=== PATIENT | female | born 1950 | race Caucasian/White ===

== ENCOUNTER 2022-09-26 16:32 | Emergency (ER) | payer BC, SELFPAY ==
[2022-09-26] VITALS (16 sets, daily range): BP systolic 122–136; BP diastolic 61–83; PULSE 74–166; TEMP 36.1; O2SAT 93–98; BMI 29.5
--- NOTE | 2022-09-26 16:51 | CRLHL7_ITS ---
For Patients: As a result of the Cures Act, medical imaging exams and procedure reports are released immediately into your electronic medical record. You may view this report before your referring provider. If you have questions, please contact your health care provider. INDICATION: Short of breath. TECHNIQUE: Chest 2 views. COMPARISON: None. FINDINGS: No focal consolidation, pleural effusion, or pneumothorax. Opacity in the right cardiophrenic angle likely related to a cardiac fat pad. Linear atelectasis or scarring left lung base. Normal heart size and pulmonary vascularity. Surgical clips right upper quadrant. Mild degenerative changes of the spine. IMPRESSION: No acute cardiopulmonary findings. Dictated by Maricarmen Cornelius MD @ 09/26/2022 6:26:54 PM (Electronically Signed)
[2022-09-26] MEDS: 0.9 % SODIUM CHLORIDE 1000 ml 1,000 ML IV (17:11)
[2022-09-26 17:23] LABS: Basophils Absolute Auto 0.04 K/uL (0.00-0.30); Basophils Percent Auto 0.7 % (0.0-3.0); Eosinophils Absolute Auto 0.13 K/uL (0.00-0.50); Eosinophils Percent Auto 2.2 % (0.0-7.0); Hematocrit 43.8 % (33.0-51.0); Hemoglobin* 14.9 gm/dL (12.0-16.0); Immature Granulocytes Abs Auto 0.04 K/uL (0.00-0.30); Immature Granulocytes Pct Auto 0.7 %; Lymphocytes Absolute Auto 2.38 K/uL (0.90-2.90); Lymphocytes Percent Auto 39.4 % (20-44); Mean Corpuscular HGB Conc 34 gm/dL (32-36); Mean Corpuscular Hemoglobin 30 pg (26-34); Mean Corpuscular Volume 88 fL (80-100); Monocytes Percent Auto 11.4 % (0.0-11.0); Neutrophils Absolute Auto 2.76 K/uL (1.7-7.0); Neutrophils Percent Auto 45.6 % (42.0-72.0); Platelet Count* 181 K/uL (140-440); RDW Coefficient of Variation % 13.4 % (11.5-15.5); Red Blood Count 4.96 m/uL (4.00-5.20); White Blood Count* 6.04 K/uL (4.50-11.00)
[2022-09-26 17:26] LABS: Slide Review Reflex No
[2022-09-26 17:40] LABS: INR 0.88 (0.91-1.10); Prothrombin Time 12.5 Seconds
[2022-09-26 17:41] LABS: Chloride* 109 mmol/L (96-114); Partial Thromboplastin Time* 28 Seconds (23-33); Potassium* 3.6 mmol/L (3.6-5.1); Sodium* 142 mmol/L (135-149)
[2022-09-26 17:43] LABS: Creatinine* 0.6 mg/dL (0.5-1.5); Est. Creatinine Clearance* 52.36; Estimated Glomerular Filt Rate 95 ml/min
[2022-09-26 17:44] LABS: Blood Urea Nitrogen* 21 mg/dL (7-30); Calcium* 9.2 mg/dL (8.4-10.6); Carbon Dioxide* 21 mmol/L (20-32); Glucose* 97 mg/dL (60-115); Magnesium* 2.2 mg/dL (1.5-2.6)
--- NOTE | 2022-09-26 17:46 | ED_ITS ---
HPI - Arrhythmia/Palpitations General Date Seen: 09/26/22 Chief Complaint: Arrhythmia/Palpitations Stated Complaint: Cardiac Tacky Short of Breath Dizzy Time Seen by Provider: 09/26/22 16:43 Source: patient Mode of arrival: ambulatory Limitations: no limitations History of Present Illness HPI narrative: Patient is a 72-year-old female presents here for evaluation of fast heart rate, this started approximately 2 hours ago, she has no chest pain, some mild shortness of breath at this, this came on suddenly, when she was at home not doing anything. She denies any radiation nausea vomiting associated with this no diaphoresis. MD complaint: rapid heart beat and heart racing Onset (ago): hour(s) (2) Associated symptoms: denies other symptoms Related Data Home Medications Medication Instructions Recorded Confirmed dapagliflozin 10 mg tablet mg 09/26/22 (Farxiga) liraglutide (weight loss) 3 mg/0.5 mg subcut 09/26/22 mL (18 mg/3 mL) subcut pen injector (Saxenda) losartan 50 mg-hydrochlorothiazide tab 09/26/22 12.5 mg tablet metformin 500 mg tablet,extended mg PO 09/26/22 release 24 hr pen needle, diabetic 32 gauge x 09/26/22 09/26/22 5/32 (UltiCare Pen Needle) rosuvastatin 5 mg tablet mg 09/26/22 Allergies Allergy/AdvReac Type Severity Reaction Status Date / Time iodine Allergy Severe Verified 09/26/22 16:42 Review of Systems Status of ROS: Reports: 10 or more systems reviewed and unremarkable except as noted in History and below PFSH PFSH Social History Smoking Status: Smoker, status unknown Do you use any of these nicotine containing products: None Second hand tobacco smoke exposure: No How often do you have a drink containing alcohol: never How often do you have six or more drinks on one occasion: Never AUDIT-C Alcohol total score: 0 Non-prescribed substance use: denies use service: No Exam Narrative: Exam Narrative: Patient is initially seen in the hallway, her pupils are equal round reactive to light she is speaking to me normally, her heart rate varies between 150 and 180, she appears to be in atrial fibrillation. On our monitor. Pupils are equal round reactive to light, there is no scleral icterus redness, her TMs are normal, her neck is supple, her chest is clear bilaterally no wheezing crackles noted, heart sounds no clicks murmurs or gallops, her abdomen is soft, no guarding, no tenderness, no organomegaly, and normal bowel sounds are extremity show mild pitting edema 1+ in the lower extremity she moves all extremities independently and well. Const: Vital Signs, click to edit/add: Vital Signs - 24 hr 09/26/22 16:40 09/26/22 17:05 09/26/22 17:31 Temperature 96.9 F L Pulse Rate 96 Pulse Rate [Pulse Oximeter] 166 H Blood Pressure 128/83 Blood Pressure [Ri ght Upper Arm] 136/80 Pulse Oximetry 96 93 Oxygen Delivery Me thod Room Air 09/26/22 17:32 09/26/22 17:45 09/26/22 18:00 Temperature Pulse Rate 89 89 81 Pulse Rate [Pulse Oximeter] Blood Pressure 126/71 Blood Pressure [Ri ght Upper Arm] Pulse Oximetry 95 96 95 Oxygen Delivery Me thod 09/26/22 18:02 09/26/22 18:15 09/26/22 18:30 Temperature Pulse Rate 84 80 78 Pulse Rate [Pulse Oximeter] Blood Pressure 123/63 Blood Pressure [Ri ght Upper Arm] Pulse Oximetry 96 95 96 Oxygen Delivery Me thod 09/26/22 18:32 09/26/22 18:45 09/26/22 19:00 Temperature Pulse Rate 76 77 83 Pulse Rate [Pulse Oximeter] Blood Pressure 122/62 Blood Pressure [Ri ght Upper Arm] Pulse Oximetry 95 96 95 Oxygen Delivery Me thod 09/26/22 19:15 09/26/22 19:30 09/26/22 19:32 Temperature Pulse Rate 74 74 75 Pulse Rate [Pulse Oximeter] Blood Pressure 126/61 Blood Pressure [Ri ght Upper Arm] Pulse Oximetry 97 98 98 Oxygen Delivery Me thod 09/26/22 19:45 Temperature Pulse Rate 75 Pulse Rate [Pulse Oximeter] Blood Pressure Blood Pressure [Ri ght Upper Arm] Pulse Oximetry 98 Oxygen Delivery Me thod Documenting provider has reviewed patient's vital signs: yes Course Course Hospital Course: Discussed with the patient, we should repeat her troponin, in her EKG if these are normal, then I think we can let her go home with fluids, and rest, she was asking if she should continue her medications including liraglutide and the farxiga. I think it is reasonable to continue the Farxiga, her blood pressures been excellent here but she will need follow-up for this to see if she needs to go back on her losartan-hydrochlorothiazide. Reevaluation(s) Reevaluation #1: Follow-up troponins are negative, she has not had Ali, she remains in sinus rhythm, I think we can discharge her home at this point. Time: 20:01 Vital Signs Vital signs: Initial Vital Signs Temperature 96.9 F L 09/26/22 16:40 Temperature Source Temporal Artery Scan 09/26/22 16:40 Pulse Rate 166 H 09/26/22 16:40 Pulse Rhythm 09/26/22 16:40 Blood Pressure 136/80 09/26/22 16:40 Blood Pressure Mean 98 09/26/22 16:40 Blood Pressure Position Sitting 09/26/22 16:40 Pulse Oximetry 96 09/26/22 16:40 Oxygen Delivery Method 09/26/22 16:40 Vital Signs Temperature 96.9 F L 09/26/22 16:40 Pulse Rate 166 H 09/26/22 16:40 Blood Pressure 136/80 09/26/22 16:40 Pulse Oximetry 96 09/26/22 16:40 Oxygen Delivery Method 09/26/22 16:40 Temperature 96.9 F L 09/26/22 16:40 Pulse Rate 75 09/26/22 19:45 Blood Pressure 126/61 09/26/22 19:32 Pulse Oximetry 98 09/26/22 19:45 Oxygen Delivery Method 09/26/22 16:40 MDM - Arrhythmia/Palpitations MDM Narrative Medical decision making narrative: Differential diagnosis includes but is not limited to psychosocial stress, thyroid abnormalities, CHF, SVT, atrial fibrillation, ventricular tachycardia and ventricular fibrillation. This includes the life-threatening complications of heart failure, V-tach, and VFib Differential Diagnosis Differential diagnosis: Likely palpitations Medical Records Attestation: I reviewed the patient's medical records. Lab Data Attestation: I reviewed the patient's lab results. Labs: Lab Results 09/26/22 09/26/22 09/26/22 Range/Units 17:06 17:06 17:06 WBC 6.04 (4.50-11.00) K/uL RBC 4.96 (4.00-5.20) m/uL Hgb 14.9 (12.0-16.0) gm/dL Hct 43.8 (33.0-51.0) % MCV 88 (80-100) fL MCH 30 (26-34) pg MCHC 34 (32-36) gm/dL RDW Coeff of Greg 13.4 (11.5-15.5) % Plt Count 181 (140-440) K/uL Neut % (Auto) 45.6 (42.0-72.0) % Lymph % (Auto) 39.4 (20-44) % [place] % (Auto) 11.4 H (0.0-11.0) % Eos % (Auto) 2.2 (0.0-7.0) % Baso % (Auto) 0.7 (0.0-3.0) % Neut # (Auto) 2.76 (1.7-7.0) K/uL Lymph # (Auto) 2.38 (0.90-2.90) K/uL [place] # (Auto) 0.70 (0.00-0.90) K/UL Eos # (Auto) 0.13 (0.00-0.50) K/uL Baso # (Auto) 0.04 (0.00-0.30) K/uL INR (0.91-1.10) APTT (23-33) Seconds Sodium 142 (135-149) mmol/L Potassium 3.6 (3.6-5.1) mmol/L Chloride 109 (96-114) mmol/L Carbon Dioxide 21 (20-32) mmol/L BUN 21 (7-30) mg/dL Creatinine 0.6 (0.5-1.5) mg/dL Estimated Creat Clear 52.36 Estimated GFR 95 ml/min Glucose 97 (60-115) mg/dL Calcium 9.2 (8.4-10.6) mg/dL Magnesium 2.2 (1.5-2.6) mg/dL NT-Pro-B Natriuret Pep 119 pg/mL SARS-CoV-2 (PCR) Negative SARS-CoV-2 (Negative) Influenza Type A (PCR) Negative PCR FLU A (Negative) Influenza Type B (PCR) Negative PCR FLU B (Negative) RSV (PCR) Negative PCR RSV (Negative) POC Troponin I (0.01-0.04) ng/ml 09/26/22 09/26/22 09/26/22 Range/Units 17:06 17:06 19:11 WBC (4.50-11.00) K/uL RBC (4.00-5.20) m/uL Hgb (12.0-16.0) gm/dL Hct (33.0-51.0) % MCV (80-100) fL MCH (26-34) pg MCHC (32-36) gm/dL RDW Coeff of Greg (11.5-15.5) % Plt Count (140-440) K/uL Neut % (Auto) (42.0-72.0) % Lymph % (Auto) (20-44) % [place] % (Auto) (0.0-11.0) % Eos % (Auto) (0.0-7.0) % Baso % (Auto) (0.0-3.0) % Neut # (Auto) (1.7-7.0) K/uL Lymph # (Auto) (0.90-2.90) K/uL [place] # (Auto) (0.00-0.90) K/UL Eos # (Auto) (0.00-0.50) K/uL Baso # (Auto) (0.00-0.30) K/uL INR 0.88 L (0.91-1.10) APTT 28 (23-33) Seconds Sodium (135-149) mmol/L Potassium (3.6-5.1) mmol/L Chloride (96-114) mmol/L Carbon Dioxide (20-32) mmol/L BUN (7-30) mg/dL Creatinine (0.5-1.5) mg/dL Estimated Creat Clear Estimated GFR ml/min Glucose (60-115) mg/dL Calcium (8.4-10.6) mg/dL Magnesium (1.5-2.6) mg/dL NT-Pro-B Natriuret Pep pg/mL SARS-CoV-2 (PCR) (Negative) Influenza Type A (PCR) (Negative) Influenza Type B (PCR) (Negative) RSV (PCR) (Negative) POC Troponin I 0.00 L 0.01 (0.01-0.04) ng/ml Imaging Data Chest x-ray: Attestation: I have reviewed the pertinent imaging results. My impression: Negative chest x-ray Radiologist's impression: Patient: RON ARORA Facility:?[facility] Patient ID:?[id number] Site Patient ID:?[id number] Site :?[id number] Study:?XRay Chest 2 VIEW-09/26/2022 5:38:48 PM Ordering Physician:Lani Hanks Final Report: INDICATION: Short of breath. TECHNIQUE: Chest 2 views. COMPARISON: None. FINDINGS: No focal consolidation, pleural effusion, or pneumothorax. Opacity in the right cardiophrenic angle likely related to a cardiac fat pad. Linear atelectasis or scarring left lung base. Normal heart size and pulmonary vascularity. Surgical clips right upper quadrant. Mild degenerative changes of the spine. IMPRESSION: No acute cardiopulmonary findings. Dictated by Maricarmen Cornelius MD @ 09/26/ ECG Data Attestation: I personally reviewed and interpreted this ECG as follows: Interpretation: EKG shows atrial fibrillation that converted to normal sinus rhythm we were able to catch this with the EKG, follow-up EKG is otherwise normal, Discharge Plan Discharge Clinical Impression: Atrial fibrillation Patient Disposition: Home, Self-Care Condition: Stable Instructions: A-fib (Atrial Fibrillation) (ED) Additional Instructions: Home rest and use of fluids, I would hold on the use of the liraglutide till Thursday, please call your family physician to discuss her medications with him. Return if increasing heart rate, chest pain, shortness of breath. Prescriptions: No Action losartan-hydrochlorothiazide 50-12.5 mg tablet Label Comments: TAKE ONE TABLET BY MOUTH ONCE DAILY metformin 500 mg tablet extended release 24 hr PO Label Comments: TAKE 4 TABLETS (2,000 MG) BY MOUTH ONCE DAILY WITH EVENING MEAL. rosuvastatin 5 mg tablet Label Comments: TAKE 1 TABLET (5 MG) BY MOUTH AT BEDTIME. (DME) pen needle, diabetic [UltiCare Pen Needle] 32 gauge x 5/32 needle MISCELLANEOUS Label Comments: DIRECTED. Farxiga 10 mg tablet Saxenda 3 mg/0.5 mL (18 mg/3 mL) pen injector SUBCUT Label Comments: PLEASE SEE ATTACHED FOR DETAILED DIRECTIONS Follow Up/Referrals: Siobhan Easley MD [Primary Care Provider] - Stand Alone Forms: [facility] Info Instructions
[2022-09-26 18:00] LABS: PCR FLU A Negative PCR FLU A (Negative); PCR FLU B Negative PCR FLU B (Negative); PCR RSV Negative PCR RSV (Negative)
[2022-09-26 18:12] LABS: NT Pro B Type NatriureticPept* 119 pg/mL
[2022-09-26 18:15] LABS: SARS PCR* Negative SARS-CoV-2 (Negative)
[2022-09-26 19:23] LABS: Troponin, Point-of-Care* 0.01 ng/ml (0.01-0.04)
== END 2022-09-26 20:07 | disposition home or self-care (01) ==
PROVIDERS: Emergency Provider Family Medicine; PCP Family Medicine
DX: I48.91 Unspecified atrial fibrillation (principal)
CPT/HCPCS: 36415; 71046; 80048; 83735; 83880; 84484; 85025; 85610; 85730; 87502; 87634; 87635; 93005; 99284; J7030

== ENCOUNTER 2024-10-20 12:54 | Emergency (ER) | payer BC, SELFPAY ==
[2024-10-20 12:59] VITALS: BP 169/83; PULSE 74; RESP 16; TEMP 36.8; O2SAT 96; BMI 25.3
--- NOTE | 2024-10-20 13:56 | ED_ITS ---
HPI - General Adult General Chief complaint: Syncope/Fainted Stated complaint: Close to fainting while driving Time Seen by Provider: 10/20/24 13:26 History of Present Illness HPI narrative: This 74-year-old female comes in because of a near syncopal episode that occurred just prior to arrival. She was driving when she began to feel lightheaded and states that she almost blacked out. She was able to pull the car over and her symptoms resolved. Since then she has been feeling normal. She states that she had an episode about a month ago where she was hearing her heart rate in her right ear because of some middle ear issues. She was sitting again at that time and noticed that her heart was pounding fast. She began to feel some lightheadedness somewhat similar to what occurred today. She was wearing a smart watch that showed a heart rate of about 170 beats per minute. She connected with her primary physician who stated that she should have a heart monitor if symptoms like this are recurrent. The patient arrives here currently with normal vital signs and states that she feels back to normal. Related Data Home Medications ?Medication ?Instructions ?Recorded ?Confirmed dapagliflozin propanediol 10 mg mg 09/26/22 08/01/24 tablet (Farxiga) pen needle, diabetic 32 gauge x 09/26/22 09/26/22 (UltiCare Pen Needle) rosuvastatin 5 mg tablet mg 09/26/22 08/01/24 apixaban 5 mg tablet (Eliquis) 5 mg PO BID 08/01/24 10/20/24 cyclobenzaprine 10 mg tablet 5 - 10 mg PO 3XD PRN muscle spasm 08/01/24 08/01/24 dorzolamide 2 % eye drops 1 drp ophthalmic (eye) 3XD 08/01/24 08/01/24 fluorouracil 5 % topical cream applic topical QPM 08/01/24 08/01/24 mecobalamin (vitamin B12) 1,000 1,000 mcg PO QDAY 08/01/24 08/01/24 mcg lozenges semaglutide (weight loss) 2.4 mg subcut 08/01/24 08/01/24 mg/0.75 mL subcutaneous pen injector (Fashism) losartan 25 mg tablet mg 10/20/24 Allergies Allergy/AdvReac Type Severity Reaction Status Date / Time iodine Allergy Severe Verified 09/26/22 16:42 Iodinated Contrast Media Allergy Unknown Verified 10/20/24 13:06 latex Allergy Verified 08/01/24 08:32 Review of Systems Status of ROS: Reports: 10 or more systems reviewed and unremarkable except as noted in History and below Narrative: Constitutional: No fevers, no weight gain or loss. Eyes: No discharge. No vision changes. HENT: No congestion, no sore throat, no ear pain. Cardiovascular: No chest pain, no palpitations. Respiratory: No shortness of breath, no wheezes, no cough. Gastrointestinal: No abdominal pain, no vomiting, no diarrhea. Genitourinary: No dysuria, no hematuria. Musculoskeletal: Normal range of motion. Skin: No rashes, no pruritis. Neurological: No weakness, sensory change, speech change. Endo/Heme/Allergies: No bruising or bleeding. No polydipsia. Pysch: no suicidality, no anxiety, no insomnia. All other systems reviewed and are negative. [facility] Social History Smoking Status: Smoker, status unknown Do you use any of these nicotine containing products: None Second hand tobacco smoke exposure: No How often do you have a drink containing alcohol: never How often do you have six or more drinks on one occasion: Never AUDIT-C Alcohol total score: 0 Non-prescribed substance use: denies use service: No Exam Narrative: Exam Narrative: Constitutional: Well-developed, well-nourished, no acute distress. HEENT: Normocephalic, atraumatic. Neck: Normal range of motion. Nontender. Supple. Heart: Regular. No murmurs. Normal rate. Intact distal pulses. Lungs: Clear to auscultation. No chest discomfort. No wheezes, rhonchi, or rales. Abdomen: Normal bowel sounds. Nontender. No rebound tenderness. Genitalia: Deferred. Back: No midline tenderness. Normal range of motion. Extremities: Normal range of motion. No injury. Skin: Intact. No rash. Warm. No erythema or pallor. Neurologic: No altered sensation. No weakness. Alert and oriented. Psychiatric: No suicidality. No anxiety or depression. No insomnia. Nursing notes and vitals signs are reviewed. Const: Vital Signs, click to edit/add: Vital Signs - 24 hr 10/20/24 12:59 Temperature 98.3 F Pulse Rate [Pulse Oximeter] 74 Respiratory Rate 16 Blood Pressure [Ri ght Upper Arm] 169/83 H Pulse Oximetry 96 Oxygen Delivery Me thod Room Air Course Vital Signs Vital signs: Initial Vital Signs Temperature 98.3 F 10/20/24 12:59 Temperature Source Temporal Artery Scan 10/20/24 12:59 Pulse Rate 74 10/20/24 12:59 Respiratory Rate 16 10/20/24 12:59 Blood Pressure 169/83 H 10/20/24 12:59 Blood Pressure Mean 111 H 10/20/24 12:59 Blood Pressure Position Sitting 10/20/24 12:59 Pulse Oximetry 96 10/20/24 12:59 Oxygen Delivery Method Room Air 10/20/24 12:59 Vital Signs Temperature 98.3 F 10/20/24 12:59 Pulse Rate 74 10/20/24 12:59 Respiratory Rate 16 10/20/24 12:59 Blood Pressure 169/83 H 10/20/24 12:59 Pulse Oximetry 96 10/20/24 12:59 Oxygen Delivery Method Room Air 10/20/24 12:59 Temperature 98.3 F 10/20/24 12:59 Pulse Rate 74 10/20/24 12:59 Respiratory Rate 16 10/20/24 12:59 Blood Pressure 169/83 H 10/20/24 12:59 Pulse Oximetry 96 10/20/24 12:59 Oxygen Delivery Method Room Air 10/20/24 12:59 Medical Decision Making MDM Narrative Medical decision making narrative: This patient comes in with a near syncopal episode as described above. She had a similar symptom about a month ago and at that time was noted to have a rapid heart rate related to her symptoms. Her description of events today and previously are suspicious for supraventricular tachycardia however this has not been captured on a rhythm strip. Currently she feels back to normal and has normal vital signs. I did state that we typically do EKG and labs. I also stated that often we do not find a direct cause for these symptoms which have now resolved. The patient is interested in having a heart monitor and declined any EKG or lab studies today. She was fitted for a Zio patch and will follow-up with her primary physician. Discharge Plan Discharge Clinical Impression: Near syncope Patient Disposition: Home, Self-Care Condition: Improved Additional Instructions: Where Zio patch as instructed. Follow-up with primary physician for ongoing management. Return if worsening. Prescriptions: No Action Wegovy 2.4 mg/0.75 mL pen injector subcut Eliquis 5 mg tablet 5 mg PO BID dorzolamide 2 % drops 1 drp ophthalmic (eye) 3XD fluorouracil 5 % cream topical QPM cyclobenzaprine 10 mg tablet 5 - 10 mg PO 3XD PRN (Reason: muscle spasm) mecobalamin (vitamin B12) 1,000 mcg lozenge 1,000 mcg PO QDAY Rx Instructions: allow to dissolve in mouth OR may chew lightly before swallowing rosuvastatin 5 mg tablet Patient Comments: TAKE 1 TABLET (5 MG) BY MOUTH AT BEDTIME. (DME) pen needle, diabetic [UltiCare Pen Needle] 32 gauge x 5/32 needle MISCELLANEOUS Patient Comments: DIRECTED. Farxiga 10 mg tablet losartan 25 mg tablet Patient Comments: TAKE ONE-HALF TABLET (12.5 MG) BY MOUTH DAILY. Follow Up/Referrals: Siobhan Easley MD [Primary Care Provider] - Stand Alone [facility]
--- OUTSIDE RECORDS SUMMARY | 2024-10-20 14:03 | XMS_ITS | Encounter Summary ---
Author Organization [facility] Address [address] [place] [address] Care Team Providers Care Correctional Agency Director Name Role Phone Siobhan Easley Primary Care Provider [phone] Santiago Luz MD Unavailable [phone] Silvio Fish Unavailable [phone] Eduin Miguel MD Unavailable [phone] Lorie Tapia OD Unavailable Eduin Miguel MD Unavailable Frieda Byrd MD Unavailable [phone] Ava Up RN Unavailable [phone] Isabella Benavidez RN Unavailable Angelita Zamora RN Unavailable Raisa Contreras MD Unavailable Frieda Byrd MD Unavailable Victoria Mills RN Unavailable [phone] Rj De La Rosa MD Unavailable [phone] Mann Lock MD Unavailable Stefanie De Jesus RN Unavailable [phone] Licha Luz DO Unavailable [phone] Licha Luz DO Unavailable [phone] Reji Mack MD Unavailable [phone] Mann Lock MD Unavailable [phone] Licha Luz DO Unavailable [phone] Stefanie De Jesus RN Unavailable [phone] Mary Jane Lancaster PA-C Unavailable [phone] Tay Hernandez MD Unavailable [phone] Leonarda Ocasio LPN Unavailable Unavailable July Saucedo MD Unavailable [phone] Tay Hernandez MD Unavailable [phone] Tay Hernandez MD Unavailable [phone] Encounter Details Date Type Department Care Team (Late st Contact Info) Description 03/11/[address] [facility] Neurology [address] [place] [address] Papi Gee MD [address] [place] [address] [id number] [address] Social History Tobacco Use Types Packs/Day Years Used Date Smoking Tobacco: Former Cigarettes 2 10 1 09/10/1966 - 07/10/1977 Smokeless Tobacco: Never Alcohol Use Standard Drinks/Week Comments Yes 0 (1 standard drink = 0.6 oz pur e alcohol) 1 Martini every night. 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 Scott: Please thank her for pointing out the deficiency. Fortunately, knowing what we know now from the other lab tests and EMG we do not need to obtain aldolase and serum IF. Please encourage her to continue the vision work up as planned by her opthomologist. Spoke with patient and informed her of Dr. Scott's input above. She is scheduled to see Dr. Luz next week. No further questions per patient. * Telephone Encounter - Papi Gee MD - 03/11/2018 6:33 PM CDT I called Ms Bowles. Dr Scott ordered aldolase and ARUN. She noted visual loss in August and has seen her eye doctor several times, who referred her to a retina specialist and most recently to Dr Luz for further evaluation of a visual field cut. She read that ARUN might find something that could cause eye disease and wanted to know if it was not drawn because Dr Scott changed his mind or becauseof an oversight. I indicated that we could have it drawn now or she could wait until Dr Scott returns and see what he says. I suspect he does not feel the need to do this at this point. She will waituntil he returns. She understands that she will likely hear back from Ciara or Che after they speak with him. * Telephone Encounter - Papi Gee MD - 03/11/2018 6:32 PM CDT ----- Message from Rachel Marques LPN sent at 03/11/2018 12:24 PM CDT ----- Regarding: FW: call ----- Message ----- From: Annabelle Luz CMA Sent: 03/11/2018 8:32 AM To: Rachel Marques LPN Subject: call Caller: Claudia Relationship to Patient: self Call Back Number: [phone] Reason for Call: pt notice since she has seen him, she has been loosing her vision. Pt notice some of her test is not in mychart yet. documented in this encounter Plan of Treatment Upcoming Encounters Date Type Department Care Team (Late st Contact Info) Description 11/22/2024 10:00 AM CDT Lab [address] NAV[place]O 200 [facility] [place] [address] Tay Hernandez MD [address] [place] [address] 01/11/2025 10:30 AM CDT Office Visit [facility] - [facility] 516 [facility] SE 9 Fl Clin 9A [place] [address] Mann Lock MD [address] [place] [address] 05/23/2025 10:00 AM CDT Lab [address] NAVARRO 200 [facility] [place] [address] Tay Hernandez MD [address] [place] [address] 06/01/2025 2:00 PM CDT Oncology Visit [facility] 909 [place] [address] Tay Hernandez MD [address] [place] [address] documented as of this encounter Visit Diagnoses Not on filedocumented in this encounter Care Teams Correctional Agency Director Relationship Specialty Start Date End Date Siobhan Easley [address] [place] [address] PCP - General Family Practice 06/08/17 Santiago Luz MD [address] [place] [address] Ophthalmology 03/11/18 Silvio Fish [facility] 2019 [facility] [place] [address] Referring Physician Ophthalmology 03/11/18 Eduin Miguel MD [address] [place] [address] 127405 Ophthalmology 08/18/18 Lorie Tapia OD [address] [place] [address] Optometry 12/20/18 Eduin Miguel MD [address] [place] [address] [id number] Assigned Surgical Provider 06/01/20 04/20/21 Frieda Byrd MD [address] [place] [address] Assigned Rheumatology Provider 03/10/21 11/21/22 Ava Up, RN Specialty Grinding Room Inspector Cardiology 04/22/21 04/29/21 Isabella Benavidez, RN Specialty Grinding Room Inspector Cardiology 04/22/21 04/29/21 Angelita Zamora, SAHIL Specialty Grinding Room Inspector Cardiology 04/22/21 04/29/21 Raisa Contreras MD [address] [place] [address] Otolaryngology 04/24/21 Frieda Byrd MD [address] [place] [address] 902115 Rheumatology 04/24/21 Victoria Mills, SAHIL Specialty Grinding Room Inspector Cardiology 04/30/21 05/22/24 Rj De La Rosa MD Assigned Heart and Vascular Provider 04/28/21 06/26/23 Mann Lock MD [address] [place] [address] Assigned Surgical Provider 04/21/21 Stefanie De Jesus RN Registered Nurse 06/05/21 05/29/23 Licha Luz DO Hematology & Oncology 07/01/21 05/15/24 Licha Luz DO Referring Physician Hematology & Oncology 07/01/2105/15/24 Reji Mack MD [address] [place] [address] 636925 Otolaryngology 07/01/21 Mann Lock MD [address] [place] [address] 806985 Ophthalmology 07/02/21 [place] [address] [place] [address] Assigned Cancer Care Provider 06/16/21 01/30/24 Stefanie De Jesus, SAHIL Specialty Grinding Room Inspector Hematology & Oncology 05/30/23 05/15/24 Mary Jane Lancaster PA-C [address] [address] Assigned Cancer Care Provider 01/31/24 07/01/24 Tay Hernandez MD [address] [address] Hematology 05/16/24 Leonarda Ocasio LPN Specialty Grinding Room Inspector Hematology & Oncology 05/18/24 July Saucedo MD 515 [place] [address] Assigned Neuroscience Provider 06/01/24 Tay Hernandez MD [address] [address] Assigned Cancer Care Provider 07/02/24 Tay Hernandez MD [address] [address] Physician Hematology 10/07/24 documented as of this encounter
--- OUTSIDE RECORDS SUMMARY | 2024-10-20 14:03 | XMS_ITS | Encounter Summary ---
Author Organization [facility] Address [address] [place] [address]. [place] [address] Care Team Providers Care Tire Buster Name Role Phone Siobhan Easley Primary Care Provider [phone] Santiago Luz MD Unavailable [phone] Silvio Fish Unavailable [phone] Eduin Miguel MD Unavailable [phone] Lorie Tapia OD Unavailable Raisa Contreras MD Unavailable Frieda Byrd MD Unavailable Mann Lock MD Unavailable [phone] Reji Mack MD Unavailable [phone] Mann Lock MD Unavailable [phone] Tay Hernandez MD Unavailable [phone] Leonarda Ocasio LPN Unavailable Unavailable July Saucedo MD Unavailable [phone] Tay Hernandez MD Unavailable [phone] Encounter Details Date Type Department Care Team (Latest Contact Info) Description 09/20/2024 Travel Social History Tobacco Use Types Packs/Day Years Used Date Smoking Tobacco: Former Cigarettes 2 10 1 09/10/1966 - 07/10/1977 Smokeless Tobacco: Never Alcohol Use Standard Drinks/Week Comments Yes 0 (1 standard drink = 0.6 oz pur e alcohol) 2 drinks every evening Humiliation, Afraid, Rape, and Kick questionnair e Answer Date Recorded Within the last year, have y ou been afraid of your partner or ex-partner? No 05/28/2022 Within the last year, have y ou been humiliated or emotionally abused in other ways by your partner or ex-partner? No Within the last year, have y ou been kicked, hit, slapped, or otherwise physically hurt by your partner or ex-partner? No 05/28/2022 Within the last year, have y ou been raped or forced to have any kind of sexual activity by your partner or ex-partner? 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 Gender Identity Female 04/11/2021 7:42 AM CDT Sexual Orientation Straight 04/11/2021 7: 42 AM CDT documented as of this encounter Plan of Treatment Upcoming Encounters Date Type Department Care Team (Late st Contact Info) Description 11/22/2024 10:00 AM CDT Lab [address] [place] 200 [facility] [place] [address] Tay Hernandez MD 420 [facility] 480 [place], [place] 479735 01/11/2025 10:30 AM CDT Office Visit [facility] - [place] [id number] [facility] 9th Al Clin 9A [place] [address] Mann Lock MD [address] [place] [address] 05/23/2025 10:00 AM CDT Lab [facility] [place] [address] [place] 200 [facility] [place] [address] Tay Hernandez MD 420 [facility] 480 [place], [place] [address]635 06/01/2025 2:00 PM CDT Oncology Visit [facility] 909 [place] [address] Tay Hernandez MD 420 [facility] 480 [place], [place] [address] documented as of this encounter Visit Diagnoses Not on filedocumented in this encounter Additional Health Concerns Assessment Noted Time PHQ-9 Depression Total Score: 10 021 7:28 AM ANIMAL CONTROL OFFICER documented as of this encounter Care Teams Tire Buster Relationship Specialty Start Date End Date Siobhan Easley [address] [place] [address] PCP - General Family Practice 06/08/17 Santiago Luz MD [address] [place] [address] Ophthalmology 03/11/18 Silvio Fish [facility] [address] [place] [address] Referring Physician Ophthalmology 03/11/18 Eduin Miguel MD 420 [place], [place] 500505 Ophthalmology 08/18/18 Lorie Tapia OD [address] [address] Optometry 12/20/18 Raisa Contreras MD 909 [place], [place] 115565 Otolaryngology 04/24/21 Frieda Byrd MD 500 [place], [place] 156665 Rheumatology 04/24/21 Mann Lock MD [address] [place] [address] 215485 Assigned Surgical Provider 04/21/21 Reji Mack MD 500 [place], [place] 784085 Otolaryngology 07/01/21 Mann Lock MD [address] [place] [address] 654665 Ophthalmology 07/02/21 Tay Hernandez MD 420 [facility] 480 [place], [place] 719905 Hematology 05/16/24 Leonarda Ocasio LPN Specialty Cyanide Pot Hardener Hematology & Oncology 05/18/24 July Saucedo MD 515 [place], [place] 788405 Assigned Neuroscience Provider 06/01/24 Tay Hernandez MD 420 [facility] 480 [place], [place] 774175 Assigned Cancer Care Provider 07/02/24 documented as of this encounter
--- OUTSIDE RECORDS SUMMARY | 2024-10-20 14:03 | XMS_ITS | Encounter Summary ---
Author Organization [facility] Address [address] [place] [address] Care Team Providers Care Hard Metals Engraver Hand Name Role Phone Siobhan Easley Primary Care Provider Santiago Luz MD Unavailable [phone] Silvio Fish Unavailable [phone] Eduin Miguel MD Unavailable Lorie Tapia OD Unavailable [phone] Frieda Byrd MD Unavailable Raisa Contreras MD Unavailable Frieda Byrd MD Unavailable Victoria Mills RN Unavailable [phone] Rj De La Rosa MD Unavailable Mann Lock MD Unavailable [phone] tSefanie De Jesus RN Unavailable [phone] Licha Luz DO Unavailable Licha Luz DO Unavailable [phone] Reji Mack MD Unavailable [phone] Mann Lock MD Unavailable Licha Luz DO Unavailable [phone] LizaJusticea RN Unavailable [phone] Mary Jane Lancaster PA-C Unavailable [phone] Tay Hernandez MD Unavailable [phone] Leonarda Ocasio LPN Unavailable Unavailable July Saucedo MD Unavailable [phone] Tay Hernandez MD Unavailable [phone] Tay Hernandez MD Unavailable [phone] Encounter Details Date Type Department Care Team (Late Contact Info) Description 06/28/2021 MyC Medical Advice [facility] [address] Wa Clin 9A [place] [phone] Mann Lock MD [address] [place] [address] Social History Tobacco Use Types Packs/Day Years Used Date Smoking Tobacco: Former Cigarettes 2 10 1 09/10/1966 - 07/10/1977 Smokeless Tobacco: Never Alcohol Use Standard Drinks/Week Comments Yes 0 (1 standard drink = 0.6 oz pur e alcohol) 2 drinks every evening PHQ-2 Answer Date Recorded PHQ-2 Score 0 05/15/2021 Comments No Sex and Gender Information Value Date Recorded Sex Assigned at Female 04/11/2021 7:42 AM CDT Legal Sex Female 3:21 AM 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 No / Unsure 07/01/2021 9:19 AM BOX MAKER PAPERBOARD documented as of this encounter Plan of Treatment Upcoming Encounters Date Type Department Care Team (Late Contact Info) Description 11/22/2024 10:00 AM CDT Lab [facility] [place] [address] [place] 200 [facility] [place] [address] Tay Hernandez MD [address] [address] 01/11/2025 10:30 AM CDT Office Visit [facility] - [facility] 516 [facility] 9 Fl Clin 9A [place] [address] Mann Lock MD [address] [place] [address] 05/23/2025 10:00 AM CDT Lab [facility] [address] [place] 200 [facility] [place] [address] Tay Hernandez MD [address] [place] [address] 06/01/2025 2:00 PM CDT Oncology Visit [facility] 909 [place] [address] Tay Hernandez MD [address] [place] [address] documented as of this encounter Visit Diagnoses Not on filedocumented in this encounter Additional Health Concerns Assessment Noted Time PHQ-9 Depression Total Score: 13 021 10:19 AM CDT documented as of this encounter Care Teams Hard Metals Engraver Hand Relationship Specialty Start Date End Date Siobhan Easley [address] [place] [address] PCP - General Family Practice 06/08/17 Santiago Luz MD [address] [place] [address] Ophthalmology 03/11/18 Silvio Fish [facility] [address] [place] [address] Referring Physician Ophthalmology 03/11/18 Eduin Miguel MD 420 [place], [place] 935525 Ophthalmology 08/18/18 Lorie Tapia OD [address] [address] Optometry 12/20/18 Frieda Byrd MD [address] [place] [address] Assigned Rheumatology Provider 03/10/21 11/21/22 Raisa Contreras MD [address] [place] [address] 225495 Otolaryngology 04/24/21 Frieda Byrd MD [address] [place] [address] Rheumatology 04/24/21 Victoria Mills, RN Specialty Mouthpiece Maker Cardiology 04/30/21 05/22/24 Rj De La Rosa MD Assigned Heart and Vascular Provider 04/28/21 06/26/23 Mann Lock MD [address] [place] [address] Assigned Surgical Provider 04/21/21 Stefanie De Jesus RN Registered Nurse 06/05/21 05/29/23 Licha Luz DO Hematology & Oncology 07/01/21 05/15/24 Licha Luz DO Referring Physician Hematology & Oncology 07/01/2105/15/24 Reji Mack MD 500 [place] [address] Otolaryngology 07/01/21 Mann Lock MD [address] [place] [address] Ophthalmology 07/02/21 [place] [address] [place] [address] [address] Assigned Cancer Care Provider 06/16/21 01/30/24 Stefanie De Jesus RN Specialty Mouthpiece Maker Hematology & Oncology 05/30/23 05/15/24 Mary Jane Lancaster PA-C [address] [address] Assigned Cancer Care Provider 01/31/24 07/01/24 Tay Hernandez MD [address] [address] Hematology 05/16/24 Leonarda Ocasio LPN Specialty Mouthpiece Maker Hematology & Oncology 05/18/24 July Saucedo MD [address] [place] [address] Assigned Neuroscience Provider 06/01/24 Tay Hernandez MD [address] 179295 Assigned Cancer Care Provider 07/02/24 Tay Hernandez MD [address] [place] [address] 831685 Physician Hematology 10/07/24 documented as of this encounter
--- OUTSIDE RECORDS SUMMARY | 2024-10-20 14:03 | XMS_ITS | Encounter Summary ---
Author Organization [facility] Address [address] [place] [address] Care Team Providers Care Industrial Maintenance Mechanic Name Role Phone Siobhan Easley Primary Care Provider [phone] Santiago Luz MD Unavailable [phone] Silvio Fish Unavailable Eduin Miguel MD Unavailable Lorie Tapia OD Unavailable Frieda Byrd MD Unavailable Raisa Contreras MD Unavailable Frieda Byrd MD Unavailable Victoria Mills RN Unavailable [phone] Rj De La Rosa MD Unavailable Mann Lock MD Unavailable Stefanie De Jesus RN Unavailable [phone] Licha Luz DO Unavailable [phone] Licha Luz DO Unavailable [phone] eRji Mack MD Unavailable [phone] Mann Lock MD Unavailable Licha Luz DO Unavailable [phone] LizaStefanie RN Unavailable [phone] Mary Jane Lancaster PA-C Unavailable [phone] Tay Hernandez MD Unavailable [phone] Leonarda Ocasio LPN Unavailable Unavailable July Saucedo MD Unavailable [phone] Tay Hernandez MD Unavailable [phone] Tay Hernandez MD Unavailable [phone] Encounter Details Date Type Department Care Team (Late st Contact Info) Description 07/16/2021 [facility] Insurance Verification [place] Social History Tobacco Use Types Packs/Day Years Used Date Smoking Tobacco: Former Cigarettes 2 10 1 09/10/1966 - 07/10/1977 Smokeless Tobacco: Never Alcohol Use Standard Drinks/Week Comments Yes 0 (1 standard drink = 0.6 oz pur e alcohol) 2 drinks every evening PHQ-2 Answer Date Recorded PHQ-2 Score 1 07/17/2021 Comments No Sex and Gender Information Value Date Recorded Sex Assigned at Female 04/11/2021 7:42 AM CDT Legal Sex Female 3:21 AM 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 No / Unsure 07/17/2021 10:52 AM PESTICIDE USE MEDICAL COORDINATOR documented as of this encounter Plan of Treatment Upcoming Encounters Date Type Department Care Team (Late st Contact Info) Description 11/22/2024 10:00 AM CDT Lab [address] [place] 200 [facility] [place] [address] Tay Hernandez MD 420 [facility] 480 [place] [address] 01/11/2025 10:30 AM CDT Office Visit [facility] 516 [facility] SE 9th Fl Clin 9A [place] [address] Mann Lock MD 6 [place] [address] 05/23/2025 10:00 AM CDT Lab [facility] [place] [address] [address] 200 [facility] [place] [address] Tay Hernandez MD 420 [facility] 480 [place], [place] [address]13[address] 06/01/2025 2:00 PM CDT Oncology Visit [facility] 909 [place] [address] Tay Hernandez MD [address] [place] [address] documented as of this encounter Visit Diagnoses Not on filedocumented in this encounter Additional Health Concerns Assessment Noted Time PHQ-9 Depression Total Score: 10 021 7:28 AM PESTICIDE USE MEDICAL COORDINATOR documented as of this encounter Care Teams Industrial Maintenance Mechanic Relationship Specialty Start Date End Date Siobhan Easley [address] [place] [address] PCP - General Family Practice 06/08/17 Santiago Luz MD [address] [address] Ophthalmology 03/11/18 Silvio Fish [facility] [address] [place] [address] Referring Physician Ophthalmology 03/11/18 Eduin Miguel MD 420 [place], [place] 544055 Ophthalmology 08/18/18 Lorie Tapia OD [address] 0448[address] Optometry 12/20/18 Frieda Byrd MD 500 [place] [address] Assigned Rheumatology Provider 03/10/21 11/21/22 Raisa Contreras MD [address] [place] [address] 161395 Otolaryngology 04/24/21 Frieda Byrd MD [address] [place] [address] 214085 Rheumatology 04/24/21 Victoria Mills, SAHIL Specialty Consumer Safety Inspector Cardiology 04/30/21 05/22/24 Rj De La Rosa MD Assigned Heart and Vascular Provider 04/28/21 06/26/23 Mann Lock MD [address] [place] [address] 092435 Assigned Surgical Provider 04/21/21 Stefanie De Jesus, SAHIL Registered Nurse 06/05/21 05/29/23 Licha Luz DO Hematology & Oncology 07/01/21 05/15/24 Licha Luz DO Referring Physician Hematology & Oncology 07/01/2105/15/24 Reji Mack MD [address] [place] [address] 714645 Otolaryngology 07/01/21 Mann Lock MD [address] [place] [address] 904225 Ophthalmology 07/02/21 [place] [address] [facility] [place], [place] 173887 Assigned Cancer Care Provider 06/16/21 01/30/24 Stefanie De Jesus RN Specialty Consumer Safety Inspector Hematology & Oncology 05/30/23 05/15/24 Mary Jane Lancaster PA-C [address] 097985 Assigned Cancer Care Provider 01/31/24 07/01/24 Tya Hernandez MD 420 [facility] 480 [place], [place] 571325 Hematology 05/16/24 Leonarda Ocasio LPN Specialty Consumer Safety Inspector Hematology & Oncology 05/18/24 July Saucedo MD 515 [place], [place] 104185 Assigned Neuroscience Provider 06/01/24 Tay Hernandez MD [address] [address] Assigned Cancer Care Provider 07/02/24 Tay Hernandez MD [address] [place] [address] Physician Hematology 10/07/24 documented as of this encounter
--- OUTSIDE RECORDS SUMMARY | 2024-10-20 14:03 | XMS_ITS | Encounter Summary ---
Author Organization [facility] Address [address] [place] [address]. [place] [address] Care Team Providers Care Dairy Hand Name Role Phone Siobhan Easley Primary Care Provider [phone] Santiago Luz MD Unavailable [phone] Silvio Fish Unavailable [phone] Eduin Miguel MD Unavailable [phone] Lorie Tapia OD Unavailable [phone] Raisa Contreras MD Unavailable Frieda Byrd MD Unavailable [phone] Mann Lock MD Unavailable [phone] Reji Mack MD Unavailable [phone] Mann Lock MD Unavailable Tay Hernandez MD Unavailable [phone] Leonarda Ocasio LPN Unavailable Unavailable July Saucedo MD Unavailable [phone] Tay Hernandez MD Unavailable [phone] Reason for Visit * Reason Comments Uveitis Follow-Up Encounter Details Date Type Department Care Team (Late st Contact Info) Description 09/20/2024 10:00 AM NUTRITION INTERNSHIP Office Visit [place] [address] [facility] SE 9th Fl Clin 9A [place] [address] Mann Lock MD [address] [place] [address] Intermediate uveitis of both eyes (Primary Dx); Ocular hypertension, bilateral Social History Tobacco Use Types Packs/Day Years [...] AM CDT Legal Sex Female 3:21 AM NUTRITION INTERNSHIP Gender Identity Female 04/11/2021 7:42 AM CDT Sexual Orientation Straight 04/11/2021 7: 42 AM CDT documented as of this encounter Patient Instructions * Patient Instructions* Mann Lock MD - 09/20/2024 10:00 AM NUTRITION INTERNSHIP If you end up going to the [facility], you could consider looking to see Dr. Estefani Callejas at [facility] If you end up going to [place], Dr. Rigoberto Jackson at [facility]. For [place], you can look up Dr. Catalina Cast or Dr. Brooklyn Banda Continue Dorzolamide 2-3x/day in each eye (most days twice daily is just fine) No other treatments needed ITION INTERNSHIP ITION INTERNSHIP ITION INTERNSHIP ITION INTERNSHIP documented in this encounter Progress Notes * Mann Lock MD - 09/20/2024 10:00 AM CST Chief Complaint/Presenting Concern: Visual field testing Interval History of Present Ocular Illness: Claudia Bowles is a 74 year old patient who returns for follow up of her uveitis and ocular hypertension. Last visit we elected to increase Dorzolamide. Ms. Bowles has been able to do the drops 3x/day most days. Interval Updates to Medical/Family/Social History: Got another COVID vaccine Exercising regularly Relevant Review of Systems Updates: As above Current eye related medications: Dorzolamide 2-3x/day in each eye Retina/Uveitis Imaging: [facility] September 20, 2024 right eye: Reliable, No defects. VFI 100%MD 0.16dB. Improved left eye: reliable, central and paracentral spots stable, VFI 97% and MD - 2.03dB. Improved Assessment: 1. Intermediate uveitis of both eyes (Primary) No active inflammation 2. Ocular hypertension, bilateral Normal visual field right eye and small changes left eye but improved Plan/Recommendations: Discussed findings with patient.There is no active inflammation on undilated exam. Eye pressure is 17,18 and visual field test is normal right eye and improved left eye. We can monitor on Dorzolamide 2-3x/day in each eye (most days twice daily is just fine) No other treatments needed RTC 4 months tonopen, dilate, OCT and RNFL (Ordered) Physician Attestation Attending Physician Attestation: Complete documentation of historical and exam elements from today's encounter can be found in the full encounter summary report (not reduplicated in this progress note). I personally obtained the chief complaint(s) and history of present illness. I confirmed and edited as necessary the review of systems, past medical/surgical history, family history, social history, and examination findings as documented by others; and I examined the patient myself. I personallyreviewed the relevant tests, images, and reports as documented above. I formulated and edited as necessary the assessment and plan and discussed the findings and management plan with the patient and family members present at the time of this visit. Mann Lock M.D., Uveitis and Medical Retina, September 20, 2024 ITION INTERNSHIP documented in this encounter Nursing Notes * Stephanie Mercedes COA - 09/20/2024 10:00 AM CST Chief Complaints and History of Present Illnesses Patient presents with Follow Up Follow up uveitis Chief Complaint(s) and History of Present Illness(es) Follow Up Laterality: both eyes Associated symptoms: Negative for photophobia and flashes Treatments tried: eye drops Pain scale: 0/10 Comments: Follow up uveitis Comments The patient uses Dorzolamide three times daily. She occasionally forgets the middle of the day dose. She reports unchanged floaters. The patient did have a short course of steroids for chest congestion about a month ago. KIM Anderson COA 9:55 AM 09/20/2024 ITION INTERNSHIP documented in this encounter Plan of Treatment Upcoming Encounters Date Type Department Care Team (Late st Contact Info) Description 11/22/2024 10:[address] [place] 200 [facility] [place] [phone] Tay Hernandez MD 420 [facility] 480 [place], [place] [address] 01/11/2025 10:30 AM CDT Office Visit [facility] 516 [facility] 9th Fl Clin 9A [place] [address] Mann Lock MD [address] [place] [address] 05/23/2025 10:00 AM CDT Lab [facility] [place] [address] [facility] [address] 200 [facility] [place] [address] Tay Hernandez MD 420 [facility] 480 [place], [place] 6[address] 06/01/2025 2:00 PM CDT Oncology Visit [facility] [address] [place] [phone] Tay Hernandez MD [address] [place] [id number] documented as of this encounter Procedures Procedure Name Priority Date/Time Associated Diagnosis Comments OVF 24-2 DYNAMIC OU Routine 09/20/2024 1 1:42 AM NUTRITION INTERNSHIP Ocular hypertension, bilateral documented in this encounter Results * OVF 24-2 Dynamic OU (09/20/2024 11:42 AM NUTRITION INTERNSHIP) Narrative Mann Lock MD - 09/20/2024 11:42 AM NUTRITION INTERNSHIP Performed by: BD . Patient cooperation: Reliable . Good fix, not dilated. Right Eye Reliability of the test: Good . Interpretation: Normal . Plan: Monitor . Interval: Better . Left Eye Reliability of the test: Good . Interpretation: Abnormal . Plan: Monitor . Interval: Better . Notes [facility] September 20, 2024 right eye: Reliable, No defects. VFI 100%MD 0.16dB. Improved left eye: reliable, central and paracentral spots stable, VFI 97% and MD -2.03dB. Improved us Mann Lock MD OPHTHALMOLOGY Final R esult documented in this encounter Visit Diagnoses Diagnosis Intermediate uveitis of both eyes- Primary Ocular hypertension, bilateral Borderline glaucoma with ocular hypertension documented in this encounter Additional Health Concerns Assessment Noted Time PHQ-9 Depression Total Score: 10 021 7:28 AM NUTRITION INTERNSHIP documented as of this encounter Care Teams Dairy Hand Relationship Specialty Start Date End Date Siobhan Easley [address] [place] [address] PCP - General Family Practice 06/08/17 Santiago Luz MD 1400 [place] [address] Ophthalmology 03/11/18 Silvio Fish [facility] 2018 [facility] [place] [address] Referring Physician Ophthalmology 03/11/18 Eduin Miguel MD [address] [place], [place] [address] Ophthalmology 08/18/18 Lorie Tapia OD [address] [address] Optometry 12/20/18 Raisa Contreras MD [address] [place] [address] 933935 Otolaryngology 04/24/21 Frieda Byrd MD [address] [place] [address] 046845 Rheumatology 04/24/21 Mann Lock MD [address] [place] [address] Assigned Surgical Provider 04/21/21 Reji Mack MD [address] [place] [address] Otolaryngology 07/01/21 Mann Lock MD [address] [place] [address] Ophthalmology 07/02/21 Tay Hernandez MD [address] [place] [address] Hematology 05/16/24 Leonarda Ocasio LPN Specialty Triage Licensed Practical Nurse Hematology & Oncology 05/18/24 July Saucedo MD [address] [place] [address] Assigned Neuroscience Provider 06/01/24 Tay Hernandez MD [address] [place] [address] Assigned Cancer Care Provider 07/02/24 documented as of this encounter
--- OUTSIDE RECORDS SUMMARY | 2024-10-20 14:04 | XMS_ITS | Encounter Summary ---
Author Organization [facility] Address [address] [place] [address] Care Team Providers Care Field Collector Name Role Phone Siobhan Easley Primary Care Provider [phone] Santiago Luz MD Unavailable [phone] Silvio Fish Unavailable [phone] Eduin Miguel MD Unavailable Lorie Tapia OD Unavailable Frieda Byrd MD Unavailable Raisa Contreras MD Unavailable Frieda Byrd MD Unavailable Victoria Mills RN Unavailable [phone] Rj De La Rosa MD Unavailable Mann Lock MD Unavailable [phone] Stefanie De Jesus RN Unavailable [phone] Licha Luz DO Unavailable [phone] Licha Luz DO Unavailable [phone] Reji Mack MD Unavailable [phone] Mann Lock MD Unavailable Licha Luz DO Unavailable [phone] LizaStefanie SAHIL Unavailable [phone] Mary Jane Lancaster PA-C Unavailable [phone] Tay Hernandez MD Unavailable [phone] Leonarda Ocasio LPN Unavailable Unavailable July Saucedo MD Unavailable [phone] Tay Hernandez MD Unavailable [phone] Tay Hernandez MD Unavailable [phone] Encounter Details Date Type Department Care Team (Late st Contact Info) Description 07/09/2021 MyC Medical Advice [facility] [address] [address] [facility] Social History Tobacco Use Types Packs/Day Years Used Date Smoking Tobacco: Former Cigarettes 2 10 1 09/10/1966 - 07/10/1977 Smokeless Tobacco: Never Alcohol Use Standard Drinks/Week Comments Yes 0 (1 standard drink = 0.6 oz pur e alcohol) 2 drinks every evening PHQ-2 Answer Date Recorded PHQ-2 Score 4 07/08/2021 Comments No Sex and Gender Information Value Date Recorded Sex Assigned at Female 04/11/2021 7:42 AM CDT Legal Sex Female 3:21 AM POSTDOCTORAL RESEARCH FELLOW Gender Identity Female 04/11/2021 7:42 AM CDT Sexual Orientation Straight 04/11/2021 7: 42 AM CDT COVID-19 Exposure Response Date Recorded In the last month, have you been in contact with someone who was confirmed or suspected to have Coronavirus / COVID-19? No / Unsure 07/10/2021 12:46 PM POSTDOCTORAL RESEARCH FELLOW documented as of this encounter Plan of Treatment Upcoming Encounters Date Type Department Care Team (Late st Contact Info) Description 11/22/2024 10:00 AM CDT Lab [facility] [address] [place] 200 [facility] [place] [address] Tay Hernandez MD [address] [address] 01/11/2025 10:30 AM CDT Office Visit [facility] 516 [facility] SE 9th Fl Clin 9A [place] [address] Mann Lock MD 6 [place] [address] 05/23/2025 10:00 AM CDT Lab [facility] [place] [address] [place] 200 [facility] [place] [address] Tay Hernandez MD 420 [facility] 480 [place] [address] 06/01/2025 2:00 PM CDT Oncology Visit [facility] 909 [place] [address] Tay Hernandez MD [address] [place] [address] 480 [place], [place] 348135 documented as of this encounter Visit Diagnoses Not on filedocumented in this encounter Additional Health Concerns Assessment Noted Time PHQ-9 Depression Total Score: 10 021 7:28 AM POSTDOCTORAL RESEARCH FELLOW documented as of this encounter Care Teams Field Collector Relationship Specialty Start Date End Date Siobhan Easley [address] [place] [address] PCP - General Family Practice 06/08/17 Santiago Luz MD [address] [place] [address] Ophthalmology 03/11/18 Silvio Fish [facility] [address] [address] Referring Physician Ophthalmology 03/11/18 Eduin Miguel MD [address] [place] [address] Ophthalmology 08/18/18 Lorie Tapia OD [address] [place] [address] 845435 Optometry 12/20/18 Frieda Byrd MD [address] [place] [address] 334235 Assigned Rheumatology Provider 03/10/21 11/21/22 Raisa Contreras MD [address] [place] [address] Otolaryngology 04/24/21 Frieda Byrd MD [address] [place] [address] 001115 Rheumatology 04/24/21 Victoria Mills RN Specialty School Laboratory Technician Cardiology 04/30/21 05/22/24 Rj De La Rosa MD Assigned Heart and Vascular Provider 04/28/21 06/26/23 Mann Lock MD [address] [place] [address] 268725 Assigned Surgical Provider 04/21/21 Stefanie De Jesus RN Registered Nurse 06/05/21 05/29/23 Licha Luz DO Hematology & Oncology 07/01/21 05/15/24 Licha Luz DO Referring Physician Hematology & Oncology 07/01/2105/15/24 Reji Mack MD [address] [place] [address] 903725 Otolaryngology 07/01/21 Mann Lock MD [address] [place] [address] 578395 Ophthalmology 07/02/21 [place] [address] [place] [address] [id number] Assigned Cancer Care Provider 06/16/21 01/30/24 Stefanie De Jesus, SAHIL Specialty School Laboratory Technician Hematology & Oncology 05/30/23 05/15/24 Mary Jane Lancaster PA-C 420 [facility] 480 [place] [address] Assigned Cancer Care Provider 01/31/24 07/01/24 Tay Hernandez MD 420 [facility] 480 [place] [address] Hematology 05/16/24 Leonarda Ocasio LPN Specialty School Laboratory Technician Hematology & Oncology 05/18/24 July Saucedo MD 515 [place] [address] Assigned Neuroscience Provider 06/01/24 Tay Hernandez MD [address] 483[address] Assigned Cancer Care Provider 07/02/24 Tay Hernandez MD [address] 217525 Physician Hematology 10/07/24 documented as of this encounter
--- OUTSIDE RECORDS SUMMARY | 2024-10-20 14:04 | XMS_ITS | Encounter Summary ---
Author Organization [facility] Address [address] [place] [address] Care Team Providers Care Cereal Miller Name Role Phone Siobhan Easley Primary Care Provider [phone] Santiago Luz MD Unavailable [phone] Silvio Fish Unavailable [phone] Eduin Miguel MD Unavailable Lorie Tapia OD Unavailable Frieda Byrd MD Unavailable Raisa Contreras MD Unavailable Frieda Byrd MD Unavailable [phone] Victoria Mills RN Unavailable [phone] Rj De La Rosa MD Unavailable Mann Lock MD Unavailable [phone] Stefanie De Jesus RN Unavailable [phone] Licha Luz DO Unavailable [phone] Licha Luz DO Unavailable [phone] Reji Mack MD Unavailable [phone] Mann Lock MD Unavailable Licha Luz DO Unavailable [phone] Stefanie De Jesus RN Unavailable [phone] Mary Jane Lancaster PA-C Unavailable [phone] Tay Hernandez MD Unavailable [phone] Leonarda Ocasio LPN Unavailable Unavailable July Saucedo MD Unavailable [phone] Tay Hernandez MD Unavailable [phone] Tay Hernandez MD Unavailable [phone] Encounter Details Date Type Department Care Team (Late st Contact Info) Description 07/10/2021 MyC Medical Advice [facility] Interventional Radiology [address] [place] [address] Kirby Ramos, RN Social History Tobacco Use Types Packs/Day Years [...] AM CDT Legal Sex Female 3:21 AM GENERAL ENGINEERING TEACHER Gender Identity Female 04/11/2021 7:42 AM CDT Sexual Orientation Straight 04/11/2021 7: 42 AM CDT COVID-19 Exposure Response Date Recorded In the last month, have you been in contact with someone who was confirmed or suspected to have Coronavirus / COVID-19? No / Unsure 07/10/2021 12:46 PM GENERAL ENGINEERING TEACHER documented as of this encounter Plan of Treatment Upcoming Encounters Date Type Department Care Team (Late st Contact Info) Description 11/22/2024 10:00 AM CDT Lab [facility] [address] [place] 200 [facility] [place] [address] Tay Hernandez MD 420 [facility] 480 [place], [place] [address] 01/11/2025 10:30 AM CDT Office Visit [facility] Department 516 [facility] 9th Fl Clin 9A [place] [address] Mann Lock MD 516 [place] [address] 05/23/2025 10:00 AM CDT Lab [facility] [place] [address] [place] 200 [facility] [place] [address] Tay Hernandez MD 420 [facility] 480 [place], [place] [address] 06/01/2025 2:00 PM CDT Oncology Visit [facility] 909 [place] [phone] Tay Hernandez MD 420 [facility] 480 [place], [place] [address] documented as of this encounter Visit Diagnoses Not on filedocumented in this encounter Additional Health Concerns Assessment Noted Time PHQ-9 Depression Total Score: 10 021 7:28 AM GENERAL ENGINEERING TEACHER documented as of this encounter Care Teams Cereal Miller Relationship Specialty Start Date End Date Siobhan Easley [address] [place] [address] PCP - General Family Practice 06/08/17 Santiago Luz MD [address] [place] [address] Ophthalmology 03/11/18 Silvio Fish [facility] [address] [address] Referring Physician Ophthalmology 03/11/18 Eduin Miguel MD 420 [place] [address] Ophthalmology 08/18/18 Lorie Tapia OD [address] [address] Optometry 12/20/18 Frieda Byrd MD [address] [place] [address] 758535 Assigned Rheumatology Provider 03/10/21 11/21/22 Raisa Contreras MD [address] [place] [address] Otolaryngology 04/24/21 Frieda Byrd MD [address] [place] [address] 806395 Rheumatology 04/24/21 Victoria Mills RN Specialty Creasing Machine Operator Cardiology 04/30/21 05/22/24 Rj De La Rosa MD Assigned Heart and Vascular Provider 04/28/21 06/26/23 Mann Lock MD [address] [place] [address] Assigned Surgical Provider 04/21/21 Stefanie De Jesus RN Registered Nurse 06/05/21 05/29/23 Licha Luz DO Hematology & Oncology 07/01/21 05/15/24 Licha Luz DO Referring Physician Hematology & Oncology 07/01/2105/15/24 Reji Mack MD [address] [place] [address] 706775 Otolaryngology 07/01/21 Mann Lock MD [address] [place] [address] Ophthalmology 07/02/21 [place] [address] 773427 Assigned Cancer Care Provider 06/16/21 01/30/24 Stefanie De Jesus, SAHIL Specialty Creasing Machine Operator Hematology & Oncology 05/30/23 05/15/24 Mary Jane Lancaster PA-C 420 [facility] 480 [place], [place] 78[address] Assigned Cancer Care Provider 01/31/24 07/01/24 Tay Hernandez MD 420 [facility] 480 [place], [place] 6[address] Hematology 05/16/24 Leonarda Ocasio LPN Specialty Creasing Machine Operator Hematology & Oncology 05/18/24 July Saucedo MD 515 [place], [place] [address] Assigned Neuroscience Provider 06/01/24 Tay Hernandez MD [address] 810985 Assigned Cancer Care Provider 07/02/24 Tay Hernandez MD [address] 345185 Physician Hematology 10/07/24 documented as of this encounter
--- OUTSIDE RECORDS SUMMARY | 2024-10-20 14:04 | XMS_ITS | Encounter Summary ---
Author Organization [facility] Address [address] [place] [address] Care Team Providers Care Outreach Representative Name Role Phone Siobhan Easley Primary Care Provider Santiago Luz MD Unavailable [phone] Silvio Fish Unavailable [phone] Eduin Miguel MD Unavailable Lorie Tapia OD Unavailable Frieda Byrd MD Unavailable Raisa Contreras MD Unavailable Frieda Byrd MD Unavailable Victoria Mills RN Unavailable [phone] Rj De La Rosa MD Unavailable Mann Lock MD Unavailable Stefanie De Jesus RN Unavailable [phone] Licha Luz DO Unavailable [phone] Licha Luz DO Unavailable [phone] Reji Mack MD Unavailable Mann Lock MD Unavailable [phone] Licha Luz DO Unavailable [phone] LizaStefanie RN Unavailable [phone] Mary Jane Lancaster PA-C Unavailable [phone] Tay Hernandez MD Unavailable [phone] Leonarda Ocasio LPN Unavailable Unavailable July Saucedo MD Unavailable +[phone] Tay Hernandez MD Unavailable + [phone] Tay Hernandez MD Unavailable [phone] Encounter Details Date Type Department Care Team (Late st Contact Info) Description 07/16/2021 [facility] Insurance Verification Susana [place] Social History Tobacco [...] AM CDT Legal Sex Female 3:21 AM 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 No / Unsure 07/17/2021 10:52 AM INDUSTRIAL AUTOMATION SPECIALIST documented as of this encounter Plan of Treatment Upcoming Encounters Date Type Department Care Team (Late st Contact Info) Description 11/22/2024 10:00 AM CDT Lab [address] [place] 200 [facility] [place] [phone] Tay Hernandez MD 420 [facility] 480 [place] [address] 01/11/2025 10:30 AM CDT Office Visit [facility] [place] [facility] [address] [facility] SE 9th Fl Clin 9A [place] [address] Mann Lock MD 6 [place] [address] 05/23/2025 10:00 AM CDT Lab [facility] [place] [address] [place] 200 [facility] [place] [place] [address] Tay Hernandez MD 420 [facility] 480 [place], [place] 458715 06/01/2025 2:00 PM CDT Oncology Visit [facility] 909 [place] [address] Tay Hernandez MD [address] [place] [address] documented as of this encounter Visit Diagnoses Not on filedocumented in this encounter Additional Health Concerns Assessment Noted Time PHQ-9 Depression Total Score: 10 021 7:28 AM INDUSTRIAL AUTOMATION SPECIALIST documented as of this encounter Care Teams Outreach Representative Relationship Specialty Start Date End Date Siobhan Easley [address] [address] PCP - General Family Practice 06/08/17 Santiago Luz MD [address] [place] [address] Ophthalmology 03/11/18 Silvio Fish [facility] [address] [place] [address] Referring Physician Ophthalmology 03/11/18 Eduin Miguel MD 420 [place], [place] 226545 Ophthalmology 08/18/18 Lorie Tapia OD [address] 755[address] Optometry 12/20/18 Frieda Byrd MD 500 [place] [address] Assigned Rheumatology Provider 03/10/21 11/21/22 Raisa Contreras MD [address] [place] [address] 071675 Otolaryngology 04/24/21 Frieda Byrd MD [address] [place] [address] 114535 Rheumatology 04/24/21 Victoria Mills, SAHIL Specialty Resident Inspector Cardiology 04/30/21 05/22/24 Rj De La Rosa MD Assigned Heart and Vascular Provider 04/28/21 06/26/23 Mann Lock MD [address] [place] [address] 944065 Assigned Surgical Provider 04/21/21 Stefanie De Jesus, SAHIL Registered Nurse 06/05/21 05/29/23 Licha Luz DO Hematology & Oncology 07/01/21 05/15/24 Licha Luz DO Referring Physician Hematology & Oncology 07/01/2105/15/24 Reji Mack MD [address] [place] [address] 477295 Otolaryngology 07/01/21 Mann Lock MD [address] [place] [address] 574645 Ophthalmology 07/02/21 [place] [address] [facility] [place], [place] 491467 Assigned Cancer Care Provider 06/16/21 01/30/24 Stefanie De Jesus RN Specialty Resident Inspector Hematology & Oncology 05/30/23 05/15/24 Mary Jane Lancaster PA-C [address] 639305 Assigned Cancer Care Provider 01/31/24 07/01/24 Tay Hernandez MD 420 [facility] 480 [place], [place] 390355 Hematology 05/16/24 Leonarda Ocasio LPN Specialty Resident Inspector Hematology & Oncology 05/18/24 July Saucedo MD 515 [place], [place] 976645 Assigned Neuroscience Provider 06/01/24 Tay Hernandez MD [address] [address] Assigned Cancer Care Provider 07/02/24 Tay Hernandez MD [address] [place] [address] Physician Hematology 10/07/24 documented as of this encounter
--- OUTSIDE RECORDS SUMMARY | 2024-10-20 14:04 | XMS_ITS | Encounter Summary ---
Author Organization [facility] Address [address] [place] [address] Care Team Providers Care Crystal Grower Name Role Phone Siobhan Easley Primary Care Provider [phone] Santiago Luz MD Unavailable [phone] Silvio Fish Unavailable [phone] Eduin Miguel MD Unavailable [phone] Lorie Tapia OD Unavailable Eduin Miguel MD Unavailable Frieda Byrd MD Unavailable Ava Up RN Unavailable [phone] Isabella Benavidez RN Unavailable Angelita Zamora RN Unavailable Raisa Contreras MD Unavailable Frieda Byrd MD Unavailable [phone] Victoria Mills RN Unavailable [phone] Rj De La Rosa MD Unavailable [phone] Mann Lock MD Unavailable [phone] Stefanie De Jesus RN Unavailable Licha Luz DO Unavailable [phone] Licha Luz DO Unavailable [phone] Reji Mack MD Unavailable [phone] Mann Lock MD Unavailable [phone] Licha Luz DO Unavailable [phone] Stefanie De Jesus RN Unavailable [phone] Mary Jane Lancaster PA-C Unavailable [phone] Tay Hernandez MD Unavailable [phone] Leonarda Ocasio LPN Unavailable Unavailable July Saucedo MD Unavailable [phone] Tay Hernandez MD Unavailable [phone] Tay Hernandez MD Unavailable [phone] Reason for Visit * Reason Onset Date Comments Same Day Appointment 07/02/2020 Encounter Details Date Type Department Care Team (Late st Contact Info) Description 07/02/2020 Telephone [facility] [address] [facility] 9 Wa Clin 9A [place] [phone] Eduin Miguel MD 420 [place], [place] 85[address] Same Day Appointment Social History Tobacco Use Types Packs/Day Years Used Date Smoking Tobacco: Former Cigarettes 2 10 1 09/10/1966 - 07/10/1977 Smokeless Tobacco: Never Alcohol Use Standard Drinks/Week Comments Yes 0 (1 standard drink = 0.6 oz pur e alcohol) 1 Martini every night. 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 No / Unsure 07/02/2020 10:58 AM FAMILY RESOURCE MANAGEMENT PROFESSOR documented as of this encounter Miscellaneous Notes * Telephone Encounter - Gianfranco Judd - 07/02/2020 8:26 AM CST [facility] Phone Message May a detailed message be left on voicemail: yes Reason for Call: Other: Pt spoke with it application support analyst doctor on Thursday and was instructed to follow-up inclinic today. Pt lives 1 hr away and would like to get something set up jennifer. Unable to reach clinic. Please call pt back jennifer. Try Home Ph first and then cell phone. Action Taken: Other: eye Travel Screening: Not Applicable LY RESOURCE MANAGEMENT PROFESSOR documented in this encounter Plan of Treatment Upcoming Encounters Date Type Department Care Team (Late st Contact Info) Description 11/22/2024 10:00 AM CDT Lab [address] [place] 200 [facility] [place] [address] Tay Hernandez MD [address] [address] 01/11/2025 10:30 AM CDT Office Visit [facility] [address] [facility] 9 Wa Clin 9A [place] [address] Mann Lock MD [address] [place] [address] 05/23/2025 10:00 AM CDT Lab [place] [address] [place] [address] [place] 200 [facility] [place] [address] Tay Hernandez MD [address] [address] 06/01/2025 2:00 PM CDT Oncology Visit [facility] 909 [place] [phone] Tay Hernandez MD 420 [facility] 480 [place] [address] documented as of this encounter Visit Diagnoses Not on filedocumented in this encounter Additional Health Concerns Assessment Noted Time PHQ-9 Depression Total Score: 5 05/03/20 20 1:12 PM CDT documented as of this encounter Care Teams Crystal Grower Relationship Specialty Start Date End Date Siobhan Easley [address] [place] [address] PCP - General Family Practice 06/08/17 Santiago Luz MD [address] [place] [address] Ophthalmology 03/11/18 Silvoi Fish [facility] [address] [place] [address] Referring Physician Ophthalmology 03/11/18 Eduin Miguel MD [address] [place] [address] 766915 Ophthalmology 08/18/18 Lorie Tapia OD [address] [place] [address] 493 [place], [place] 346755 Optometry 12/20/18 Eduin Miguel MD [address] [place] [address] Assigned Surgical Provider 06/01/20 04/20/21 Frieda Byrd MD 500 [place], [place] 377365 Assigned Rheumatology Provider 03/10/21 11/21/22 Ava Up, RN Specialty Cutting Machine Offbearer Cardiology 04/22/21 04/29/21 Isabella Benavidez, SAHIL Specialty Cutting Machine Offbearer Cardiology 04/22/21 04/29/21 Angelita Zamora, SAHIL Specialty Cutting Machine Offbearer Cardiology 04/22/21 04/29/21 Raisa Contreras MD [address] [place] [address] Otolaryngology 04/24/21 Frieda Byrd MD 500 [place], [place] 229145 Rheumatology 04/24/21 Victoria Mills RN Specialty Cutting Machine Offbearer Cardiology 04/30/21 05/22/24 Rj De La Rosa MD Assigned Heart and Vascular Provider 04/28/21 06/26/23 Mann Lock MD [address] [place] [address] Assigned Surgical Provider 04/21/21 Stefanie De Jesus, SAHIL Registered Nurse 06/05/21 05/29/23 Licha Luz DO Hematology & Oncology 07/01/21 05/15/24 Licha Luz DO Referring Physician Hematology & Oncology 07/01/2105/15/24 Reji Mack MD [address] [place] [address] Otolaryngology 07/01/21 Mann Lock MD [address] [place] [address] Ophthalmology 07/02/21 [place] [address] [phone] Assigned Cancer Care Provider 06/16/21 01/30/24 Stefanie De Jesus, SAHIL Specialty Cutting Machine Offbearer Hematology & Oncology 05/30/23 05/15/24 Mary Jane Lancaster PA-C [address] [address] Assigned Cancer Care Provider 01/31/24 07/01/24 Tay Hernandez MD [address] 663305 Hematology 05/16/24 Leonarda Ocasio LPN Specialty Cutting Machine Offbearer Hematology & Oncology 05/18/24 July Saucedo MD 515 [place], [place] 972635 Assigned Neuroscience Provider 06/01/24 Tay Hernandez MD [address] [address] Assigned Cancer Care Provider 07/02/24 Tay Hernandez MD [address] [address] Physician Hematology 10/07/24 documented as of this encounter
--- OUTSIDE RECORDS SUMMARY | 2024-10-20 14:04 | XMS_ITS | Encounter Summary ---
Author Organization [facility] Address [address] [place] [address] Care Team Providers Care Chief Media Officer Name Role Phone Siobhan Easley Primary Care Provider Santiago Luz MD Unavailable [phone] Silvio Fish Unavailable [phone] Eduin Miguel MD Unavailable Lorie Tapia OD Unavailable Frieda Byrd MD Unavailable Raisa Contreras MD Unavailable Frieda Byrd MD Unavailable Victoria Mills RN Unavailable [phone] Rj De La Rosa MD Unavailable Mann Lock MD Unavailable Stefanie De Jesus RN Unavailable [phone] Licha Luz DO Unavailable [phone] Licha Luz DO Unavailable [phone] Reji Mack MD Unavailable Mann Lock MD Unavailable Licha Luz DO Unavailable [phone] Liza Stefanieraquel BAXTER Unavailable [phone] Mary Jane Lancaster PA-C Unavailable [phone] Tay Hernandez MD Unavailable [phone] Leonarda Ocasio LPN Unavailable Unavailable uJly Saucedo MD Unavailable [phone] Tay Hernandez MD Unavailable [phone] Tay Hernandez MD Unavailable [phone] Encounter Details Date Type Department Care Team (Late Contact Info) Description 07/09/2021 [facility] Medical Advice [facility] [address] [place] [address] Marcelina Ortiz NP [address] [place] [address] Social History Tobacco Use Types Packs/Day [...] AM CDT 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 No / Unsure 07/10/2021 12:46 PM SQUAD LEADER documented as of this encounter Plan of Treatment Upcoming Encounters Date Type Department Care Team ([facility] Contact Info) Description 11/22/2024 10:00 AM CDT Lab [facility] [address] [place] 200 [facility] Medical Ctr [place] [phone] Tay Hernandez MD [address] [address] 01/11/2025 10:30 AM CDT Office Visit [facility] 516 [facility] 9 Fl Clin 9A [place] [address] Mann Lock MD [address] [place] [address] 05/23/2025 10:00 AM CDT Lab [facility] [place] [address] [place] [address] 200 [facility] [place] [place] [address] Tay Hernandez MD [address] [place] [address] 06/01/2025 2:00 PM CDT Oncology Visit [facility] Cancer Clinic 909 [place] [address] Tay Hernandez MD [address] [place] [address] documented as of this encounter Visit Diagnoses Not on filedocumented in this encounter Additional Health Concerns Assessment Noted Time PHQ-9 Depression Total Score: 10 021 7:28 AM SQUAD LEADER documented as of this encounter Care Teams Chief Media Officer Relationship Specialty Start Date End Date Siobhan Easley [address] [place] [address] PCP - General Family Practice 06/08/17 Santiago Luz MD [address] [place] [address] Ophthalmology 03/11/18 Silvio Fish [facility] [address] [place] [address] Referring Physician Ophthalmology 03/11/18 Eduin Miguel MD 420 [place], [place] 522825 Ophthalmology 08/18/18 Lorie Tapia OD [address] 799[address] Optometry 12/20/18 Frieda Byrd MD [address] [place] [address] 04284455 Assigned Rheumatology Provider 03/10/21 11/21/22 Raisa Contreras MD [address] [place] [address] 565315 Otolaryngology 04/24/21 Frieda Byrd MD [address] [place] [address] 208315 Rheumatology 04/24/21 Victoria Mills, RN Specialty Director Funeral Cardiology 04/30/21 05/22/24 Rj De La Rosa MD Assigned Heart and Vascular Provider 04/28/21 06/26/23 Mann Lock MD [address] [place] [address] 026925 Assigned Surgical Provider 04/21/21 Stefanie De Jesus RN Registered Nurse 06/05/21 05/29/23 Licha Luz DO Hematology & Oncology 07/01/21 05/15/24 Licha Luz DO Referring Physician Hematology & Oncology 07/01/2105/15/24 Reji Mack MD 500 [place] [address] Otolaryngology 07/01/21 Mann Lock MD [address] [place] [address] Ophthalmology 07/02/21 [place] [address] [place] [address] [address] Assigned Cancer Care Provider 06/16/21 01/30/24 Stefanie De Jesus RN Specialty Director Funeral Hematology & Oncology 05/30/23 05/15/24 Mary Jane Lancaster PA-C [address] 667045 Assigned Cancer Care Provider 01/31/24 07/01/24 Tay Hernandez MD [address] [address] Hematology 05/16/24 Leonarda Ocasio LPN Specialty Director Funeral Hematology & Oncology 05/18/24 July Saucedo MD [address] [place] [address] Assigned Neuroscience Provider 06/01/24 Tay Hernandez MD [address] [place] [address] Assigned Cancer Care Provider 07/02/24 Tay Hernandez MD [address] [place] [address] 522225 Physician Hematology 10/07/24 documented as of this encounter
--- OUTSIDE RECORDS SUMMARY | 2024-10-20 14:04 | XMS_ITS | Encounter Summary ---
Author Organization [facility] Address [address] [place] [address] Care Team Providers Care Graduate Intern Name Role Phone Siobhan Easley Primary Care Provider [phone] Santiago Luz MD Unavailable [phone] Silvio Fish Unavailable [phone] Eduin Miguel MD Unavailable Lorie Tapia OD Unavailable Frieda Byrd MD Unavailable Raisa Contreras MD Unavailable Frieda Byrd MD Unavailable Victoria Mills RN Unavailable [phone] Rj De La Rosa MD Unavailable Mann Lock MD Unavailable Stefanie De Jesus RN Unavailable [phone] Licha Luz DO Unavailable [phone] Licha Luz DO Unavailable Reji Mack MD Unavailable [phone] Mann Lock MD Unavailable [phone] Licha Luz DO Unavailable [phone] LizaStefanie RN Unavailable [phone] Mary Jane Lancaster PA-C Unavailable [phone] Tay Hernandez MD Unavailable [phone] Leonarda Ocasio LPN Unavailable Unavailable July Saucedo MD Unavailable [phone] Tay Hernandez MD Unavailable [phone] Tay Hernandez MD Unavailable [phone] Encounter Details Date Type Department Care Team (Late st Contact Info) Description 07/15/2021 [facility] [...] AM CDT 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 No / Unsure 07/17/2021 10:52 AM HEAT AND FROST INSULATOR HELPER documented as of this encounter Plan of Treatment Upcoming Encounters Date Type Department Care Team (Late st Contact Info) Description 11/22/2024 10:00 AM CDT Lab [address] [place]O 200 [facility] [place] [phone] Tay Hernandez MD 420 [facility] 480 [place] [address] 01/11/2025 10:30 AM CDT Office Visit [facility] [address] [facility] SE 9th Fl Clin 9A [place] [address] Mann Lock MD 6 [place] [address] 05/23/2025 10:00 AM CDT Lab [facility] [place] [address] [place] [address] [place] 200 [facility] [place] [address] Tay Hernandez MD 420 [facility] 480 [place], [place] [address] 06/01/2025 2:00 PM CDT Oncology Visit [facility] 909 [place] [phone] Tay Hernandez MD [address] [place] [address] documented as of this encounter Visit Diagnoses Not on filedocumented in this encounter Additional Health Concerns Assessment Noted Time PHQ-9 Depression Total Score: 10 021 7:28 AM HEAT AND FROST INSULATOR HELPER documented as of this encounter Care Teams Graduate Intern Relationship Specialty Start Date End Date Siobhan Easley [address] [place] [address] PCP - General Family Practice 06/08/17 Santiago Luz MD [address] [place] [address] Ophthalmology 03/11/18 Silvio Fish [facility] [address] [place] [address] Referring Physician Ophthalmology 03/11/18 Eduin Miguel MD 420 [place], [place] 353195 Ophthalmology 08/18/18 Lorie Tapia OD [address] 6789[address] Optometry 12/20/18 Frieda Byrd MD 500 [place] [address] Assigned Rheumatology Provider 03/10/21 11/21/22 Raisa Contreras MD [address] [place] [address] 220605 Otolaryngology 04/24/21 Frieda Byrd MD [address] [place] [address] 210075 Rheumatology 04/24/21 Victoria Mills, SAHIL Specialty Carpenters Supervisor Cardiology 04/30/21 05/22/24 Rj De La Rosa MD Assigned Heart and Vascular Provider 04/28/21 06/26/23 Mann Lock MD [address] [place] [address] 306445 Assigned Surgical Provider 04/21/21 Stefanie De Jesus, SAHIL Registered Nurse 06/05/21 05/29/23 Licha Luz DO Hematology & Oncology 07/01/21 05/15/24 Licha Luz DO Referring Physician Hematology & Oncology 07/01/2105/15/24 Reji Mack MD [address] [place] [address] 188635 Otolaryngology 07/01/21 Mann Lock MD [address] [place] [address] 315785 Ophthalmology 07/02/21 [place] [address] [facility] [place], [place] 630767 Assigned Cancer Care Provider 06/16/21 01/30/24 Stefanie De Jesus RN Specialty Carpenters Supervisor Hematology & Oncology 05/30/23 05/15/24 Mary Jane Lancaster PA-C [address] 391215 Assigned Cancer Care Provider 01/31/24 07/01/24 Tay Hernandez MD 420 [facility] 480 [place], [place] 454575 Hematology 05/16/24 Leonarda Ocasio LPN Specialty Carpenters Supervisor Hematology & Oncology 05/18/24 July Saucedo MD 515 [place], [place] 458025 Assigned Neuroscience Provider 06/01/24 Tay Hernandez MD [address] [address] Assigned Cancer Care Provider 07/02/24 Tay Hernandez MD [address] [place] [address] Physician Hematology 10/07/24 documented as of this encounter
--- OUTSIDE RECORDS SUMMARY | 2024-10-20 14:04 | XMS_ITS | Encounter Summary ---
Author Organization [facility] Address [address] [place] [address] Care Team Providers Care Higher Education Administrator Name Role Phone Siobhan Easley Primary Care Provider [phone] Santiago Luz MD Unavailable [phone] Silvio Fish Unavailable [phone] Eduin Miguel MD Unavailable Lorie Tapia OD Unavailable [phone] Frieda Byrd MD Unavailable Ava Up RN Unavailable [phone] Isabella Benavidez RN Unavailable Angelita Zamora RN Unavailable Raisa Contreras MD Unavailable Frieda Byrd MD Unavailable Victoria Mills RN Unavailable [phone] Rj De La Rosa MD Unavailable Mann Lock MD Unavailable [phone] Stefanie De Jesus RN Unavailable [phone] Licha Luz DO Unavailable [phone] Licha Luz DO Unavailable [phone] Reji Mack MD Unavailable [phone] Mann Lock MD Unavailable [phone] SukhLicha DO Unavailable [phone] Liza Stefanie RN Unavailable [phone] Mary Jane Lancaster PA-C Unavailable +[phone] Tay Hernandez MD Unavailable +[phone] Leonarda Ocasio LPN Unavailable Unavailable July Saucedo MD Unavailable [phone] Tay Hernandez MD Unavailable +[phone] Tay Hernandez MD Unavailable [phone] Encounter Details Date Type Department Care Team (Late st Contact Info) Description 04/23/2021 MyC Medical Advice [facility] [address] [phone] Mann Lock MD [address] [place] [address] Social History Tobacco Use Types Packs/Day Years Used Date Smoking Tobacco: Former Cigarettes 2 10 1 09/10/1966 - 07/10/1977 Smokeless Tobacco: Never Alcohol Use Standard Drinks/Week Comments Yes 0 (1 standard drink = 0.6 oz pur e alcohol) small gin and tonic PHQ-2 Answer Date Recorded PHQ-2 Score 4 01/22/2021 Comments No Sex and Gender Information Value Date Recorded Sex Assigned at Female 04/11/2021 7:42 AM CDT 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 No / Unsure 04/22/2021 7:05 PM CDT documented as of this encounter Plan of Treatment Upcoming Encounters Date Type Department Care Team (Late st Contact Info) Description 11/22/2024 10:00 AM CDT Lab [address] [place] 200 [facility] [place] [address] Tay Hernandez MD [address] [place] [address] 01/11/2025 10:30 AM CDT Office Visit [facility] - [facility] 516 [facility] [address] [place] [phone] Mann Lock MD [address] [place] [address] 05/23/2025 10:00 AM CDT Lab [address] [place] 200 [facility] [place] [address] Tay Hernandez MD [address] [place] [address] 06/01/2025 2:00 PM CDT Oncology Visit [facility] [address] [place] [phone] Tay Hernandez MD [address] [place] [address] documented as of this encounter Visit Diagnoses Not on filedocumented in this encounter Additional Health Concerns Assessment Noted Time PHQ-9 Depression Total Score: 13 021 10:19 AM CDT documented as of this encounter Care Teams Higher Education Administrator Relationship Specialty Start Date End Date Siobhan Easley [address] [place] [address] PCP - General Family Practice 06/08/17 Santiago Luz MD [address] [address] Ophthalmology 03/11/18 Silvio Fish [facility] [address] [facility] [place] [address] Referring Physician Ophthalmology 03/11/18 Eduin Miguel MD [address] [place] [address] Ophthalmology 08/18/18 Lorie Tapia OD [address] [place] [id number] Optometry 12/20/18 Frieda Byrd MD [address] [place] [address] Assigned Rheumatology Provider 03/10/21 11/21/22 Ava Up, RN Specialty Chorus Dancer Cardiology 04/22/21 04/29/21 Isabella Benavidez, RN Specialty Chorus Dancer Cardiology 04/22/21 04/29/21 Angelita Zamora, SAHIL Specialty Chorus Dancer Cardiology 04/22/21 04/29/21 Raisa Contreras MD [address] [place] [address] Otolaryngology 04/24/21 Frieda Byrd MD [address] [place], [place] 347625 Rheumatology 04/24/21 Victoria Mills, RN Specialty Chorus Dancer Cardiology 04/30/21 05/22/24 Rj De La Rosa MD Assigned Heart and Vascular Provider 04/28/21 06/26/23 Mann Lock MD [address] [place] [address] [id number] Assigned Surgical Provider 04/21/21 Stefanie De Jesus RN Registered Nurse 06/05/21 05/29/23 Licha Luz DO Hematology & Oncology 07/01/21 05/15/24 Licha Luz DO Referring Physician Hematology & Oncology 07/01/2105/15/24 Reji Mack MD [address] [place], [place] 4112[address] Otolaryngology 07/01/21 Mann Lock MD [address] [place] [id number] Ophthalmology 07/02/21 [place] [address] [place], [place] [address] Assigned Cancer Care Provider 06/16/21 01/30/24 Stefanie De Jesus, RN Specialty Chorus Dancer Hematology & Oncology 05/30/23 05/15/24 Mary Jane Lancaster PA-C 420 [facility] 480 [place] [address] Assigned Cancer Care Provider 01/31/24 07/01/24 Tay Hernandez MD [address] [address] Hematology 05/16/24 Leonarda Ocasio LPN Specialty Chorus Dancer Hematology & Oncology 05/18/24 July Saucedo MD [address] [place] [address] 112345 Assigned Neuroscience Provider 06/01/24 Tay Hernandez MD [address] 712615 Assigned Cancer Care Provider 07/02/24 Tay Hernandez MD [address] [address] Physician Hematology 10/07/24 documented as of this encounter
--- OUTSIDE RECORDS SUMMARY | 2024-10-20 14:04 | XMS_ITS | Encounter Summary ---
Author Organization [facility] Address [address] [place] [address] Care Team Providers Care Drier Feeder Name Role Phone Siobhan Easley Primary Care Provider Santiago Luz MD Unavailable [phone] Silvio Fish Unavailable [phone] Eduin Miguel MD Unavailable Lorie Tapia OD Unavailable Frieda Byrd MD Unavailable [phone] Raisa Contreras MD Unavailable Frieda Byrd MD Unavailable Victoria Mills RN Unavailable [phone] Rj De La Rosa MD Unavailable Mann Lock MD Unavailable [phone] Stefanie De Jesus RN Unavailable [phone] Licha Luz DO Unavailable [phone] Lihca Luz DO Unavailable [phone] Reji Mack MD Unavailable Mann Lock MD Unavailable [phone] Licha Luz DO Unavailable [phone] GenetayStefanie RN Unavailable [phone] Mary Jane Lancaster PA-C Unavailable [phone] Tay Hernandez MD Unavailable [phone] Leonarda Ocasio LPN Unavailable Unavailable July Saucedo MD Unavailable [phone] Tay Hernandez MD Unavailable [phone] Tay Hernandez MD Unavailable [phone] Encounter Details Date Type Department Care Team (Late st Contact Info) Description 07/15/2021 MyC Medical Advice [facility] [address] [address] Rj De La Rosa MD [address] [place] [address] Heart failure with preserved ejection fraction, NYHA class II (H) (Primary Dx) Social History Tobacco Use Types Packs/Day Years [...] AM CDT Legal 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 No / Unsure 07/17/2021 10:52 AM CERTIFIED SKI PATROLLER documented as of this encounter Plan of Treatment Upcoming Encounters Date Type Department Care Team (Late Contact Info) Description 11/22/2024 10:00 AM CDT Lab [facility] [place] [address] [place] [address] [address] 200 [facility] [place] [address] Tay Hernandez MD [address] [address] 01/11/2025 10:30 AM CDT Office Visit [facility] 516 [facility] 9 [address] Clin 9A [place] [address] Mann Lock MD [address] [place] [address] 05/23/2025 10:00 AM CDT Lab [facility] [address] 200 [facility] [place] [address] Tay Hernandez MD [address] [place] [address] 06/01/2025 2:00 PM CDT Oncology Visit 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 PATROLLER documented as of this encounter Care Teams Drier Feeder Relationship Specialty Start Date End Date Siobhan Easley [address] [place] [address] PCP - General Family Practice 06/08/17 Santiago Luz MD [address] [place] [address] Ophthalmology 03/11/18 Silvio Fish [facility] [address] [place] [address] Referring Physician Ophthalmology 03/11/18 Eduin Miguel MD 420 [place] [address] Ophthalmology 08/18/18 Lorie Tapia OD [address] [place] [address] Optometry 12/20/18 Frieda Byrd MD [address] [place] [address] Assigned Rheumatology Provider 03/10/21 11/21/22 Raisa Contreras MD [address] [place] [address] Otolaryngology 04/24/21 Frieda Byrd MD [address] [place] [address] Rheumatology 04/24/21 Victoria Mills, RN Specialty Machine Clothing Man Cardiology 04/30/21 05/22/24 Rj De La Rosa MD Assigned Heart and Vascular Provider 04/28/21 06/26/23 Mann Lock MD [address] [place] [address] Assigned Surgical Provider 04/21/21 Stefanie De Jesus RN Registered Nurse 06/05/21 05/29/23 Licha Luz DO Hematology & Oncology 07/01/21 05/15/24 Licha Luz DO Referring Physician Hematology & Oncology 07/01/2105/15/24 Reji Mack MD [address] [place] [address] 168675 Otolaryngology 07/01/21 Mann Lock MD [address] [place] [address] Ophthalmology 07/02/21 [place] [address] [place] [address] [address] Assigned Cancer Care Provider 06/16/21 01/30/24 Stefanie De Jesus RN Specialty Machine Clothing Man Hematology & Oncology 05/30/23 05/15/24 Mary Jane Lancaster PA-C [address] [address] Assigned Cancer Care Provider 01/31/24 07/01/24 Tay Hernandez MD 420 [facility] 480 [place], [place] [address] Hematology 05/16/24 Leonarda Ocasio LPN Specialty Machine Clothing Man Hematology & Oncology 05/18/24 July Saucedo MD [address] [place] [address] [phone] Assigned Neuroscience Provider 06/01/24 Tay Hernandez MD [address] 785[address] Assigned Cancer Care Provider 07/02/24 Tay Hernandez MD [address] 816155 Physician Hematology 10/07/24 documented as of this encounter
--- OUTSIDE RECORDS SUMMARY | 2024-10-20 14:04 | XMS_ITS | Clinical Summary ---
Author Organization [facility] Address [address] [place] [id number] Care Team Providers Care Counseling Aide Name Role Phone Unavailable Primary Care Provider Unavailabl e Source Comments Patient records contain information from all sites at [facility]. For routine questions regarding patient records, call [phone] during business hours, M-F 8:00 AM - 5:00 PM Central Time. Record requests for emergency care only can be directed to [phone] at any time.[facility] Allergies Active Allergy Reactions Criticality Noted Date Comments Animal Dander Other (see comments) 08/27/2021 Fluorescein Other (see comments) Medium 04/23/2023 Urinary urgency/felt like bladder burning for about one hour after administering 04-22-2023 Gadolinium-Containin g Contrast Media Other (see comments) 09/08/2023 Grass Pollen Other (see comments),Itching 08/27/2021 House Dust Other (see comments) 08/27/2021 Iodinated Contrast Media Anaphylaxis,Other (see comments) 08/27/2021 Iodine Anaphylaxis High 09/26/2022 Latex Rash 08/27/2021 Molds Extract Other (see comments) 08/27/2021 Medications * This document contains information received from the source organization and may not represent a complete record from that organization. rosuvastatin (CRESTOR) 5 mg tablet Take 5 mg by mouth daily. Active famciclovir (FAMVIR) 500 mg tablet Take 500 mg by mouth as needed. Active dorzolamide (TRUSOPT) 2 % ophthalmic solution Administer 1 drop into both eyes 2 (two) times a day. Active cholecalciferol , vitamin D3, 25 mcg (1,000 Unit) tablet Take 1,000 Units by mouth daily. Pt use Vit D3 sometimes Active apixaban (ELIQUIS) 5 mg tablet Take 1 tablet (5 mg total) by mouth 2 (two) times a day. 90 tablet 3 3 Active Farxiga 10 mg tablet take 1 tablet daily 90 tablet 3 3 Active Wegovy 1 mg/0.5 mL pen injector injection Inject 1 mg under the skin once a week. 4 Active cyclobenzaprine (FLEXERIL) 10 mg tablet Take 5-10 mg by mouth 3 (three) times a day as needed. 4 Active amoxicillin (AmoxiL) 500 mg capsule Take 4 capsules by mouth once. Active cyanocobalamin (Vitamin B-12) 1,000 mcg tablet Take 1,000 mcg by mouth daily. Active fluorouraciL (Efudex) 5 % cream Apply 1 Application topically once a week. 4 Active losartan (Cozaar) 25 mg tablet Take 0.5 tablets (12.5 mg total) by mouth daily. 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 Cardiology Blood - External Lab Results 09/02/2024 Clinical Communication Department of Cardiovascular Medicine in [place], [place] [address] [place] [address] Era Henry R.N. Lab Monitoring 08/17/2024 3:00 PM PERFORMANCE IMPROVEMENT MANAGER Office Visit Department of Cardiovascular Medicine in [place], [place] [address] [place] [address] Reymundo Morales M.D. Chronic Diastolic (Congestive) Heart Failure (HCC); Atrial Fibrillation Unspecified (HCC); Asthma Mild Intermittent (HCC) 08/17/2024 9:48 AM PERFORMANCE IMPROVEMENT MANAGER - 08/17/2024 11:59 PM PERFORMANCE IMPROVEMENT MANAGER Hospital Encounter Department of Cardiovascular Diseases in [place], [place] [address] [place] [address] Reymundo Morales M.D. Chronic Diastolic (Congestive) Heart Failure (HCC); Atrial Fibrillation Unspecified (HCC) Discharge Disposition: Home or Self Care 08/17/2024 9:02 AM PERFORMANCE IMPROVEMENT MANAGER - 08/17/2024 9:47 AM PERFORMANCE IMPROVEMENT MANAGER Hospital Encounter Department of Laboratory Medicine and Pathology, [facility] in [place], [place] [address] [place] [address] Reymundo Morales M.D. Chronic Diastolic (Congestive) Heart Failure (HCC); Atrial Fibrillation Unspecified (HCC) Discharge Disposition: Home or Self Care from Last 3 Months Immunizations Immunization Administration Dates Next Due DT, Pediatric 03/22/1987 DTaP (Daptacel) 09/20/2010 DTaP (Infanrix, Tripedia) 09/27/2010 DTaP, Unspecified 09/20/2010 H1N1 All Forms 06/28/2009 HZV (ZOSTAVAX) 04/16/2012 HepA Adult 06/25/2015 Influenza Split 05/22/2014 Influenza TIV (IM) 05/17/2018, 7,04/26/2013,2011,06/03/2011,05/17/2010,04/26/2009,1 ,06/08/2007,07/08/2006, 005,05/22/2003 Influenza high dose QV(65 ye ars or older) (PF) 06/10/2023,05/14/2022,05/22/2021 Influenza, Quadrivalent, Adj uvanted, Preservative Free 05/10/2020 PCV13 02/08/2015 PPSV23 06/05/2016,05/17/2010 RZV (SHINGRIX) 01/21/2018,11/13/2017 SARS-COV-2 (COVID-19) - MODE RNA (12 YEARS AND OLDER) Fall Seasonal 05/10/2023 SARS-COV-2 (COVID-19) - MODERNA(Discontinued) 05/31/2021,09/23/2020 Td Preservative Free (TENIVA C, DECAVAC) 02/27/2021,09/27/2010 Tdap 09/27/2010 TyVi (inj) 06/25/2015 YF 07/06/2015 influenza trivalent high dos e (HD)(PF) 05/16/2016,05/10/2015 influenza trivalent vaccine (6 months and older)(PF) 06/03/2011 influenza vaccine quad (FLUZONE/FLUARIX) (6 months and older)(PF) 05/17/2019,05/22/2014 Family History Medical History Relation Name Comments Drug abuse Brother 1 Peng Gengenbach Psychiatric Brother 1 Peng Gengenbach Schizophre dinesh Suicide Attempts Brother 1 Peng Serranoflorence killed himself at 50 Drug abuse Brother 2 Peng Gengenbach Psychiatric Brother 2 Peng Serranogenflorence Schizophre dinesh Suicide Attempts Brother 2 Peng Dias killed himself at 50 Coronary artery disease Father Peng Dias at 51 Alcohol abuse Father's Brother 1 Papi Gengenflorence Bleeding Disorder Father's Brother 1 Ppai Gengenflorence Von Willibrands disease Coronary artery disease Father's Brother 1 Papi Dias after 3 or 4 by pass surgeries and a heart transplant Sleep apnea Father's Brother 1 Papi Gengenflorence Alcohol abuse Father's Brother 2 Papi Gengenbach Bleeding Disorder Father's Brother 2 Papi Gengenflorence Von Willibrands disease Coronary artery disease Father's Brother 2 Papi Dias after 3 or 4 by pass surgeries and a heart transplant Sleep apnea Father's Brother 2 Papi Gengenbach Genetic disease Father's Sister 1 Rosario Su ALS Genetic disease Father's Sister 2 Rosario Su ALS Genetic disease Maternal Grandfather Reymundo Daniel d from Amyloidosis kidney failure Kidney disease Maternal Grandfather Reymundo Daniel Amyl oidosis of the kidney Diabetes Maternal Grandmother Vicky Daniel Stroke Maternal Grandmother Vicky Daniel Anxiety disorder Mother Merari Aguilar Arthritis Mother Merari Aguilar Severe Coronary artery disease Mother Mreari Aguilar Heart failure Depression Mother Merari Aguilar Hypertension Mother Merari Aguilar Migraines Mother Merari Aguilar Osteoporosis Mother Merari Hodgk[place]arl[place] Skin cancer Mother Merari Aguilar squamous a nd Basal Thyroid disease Mother Mearri Aguilar had ruy r thyroid removed in her 40s. Dementia Mother's Sister 1 Lucero Daniel Dementia Mother's Sister 2 Lucero Daniel Coronary artery disease Paternal Grandfather Peng Dias, Sr. at 50 Asthma Sister 1 Carley Aiken,sister Severe Melanoma Sister 1 Carley Aiken,sister Asthma Sister 2 Carley Aiken,sister Severe Melanoma Sister 2 Carley Aiken,sister Relation Name Status Comments Brother 1 Peng Serranodwayne Brother 2 Peng Dias Alive Father Peng Arun Alive Father's Brother 1 Papi Dias Father's Brother 2 Papi Dias Alive Father's Sister 1 Rosario Su Father's Sister 2 Rosariocarmella Hudsonz Alive Maternal Grandfather Reymundo Daniel Alive Maternal Grandmother Vicky Daniel Alive Mother Merari Aguilar Alive Mother's Sister 1 Lucero Daniel Mother's Sister 2 Lucero Daniel Alive Paternal Grandfather Peng Dias, Sr. Alive Sister 1 Carley Aiken,sister Sister 2 Carley Aiken,sister Alive Social History Tobacco Use Types Packs/Day Years Used Date Smoking Tobacco: Former Cigarettes 2.5 10 1 - 01/08/1977 Smokeless Tobacco: Never Comments:Heavy smoker for 10 years, from the age of 16 to 26. Haven't smoked since. Alcohol Use Standard Drinks/Week Comments Yes 4 (1 standard drink = 0.6 oz pur e alcohol) [facility] Utilities Answer Date Recorded In the past 12 months has th e [employer], gas, oil, or water [employer] threatened to shut off services in your home? No 01/11/2024 Humiliation, Afraid, Rape, and Kick questionnair e Answer Date Recorded Within the last year, have y ou been afraid of your partner or ex-partner? No 07/05/2022 Within the last year, have y ou been humiliated or emotionally abused in other ways by your partner or ex-partner? Yes Within the last year, have y ou been kicked, hit, slapped, or otherwise physically hurt by your partner or ex-partner? No 07/05/2022 Within the last year, have y ou been raped or forced to have any kind of sexual activity by your partner or ex-partner? No 07/05/2022 Social Connection and Isolat ion Panel [NHANES] Answer Date Recorded In a typical week, how many times do you talk on the phone with family, friends, or neighbors? More than three times a week 07/05/2022 How often do you get togethe r with friends or relatives? Once a week 07/05/2022 How often do you attend chur or jehovah's witness services? Never 07/05/2022 Do you belong to any clubs o r organizations such as religion groups, unions, fraternal or athletic groups, or school groups? Yes 07/05/2022 How often do you attend meet ings of the clubs or organizations you belong to? 1 to 4 times per year 07/05/2022 Are you , , di vorced, , never , or living with a partner? 07/05/2022 AUDIT-C Answer Date Recorded Q1: How often do you have a drink containing alc ohol? 2-3 times a week 07/05/2022 Q2: How many drinks containi ng alcohol do you have on a typical day when you are drinking? 1 or 2 07/05/2022 Q3: How often do you have si x or more drinks on one occasion? Never 07/05/2022 Overall Financial Resource Strain (CARDIA) Answe r Date Recorded How hard is it for you to pa y for the very basics like food, housing, medical care, and heating? Not hard at all 07/05/2022 [facility] [place] of Occupat ional Health - Occupational Stress Questionnaire Answer Date Recorded Do you feel stress - tense, restless, nervous, or anxious, or unable to sleep at night because your mind is troubled all the time - these days? Rather much 07/05/2022 Exercise Vital Sign Answer Date Recorde d On average, how many days pe r week do you engage in moderate to strenuous exercise (like a brisk walk)? 5 days 01/11/2024 On average, how many minutes do you engage in exercise at this level? 30 min 01/11/2024 Hunger Vital Sign Answer Date Recorded Within the past 12 months, y ou worried that your food would run out before you got the money to buy more. Never true 01/11/20 24 Within the past 12 months, t he food you bought just didn't last and you didn't have money to get more. Never true 01/11/2024 PRAPARE - Transportation Answer Date Re corded In the past 12 months, has l ack of transportation kept you from medical appointments or from getting medications? No 10/2023 In the past 12 months, has l ack of transportation kept you from meetings, work, or from getting things needed for daily living? No 01/11/2024 Nutrition Answer Date Recorded On average, how many serving s of fruits and vegetables do you eat per day (serving size is equal to 1 cup or approximately the size of a tennis ball)? 5 or more 01/11/2024 Dental Answer Date Recorded Dental: Regular Dentist Yes 07/05/20 Employment Answer Date Recorded Employment status Retired 01/11/2024 Housing Stability Answer Date Recorded What is your living situation today? I have a [facility] place to live 01/11/2024 Education Answer Date Recorded What is the highest level of school you have completed or the highest degree you have received? Bachelor's degree (e.g., BA, AB, BS) 07/05/2022 Comments No Sex and Gender Information Value Date Recorded Sex Assigned at Female 08/03/2021 8:15 AM PERFORMANCE IMPROVEMENT MANAGER Legal Sex Female 11:43 AM PERFORMANCE IMPROVEMENT MANAGER Gender Identity Female 08/03/2021 8:15 AM PERFORMANCE IMPROVEMENT MANAGER Sexual Orientation Straight 09/26/2021 8: 36 PM PERFORMANCE IMPROVEMENT MANAGER Last Filed Vital Signs Vital Sign Reading Time Taken Comments Blood Pressure 147/64 08/17/2024 2:52 PM PERFORMANCE IMPROVEMENT MANAGER Pulse 69 08/17/2024 2:52 PM PERFORMANCE IMPROVEMENT MANAGER Temperature 36.6 C (97.9 F) 08/15/2022 11:24 AM PERFORMANCE IMPROVEMENT MANAGER Respiratory Rate 16 08/15/2022 11:24 AM PERFORMANCE IMPROVEMENT MANAGER Oxygen Saturation 96% 08/15/2022 11:24 AM PERFORMANCE IMPROVEMENT MANAGER Inhaled Oxygen Concentration - - Weight 77.8 kg (171 lb 8.3 oz) 08/17/2024 2:52 P M PERFORMANCE IMPROVEMENT MANAGER Height 173.5 cm (5' 8.31) 08/17/2024 2:52 PM CS T Body Mass Index 25.85 08/17/2024 2:52 PM PERFORMANCE IMPROVEMENT MANAGER Plan of Treatment Health Maintenance Due Date Last Done Comments Bone Density Scan (Osteoporosis Screen) 1949 CT Colonography 1950 Cologuard 1950 FIT 1950 Hepatitis C Screening 1950 Depression Screening (Annual PHQ-2) 08/10/2024 Mammogram 02/22/2025 02/23/2024, 02/07, 02/17/2023, Additional history exists Fasting Glucose for Diabetes Screening 08/17/2025 08/17/2024, 05/17/2024, 01/12/2024, Additional history exists Creatinine Level (Kidney Function Test) 09/01/2025 09/01/2024, 08/17/2024, 05/17/2024, Additional history exists Potassium Level 09/01/2025 09/01/2024, 0 03/2025, 05/17/2024, Additional history exists Sodium Level 09/01/2025 09/01/2024, 01/0 03/2025, 05/17/2024, Additional history exists Lipid (Cholesterol) Screening 04/21/2029 04/21/2024, 05/06/2023, 02/21/2022, Additional history exists Colonoscopy 07/22/2032 07/22/2022, 040 08/2014 (Performed elsewhere) Colorectal Cancer Screening 07/22/2032 DTaP,Tdap,and Td Vaccines (9 - Td or Tdap) 09/25/2033 09/25/2023, 02/27/2021, 09/27/2010, Additional history exists Pneumococcal vaccine (50+ years) Completed 06/05/2016, 02/08/2015, 05/17/2010, Additional history exists Zoster Vaccines Completed 01/21/2018, 04/0 01/2018, 04/16/2012, Additional history exists Hepatitis A Vaccines Completed 09/21/2023, 06/25/20 15 RSV vaccine - (32-36 weeks) or 60+ years Completed 04/30/2024 Influenza Vaccine Completed 06/02/2024, , 05/10/2023, Additional history exists Fall Risk Screen (Annual) Completed 08/17/2024 COVID-19 Vaccine Completed 09/15/2024, 09/2023, 02/03/2024, Additional history exists IPV Vaccines Aged Out No longer eligi ble based on patient's age to complete this topic Medical Devices Implanted Type Area Remote Sensing Specialist Device Identifier Shelf Expiration Date Model / Serial / Lot Hardware E.G. Pins/Screws/R ods-06/10/2023 Implanted:08/2022 (Quantity not on file) Hardware e.g. pins/screws/ rods Shoulder Description:Right Shoulder Hip Implant Hip Implant Hip Ocular Lens Ocular Lens Eye Procedures Procedure Name Priority Date/Time Associated Diagnosis Comments EXTM CARDIOLOGY PANEL - BLOOD, EXTERNAL LAB RESULTS Routine 09/01/2024 ECG Routine 08/17/2024 12:17 PM PERFORMANCE IMPROVEMENT MANAGER Chronic Diastolic (Congestive) Heart Failure (HCC) Atrial Fibrillation Unspecified (HCC) (TTE) 2D LIMITED WITH COLOR AND DOPPLER Routine 08/17/2024 11:11 AM PERFORMANCE IMPROVEMENT MANAGER Chronic Diastolic (Congestive) Heart Failure (HCC) Atrial Fibrillation Unspecified (HCC) TROPONIN T, 5TH GEN, P Routine 08/17/2024 9:32 AM PERFORMANCE IMPROVEMENT MANAGER Chronic Diastolic (Congestive) Heart Failure (HCC) Atrial Fibrillation Unspecified (HCC) CBC WITH DIFFERENTIAL, B Routine 08/17/2024 9:32 AM PERFORMANCE IMPROVEMENT MANAGER Chronic Diastolic (Congestive) Heart Failure (HCC) Atrial Fibrillation Unspecified (HCC) COMPREHENSIVE METABOLIC PANEL, S/P Routine 08/17/2024 9:32 AM PERFORMANCE IMPROVEMENT MANAGER Chronic Diastolic (Congestive) Heart Failure (HCC) Atrial Fibrillation Unspecified (HCC) NT-PRO B-TYPE NATRIURETIC PEPTIDE (BNP), S Routine 08/17/2024 9:32 AM PERFORMANCE IMPROVEMENT MANAGER Chronic Diastolic (Congestive) Heart Failure (HCC) Atrial Fibrillation Unspecified (HCC) LIPID PANEL, S Routine 04/05/2015 7:44 AM CDT from Last 3 Months or Most Recently Relevant to Health Maintenance Results * Cardiology Blood - External Lab Results (09/01/2024) EXT Potassium 4.2 3.5 - 5.3 mmol/L [facility] EXT Sodium 142 135 - 146 mmol/L [facility] EXT BUN (Blood Urea Nitrogen) 23 7 - 25 mg/dL [facility] EXT Creatinine 0.73 0.60 - 1.00 mg/dL [facility] Blood 09/01/2024 Reymundo Morales M.D. LAB BLOOD NON ADD-ON Fin al Result [facility] [id number] * ECG 12 Lead (08/17/2024 12:17 PM PERFORMANCE IMPROVEMENT MANAGER) Ventricular Rate ECG/Min 81 BPM MUSE NH Interval 136 ms MUSE QRSD Interval 86 ms MUSE QT Interval 366 ms MUSE QTC Interval 425 ms MUSE P [place] 74 degrees MUSE R [place] 54 degrees MUSE T Wave [place] 67 degrees MUSE 08/17/2024 12:1 7 PM PERFORMANCE IMPROVEMENT MANAGER 08/17/2024 12:40 PM PERFORMANCE IMPROVEMENT MANAGER Impressions MUSE - 08/17/2024 12:40 PM PERFORMANCE IMPROVEMENT MANAGER Normal sinus rhythm Normal ECG When compared with ECG of 12-Jan-2024 14:38, No significant change was found Reviewed by PAULINE Pineda Narrative Procedure Note Fitz Suarez M.D., M.P.H. - 08/17/2024 IMPRESSION: Normal sinus rhythm Normal ECG When compared with ECG of 12-Jan-2024 14:38, No significant change was found Reviewed by PAULINE Pineda us Reymundo Morales M.D. ECG ORDERABLES Final Re sult MUSE NA * (TTE) 2D LIMITED WITH COLOR AND DOPPLER (08/17/2024 11:11 AM PERFORMANCE IMPROVEMENT MANAGER) Ejection Fraction 65 MC CV EIMS LV Mass Index 76 MC CV EIMS LV End-Diastolic Diameter 50 MC CV EIMS LV End-Systolic Diameter 35 MC CV EIMS LV End-Diastolic Volume 107 MC CV EIMS LV End-Systolic Volume 37 MC CV EIMS MV E Velocity 0.5 MC CV EIMS MV A Velocity 0.6 MC CV EIMS MV E/A 0.83 MC CV EIMS MV e' Velocity Medial 0.08 MC CV EIMS MV E/e' Medial 6.3 MC CV EIMS Left ventricular stroke volume index 45 MC CV EIMS Cardiac Output 5.63 MC CV EIMS Cardiac Index 2.93 MC CV EIMS LV Global Longitudinal Strain -27 MC CV EIMS LV Interventricular Septal Wall Thickness 8 MC CV EIMS LV Posterior Wall Thickness 9 MC CV EIMS LV Relative Wall Thickness 36 MC CV EIMS Tricuspid Annular S 0.14 MC CV EIMS TR Vmax 2.09 MC CV EIMS RA Pressure 5 MC CV EIMS RV Systolic Pressure 22 MC CV EIMS Anatomical Region Laterality Modality Echocardiography 08/17/2024 10:1 1 AM PERFORMANCE IMPROVEMENT MANAGER Impressions 08/17/2024 11:29 AM PERFORMANCE IMPROVEMENT MANAGER Last full echocardiogram performed 12/01/2022. LEFT VENTRICLE:Normal left ventricular chamber size. Normal left ventricular geometry. Calculated 2-D biplane volumetric left ventricular ejection fraction of 65% without the use of ultrasound enhancing agent. No regional wall motion abnormalities. Grade 1/3 left ventricular diastolic dysfunction, consistent with low to normal left ventricular filling pressure at rest. Global averaged left ventricular longitudinal peak systolic strain is normal at -27% (normal = more negative than -18%). RIGHT VENTRICLE:Normal right ventricular chamber size. Normal right ventricular systolic function. Estimated right ventricular systolic pressure 22 mmHg (right atrial pressure of 5 mmHg). ATRIA:Normal left atrial size. Normal right atrial size. CARDIAC VALVES:Trileaflet aortic valve. Normal aortic valve. No aortic valve regurgitation. Normal mitral valve. Trivial mitral valve regurgitation. Normal pulmonary valve. Trivial pulmonary valve regurgitation. Normal tricuspid valve. Trivial tricuspid valve regurgitation. OTHER ECHO FINDINGS:Normal inferior vena cava size with normal inspiratory collapse (>50%). No intracardiac mass or thrombus, but the left atrial appendage cannot be visualized adequately with transthoracic echo to exclude thrombus in this location. No pericardial effusion. For the complete report, see the Order-Level Documents. Narrative 08/17/2024 11:29 AM PERFORMANCE IMPROVEMENT MANAGER For the complete report, see the Order-Level Documents. Hemodynamics Heart Rate: 65 BPM Blood Pressure: 135 / 65 mmHg ECG: Sinus rhythm Final Impressions 1. Normal left ventricular chamber size, no regional wall motion abnormalities, calculated 2-D biplane volumetric ejection fraction of 65%, global averaged longitudinal peak systolic strain is normal at -27% (normal = more negative than -18%). 2. Normal left ventricular geometry, grade 1/3 diastolic dysfunction, consistent with low to normal filling pressure at rest. 3. Normal right ventricular chamber size, normal systolic function, estimated right ventricular systolic pressure 22 mmHg (right atrial pressure of 5 mmHg). 4. No hemodynamically significant valvular heart disease. 5. No pericardial effusion. 6. Compared to the report of 12/01/2022 no significant change has occurred. Side by side comparison of images performed. Procedure Note Shar Díaz M.D. - 08/17/2024 For the complete report, see the Order-Level Documents. Hemodynamics Heart Rate: 65 BPM Blood Pressure: 135 / 65 mmHg ECG: Sinus rhythm Final Impressions 1. Normal left ventricular chamber size, no regional wall motionabnormalities, calculated 2-D biplane volumetric ejection fraction of 65%,global averaged longitudinal peak systolic strain is normal at -27%(normal = more negative than -18%). 2. Normal left ventricular geometry, grade 1/3 diastolic dysfunction,consistent with low to normal filling pressure at rest. 3. Normal right ventricular chamber size, normal systolic function,estimated right ventricular systolic pressure 22 mmHg (right atrialpressure of 5 mmHg). 4. No hemodynamically significant valvular heart disease. 5. No pericardial effusion. 6. Compared to the report of 12/01/2022 no significant change hasoccurred. Side by side comparison of images performed. Findings Last full echocardiogram performed 12/01/2022. LEFT VENTRICLE:Normal left ventricular chamber size. Normal leftventricular geometry. Calculated 2-D biplane volumetric left ventricularejection fraction of 65% without the use of ultrasound enhancing agent. Noregional wall motion abnormalities. Grade 1/3 left ventricular diastolicdysfunction, consistent with low to normal left ventricular fillingpressure at rest. Global averaged left ventricular longitudinal peaksystolic strain is normal at -27% (normal = more negative than -18%). RIGHT VENTRICLE:Normal right ventricular chamber size. Normal rightventricular systolic function. Estimated right ventricular systolicpressure 22 mmHg (right atrial pressure of 5 mmHg). ATRIA:Normal left atrial size. Normal right atrial size. CARDIAC VALVES:Trileaflet aortic valve. Normal aortic valve. No aorticvalve regurgitation. Normal mitral valve. Trivial mitral valveregurgitation. Normal pulmonary valve. Trivial pulmonary valveregurgitation. Normal tricuspid valve. Trivial tricuspid valveregurgitation. OTHER ECHO FINDINGS:Normal inferior vena cava size with normal inspiratorycollapse (>50%). No intracardiac mass or thrombus, but the left atrialappendage cannot be visualized adequately with transthoracic echo toexclude thrombus in this location. No pericardial effusion. For the complete report, see the Order-Level Documents. us Reymundo Morales M.D. CV ECHO PROCEDURES Final Result * NT-Pro B-Type Natriuretic Peptide (BNP) (08/17/2024 9:32 AM PERFORMANCE IMPROVEMENT MANAGER) NT-Pro BNP 82 <=540 pg/mL 08/17/2024 10:45 AM PERFORMANCE IMPROVEMENT MANAGER DTL Comment: NT-proBNP values less than 300 pg/mL have a 99% negative predictive value for excluding acute congestive heart failure. A cutoff of 1200 pg/mL for patients with an eGFR<60 yields a diagnostic sensitivity and specificity of 89% and 72% for acute congestive heart failure. A diagnostic NT-proBNP cutoff of 900 pg/mL has been suggested in adults 50-75 years of age in the absence of renal failure. Blood (Blood, Venous) 08/17/2024 9:32 AM PERFORMANCE IMPROVEMENT MANAGER 08/17/2024 10:16 AM PERFORMANCE IMPROVEMENT MANAGER us Reymundo Morales M.D. LAB BLOOD ADD-ON Final R esult [facility] [address] [place] [address], [facility] DTL [facility] [address] [place] [address] * CBC with Differential, Blood (08/17/2024 9:32 AM PERFORMANCE IMPROVEMENT MANAGER) Hemoglobin 13.9 11.6 - 15.0 g/dL 08/17/2024 10:28 AM PERFORMANCE IMPROVEMENT MANAGER DTL Hematocrit 43.0 35.5 - 44.9 % 08/17/2024 10:28 AM PERFORMANCE IMPROVEMENT MANAGER DTL Erythrocytes 4.59 3.92 - 5.13 x10(12)/L 08/17/2024 10:28 AM PERFORMANCE IMPROVEMENT MANAGER DTL MCV 93.7 78.2 - 97.9 fL 08/17/2024 10:28 AM PERFORMANCE IMPROVEMENT MANAGER DTL RBC Distrib Width 14.2 12.2 - 16.1 % 08/17/2024 10:28 AM PERFORMANCE IMPROVEMENT MANAGER DTL Platelet Count 164 157 - 371 x10(9)/L 08/17/2024 10:28 AM PERFORMANCE IMPROVEMENT MANAGER DTL Leukocytes 6.4 3.4 - 9.6 x10(9)/L 08/17/2024 10:28 AM PERFORMANCE IMPROVEMENT MANAGER DTL Neutrophils 4.43 1.56 - 6.45 x10(9)/L 08/17/2024 10:28 AM PERFORMANCE IMPROVEMENT MANAGER DHPM Lymphocytes 1.24 0.95 - 3.07 x10(9)/L 08/17/2024 10:28 AM PERFORMANCE IMPROVEMENT MANAGER DTL Monocytes 0.61 0.26 - 0.81 x10(9)/L 08/17/2024 10:28 AM PERFORMANCE IMPROVEMENT MANAGER DTL Eosinophils 0.11 0.03 - 0.48 x10(9)/L 08/17/2024 10:28 AM PERFORMANCE IMPROVEMENT MANAGER DTL Basophils 0.04 0.01 - 0.08 x10(9)/L 08/17/2024 10:28 AM PERFORMANCE IMPROVEMENT MANAGER DTL Blood (Blood, Venous) 08/17/2024 9:32 AM PERFORMANCE IMPROVEMENT MANAGER 08/17/2024 10:01 AM PERFORMANCE IMPROVEMENT MANAGER Reymundo Morales M.D. LAB BLOOD ADD-ON Final R esult [facility] [address] [place] [address], [facility] [address] [place], [place] [id number] [place] [address] [address] [place] [address] * Troponin T, 5th Generation (08/17/2024 9:32 AM PERFORMANCE IMPROVEMENT MANAGER) Pathologist [facility] Troponin T, 5th gen <6 <=10 ng/L 08/17/2024 11:18 AM PERFORMANCE IMPROVEMENT MANAGER DTL Blood (Blood, Venous) 08/17/2024 9:32 AM PERFORMANCE IMPROVEMENT MANAGER 08/17/2024 10:16 AM PERFORMANCE IMPROVEMENT MANAGER Reymundo Morales M.D. LAB BLOOD ADD-ON Final R esult Performing Organization Address City/[facility]/ZIP Co de Phone Number [facility] [address] [place] [address], [facility]3] [address] [place] [address] * Comprehensive Metabolic Panel (08/17/2024 9:32 AM PERFORMANCE IMPROVEMENT MANAGER) Pathologist [facility] Potassium, S 5.0 3.6 - 5.2 mmol/L 08/17/2024 10:45 AM PERFORMANCE IMPROVEMENT MANAGER DTL Sodium, S 141 135 - 145 mmol/L 08/17/2024 10:45 AM PERFORMANCE IMPROVEMENT MANAGER DTL Chloride, S 106 98 - 107 mmol/L 08/17/2024 10:45 AM PERFORMANCE IMPROVEMENT MANAGER DTL Bicarbonate, S 27 22 - 29 mmol/L 08/17/2024 10:45 AM PERFORMANCE IMPROVEMENT MANAGER DTL Anion Gap 8 7 - 15 08/17/2024 10:45 AM PERFORMANCE IMPROVEMENT MANAGER DTL BUN (Blood Urea Nitrogen), S 18 6 - 21 mg/dL 08/17/2024 10:45 AM PERFORMANCE IMPROVEMENT MANAGER DTL Creatinine 0.80 0.59 - 1.04 mg/dL 08/17/2024 10:45 AM PERFORMANCE IMPROVEMENT MANAGER DTL Estimated GFR (eGFR) 77 >=60 mL/min/BS A 08/17/2024 10:45 AM PERFORMANCE IMPROVEMENT MANAGER DTL Comment: Estimated GFR calculated using the 2020 CKD_EPI creatinine equation. Calcium, Total, S 9.1 8.8 - 10.2 mg/dL 08/17/2024 10:45 AM PERFORMANCE IMPROVEMENT MANAGER DTL Glucose, S 98 70 - 140 mg/dL 08/17/2024 10:45 AM PERFORMANCE IMPROVEMENT MANAGER DTL Protein, Total, S 6.3 6.3 - 7.9 g/dL 08/17/2024 10:45 AM PERFORMANCE IMPROVEMENT MANAGER DTL Albumin, S 4.0 3.5 - 5.0 g/dL 08/17/2024 10:45 AM PERFORMANCE IMPROVEMENT MANAGER DTL Aspartate Aminotransferase (AST), S 25 8 - 43 U/L 08/17/2024 10:45 AM PERFORMANCE IMPROVEMENT MANAGER DTL Alkaline Phosphatase, S 72 35 - 104 U/L 08/17/2024 10:45 AM PERFORMANCE IMPROVEMENT MANAGER DTL Alanine Aminotransferase (ALT), S 21 7 - 45 U/L 08/17/2024 10:45 AM PERFORMANCE IMPROVEMENT MANAGER DTL Bilirubin, Total, S 0.5 0.0 - 1.2 mg/dL 08/17/2024 10:45 AM PERFORMANCE IMPROVEMENT MANAGER DTL Blood (Blood, Venous) 08/17/2024 9:32 AM PERFORMANCE IMPROVEMENT MANAGER 08/17/2024 10:16 AM PERFORMANCE IMPROVEMENT MANAGER us Reymundo Morales M.D. LAB BLOOD ADD-ON Final R esult [facility] [address] [place] [address], [facility] [address] [place] [address] * Lipid Panel (04/05/2015 7:44 AM CDT) [facility] Cholesterol, Total 175 SeeComment MG/DL [facility] Comment: REFERENCE VALUE Desirable: < 200 Borderline high: 200 - 239 High: > or = 240 Triglycerides 79 SeeComment MG/DL [facility] Comment: REFERENCE VALUE Normal: <150 Borderline high: 150-199 High: 200-499 Very high: > or =500 Cholesterol, Non-HDL, Calculated 86 SeeComment MG/DL [facility] Comment: REFERENCE VALUE Desirable: <130 Above Desirable: 130-159 Borderline high: 160-189 High: 190-219 Very high: > or =220 Cholesterol, HDL, S 89 >=50 MG/DL [facility] Calculated LDL 70 SeeComment MG/DL [facility] Comment: REFERENCE VALUE Desirable: <100 Above Desirable: 100-129 Borderline high: 130-159 High: 160-189 Very high: > or =190 04/05/2015 7:44 AM CDT 04/05/2015 7:44 AM CDT us Romeo Rashid M.D. LAB BLOOD ADD-ON Final Resu lt [facility] [address] [place] [address], [facility] from Last 3 Months or Most Recently Relevant to Health Maintenance Insurance [facility] Member Subscriber Plan / Payer (Ef fective 2020-Present) Name:Claudia Bowles Relation to Subscriber:Self Name:Claudia Bowles Payer ID:Not on file Group ID:[id number] Type:PPO Address: [facility] [id number] [place] [id number]
--- OUTSIDE RECORDS SUMMARY | 2024-10-20 14:04 | XMS_ITS | Data Portability ---
Author Organization [place] [facility] [place] [facility], [facility] Address [address] [place] [address] Care Team Providers Care Hide Inspector Name Role Phone YOLANDA MATA Primary Care Provider Assessment No assessment recorded. Plan of Treatment Reminders Order Date Submit Date Provider Last Modified By Organization Details Last Modified Time Details Appointments None recorded. Lab urinalysis, dipstick 2023 [email or web address] [place] [address] [facility], [address], [address], [place], [address], 4 10:30:05 urinalysis, complete 2023 024 [facility] [place] [facility], [address], [address], [place], [address], 4 17:26:08 Referral None recorded. Procedures None recorded. Surgeries None recorded. Imaging CT, urogram - Please call patient to schedule. MD will call with results 2023 024 [email or web address] [facility], [address], [address], [place], [address], 4 12:42:21 Medication Orders prednisone 50 mg tablet 2023 024 [facility], [address] [place] [address], [address], 4 13:01:44 Patient TargetsNo targets recorded. Patient Instructions Encounter Date Encounter Id Patient Instructions Last Modified By Organization Details Last Modified Time 09/01/2023 [id number] microhematuria c t urgoram --needs pre treatment with prednisone cysto negative wiht exam today oab sx dec caffeine irritative foods to start with [email or web address] Not available 09/01/2023 10:23:57 Reason for Referral None Reported. Results Created Date Observation Date Name Description Value Unit Range Abnormal Flag Note LastModifiedBy Organization Detail LastModifiedTime 09/01/19 24 09/01/2023 UA WITHO UT MICRO FRIDL EY color-status YELLOW yellow Not Available [facility] [address] [place] [address] [address], [place], [address], 09/01/2023 09:36:53 09/01/19 24 09/01/2023 UA WITHO UT MICRO FRIDL EY clarity-stat us CLEAR clear Not Available [facility] [address] [place] [address] [address], [place], [address], 09/01/2023 09:36:53 09/01/19 24 09/01/2023 UA WITHO UT MICRO FRIDL EY glucose-stat us 1000 mg/dL negati ve abnormal Not Available [facility] [address] [place] [address] [address], [place], [address], 09/01/2023 09:36:53 09/01/19 24 09/01/2023 UA WITHO UT MICRO FRIDL EY bilirubin-ur ine NEGATI VE negati ve Not Available [facility] [address] [place] [address] [address], [place], [address], 09/01/2023 09:36:53 09/01/19 24 09/01/2023 UA WITHO UT MICRO FRIDL EY ketones-stat us NEGATI VE mg/dL negati ve Not Available [facility] [address] [place] [address] [address], [place], [address], 09/01/2023 09:36:53 09/01/19 24 09/01/2023 UA WITHO UT MICRO FRIDL EY SG-status 1.020 1.00-1 .03 Not Available [facility] [address] [facility] [address], [place], [address], 09/01/2023 09:36:53 09/01/19 24 09/01/2023 UA WITHO UT MICRO FRIDL EY pH-status 5.5 5.00-8 .00 Not Available [facility] [address] [facility] [address], [place], [address], 09/01/2023 09:36:53 09/01/19 24 09/01/2023 UA WITHO UT MICRO FRIDL EY protein-stat us NEGATI VE mg/dL negati ve Not Available [facility] [address] [facility] [address], [place], [address], 09/01/2023 09:36:53 09/01/19 24 09/01/2023 UA WITHO UT MICRO FRIDL EY urobilinogen -status 0.2 E.U./ dL 0.2 E.U./d L Not Available [facility] [address] [facility] [address], [place], [address], 09/01/2023 09:36:53 09/01/19 24 09/01/2023 UA WITHO UT MICRO FRIDL EY nitrites-sta tus NEGATI VE negati ve Not Available [facility] [address] [place] [address] [address], [place], [address], 09/01/2023 09:36:53 09/01/19 24 09/01/2023 UA WITHO UT MICRO FRIDL EY blood-urine MODERA TE negati ve abnormal Not Available [facility] [address] [facility] [address], [place], [address], 09/01/2023 09:36:53 09/01/19 24 09/01/2023 UA WITHO UT MICRO FRIDL EY leuko-status NEGATI VE negati ve Not Available [facility] [address] [place] [address] [address], [place], [address], 09/01/2023 09:36:53 09/01/19 24 09/01/2023 UA WITHO UT MICRO FRIDL EY specimen type VOIDED Not Available [facility] [address] [facility] [address], [place], [address], 09/01/2023 09:36:53 09/01/19 24 09/01/2023 UA WITHO UT MICRO FRIDL EY performed by HARRY Corey Not Available [facility] [address] [facility] [address], [place], [address], 09/01/2023 09:36:53 09/01/19 24 09/01/2023 UA WITHO UT MICRO FRIDL EY total urine volume (mL) 15 /mL ----- ----- ----- ----- ----- ----- ----- ----- ----- ----- ----- ----- ----- ----- ---- *Benji canela note the follo wing minim um quant ities for addit ional urine testi ng: - Atypi cals: 3 mL - Cytol ogy: 20 mL - GC/CH : 2 mL - FISH: 30 mL - Atypi cals w/ GC/CH : 5 mL - Cytol ogy PLUS FISH: 50 mL - Urine Cultu re: 3 mL ----- ----- ----- ----- ----- ----- ----- ----- ----- ----- ----- ----- ----- ----- ---- This lab resul t is being provi ded to you and your provi gurmeet at the same time in compl iance with the 21st Centu ry Cures Act. Your provi gurmeet may not have had time to revie w and make recom menda tions based on the resul t. Nicky covarrubias allow up to one week for provi grumeet revie w. Not Available [facility] [address] [facility] [address], [place], [address], 09/01/2023 09:36:53 09/01/19 24 09/01/2023 UA WITH MICRO -URIS CAN color - uriscan YELLOW lt. yellow ;yello w Not Available [facility] [address] [place] [address] [address], [place], [address], 09/01/2023 17:26:08 09/01/19 24 09/01/2023 UA WITH MICRO -URIS CAN clarity - uriscan CLEAR clear Not Available [facility] [address] [facility] [address], [place], [address], 09/01/2023 17:26:08 09/01/19 24 09/01/2023 UA WITH MICRO -URIS CAN glucose - uriscan 2000 mg/dL negati ve abnormal Not Available [facility] [address] [place] [address], [place], [address], 09/01/2023 17:26:08 09/01/19 24 09/01/2023 UA WITH MICRO -URIS CAN bilirubin - uriscan NEGATI VE mg/dL negati ve Not Available [facility] [address] [facility] [address], [place], [address], 09/01/2023 17:26:08 09/01/19 24 09/01/2023 UA WITH MICRO -URIS CAN ketones - uriscan NEGATI VE mg/dL negati ve Not Available [facility] [address] [place] [address] [address], [place], [address], 09/01/2023 17:26:08 09/01/19 24 09/01/2023 UA WITH MICRO -URIS CAN sp. gravity - uriscan 1.03 1.01-1 .03 Not Available [facility] [address] [place] [address] [address], [place], [address], 09/01/2023 17:26:08 09/01/19 24 09/01/2023 UA WITH MICRO -URIS CAN pH - uriscan 5.00 5.00-9 .00 Not Available [facility] [address] [place] [address] [address], [place], [address], 09/01/2023 17:26:08 09/01/19 24 09/01/2023 UA WITH MICRO -URIS CAN protein - uriscan NEGATI VE mg/dL negati ve Not Available [facility] [address] [place] [address] [address], [place], [address], 09/01/2023 17:26:08 09/01/19 24 09/01/2023 UA WITH MICRO -URIS CAN urobilinogen - uriscan NORMAL mg/dL normal Not Available [facility] [address] [place] [address] [address], [place], [address], 09/01/2023 17:26:08 09/01/19 24 09/01/2023 UA WITH MICRO -URIS CAN nitrites - uriscan NEGATI VE negati ve Not Available [facility] [address] [place] [address] [address], [place], [address], 09/01/2023 17:26:08 09/01/19 24 09/01/2023 UA WITH MICRO -URIS CAN blood - uriscan MODERA TE negati ve abnormal Not Available [facility] [address] [place] [address] [address], [place], [address], 09/01/2023 17:26:08 09/01/19 24 09/01/2023 UA WITH MICRO -URIS CAN leukocytes - uriscan NEGATI VE negati ve Not Available [facility] [address] [place] [address] [address], [place], [address], 09/01/2023 17:26:08 09/01/19 24 09/01/2023 UA WITH MICRO -URIS CAN total urine volume (mL) 15 /mL ----- ----- ----- ----- ----- ----- ----- ----- ----- ----- ----- ----- ----- ----- ---- *Benji canela note the follo wing minim um quant ities for addit ional urine testi ng: - Atypi cals: 3 mL - Cytol ogy: 20 mL - GC/CH : 2 mL - FISH: 30 mL - Atypi cals w/ GC/CH : 5 mL - Cytol ogy PLUS FISH: 50 mL - Urine Cultu re: 3 mL ----- ----- ----- ----- ----- ----- ----- ----- ----- ----- ----- ----- ----- ----- ---- This lab resul t is being provi ded to you and your provi gurmeet at the same time in compl iance with the Centu ry Cures Act. Your provi gurmeet may not have had time to revie w and make recom menda tions based on the resul t. Nicky covarrubias allow up to one week for provi gurmeet revie w. Not Available [facility] [address] [facility] [address], [place], [address], 09/01/2023 17:26:08 09/01/19 24 09/01/2023 UA WITH MICRO -URIS CAN U-WBC 0 - 2 [hpf] 0 - 2 Not Available [facility] [address] [facility] [address], [place], [address], 09/01/2023 17:26:08 09/01/19 24 09/01/2023 UA WITH MICRO -URIS CAN U-RBC 0 - 2 [hpf] 0 - 2 Not Available [facility] [address] [facility] [address], [place], [address], 09/01/2023 17:26:08 09/01/19 24 09/01/2023 UA WITH MICRO -URIS CAN bacteria RARE [hpf] none;r are Not Available [facility] [address] [facility] [address], [place], [address], 09/01/2023 17:26:08 09/01/19 24 09/01/2023 UA WITH MICRO -URIS CAN squamous epi SMALL /lpf negati ve,sma ll This lab resul t is being provi ded to you and your provi gurmeet at the same time in compl iance with the Centu ry Cures Act. Your provi gurmeet may not have had time to revie w and make recom menda tions based on the resul t. Nicky e allow up to one week for provi gurmeet revie w. Not Available [facility] [address] [facility] [address], [place], [address], 09/01/2023 17:26:08 09/04/19 24 09/03/2023 CT, urogr am EXAM: CT ABDOME N PELVIS UROGRA M wwo CONTRA ST LOCATI ON: [facility] [place] DATE: 024 INDICA TION: Other micros copic hematu xochitl COMPAR LISA: 2008 TECHNI QUE: CT scan of the abdome n and pelvis using urogra m techni que with pre contra st, post contra st, and delaye d images . Multip lanar reform ats were obtain ed. Dose reduct ion techni ques were used. CONTRA ST: 100 mL Omnipa que 350 FINDIN GS: LOWER CHEST: Normal . HEPATO BILIAR Y: Liver is negati ve. Gallbl adder is absent . Bile ducts within normal limits for the postch olecys tectom y state. PANCRE : Normal . SPLEEN : Normal . ADRENA L GLANDS : Normal . RIGHT KIDNEY /URETE R: No intrar enal calcul i. No solid or enhanc ing renal lesion s. There are a few small subcen timete r right renal cysts with no specif ic follow -up needed . No ureter al stones or hydron ephros is allowi ng for limita tions in visual izatio n of the distal ureter due to streak artifa ct in the pelvis from bilate ral hip arthro plasti es. No ureter al fillin g defect s. LEFT KIDNEY /URETE R: No intrar enal calcul i. Normal enhanc ement of the left kidney with no solid or enhanc ing lesion s. Tiny left renal cyst with no specif ic follow -up needed . No ureter al stones , hydron ephros is, or ureter al fillin g defect s again allowi ng for some limita tion in visual izatio n of the distal ureter . BLADDE R: Bladde r is partia lly disten ded and grossl y negati ve. Again, there is some limita tion in the pelvis due to streak artifa ct. BOWEL: Normal . LYMPH NODES: No pathol ogical ly enlarg ed lympha denopa thy. VASCUL ATURE: Unrema rkable . PELVIC ORGANS : Limite d in visual izatio n due to streak artifa ct. There appear to be a few small calcif ied uterin e fibroi ds which were also presen t previo usly. Otherw ise unrema rkable . MUSCUL OSKELE MILI: Degene rative change s lumbar spine. Bilate ral hip arthro plasti es. IMPRES ANTOINE: 1. There is some limite d visual izatio n of the distal ureter s and bladde r due to streak artifa ct from bilate ral hip arthro plasti es. Allowi ng for this limita tion, the kidney s, ureter s, and bladde r are negati ve other than a few tiny bilate ral renal cysts with no specif ic follow -up needed . No urinar y calcul i or hydron ephros is. 2. See above for additi onal incide ntal findin gs. This report was electr onical ly interp reted by: DR. ADITI JASSO M.D. [email or web address] [place] [address] [facility] [address] [facility] [address], [place], [address], 09/04/2023 15:35:13 Result Notes None recorded. Procedures Surgical History Date Name Laterality Status Provider Name and Address Organization Details Recorded Time 024 Cystoscopy- female completed Caroline Paul MD [address] [facility], [place], [address], [facility] 08/31/2023 14:27:12 024 Past Data Reviewed completed Caroline Paul MD [address] [facility], [place], [address], [facility] 09/01/2023 10:21:29 024 In and Out Catheterization- female completed Caroline Paul MD [address] [facility], [place], [address], [facility] 09/01/2023 10:23:45 010 Diagnostic colonoscopy completed Not Available Health Note 08/28/2023 11:12:01 Cystourethroscopy completed Not Available Health Note 08/28/2023 11:12:01 Laparoscopic cholecystectomy completed Not Available Health Note 08/28/2023 11:12:01 Imaging Results Imaging Date Name Status LastModified by Organiz ation Details LastModified Time 09/03/2023 CT, urogram completed [address] [facility] [address], [place], [address], 09/04/2023 15:35:13 Procedure Notes None recorded. Medical Equipment None Reported. Allergies Allergen ID Allergen Name Allergen Category Reaction Reaction Severity Criticality Documentation Date Start Date Code Code System Note Provider Name and Address Organization Details Recorded Time 708291 latex environme nt,medica tion rash Not available Not available 08/28/2023 71085 91 RxNorm Not Available Not Available Not Available 151406 grass pollen environme nt,medica tion eye redness Not available Not available 08/28/2023 63368 UNK Not Available Not Available Not Available 025730 Iodinated contrast media (substanc e) medicatio n Not available Not available Not available 09/01/2023 30488 2004 SNOMED Not Available Not Available Not Available Medications Name Sig Start Date Stop Date Status Note LastModified by Organization Details LastModified Time amoxicill in 500 mg capsule TAKE FOUR CAPSULES BY MOUTH 1 HOUR BEFORE DENTAL APPOINTM ENT. active Not Available Not Available No t Available prednison e 10 mg tablet TAKE 3 TABLETS (30 MG) BY MOUTH ONCE DAILY WITH A MEAL FOR 2 DAYS, THEN 2 TABS (20 MG) ONCE DAILY WITH A MEAL FOR 2 DAYS, 1 TABLET DAILY FOR 2 DAYS 09/01 completed HN: Patient reports no longer taking Not Available Not Available Not Available hydrocodo ne 5 mg-acetam inophen 325 mg tablet 09/01 completed HN: Patient reports no longer taking Not Available Not Available Not Available naltrexon e 50 mg tablet TAKE 1/2 TABLET BY MOUTH ONCE DAILY. 09/01 completed HN: Patient reports no longer taking Not Available Not Available Not Available prednison e 20 mg tablet TAKE 2&1/2 TABLETS (50MG) BY MOUTH 12-24 HOURS PRIOR TO EXAM, THEN 6-8 HOURS PRIOR TO EXAM THEN 0-2 HOURS PRIOR TO EXAM active Not Available Not Available No t Available Anucort-H C 25 mg supposito ry INSERT 1 SUPPOSIT ORY (25 MG) RECTALLY TWO TIMES DAILY. 09/01 completed HN: Patient reports no longer taking Not Available Not Available Not Available famciclov ir 500 mg tablet TAKE ONE TABLET(5 00MG) BY MOUTH THREE TIMES DAILY FOR 7 DAYS 09/01 completed HN: Patient reports no longer taking Not Available Not Available Not Available doxycycli ne monohydra te 100 mg capsule 09/01 completed HN: Patient reports no longer taking Not Available Not Available Not Available cephalexi n 500 mg capsule TAKE ONE CAPSULE (500 MG) BY MOUTH TWO TIMES DAILY FOR 7 DAYS. 09/01 completed HN: Patient reports no longer taking Not Available Not Available Not Available clotrimaz ole-betam ethasone 1 %-0.05 % topical cream APPLY TOPICALL Y TO AFFECTED AREA(S) TWO TIMES DAILY. USE FOR UP TO 2-3 WEEKS THEN TAKE A BREAK 09/01 completed HN: Patient reports no longer taking Not Available Not Available Not Available prednison e 50 mg tablet Take 1 tablet every day by oral route. 2023 active Not Available Not Available Not Avai lable codeine 10 mg-guaife nesin 100 mg/5 mL oral liquid TAKE 5 ML BY MOUTH EVERY 4 HOURS IF NEEDED FOR COUGH. MAX DOSE 60 ML PER 24 HRS. 09/01 completed HN: Patient reports no longer taking Not Available Not Available Not Available albuterol sulfate HFA 90 mcg/actua tion aerosol inhaler INHALE 1-2 PUFFS BY MOUTH EVERY 4 HOURS IF NEEDED (COUGH). active Not Available Not Available No t Available fluticaso ne propionat e 50 mcg/actua tion nasal spray,[employer] INHALE 1 SPRAY TO BOTH NOSTRILS ONCE DAILY. active Not Available Not Available No t Available metformin ER 500 mg tablet,ex tended release 24 hr TAKE FOUR TABLETS( 2000MG) BY MOUTH ONCE DAILY WITH EVENING MEAL active Not Available Not Available No t Available doxycycli ne hyclate 100 mg tablet TAKE 1 TABLET (100 MG) BY MOUTH TWO TIMES DAILY. 09/01 completed HN: Patient reports no longer taking Not Available Not Available Not Available dorzolami de 2 % eye drops PLACE 1 DROP INTO BOTH EYES 2 TIMES DAILY active Not Available Not Available No t Available rosuvasta tin 5 mg tablet TAKE 1 TABLET (5 MG) BY MOUTH AT BEDTIME. active Not Available Not Available No t Available bromfenac 0.09 % eye drops INSTILL 1 DROP INTO THE LEFT EYE TWICE A DAY active Not Available Not Available No t Available UltiCare Pen Needle 32 gauge x 5/32 DIRECTED . 09/01 completed HN: Patient reports no longer taking Not Available Not Available Not Available Rectiv 0.4 % (w/w) ointment APPLY TOPICALL Y TO AFFECTED AREA(S) TWO TIMES DAILY. 09/01 completed HN: Patient reports no longer taking Not Available Not Available Not Available Eliquis 5 mg tablet TAKE 1 TABLET (5 MG) BY MOUTH TWO TIMES DAILY. active Not Available Not Available No t Available Farxiga 10 mg tablet active Not Available Not Available Not Available Saxenda 3 mg/0.5 mL (18 mg/3 mL) subcutane ous pen injector PLEASE SEE ATTACHED FOR DETAILED DIRECTIO NS 09/01 completed HN: Patient reports no longer taking Not Available Not Available Not Available Mounjaro 2.5 mg/0.5 mL subcutane ous pen injector INJECT 0.5 ML (2.5 MG) SUBCUTAN EOUS ONCE WEEKLY. 09/01 completed HN: Patient reports no longer taking Not Available Not Available Not Available Zepbound 5 mg/0.5 mL subcutane ous pen injector INJECT 0.5 ML (5 MG) SUBCUTAN EOUS ONCE WEEKLY. active Not Available Not Available No t Available Vitals Date Recorded Body weight Provider Name an d Address Organization Details Last Updated DateTime 09/01/2023 77046.29 g Harry Spears [place] [facility] [place] [facility] [place] [facility] 09/01/2023 09:44:02 Date Recorded Body mass index (BMI) Body height Provider Name and Address Organization Details Last Updated DateTime 09/01/2023 29.2 kg/m2 175.26 cm Not Available Health Note 09:23:46 Social History Question Answer Notes LastModified by Organizat ion Details LastModified Time Tobacco Smoking Status Former Smoker Not Available Health Note 08/28/2023 11:12:01 What Is Your Level Of Alcohol Consumption? Moderate [email or web address] Information not available 08/28/2023 What Is Your Level Of Caffeine Consumption? Moderate [email or web address] Information not available 08/28/2023 How Much Tobacco Do You Chew? None [email or web address] Information not available 08/28/2023 Do You Or Have You Ever Used E-cigarettes Or Vape? Never Used Electronic Cigarettes [email or web address] Information not available 08/28/2023 When Did You Quit Smoking? 16+yearssincel felipe Information not available 09/01/2023 What Was The Date Of Your Most Recent Tobacco Screening? 09/01/2023 [email or web address] Information not available 08/28/2023 Have You Ever Been Counseled For Unhealthy Alcohol Use? No [email or web address] Information not available 09/01/2023 What Is Your Relationship Status? [email or web address] Information not available 08/28/2023 Are You Sexually Active? No [email or web address] Information not available 08/28/2023 Do You Or Have You Ever Used Smokeless Tobacco? Never Used Smokeless Tobacco [email or web address] Information not available 08/28/2023 Do You Use Any Illicit Or Recreational Drugs? No [email or web address] Information not available 08/28/2023 Has Tobacco Cessation Counseling Been Provided? Yes Information not available 09/01/2023 On What Date Was Tobacco Cessation Counseling Provided? 09/01/2023 [email or web address] Information not available 09/01/2023 How Many Years Have You Smoked Tobacco? 10 [email or web address] Information not available 08/28/2023 Do You Or Have You Ever Used Any Other Forms Of Tobacco Or Nicotine? No [email or web address] Information not available 09/01/2023 How Many Days In The Past Year Have You Consumed 4 Or More Drinks? 0 [email or web address] Information no t available 08/28/2023 Sex: Unknown Functional Status None recorded. Mental Status None recorded. Family History Relationship Description Onset Age of this Age Resolved Age Notes LastModified by Organization Details LastModified Time Maternal Grandmother Family history of diabetes mellitus [email or web address] Not available 2023 11:11:59 Maternal Grandmother Family history of cardiac disorder [email or web address] Not available 2023 11:11:59 Mother Family history of cardiac disorder [email or web address] Not available 2023 11:11:59 Mother Family history of malignant neoplasm [email or web address] Not available 2023 11:11:59 Father Family history of cardiac disorder [email or web address] Not available 2023 11:11:59 Paternal Grandfather Family history of cardiac disorder [email or web address] Not available 2023 11:11:59 Notes:Paternal Grandmother h as amyloidosis of kidney Medical History Condition Response Sexually Transmitted Infection Y Diabetes N Bleeding Disorder N High Blood Pressure Y Kidney Stones Y Cancer N Lung Disease N Depression Y High Cholesterol Y GERD/Acid Reflux N Heart Disease Y Gynecological History Statement/Question Response If Post Menopausal, Age at Menopause 51 Hormone Therapy N Sexually Active? N Obstetrics History GPAL:G 0 P 0 0 0 0 Immunizations Vaccine Type Date Status Note Provider Nam e and Address Organization Details Recorded Time pneumococcal, unspecified formulation 1 completed Harry zurita [facility] 09/01/2023 09:44:13 influenza, unspecified formulation 3 completed Harry zurita [facility] 09/01/2023 09:44:13 zoster live 1 completed Harry Spears null, [facility] 09/01/2023 09:44:13 SARS-COV-2 (COVID-19) vaccine, UNSPECIFIED 3 completed Harry Spears null, [facility] 09/01/2023 09:44:13 Influenza, adjuvanted, trivalent, PF 7 completed Harry Spears null, [facility] 09/01/2023 09:44:12 Influenza, adjuvanted, trivalent, PF 8 completed Harry Spears null, [facility] 09/01/2023 09:44:12 zoster recombinant 8 completed Harry Spears null, [facility] 09/01/2023 09:44:12 zoster recombinant 8 completed Harry Spears null, [facility] 09/01/2023 09:44:12 Influenza, high-dose, quadrivalent, PF 2 completed Harry Spears null, [facility] 09/01/2023 09:44:13 Influenza, high-dose, quadrivalent, PF 1 completed Harry Spears null, [facility] 09/01/2023 09:44:13 Influenza, high-dose, quadrivalent, PF 3 completed Harry Spears null, [facility] 09/01/2023 09:44:13 Influenza, adjuvanted, quadrivalent, PF 0 completed Harry Spears null, [facility] 09/01/2023 09:44:13 COVID-19, mRNA, LNP-S, PF, 100 mcg/0.5mL dose or 50 mcg/0.25mL dose 1 completed Harry Spears null, [facility] 09/01/2023 09:44:13 COVID-19, mRNA, LNP-S, PF, 100 mcg/0.5mL dose or 50 mcg/0.25mL dose 1 completed Harry Spears null, [facility] 09/01/2023 09:44:13 COVID-19, mRNA, LNP-S, PF, 100 mcg/0.5mL dose or 50 mcg/0.25mL dose 2 completed Harry zurita, [facility] 09/01/2023 09:44:13 COVID-19, mRNA, LNP-S, PF, 100 mcg/0.5mL dose or 50 mcg/0.25mL dose 1 completed Harry zurita, [facility] 09/01/2023 09:44:13 COVID-19, mRNA, LNP-S, bivalent, PF, 50 mcg/0.5 mL or 25mcg/0.25 mL dose 3 completed Harry zurita, [facility] 09/01/2023 09:44:13 COVID-19, mRNA, LNP-S, bivalent, PF, 50 mcg/0.5 mL or 25mcg/0.25 mL dose 2 completed Harry zurita, [facility] 09/01/2023 09:44:13 COVID-19, mRNA, LNP-S, PF, 50 mcg/0.5 mL 3 completed Harry zurita, [facility] 09/01/2023 09:44:13 pneumococcal polysaccharide PPV23 0 completed Harry zurita, [facility] 09/01/2023 09:44:13 pneumococcal polysaccharide PPV23 6 completed Harry zurita, [facility] 09/01/2023 09:44:13 DT (pediatric) 7 completed Harry zurita, [facility] 09/01/2023 09:44:13 Novel [id number], all formulations 9 completed Harry zurita, [facility] 09/01/2023 09:44:13 Pneumococcal conjugate PCV 13 5 completed Harry zurita, [facility] 09/01/2023 09:44:13 yellow fever live 5 completed Harry zurita, [facility] 09/01/2023 09:44:13 zoster live 2 completed Harry L Regan null, [facility] 09/01/2023 09:44:13 Influenza, high-dose, trivalent, PF 5 completed Harry L Regan null, [facility] 09/01/2023 09:44:13 Influenza, high-dose, trivalent, PF 6 completed Harry L Regan null, [facility] 09/01/2023 09:44:13 Influenza, split virus, trivalent, preservative 2 completed Harry L Regan null, [facility] 09/01/2023 09:44:13 Influenza, split virus, trivalent, preservative 9 completed Harry L Regan null, [facility] 09/01/2023 09:44:13 Influenza, split virus, trivalent, preservative 3 completed Harry L Regan null, [facility] 09/01/2023 09:44:13 Influenza, split virus, trivalent, preservative 0 completed Harry L Regan null, [facility] 09/01/2023 09:44:13 Influenza, split virus, trivalent, preservative 3 completed Harry L Regan null, [facility] 09/01/2023 09:44:13 Influenza, split virus, trivalent, preservative 8 completed Harry L Regan null, [facility] 09/01/2023 09:44:13 Influenza, split virus, trivalent, preservative 5 completed Harry L Regan null, [facility] 09/01/2023 09:44:13 Influenza, split virus, trivalent, preservative 7 completed Harry L Regan null, [facility] 09/01/2023 09:44:13 Influenza, split virus, trivalent, preservative 6 completed Harry L Regan null, [facility] 09/01/2023 09:44:13 Influenza, split virus, trivalent, PF 1 completed Harry L Regan null, [facility] 09/01/2023 09:44:13 Td (adult), 5 Lf tetanus toxoid, preservative free, adsorbed 1 completed Harry L Regan null, [facility] 09/01/2023 09:44:13 Td (adult), 5 Lf tetanus toxoid, preservative free, adsorbed 1 completed Harry Spears null, [facility] 09/01/2023 09:44:13 Hep A, adult 5 completed Harry Spears null, [facility] 09/01/2023 09:44:13 typhoid, ViCPs 5 completed Harry Spears null, [facility] 09/01/2023 09:44:13 DTaP, 5 pertussis antigens 1 completed Harry Spears null, [facility] 09/01/2023 09:44:13 Influenza, split virus, quadrivalent, PF 9 completed Harry Spears parminder, [facility] 09/01/2023 09:44:13 Influenza, split virus, quadrivalent, PF 4 completed Harry Spears null, [facility] 09/01/2023 09:44:13 Past Encounters Encounter ID Performer Location Encounter Start Date Encounter Closed Date Diagnosis/Indication Diagnosis SNOMED-CT Code Diagnosis ICD10 Code Diagnosis Note [id number] Caroline Paul MD [address] [address] 09/01/2023 09:23:41 09/01/2023 10:33:06 Microscopic hematuria 175713795 R31.29 new Overactive urinary bladder 199102703 N32.81 new Health Concerns Section Related Observation LastModified by Organization Detai ls LastModified Time None Recorded Concern Status LastModified by Organization Details LastModified Time None Recorded Advance Directives Directive None Recorded Payers Encounter Date Sequence Insurance Name Policy Number Policy Ashley Covered Member ID Ashley Member ID Guarantor Name 09/01/2023 1 [place] (MEDIC[place]AC[place]PO) [id number] Claudia Bowles [id number] Claudia Bowles Notes Date Note Type Note Provider Name and Address Organization Details Recorded Time 09/01/2023 text/html 73 yo F with hematuria --PMH: hx of MGUS, heart failure, uveitis (when used floracsecin had reaction with sx of UTI and had dysuira, inc fluids pain stopped then more issues with oab/uui and frequency-was concerned about this) was seen with pmd a few days later --was noted to have glucose (Faarxiga) in urine and rbc. on elaquis, afib.former smoker ()hx of stones 08/21/23 ucx negative ua 07-04 rbc9- 3-5 fzg61-7-11 Cr 0. renal us:Right kidney: 10.7 cm.Left kidney: 10.3 cm.Kidneys are unremarkable, no hydronephrosis or mass. Chief complaint:Blood in urine, Incontinence, reason listed below Hematuria:Began:10 Years agoAssociated symptoms:OTHER Incontinence:Began:5 Months agoIncontinent of:UrineAssociated symptoms:Frequent urination at nightFrequency:Sudde nlySeverity:mildInte rference with life:Definite but manageableProgressio n:about the same overall Other Urological Concern:Reaction to a contrast dye that caused urinary urgency snd severe burningBegan:1 Days agoFrequency:DailyAs sociated symptoms:30 minutes after being given contrast dye I had severe urgency and very bad burning when urinating. This lasted for about 6 hours until I could flush out dye since then I continue to have urgency, some incontenence and a motiveless increase in RBCsand large amount of occult blood in urine.Worse with:Having the dye injectedBetter with:Flushing it out if my system with massive amounts of waterSeverity:severe Progression: getting better overall Overactive Bladder Pathway Questionnaire: still with urgency symptoms from the dye.Uses the restroom:12times per day Uses the restroom (daytime): [id number] Uses the restroom (nighttime): [id number] Accidents:1per day Pads: [id number] day Urogenital Distress Inventory (ROB-6):[2] Frequent urination:Moderately [2] Urine leakage related to the feeling of urgency:Moderately[1 ] Urine leakage related to physical activity, coughing or sneezing:Slightly[0] Small amounts of urine leakage (drops):Not at All[1] Difficulty emptying your bladder:Slightly[0] Pain or discomfort in the lower abdominal or genital area:Not at All Incontinence Impact Questionnaire (IIQ-7):[0] Ability to do climbing guide (cooking, housecleaning):Not at All[1] Physical recreation such as walking, or other exercise:Slightly[1] Ability to attend entertainment activities (movie, concerts):Slightly[1 ] Ability to travel by car more than 30 minutes from home:Slightly[1] Participation in social activities outside your home:Slightly[2] Emotional health (nervousness, depression, etc):Moderately[3] Nursery frustrated:Greatly Caroline Paul MD [address] [place] [address], [address], [facility] 09/01/2023 10:30:32 OBGyn Episode No OBEpisode recorded.
--- OUTSIDE RECORDS SUMMARY | 2024-10-20 14:04 | XMS_ITS | Encounter Summary ---
Author Organization [place] Address [address] [place] [address] Care Team Providers Care Dry Cleaner Name Role Phone Siobhan Easley Primary Care Provider [phone] Santiago Luz MD Unavailable [phone] Silvio Fish Unavailable [phone] Eduin Miguel MD Unavailable [phone] Lorie Tapia OD Unavailable Eduin Miguel MD Unavailable Frieda Byrd MD Unavailable Ava Up RN Unavailable [phone] Isabella Benavidez RN Unavailable Angelita Zamora RN Unavailable [phone] Raisa Contreras MD Unavailable Frieda Byrd MD Unavailable Victoria Mills RN Unavailable [phone] Rj De La Rosa MD Unavailable [phone] Mann Lock MD Unavailable Stefanie De Jesus RN Unavailable [phone] Sukh, Licha M DO Unavailable [phone] Licha Luz DO Unavailable [phone] Reji Mack MD Unavailable [phone] Mann Lock MD Unavailable Licha Luz DO Unavailable [phone] Stefanie De Jesus RN Unavailable [phone] Mary Jane Lancaster PA-C Unavailable [phone] Tay Hernandez MD Unavailable [phone] Leonarda Ocasio LPN Unavailable Unavailable July Saucedo MD Unavailable [phone] Tay Hernandez MD Unavailable [phone] Tay Hernandez MD Unavailable [phone] Reason for Visit * Reason Onset Date Comments Orders 01/25/2021 Pt needs lab wor k with Signature to [phone] [facility] Encounter Details Date Type Department Care Team (Late st Contact Info) Description 01/25/2021 Telephone [facility] [address] 9[facility] Clin [address] [place] [phone] Mann Lock MD [address] [place] [address] Orders (Pt needs lab work with Signature to [phone] [facility]) Social History Tobacco Use Types Packs/Day Years Used Date Smoking Tobacco: Former Cigarettes 2 10 1 09/10/1966 - 07/10/1977 Smokeless Tobacco: Never Alcohol Use Standard Drinks/Week Comments Yes 0 (1 standard drink = 0.6 oz pur e alcohol) 1 Martini every night. 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 No / Unsure 01/22/2021 9:56 AM CDT documented as of this encounter Miscellaneous Notes * Telephone Encounter - Margarita Vela - 01/25/2021 8:15 AM CDT [facility] Phone Message May a detailed message be left on voicemail: yes Reason for Call: Other: Pt needs lab work with Signature to [phone] Naomi ,needs electronic Copy with signature, Pt has questions about the lab work as well, Please call Pt to discuss Thank you, Action Taken: Message routed to: [facility] Eye Travel Screening: Not Applicable documented in this encounter Plan of Treatment Upcoming Encounters Date Type Department Care Team (Late st Contact Info) Description 11/22/2024 10:00 AM CDT Lab [address] [place] [facility] [place] [phone] Tay Hernandez MD 420 [facility] 480 [place], [place] [address] 01/11/2025 10:30 AM CDT Office Visit [facility] Emergency Department 516 [facility] 9th Fl Clin [address] [place] [address] Mann Lock MD 6 [place] [address] 05/23/2025 10:00 AM CDT Lab [place] [address] [place] 200 [facility] [place] [address] Tay Hernandez MD 420 [facility] [address] [place], [place] [address] 06/01/2025 2:00 PM CDT Oncology Visit [facility] [address] [place] [phone] Tay Hernandez MD [address] [phone] documented as of this encounter Visit Diagnoses Not on filedocumented in this encounter Additional Health Concerns Assessment Noted Time PHQ-9 Depression Total Score: 13 021 10:19 AM CDT documented as of this encounter Care Teams Dry Cleaner Relationship Specialty Start Date End Date Silvanotlaatizzy Siobhan [address] [address] PCP - General Family Practice 06/08/17 Santiago Luz MD [address] [place] [address] Ophthalmology 03/11/18 Silvio Fish [facility] 2019 [facility] [place] [place] [address] Referring Physician Ophthalmology 03/11/18 Eduin Miguel MD [address] [place] [address] Ophthalmology 08/18/18 Lorie Tapia OD [address] [place] [address] Optometry 12/20/18 Eduin Miguel MD [address] [place] [address] Assigned Surgical Provider 06/01/20 04/20/21 Frieda Byrd MD [address] [place] [address] Assigned Rheumatology Provider 03/10/21 11/21/22 Ava Up, SAHIL Specialty Cardiac Rehabilitation Program Director Cardiology 04/22/21 04/29/21 Isabella Benavidez RN Specialty Cardiac Rehabilitation Program Director Cardiology 04/22/21 04/29/21 Angelita Zamora RN Specialty Cardiac Rehabilitation Program Director Cardiology 04/22/21 04/29/21 Raisa Contreras MD [address] [place] [address] [phone] Otolaryngology 04/24/21 Frieda Byrd MD [address] [place] [address] 958315 Rheumatology 04/24/21 Victoria Mills RN Specialty Cardiac Rehabilitation Program Director Cardiology 04/30/21 05/22/24 Rj De La Rosa MD Assigned Heart and Vascular Provider 04/28/21 06/26/23 Mann Lock MD [address] [place] [address] [id number] Assigned Surgical Provider 04/21/21 Stefanie De Jesus RN Registered Nurse 06/05/21 05/29/23 Licha Luz DO Hematology & Oncology 07/01/21 05/15/24 Licha Luz DO Referring Physician Hematology & Oncology 07/01/2105/15/24 Reji Mack MD [address] [place] [address] Otolaryngology 07/01/21 Mann Lock MD [address] [place] [address] Ophthalmology 07/02/21 [place] [address] [address] [address] Assigned Cancer Care Provider 06/16/21 01/30/24 Stefanie De Jesus RN Specialty Cardiac Rehabilitation Program Director Hematology & Oncology 05/30/23 05/15/24 Mary Jane Lancaster PA-C [address] [phone] Assigned Cancer Care Provider 01/31/24 07/01/24 Tay Hernandez MD [address] [address] Hematology 05/16/24 Leonarda Ocasio LPN Specialty Cardiac Rehabilitation Program Director Hematology & Oncology 05/18/24 July Saucedo MD 515 [place] [address] Assigned Neuroscience Provider 06/01/24 Tay Hernandez MD [address] [address] Assigned Cancer Care Provider 07/02/24 Tay Hernandez MD [address] [address] Physician Hematology 10/07/24 documented as of this encounter
--- OUTSIDE RECORDS SUMMARY | 2024-10-20 14:04 | XMS_ITS | Encounter Summary ---
Author Organization [place] Address [address] [place] [address] Care Team Providers Care Wood Crew Supervisor Name Role Phone Siobhan Easley Primary Care Provider Santiago Luz MD Unavailable [phone] Silvio Fish Unavailable [phone] Eduin Miguel MD Unavailable Lorie Tapia OD Unavailable Frieda Byrd MD Unavailable [phone] Raisa Contreras MD Unavailable Frieda Byrd MD Unavailable [phone] Victoria Mills RN Unavailable [phone] Rj De La Rosa MD Unavailable Mann Lock MD Unavailable Stefanie De Jesus RN Unavailable Licha Luz DO Unavailable [phone] Licha Luz DO Unavailable [phone] Reji Mack MD Unavailable [phone] Mann Lock MD Unavailable Licha Luz DO Unavailable [phone] Liza Stefanieraquel BAXTER Unavailable [phone] Mary Jane Lancaster PA-C Unavailable [phone] Tay Hernandez MD Unavailable [phone] Leonarda Ocasio LPN Unavailable Unavailable July Saucedo MD Unavailable [phone] Tay Hernandez MD Unavailable [phone] Tay Hernandez MD Unavailable [phone] Encounter Details Date Type Department Care Team (Late Contact Info) Description 07/11/2021 MyC Medical Advice [facility] [address] [address] Marcelina Ortiz NP [address] [place] [address] Social History Tobacco Use Types Packs/Day [...] AM CDT Legal Sex Female 3:21 AM SMALL ENGINE TRAINER Gender Identity Female 04/11/2021 7:42 AM CDT Sexual Orientation Straight 04/11/2021 7: 42 AM CDT COVID-19 Exposure Response Date Recorded In the last month, have you been in contact with someone who was confirmed or suspected to have Coronavirus / COVID-19? No / Unsure 07/10/2021 12:46 PM SMALL ENGINE TRAINER documented as of this encounter Plan of Treatment Upcoming Encounters Date Type Department Care Team ([facility] Contact Info) Description 11/22/2024 10:00 AM CDT Lab [facility] [address] [place] 200 [facility] [place] [phone] Tay Hernandez MD [address] [address] 01/11/2025 10:30 AM CDT Office Visit [facility] Emergency Department 516 [facility] 9 Fl Clin [address]A [place] [address] Mann Lock MD [address] [place] [address] 05/23/2025 10:00 AM CDT Lab [facility] [place] [address] [place] [address] [facility] [place] [place] [address] Tay Hernandez MD [address] [place] [address] 06/01/2025 2:00 PM CDT Oncology Visit [facility] [address] [place] [phone] Tay Hernandez MD [address] [place] [address] documented as of this encounter Visit Diagnoses Not on filedocumented in this encounter Additional Health Concerns Assessment Noted Time PHQ-9 Depression Total Score: 10 021 7:28 AM SMALL ENGINE TRAINER documented as of this encounter Care Teams Wood Crew Supervisor Relationship Specialty Start Date End Date Siobhan Easley [address] [place] [address] PCP - General Family Practice 06/08/17 Santiago Luz MD [address] [address] Ophthalmology 03/11/18 Silvio Fish [facility] [address] [place] [address] Referring Physician Ophthalmology 03/11/18 Eduin Miguel MD 420 [place], [place] [address] Ophthalmology 08/18/18 Lorie Tapia OD [address] 280[address] Optometry 12/20/18 Frieda Byrd MD [address] [place] [address] [phone] Assigned Rheumatology Provider 03/10/21 11/21/22 Raisa Contreras MD [address] [place] [address] [phone] Otolaryngology 04/24/21 Frieda Byrd MD [address] [place] [address] [phone] Rheumatology 04/24/21 Victoria Mills, RN Specialty Professor Of Rhetoric Cardiology 04/30/21 05/22/24 Rj De La Rosa MD Assigned Heart and Vascular Provider 04/28/21 06/26/23 Mann Lock MD [address] [place] [address] 797115 Assigned Surgical Provider 04/21/21 Stefanie De Jesus RN Registered Nurse 06/05/21 05/29/23 Licha Luz DO Hematology & Oncology 07/01/21 05/15/24 Licha Luz DO Referring Physician Hematology & Oncology 07/01/2105/15/24 Reji Mack MD 500 [place] [address] Otolaryngology 07/01/21 Mann Lock MD [address] [place] [address] Ophthalmology 07/02/21 [place] [address] [address] [address] Assigned Cancer Care Provider 06/16/21 01/30/24 Stefanie De Jesus RN Specialty Professor Of Rhetoric Hematology & Oncology 05/30/23 05/15/24 Mary Jane Lancaster PA-C [address] 595225 Assigned Cancer Care Provider 01/31/24 07/01/24 Tay Hernandez MD [address] [address] Hematology 05/16/24 Leonarda Ocasio LPN Specialty Professor Of Rhetoric Hematology & Oncology 05/18/24 July Saucedo MD [address] [place] [address] Assigned Neuroscience Provider 06/01/24 aTy Hernandez MD [address] [place] [address] Assigned Cancer Care Provider 07/02/24 Tay Hernandez MD [address] [place] [address] 817125 Physician Hematology 10/07/24 documented as of this encounter
--- OUTSIDE RECORDS SUMMARY | 2024-10-20 14:05 | XMS_ITS | Encounter Summary ---
Author Organization [place] Address [address] [place] [address] Care Team Providers Care Machine Feeder Raw Stock Name Role Phone Siobhan Easley Primary Care Provider Santiago Luz MD Unavailable [phone] Silvio Fish Unavailable [phone] Eduin Miguel MD Unavailable Lorie Tapia OD Unavailable Frieda Byrd MD Unavailable Raisa Contreras MD Unavailable Frieda Byrd MD Unavailable Victoria Mills RN Unavailable [phone] Rj De La Rosa MD Unavailable Mann Lock MD Unavailable [phone] Stefanie De Jesus RN Unavailable [phone] Licha Luz DO Unavailable [phone] Licha Luz DO Unavailable [phone] Reji Mack MD Unavailable [phone] Mann Lock MD Unavailable [phone] Licha Luz DO Unavailable [phone] LizaStefanie SAHIL Unavailable [phone] Mary Jane Lancaster PA-C Unavailable [phone] Tay Hernandez MD Unavailable +[phone] Leonarda Ocasio LPN Unavailable Unavailable July Saucedo MD Unavailable [phone] Tay Hernandez MD Unavailable +[phone] Tay Hernandez MD Unavailable [phone] Reason for Visit * Reason Onset Date Comments Patient Request 06/11/2021 Encounter Details Date Type Department Care Team ([facility] Contact Info) Description 06/11/2021 MyC Medical Advice [facility] [address] 9[facility] 9A [place] [address] Mann Lock MD [address] [place] [address] [id number] Patient Request Social History Tobacco Use Types Packs/Day Years Used Date Smoking Tobacco: Former Cigarettes 2 10 1 09/10/1966 - 07/10/1977 Smokeless Tobacco: Never Alcohol Use Standard Drinks/Week Comments Yes 0 (1 standard drink = 0.6 oz pur e alcohol) small gin and tonic PHQ-2 Answer Date Recorded PHQ-2 Score 0 05/15/2021 Comments No Sex and Gender Information Value Date Recorded Sex Assigned at Female 04/11/2021 7:42 AM CDT 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 No / Unsure 06/13/2021 11:02 AM CDT documented as of this encounter Plan of Treatment Upcoming Encounters Date Type Department Care Team ([facility] Contact Info) Description 11/22/2024 10:00 AM CDT Lab [address] [place] 200 [facility] [place] [address] Tay Hernandez MD [address] [place] [address] 01/11/2025 10:30 AM CDT Office Visit [facility] [place] 433786 [facility] 9th Id Clin 9A [place] [address] Mann Lock MD [address] [place] [address] 05/23/2025 10:00 AM CDT Lab [address] [place] 200 [facility] [place] [address] Tay Hernandez MD [address] [place] [address] 468[address] 06/01/2025 2:00 PM CDT Oncology Visit [facility] 909 [place] [phone] Tay Hernandez MD [address] [place] [address] documented as of this encounter Visit Diagnoses Not on filedocumented in this encounter Additional Health Concerns Assessment Noted Time PHQ-9 Depression Total Score: 13 021 10:19 AM CDT documented as of this encounter Care Teams Machine Feeder Raw Stock Relationship Specialty Start Date End Date Siobhan Easley [address] [place] [address] PCP - General Family Practice 06/08/17 Santiago Luz MD [address] [place] [address] Ophthalmology 03/11/18 Silvio Fish [facility] [address] [place] [address] Referring Physician Ophthalmology 03/11/18 Eduin Miguel MD [address] [place] [address] Ophthalmology 08/18/18 Lorie Tapia OD [address] [place] [address] Optometry 12/20/18 Frieda Byrd MD [address] [place] [address] [phone] Assigned Rheumatology Provider 03/10/21 11/21/22 Raisa Contreras MD [address] [place] [address] Otolaryngology 04/24/21 Frieda Byrd MD [address] [place] [address] Rheumatology 04/24/21 Victoria Mills, RN Specialty Industrial Gas Fitter Cardiology 04/30/21 05/22/24 Rj De La Rosa MD Assigned Heart and Vascular Provider 04/28/21 06/26/23 Mann Lock MD [address] [place] [address] Assigned Surgical Provider 04/21/21 Stefanie De Jesus RN Registered Nurse 06/05/21 05/29/23 Licha Luz DO Hematology & Oncology 07/01/21 05/15/24 Licha Luz DO Referring Physician Hematology & Oncology 07/01/2105/15/24 Reji Mack MD [address] [place] [address] 979815 Otolaryngology 07/01/21 Mann Lock MD [address] [place] [address] 944725 Ophthalmology 07/02/21 [place] [address] [place], [place] [address] Assigned Cancer Care Provider 06/16/21 01/30/24 Stefanie De Jesus RN Specialty Industrial Gas Fitter Hematology & Oncology 05/30/23 05/15/24 Mary Jane Lancaster PA-C 420 [facility] 480 [place], [place] 871445 Assigned Cancer Care Provider 01/31/24 07/01/24 Tay Hernandez MD 420 [facility] 480 [place], [place] 108475 Hematology 05/16/24 Leonarda Ocasio LPN Specialty Industrial Gas Fitter Hematology & Oncology 05/18/24 July Saucedo MD [address] [place] [address] 856635 Assigned Neuroscience Provider 06/01/24 Tay Hernandez MD [address] 182525 Assigned Cancer Care Provider 07/02/24 Tay Hernandez MD [address] [phone] Physician Hematology 10/07/24 documented as of this encounter
--- OUTSIDE RECORDS SUMMARY | 2024-10-20 14:05 | XMS_ITS | Encounter Summary ---
Author Organization [place] Address [address] [place] [address] Care Team Providers Care Linux Developer Name Role Phone Siobhan Easley Primary Care Provider Santiago Luz MD Unavailable [phone] Silvio Fish Unavailable [phone] Eduin Miguel MD Unavailable Lorie Tapia OD Unavailable Frieda Byrd MD Unavailable Raisa Contreras MD Unavailable Frieda Byrd MD Unavailable [phone] Victoria Mills RN Unavailable [phone] Rj De La Rosa MD Unavailable Mann Lock MD Unavailable Stefanie De Jesus RN Unavailable [phone] Licha Luz DO Unavailable [phone] Licha Luz DO Unavailable [phone] Reji Mack MD Unavailable Mann Lock MD Unavailable Licha Luz DO Unavailable [phone] Liza Stefanieraquel BAXTER Unavailable [phone] Mary Jane Lancaster PA-C Unavailable [phone] Tay Heranndez MD Unavailable [phone] Leonarda Ocasio LPN Unavailable Unavailable July Saucedo MD Unavailable [phone] Tay Hernandez MD Unavailable + [phone] Tay Hernandez MD Unavailable [phone] Encounter Details Date Type Department Care Team (Late st Contact Info) Description 06/20/2021 MyC Medical Advice [facility] [address] [place] 200 [facility] [place] [place] [address] [place] [address] [place] 200 [place], [place] [phone] Social History Tobacco Use Types Packs/Day Years [...] AM CDT Legal Sex Female 3:21 AM WILLOWER Gender Identity Female 04/11/2021 7:42 AM CDT Sexual Orientation Straight 04/11/2021 7: 42 AM CDT COVID-19 Exposure Response Date Recorded In the last month, have you been in contact with someone who was confirmed or suspected to have Coronavirus / COVID-19? No / Unsure 06/21/2021 10:49 AM WILLOWER documented as of this encounter Plan of Treatment Upcoming Encounters Date Type Department Care Team (Late st Contact Info) Description 11/22/2024 10:00 AM CDT Lab [facility] [address] [place] 200 [facility] [place] [place] [address] Tay Hernandez MD [address] [address] 01/11/2025 10:30 AM CDT Office Visit [facility] 516 [facility] 9 Fl Clin 9A [place] [address] Mann Lock MD [address] [place] [address] 05/23/2025 10:00 AM CDT Lab [facility] [address] [place] 200 [facility] [place] [address] Tay Hernandez MD [address] [place] [address] 06/01/2025 2:00 PM CDT Oncology Visit [facility] 909 [place] [address] Tay Hernandez MD [address] [place] [address] documented as of this encounter Visit Diagnoses Not on filedocumented in this encounter Additional Health Concerns Assessment Noted Time PHQ-9 Depression Total Score: 13 021 10:19 AM CDT documented as of this encounter Care Teams Linux Developer Relationship Specialty Start Date End Date Siobhan Easley [address] [address] PCP - General Family Practice 06/08/17 Santiago Luz MD [address] [address] Ophthalmology 03/11/18 Silvio Fish [facility] [address] [place] [address] Referring Physician Ophthalmology 03/11/18 Eduin Miguel MD 420 [place], [place] 916115 Ophthalmology 08/18/18 Lorie Tapia OD [address] [place] [address] 318755 Optometry 12/20/18 Frieda Byrd MD [address] [place] [address] Assigned Rheumatology Provider 03/10/21 11/21/22 Raisa Contreras MD [address] [place] [address] 668765 Otolaryngology 04/24/21 Frieda Byrd MD [address] [place] [address] Rheumatology 04/24/21 Victoria Mills, RN Specialty Exhibition Specialist Cardiology 04/30/21 05/22/24 Rj De La Rosa MD Assigned Heart and Vascular Provider 04/28/21 06/26/23 Mann Lock MD [address] [place] [address] Assigned Surgical Provider 04/21/21 Stefanie De Jesus RN Registered Nurse 06/05/21 05/29/23 Licha Luz DO Hematology & Oncology 07/01/21 05/15/24 Licha Luz DO Referring Physician Hematology & Oncology 07/01/2105/15/24 Reji Mack MD 500 [place] [address] Otolaryngology 07/01/21 Mann Lock MD [address] [place] [address] Ophthalmology 07/02/21 [place] [address] [address] Assigned Cancer Care Provider 06/16/21 01/30/24 Stefanie De Jesus RN Specialty Exhibition Specialist Hematology & Oncology 05/30/23 05/15/24 Mary Jane Lancaster PA-C 420 [facility] 480 [place] [address] Assigned Cancer Care Provider 01/31/24 07/01/24 Tay Hernandez MD [address] [address] Hematology 05/16/24 Leonarda Ocasio LPN Specialty Exhibition Specialist Hematology & Oncology 05/18/24 July Saucedo MD [address] [place] [address] Assigned Neuroscience Provider 06/01/24 Tay Hernandez MD [address] [place] [address] 791165 Assigned Cancer Care Provider 07/02/24 Tay Hernandez MD [address] [place] [address] 007795 Physician Hematology 10/07/24 documented as of this encounter
--- OUTSIDE RECORDS SUMMARY | 2024-10-20 14:05 | XMS_ITS | Encounter Summary ---
Author Organization [place] Address [address] [place] [address] Care Team Providers Care Sales Representative Cash Registers Name Role Phone Siobhan Easley Primary Care Provider Santiago Luz MD Unavailable [phone] Silvio Fish Unavailable [phone] Eduin Miguel MD Unavailable Lorie Tapia OD Unavailable Frieda Byrd MD Unavailable Raisa Contreras MD Unavailable Frieda Byrd MD Unavailable Victoria Mills RN Unavailable [phone] Rj De La Rosa MD Unavailable Mann Lock MD Unavailable Stefanie De Jesus RN Unavailable [phone] Licha Luz DO Unavailable [phone] Licha Luz DO Unavailable [phone] Reji Mack MD Unavailable [phone] Mann Lock MD Unavailable Licha Luz DO Unavailable [phone] Liza Stefanieraquel BAXTER Unavailable Mary Jane Lancaster PA-C Unavailable [phone] Tay Hernandez MD Unavailable [phone] Leonarda Ocasio LPN Unavailable Unavailable July Saucedo MD Unavailable [phone] Tay Hernandez MD Unavailable + [phone] Tay Hernandez MD Unavailable + [phone] Encounter Details Date Type Department Care Team (Late Contact Info) Description 05/12/2021 MyC Medical Advice [facility] [address] 4th [place] [address] Satnam Zaragoza MD 420 [facility] 396 [place] [address] Social History Tobacco Use Types [...] AM CDT 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 No / Unsure 05/15/2021 1:24 PM CDT documented as of this encounter Plan of Treatment Upcoming Encounters Date Type Department Care Team (Late Contact Info) Description 11/22/2024 10:00 AM CDT Lab [facility] [address] [place] 200 [facility] Medical Ctr [place] [phone] Tay Hernandez MD [address] [address] 01/11/2025 10:30 AM CDT Office Visit [facility] [place] [facility] 516 [facility] 9th Fl Clin 9A [place] [address] Mann Lock MD [address] [place] [address] 05/23/2025 10:00 AM CDT Lab [facility] [place] [address] [place] [address] 200 [facility] [place] [address] Tay Hernandez MD [address] [place] [address] 06/01/2025 2:00 PM CDT Oncology Visit [facility] 909 [place] [address] Tay Hernandez MD [address] [place] [address] documented as of this encounter Visit Diagnoses Not on filedocumented in this encounter Additional Health Concerns Assessment Noted Time PHQ-9 Depression Total Score: 13 021 10:19 AM CDT documented as of this encounter Care Teams Sales Representative Cash Registers Relationship Specialty Start Date End Date Siobhan Easley [address] [place] [address] PCP - General Family Practice 06/08/17 Santiago Luz MD [address] [place] [address] Ophthalmology 03/11/18 Silvio Fish [facility] [address] [place] [address] Referring Physician Ophthalmology 03/11/18 Eduin Miguel MD [address] [place] [address] 055305 Ophthalmology 08/18/18 Lorie Tapia OD [address] [place] [address] 496585 Optometry 12/20/18 Frieda Byrd MD [address] [place] [address] [phone] Assigned Rheumatology Provider 03/10/21 11/21/22 Raisa Contreras MD [address] [place] [address] 095595 Otolaryngology 04/24/21 Frieda Byrd MD [address] [place] [address] 186565 Rheumatology 04/24/21 Victoria Mills, RN Specialty Technical Sales Director Cardiology 04/30/21 05/22/24 Rj De La Rosa MD Assigned Heart and Vascular Provider 04/28/21 06/26/23 Mann Lock MD [address] [place] [address] Assigned Surgical Provider 04/21/21 Stefanie De Jesus RN Registered Nurse 06/05/21 05/29/23 Licha Luz DO Hematology & Oncology 07/01/21 05/15/24 Licha Luz DO Referring Physician Hematology & Oncology 07/01/2105/15/24 Reji Mack MD [address] [place] [address] Otolaryngology 07/01/21 Mann Lock MD [address] [place] [address] Ophthalmology 07/02/21 [place] [address] [address] Assigned Cancer Care Provider 06/16/21 01/30/24 Stefanie De Jesus RN Specialty Technical Sales Director Hematology & Oncology 05/30/23 05/15/24 Mary Jane Lancaster PA-C [address] 957525 Assigned Cancer Care Provider 01/31/24 07/01/24 Tay Hernandez MD [address] [address] Hematology 05/16/24 Leonarda Ocasio LPN Specialty Technical Sales Director Hematology & Oncology 05/18/24 July Saucedo MD [address] [place] [address] Assigned Neuroscience Provider 06/01/24 Tay Hernandez MD [address] [place] [address]644 Assigned Cancer Care Provider 07/02/24 Tay Hernandez MD [address] [place] [address] 31189 Physician Hematology 10/07/24 documented as of this encounter
--- OUTSIDE RECORDS SUMMARY | 2024-10-20 14:05 | XMS_ITS | Encounter Summary ---
Author Organization [place] Address [address] [place] [address] Care Team Providers Care Route Sales Person Name Role Phone Siobhan Easley Primary Care Provider Santiago Luz MD Unavailable [phone] Silvio Fish Unavailable [phone] Eduin Miguel MD Unavailable Lorie Tapia OD Unavailable [phone] Frieda Byrd MD Unavailable [phone] Raisa Contreras MD Unavailable Frieda Byrd MD Unavailable [phone] Victoria Mills RN Unavailable [phone] Rj De La Rosa MD Unavailable Mann Lock MD Unavailable [phone] Stefanie De Jesus RN Unavailable [phone] Licha Luz DO Unavailable [phone] Licha Luz DO Unavailable [phone] Reji Mack MD Unavailable Mann Lock MD Unavailable Licha Luz DO Unavailable [phone] Stefanie De Jesus RN Unavailable [phone] Mary Jane Lancaster PA-C Unavailable [phone] Tay Hernandez MD Unavailable + [phone] Leonarda Ocasio LPN Unavailable Unavailable July Saucedo MD Unavailable [phone] Tay Hernnadez MD Unavailable + [phone] Tay Hernandez MD Unavailable + [phone] Encounter Details Date Type Department Care Team (Late st Contact Info) Description 05/07/2021 MyC Medical Advice [facility] [address] [address] Victoria Mills RN Social History Tobacco Use Types Packs/Day Years Used Date Smoking Tobacco: Former Cigarettes 2 10 1 09/10/1966 - 07/10/1977 Smokeless Tobacco: Never Alcohol Use Standard Drinks/Week Comments Yes 0 (1 standard drink = 0.6 oz pur e alcohol) small gin and tonic PHQ-2 Answer Date Recorded PHQ-2 Score 1 05/07/2021 Comments No Sex and Gender Information Value Date Recorded Sex Assigned at Female 04/11/2021 7:42 AM CDT 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 No / Unsure 05/07/2021 1:11 PM CDT documented as of this encounter Plan of Treatment Upcoming Encounters Date Type Department Care Team (Late st Contact Info) Description 11/22/2024 10:00 AM CDT Lab [facility] [place] [phone] [place] [address] 200 [facility] [place] [address] Tay Hernandez MD [address] [address] 01/11/2025 10:30 AM CDT Office Visit [facility] [address] 9 Fl Clin 9A [place] [address] Mann Lock MD [address] [place] [address] 05/23/2025 10:00 AM CDT Lab [facility] [place] [address] 200 [facility] [place] [address] Tay Hernandez MD [address] [address] 06/01/2025 2:00 PM CDT [facility] 909 [place] [address] Tay Hernandez MD [address] 604265 documented as of this encounter Visit Diagnoses Not on filedocumented in this encounter Additional Health Concerns Assessment Noted Time PHQ-9 Depression Total Score: 13 021 10:19 AM CDT documented as of this encounter Care Teams Route Sales Person Relationship Specialty Start Date End Date Siobhan Easley [address] [place] [address] PCP - General Family Practice 06/08/17 Santiago Luz MD [address] [place] [address] Ophthalmology 03/11/18 Silvio Fish [facility] [address] [place] [address] Referring Physician Ophthalmology 03/11/18 Eduin Miguel MD [address] [place] [address] 193935 Ophthalmology 08/18/18 Lorie Tapia OD [address] [place] [address] 723595 Optometry 12/20/18 Frieda Byrd MD [address] [place] [address] 427665 Assigned Rheumatology Provider 03/10/21 11/21/22 Raisa Contreras MD [address] [place] [address] 584185 Otolaryngology 04/24/21 Frieda Byrd MD [address] [place] [address] 072265 Rheumatology 04/24/21 Victoria Mills RN Specialty Paper Cutter Cardiology 04/30/21 05/22/24 Rj De La Rosa MD Assigned Heart and Vascular Provider 04/28/21 06/26/23 Mann Lock MD [address] [place] [address] 873775 Assigned Surgical Provider 04/21/21 Stefanie De Jesus RN Registered Nurse 06/05/21 05/29/23 Licha Luz DO Hematology & Oncology 07/01/21 05/15/24 Licha Luz DO Referring Physician Hematology & Oncology 07/01/2105/15/24 Reji Mack MD [address] [place] [address] 824545 Otolaryngology 07/01/21 Mann Lock MD [address] [place] [address] Ophthalmology 07/02/21 [place] [address] 033407 Assigned Cancer Care Provider 06/16/21 01/30/24 Stefanie De Jesus, SAHIL Specialty Paper Cutter Hematology & Oncology 05/30/23 05/15/24 Mary Jane [place] PA-C [address] 922985 Assigned Cancer Care Provider 01/31/24 07/01/24 Tay Hernandez MD 420 [facility] 480 [place] [address] Hematology 05/16/24 Leoanrda Ocasio LPN Specialty Paper Cutter Hematology & Oncology 05/18/24 July Saucedo MD 515 [place] [address] Assigned Neuroscience Provider 06/01/24 Tay Hernandez MD [address] 833445 Assigned Cancer Care Provider 07/02/24 Tay Hernandez MD [address] 195005 Physician Hematology 10/07/24 documented as of this encounter
--- OUTSIDE RECORDS SUMMARY | 2024-10-20 14:05 | XMS_ITS | Encounter Summary ---
Author Organization [facility] Address [address] [place] [address] Care Team Providers Care Environmental Compliance Manager Name Role Phone Siobhan Easley Primary Care Provider [phone] Santiago Luz MD Unavailable [phone] Silvio Fish Unavailable [phone] Eduin Miguel MD Unavailable [phone] Lorie Tapia OD Unavailable Eduin Miguel MD Unavailable Frieda Byrd MD Unavailable Ava Up RN Unavailable [phone] Isabella Benavidez RN Unavailable Angelita Zamora RN Unavailable [phone] Raisa Contreras MD Unavailable Frieda Byrd MD Unavailable Victoria Mills RN Unavailable +[phone] Rj De La Rosa MD Unavailable [phone] Mann Lock MD Unavailable Stefanie De Jesus RN Unavailable [phone] Licha Luz DO Unavailable [phone] Licha Luz DO Unavailable [phone] Reji Mack MD Unavailable Mann Lock MD Unavailable [phone] Licha Luz DO Unavailable [phone] Stefanie De Jesus RN Unavailable [phone] Mary Jane Lancaster PA-C Unavailable [phone] Tay Hernandez MD Unavailable [phone] Leonarda Ocasio LPN Unavailable Unavailable July Saucedo MD Unavailable +[phone] Tay Hernandez MD Unavailable [phone] Tay Hernandez MD Unavailable [phone] Encounter Details Date Type Department Care Team (Late st Contact Info) Description 04/18/2021 MyC Medical Advice [facility] [address] 9[facility] 9A [place] [phone] Mann Lock MD [address] [place] [address] [phone] Social History Tobacco Use Types Packs/Day Years [...] AM CDT 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 No / Unsure 04/17/2021 12:28 PM CDT documented as of this encounter Plan of Treatment Upcoming Encounters Date Type Department Care Team (Late st Contact Info) Description 11/22/2024 10:00 AM CDT Lab [facility] [address] [facility] [place] [address] Tay Hernandez MD [address] [place] [address] 01/11/2025 10:30 AM CDT Office Visit [facility] - [address] [address] Mann Lock MD [address] [place] [address] 05/23/2025 10:00 AM CDT Lab [address] [place] 200 [facility] [place] [address] Tay Hernandez MD [address] [place] [address] 06/01/2025 2:00 PM CDT Oncology Visit [facility] 909 [place] [address] Tay Hernandez MD [address] [place] [address] [phone] documented as of this encounter Visit Diagnoses Not on filedocumented in this encounter Additional Health Concerns Assessment Noted Time PHQ-9 Depression Total Score: 13 01/22/ 021 10:19 AM CDT documented as of this encounter Care Teams Environmental Compliance Manager Relationship Specialty Start Date End Date Siobhan [place] [address] PCP - General Family Practice 06/08/17 Santiago Luz MD [address] [place] [address] Ophthalmology 03/11/18 Silvio Fish [facility] 2019 [facility] [place] [address] Referring Physician Ophthalmology 03/11/18 Eduin Miguel MD [address] [place] [address] 029385 Ophthalmology 08/18/18 Lorie Tapia OD [address] [place] [address] 863315 Optometry 12/20/18 Eduin Miguel MD [address] [place] [address] Assigned Surgical Provider 06/01/20 04/20/21 Frieda Byrd MD [address] [place] [address] 787965 Assigned Rheumatology Provider 03/10/21 11/21/22 Ava Up RN Specialty Licensed Psychologist Director Cardiology 04/22/21 04/29/21 Isabella Benavidez RN Specialty Licensed Psychologist Director Cardiology 04/22/21 04/29/21 Angelita Zamora RN Specialty Licensed Psychologist Director Cardiology 04/22/21 04/29/21 Raisa Contreras MD [address] [place] [address] Otolaryngology 04/24/21 Frieda Byrd MD [address] [place] [address] MD Rheumatology 04/24/21 Victoria Mills, SAHIL Specialty Licensed Psychologist Director Cardiology 04/30/21 05/22/24 Rj De La Rosa MD Assigned Heart and Vascular Provider 04/28/21 06/26/23 Mann Lock MD [address] [place] [address] 568845 Assigned Surgical Provider 04/21/21 Stefanie De Jesus, SAHIL Registered Nurse 06/05/21 05/29/23 Licha Luz DO Hematology & Oncology 07/01/21 05/15/24 Licha Luz DO Referring Physician Hematology & Oncology 07/01/2105/15/24 Reji Mack MD [address] [place] [address] Otolaryngology 07/01/21 Mann Lock MD [address] [place] [address] Ophthalmology 07/02/21 [place] [address] [place] [address] Assigned Cancer Care Provider 06/16/21 01/30/24 Stefanie De Jesus, SAHIL Specialty Licensed Psychologist Director Hematology & Oncology 05/30/23 05/15/24 Mary Jane Lancaster PA-C [address] 885205 Assigned Cancer Care Provider 01/31/24 07/01/24 Tay Hernandez MD [address] [address] Hematology 05/16/24 Leonarda Ocasio LPN Specialty Licensed Psychologist Director Hematology & Oncology 05/18/24 July Saucedo MD 515 [place], [place] 797385 Assigned Neuroscience Provider 06/01/24 Tay Hernandez MD [address] [address] Assigned Cancer Care Provider 07/02/24 Tay Hernandez MD [address] 826535 Physician Hematology 10/07/24 documented as of this encounter
--- OUTSIDE RECORDS SUMMARY | 2024-10-20 14:05 | XMS_ITS | Encounter Summary ---
Author Organization [facility] Address [address] [place] [address] Care Team Providers Care Post Commander Name Role Phone Siobhan Easley Primary Care Provider [phone] Santiago Luz MD Unavailable [phone] Silvio Fish Unavailable [phone] Eduin Miguel MD Unavailable Lorie Tapia OD Unavailable Frieda Byrd MD Unavailable Raisa Contreras MD Unavailable Frieda Byrd MD Unavailable Victoria Mills RN Unavailable [phone] Rj De La Rosa MD Unavailable Mann Lock MD Unavailable [phone] Stefanie De Jesus RN Unavailable [phone] Licha Luz DO Unavailable [phone] Licha Luz DO Unavailable [phone] Reji Mack MD Unavailable Mann Lock MD Unavailable Licha Luz DO Unavailable [phone] Stefanie De Jesus RN Unavailable [phone] Mary Jane Lancaster PA-C Unavailable [phone] Tay Hernandez MD Unavailable [phone] Leonarda Ocasio LPN Unavailable Unavailable July Saucedo MD Unavailable [phone] Tay Hernandez MD Unavailable + [phone] Tay Hernandez MD Unavailable [phone] Encounter Details Date Type Department Care Team (Late st Contact Info) Description 06/06/2021 MyC Medical Advice [address] 838 [facility] [place] [phone] Brigid Gonzalez RN Social History Tobacco Use Types Packs/Day [...] AM CDT 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 No / Unsure 06/05/2021 1:19 PM CDT documented as of this encounter Plan of Treatment Upcoming Encounters Date Type Department Care Team (Late st Contact Info) Description 11/22/2024 10:00 AM CDT Lab [place] [id number] [facility] [address] 046 [facility] [place] [phone] Tay Hernandez MD [address] [place] [address] 01/11/2025 10:30 AM CDT Office Visit [facility] [address] 9th Fl Clin 9A [place] [address] Mann Lock MD [address] [place] [address] 05/23/2025 10:00 AM CDT Lab [facility] [place] [address] [place] 200 [facility] [place] [address] Tay Hernandez MD [address] [place] [address] 06/01/2025 2:00 PM CDT Oncology Visit [facility] 909 [place] [address] Tay Hernandez MD [address] [place] [address] 539425 documented as of this encounter Visit Diagnoses Not on filedocumented in this encounter Additional Health Concerns Assessment Noted Time PHQ-9 Depression Total Score: 13 021 10:19 AM CDT documented as of this encounter Care Teams Post Commander Relationship Specialty Start Date End Date Siobhan Easley [address] [address] PCP - General Family Practice 06/08/17 Santiago Luz MD [address] [address] Ophthalmology 03/11/18 Silvio Fish [facility] [address] [place] [address] Referring Physician Ophthalmology 03/11/18 Eduin Miguel MD [address] [place] [address] [phone] Ophthalmology 08/18/18 Lorie Tapia, KARSTEN [address] [place] [address] 470905 Optometry 12/20/18 Frieda Byrd MD [address] [place] [address] 774435 Assigned Rheumatology Provider 03/10/21 11/21/22 Raisa Contreras MD [address] [place] [address] 127325 Otolaryngology 04/24/21 Frieda Byrd MD [address] [place] [address] 067055 Rheumatology 04/24/21 Victoria Mills RN Specialty Veneer Redrier Cardiology 04/30/21 05/22/24 Rj De La Rosa MD Assigned Heart and Vascular Provider 04/28/21 06/26/23 Mann oLck MD [address] [place] [address] 599945 Assigned Surgical Provider 04/21/21 Stefanie De Jesus RN Registered Nurse 06/05/21 05/29/23 Licha Luz DO Hematology & Oncology 07/01/21 05/15/24 Licha Luz DO Referring Physician Hematology & Oncology 07/01/2105/15/24 Reji Mack MD [address] [place] [address] Otolaryngology 07/01/21 Mann Lock MD [address] [place] [address] Ophthalmology 07/02/[place] [address] [place] [address] [address] [id number] Assigned Cancer Care Provider 06/16/21 01/30/24 Stefanie De Jesus RN Specialty Veneer Redrier Hematology & Oncology 05/30/23 05/15/24 Mary Jane Lancaster PA-C 420 [facility] 480 [place], [place] 272345 Assigned Cancer Care Provider 01/31/24 07/01/24 Tay Hernandez MD 420 [facility] 480 [place] [address] Hematology 05/16/24 Leonarda Ocasio LPN Specialty Veneer Redrier Hematology & Oncology 05/18/24 July Saucedo MD [address] [place] [address] 744885 Assigned Neuroscience Provider 06/01/24 Tay Hernandez MD [address] [place] [address] Assigned Cancer Care Provider 07/02/24 Tay Hernandez MD [address] [place] [address] Physician Hematology 10/07/24 documented as of this encounter
--- OUTSIDE RECORDS SUMMARY | 2024-10-20 14:05 | XMS_ITS | Encounter Summary ---
Author Organization [facility] Address [address] [place] [address] Care Team Providers Care Horn Player Name Role Phone Siobhan Easley Primary Care Provider [phone] Santiago Luz MD Unavailable [phone] Silvio Fish Unavailable [phone] Eduin Miguel MD Unavailable [phone] Lorie Tapia OD Unavailable Eduin Miguel MD Unavailable Frieda Byrd MD Unavailable [phone] Ava Up RN Unavailable [phone] Isabella Benavidez RN Unavailable Angelita Zamora RN Unavailable [phone] Raisa Contreras MD Unavailable Frieda Byrd MD Unavailable +[phone] Victoria Mills RN Unavailable Rj De La Rosa MD Unavailable [phone] Mann Lock MD Unavailable Stefanie De Jesus RN Unavailable [phone] Licha Luz DO Unavailable [phone] Licha Luz DO Unavailable [phone] Reji Mack MD Unavailable Mann Lock MD Unavailable [phone] Licha Luz DO Unavailable [phone] Stefanie De Jesus RN Unavailable [phone] Mary Jane Lancaster PA-C Unavailable [phone] Tay Hernandez MD Unavailable [phone] Leonarda Ocasio LPN Unavailable Unavailable July Saucedo MD Unavailable [phone] Tay Hernandez MD Unavailable [phone] Tay Hernandez MD Unavailable [phone] Encounter Details Date Type Department Care Team (Late st Contact Info) Description 03/27/2021 MyC Medical Advice [facility] [address] [address] Frieda Byrd MD [address] [place] [address] Social History Tobacco Use Types Packs/Day [...] AM CDT 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 No / Unsure 03/21/2021 11:57 AM CDT documented as of this encounter Plan of Treatment Upcoming Encounters Date Type Department Care Team (Late st Contact Info) Description 11/22/2024 10:00 AM CDT Lab [address] 200 [facility] [place] [address] Tay Hernandez MD [address] [place] [address] 01/11/2025 10:30 AM CDT Office Visit [facility] [address] [facility] 9A [place] [address] Mann Lock MD [address] [place] [address] 235685 05/23/2025 10:00 AM CDT Lab [address] 200 [facility] [place] [address] Tay Hernandez MD [address] [place] [address] 06/01/2025 2:00 PM CDT Oncology Visit [facility] 909 [place] [address] Tay Hernandez MD [address] [place] [address] documented as of this encounter Visit Diagnoses Not on filedocumented in this encounter Additional Health Concerns Assessment Noted Time PHQ-9 Depression Total Score: 13 021 10:19 AM CDT documented as of this encounter Care Teams Horn Player Relationship Specialty Start Date End Date Siobhan Easley [address] [place] [address] PCP - General Family Practice 06/08/17 Santiago Luz MD [address] [place] [address] Ophthalmology 03/11/18 Silvio Fish [facility] 2019 [facility] [place] [address] Referring Physician Ophthalmology 03/11/18 Eduin Miguel MD 420 [place], [place] [phone] Ophthalmology 08/18/18 Lorie Tapia OD [address] [phone] Optometry 12/20/18 Eduin Miguel MD 420 [place] [address] Assigned Surgical Provider 06/01/20 04/20/21 Frieda Byrd MD [address] [place] [address] [phone] Assigned Rheumatology Provider 03/10/21 11/21/22 Ava Up, SAHIL Specialty Customs Investigator Cardiology 04/22/21 04/29/21 Isabella Benavidez, SAHIL Specialty Customs Investigator Cardiology 04/22/21 04/29/21 Angelita Zamora RN Specialty Customs Investigator Cardiology 04/22/21 04/29/21 Raisa Contreras MD [address] [place] [address] 476615 Otolaryngology 04/24/21 Frieda Byrd MD 500 [place], [place] 890495 Rheumatology 04/24/21 Victoria Mills, SAHIL Specialty Customs Investigator Cardiology 04/30/21 05/22/24 Rj De La Rosa MD Assigned Heart and Vascular Provider 04/28/21 06/26/23 Mann Lock MD [address] [place] [address] 856755 Assigned Surgical Provider 04/21/21 Stefanie De Jesus RN Registered Nurse 06/05/21 05/29/23 Licha Luz DO Hematology & Oncology 07/01/21 05/15/24 Licha Luz DO Referring Physician Hematology & Oncology 07/01/2105/15/24 Reji Mack MD [address] [place] [address] 022105 Otolaryngology 07/01/21 Mann Lock MD [address] [place] [address] 465275 Ophthalmology 07/02/21 [place] [address] [place] [address] Assigned Cancer Care Provider 06/16/21 01/30/24 Stefanie De Jesus, SAHIL Specialty Customs Investigator Hematology & Oncology 05/30/23 05/15/24 Mary Jane Lancaster PA-C [address] [place] [facility] 480 [place] [address] Assigned Cancer Care Provider 01/31/24 07/01/24 Tay Hernandez MD [address] [place] [address] [facility] 480 [place] [address] Hematology 05/16/24 Leonarda Ocasio LPN Specialty Customs Investigator Hematology & Oncology 05/18/24 July Saucedo MD [address] [place], [place] 945335 Assigned Neuroscience Provider 06/01/24 Tay Hernandez MD [address] [place] [address] [facility] 480 [place] [address] Assigned Cancer Care Provider 07/02/24 Tay Hernandez MD [address] [place] [address] [facility] 480 [place], [place] 399455 Physician Hematology 10/07/24 documented as of this encounter
--- OUTSIDE RECORDS SUMMARY | 2024-10-20 14:05 | XMS_ITS | Encounter Summary ---
Author Organization [facility] Address [address] [place] [address] Care Team Providers Care Poultry Vaccinator Name Role Phone Siobhan Easley Primary Care Provider [phone] Santiago Luz MD Unavailable [phone] Silvio Fish Unavailable [phone] Eduin Miguel MD Unavailable [phone] Lorie Tapia OD Unavailable Eduin Miguel MD Unavailable Frieda Byrd MD Unavailable [phone] Ava Up RN Unavailable [phone] Isabella Benavidez RN Unavailable Angelita Zamora RN Unavailable [phone] Raisa Contreras MD Unavailable Frieda Byrd MD Unavailable [phone] Victoria Mills RN Unavailable [phone] Rj De La Rosa MD Unavailable [phone] Mann Lock MD Unavailable Stefanie De Jesus RN Unavailable [phone] Licha Luz DO Unavailable [phone] Licha Luz DO Unavailable [phone] Reji Mack MD Unavailable [phone] Mann Lock MD Unavailable [phone] Licha Luz DO Unavailable Stefanie De Jesus RN Unavailable [phone] Mary Jane Lancaster PA-C Unavailable [phone] Tay Hernandez MD Unavailable [phone] Leonarda Ocasio LPN Unavailable Unavailable July Saucedo MD Unavailable [phone] Tay Hernandez MD Unavailable [phone] Tay Hernandez MD Unavailable [phone] Reason for Referral * Diagnostic Imaging MRI (Routine) - Closed Specialty Diagnoses / Procedures Referred By Chaim lora Referred To Contact Diagnoses 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 Procedures MR Brain w/o & w Contrast Mann Lock MD [address] [place] [address] Phone: tel: fax: Referral ID Status Reason Start Date Expiration Date Visits Re quested Visits Authorized [id number] Closed 04/17/2021 04/17/2022 1 1 Encounter Details Date Type Department Care Team (Latest Contact Info) Description 04/13/2021 [facility] Rhe[facility] [place] [id number] [place] [address] Frieda Byrd MD [address] [place] [address] Intermediate uveitis of both eyes (Primary Dx); IgM monoclonal gammopathy of uncertain significance Social History Tobacco Use Types Packs/Day Years [...] AM CDT 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 No / Unsure 04/10/2021 10:11 AM CDT documented as of this encounter Plan of Treatment Upcoming Encounters Date Type Department Care Team (Late st Contact Info) Description 11/22/2024 10:00 AM CDT Lab [address] NAVARRO 200 [facility] [place] [address] Tay Hernandez MD [address] [place] [address] 01/11/2025 10:30 AM CDT Office Visit [facility] - [place] [id number] [facility] [address] [place] [address] Mann Lock MD [address] [place] [address] 05/23/2025 10:00 AM CDT Lab [address] NAVARRO 200 [facility] [place] [address] Tay Hernandez MD [address] [place] [address] 06/01/2025 2:00 PM CDT Oncology Visit [facility] [address] [place] [address] Tay Hernandez MD [address] [place] [address] 480 [place] [address] documented as of this encounter Results * MR Brain w/o & w Contrast (04/22/2021 8:28 PM CDT) Anatomical Region Laterality Modality Head, SUBRAD MR NEURO, UMP MR NEURO, RAD MR Magnetic Resonance 04/22/2021 7:13 PM CDT Impressions 04/22/2021 11:59 PM CDT IMPRESSION: 1. Mild atrophy and chronic small vessel vascular change 2. Negative for acute intracranial process. 3. Negative for mass or abnormal enhancement. 4. Mild, nonspecific heterogeneous marrow signal within the calvarium without focal destructive lesion. Narrative 04/22/2021 11:59 PM CDT EXAM: MR BRAIN W/O and W CONTRAST LOCATION: [facility] DATE/TIME: 04/22/2021 7:13 PM INDICATION: Intermediate uveitis of both eyes, IgM monoclonal gammopathy COMPARISON: None. CONTRAST: 9 mL Gadavist TECHNIQUE: Routine multiplanar multisequence head MRI without and with intravenous contrast. FINDINGS: INTRACRANIAL CONTENTS: No acute or subacute infarct. No mass, acute hemorrhage, or extra-axial fluid collections. Scattered nonspecific T2/FLAIR hyperintensities within the cerebral white matter most consistent with mild chronic microvascular ischemic change. Mild generalized cerebral atrophy. No hydrocephalus. Normal position of the cerebellar tonsils. No pathologic contrast enhancement. Negative for dural or leptomeningeal thickening/enhancement. SELLA: No abnormality accounting for technique. OSSEOUS STRUCTURES/SOFT TISSUES: Slightly heterogeneous calvarial marrow signal without focal destructive or enhancing lesions. The major intracranial vascular flow voids are maintained. Torus palatini noted. ORBITS: Prior bilateral cataract surgery. Visualized portions of the orbits are otherwise unremarkable. SINUSES/MASTOIDS: No paranasal sinus mucosal disease. No middle ear or mastoid effusion. Procedure Note Guanako Jeffries MD - 04/23/2021 EXAM: MR BRAIN W/O and W CONTRAST LOCATION: [facility] DATE/TIME: 04/22/2021 7:13 PM INDICATION: Intermediate uveitis of both eyes, IgM monoclonal gammopathy COMPARISON: None. CONTRAST: 9 mL Gadavist TECHNIQUE: Routine multiplanar multisequence head MRI without and withintravenous contrast. FINDINGS: INTRACRANIAL CONTENTS: No acute or subacute infarct. No mass, acutehemorrhage, or extra-axial fluid collections. Scattered nonspecificT2/FLAIR hyperintensities within the cerebral white matter most consistentwith mild chronic microvascular ischemic change. Mild generalized cerebral atrophy. No hydrocephalus. Normalposition of the cerebellar tonsils. No pathologic contrast enhancement.Negative for dural or leptomeningeal thickening/enhancement. SELLA: No abnormality accounting for technique. OSSEOUS STRUCTURES/SOFT TISSUES: Slightly heterogeneous calvarial marrowsignal without focal destructive or enhancing lesions. The majorintracranial vascular flow voids are maintained. Torus palatini noted. ORBITS: Prior bilateral cataract surgery. Visualized portions of theorbits are otherwise unremarkable. SINUSES/MASTOIDS: No paranasal sinus mucosal disease. No middle ear ormastoid effusion. IMPRESSION: 1. Mild atrophy and chronic small vessel vascular change 2. Negative for acute intracranial process. 3. Negative for mass or abnormal enhancement. 4. Mild, nonspecific heterogeneous marrow signal within the calvariumwithout focal destructive lesion. 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 [address] [place] [address] Referring Physician Ophthalmology 03/11/18 Eduin Miguel MD [address] [place] [address] 315135 Ophthalmology 08/18/18 Lorie Tapia, KARSTEN [address] [place] [address] [id number] Optometry 12/20/18 Eduin Miguel MD [address] [place] [address] [id number] Assigned Surgical Provider 06/01/20 04/20/21 Frieda Byrd MD [address] [place] [address] Assigned Rheumatology Provider 03/10/21 11/21/22 Ava Up, SAHIL Specialty Supervisor Typesetting Cardiology 04/22/21 04/29/21 Isabella Benavidez, RN Specialty Supervisor Typesetting Cardiology 04/22/21 04/29/21 Angelita Zamora, RN Specialty Supervisor Typesetting Cardiology 04/22/21 04/29/21 Raisa Contreras MD [address] [place] [address] Otolaryngology 04/24/21 Frieda Byrd MD [address] [place], [place] 533145 Rheumatology 04/24/21 Victoria Mills, SAHIL Specialty Supervisor Typesetting Cardiology 04/30/21 05/22/24 Rj De La Rosa MD Assigned Heart and Vascular Provider 04/28/21 06/26/23 Mann Lock MD [address] [place] [address] [id number] Assigned Surgical Provider 04/21/21 Stefanie De Jesus RN Registered Nurse 06/05/21 05/29/23 Licha Luz DO Hematology & Oncology 07/01/21 05/15/24 Licha Luz DO Referring Physician Hematology & Oncology 07/01/2105/15/24 Reji Mack MD [address] [place], [place] 5[address] Otolaryngology 07/01/21 Mann Lock MD [address] [place] [address] [id number] Ophthalmology 07/02/21 [place] [address] [facility] [place] [address] Assigned Cancer Care Provider 06/16/21 01/30/24 Stefanie De Jesus, RN Specialty Supervisor Typesetting Hematology & Oncology 05/30/23 05/15/24 Mary Jane Lancaster PA-C 420 [facility] [address] [place] [address] Assigned Cancer Care Provider 01/31/24 07/01/24 Tay Hernandez MD [address] [address] Hematology 05/16/24 Leonarda Ocasio LPN Specialty Supervisor Typesetting Hematology & Oncology 05/18/24 July Saucedo MD [address] [place] [address] 126255 Assigned Neuroscience Provider 06/01/24 Tay Hernandez MD [address] 134285 Assigned Cancer Care Provider 07/02/24 Tay Hernandez MD [address] [id number] Physician Hematology 10/07/24 documented as of this encounter
--- OUTSIDE RECORDS SUMMARY | 2024-10-20 14:05 | XMS_ITS | Encounter Summary ---
Author Organization [facility] Address [address] [place] [address] Care Team Providers Care Fitness Manager Name Role Phone Siobhan Easley Primary Care Provider [phone] Santiago Luz MD Unavailable [phone] Silvio Fish Unavailable [phone] Eduin Miguel MD Unavailable Lorie Tapia OD Unavailable Frieda Byrd MD Unavailable [phone] Ava Up RN Unavailable [phone] Isabella Benavidez RN Unavailable Angelita Zamora RN Unavailable [phone] Raisa Contreras MD Unavailable Frieda Byrd MD Unavailable Victoria Mills RN Unavailable [phone] Rj De La Rosa MD Unavailable Mann Lock MD Unavailable Stefanie De Jesus RN Unavailable [phone] Licha Luz DO Unavailable [phone] Licha Luz DO Unavailable [phone] Reji Mack MD Unavailable [phone] Mann Lock MD Unavailable [phone] SukhLicha DO Unavailable [phone] Stefanie De Jesus RN Unavailable [phone] Mary Jane Lancaster PA-C Unavailable [phone] Tay Hernandez MD Unavailable [phone] Leonarda Ocasio LPN Unavailable Unavailable July Saucedo MD Unavailable [phone] Tay Hernandez MD Unavailable [phone] Tay Hernandez MD Unavailable [phone] Encounter Details Date Type Department Care Team (Late st Contact Info) Description 04/26/2021 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 No / Unsure 04/29/2021 10:58 AM CDT documented as of this encounter Plan of Treatment Upcoming Encounters Date Type Department Care Team (Late st Contact Info) Description 11/22/2024 10:00 AM CDT Lab [address] NAVARRO 200 [facility] [place] [address] Tay Hernandez MD [address] [place] [address] 01/11/2025 10:30 AM CDT Office Visit [facility] - [place] [address] [facility] [address] [place] [address] Mann Lock MD [address] [place] [address] 05/23/2025 10:00 AM CDT Lab [address] NAVARRO 200 [facility] [place] [address] Tay Hernandez MD [address] [place] [address] 06/01/2025 2:00 PM CDT Oncology Visit [facility] 909 [place] [address] Tay Hernandez MD [address] [place] [address] documented as of this encounter Visit Diagnoses Not on filedocumented in this encounter Additional Health Concerns Assessment Noted Time PHQ-9 Depression Total Score: 13 021 10:19 AM CDT documented as of this encounter Care Teams Fitness Manager Relationship Specialty Start Date End Date Siobhan Easley [address] [place] [address] PCP - General Family Practice 06/08/17 Santiago Luz MD [address] [place] [address] Ophthalmology 03/11/18 Silvio Fish [facility] 2019 [facility] [place] [address] Referring Physician Ophthalmology 03/11/18 Eduin Miguel MD [address] [place] [address] Ophthalmology 08/18/18 Lorie Tapia OD [address] [place] [address] Optometry 12/20/18 Frieda Byrd MD [address] [place] [address] Assigned Rheumatology Provider 03/10/21 11/21/22 Ava Up RN Specialty Drafter Tool Design Cardiology 04/22/21 04/29/21 Isabella Benavidez RN Specialty Drafter Tool Design Cardiology 04/22/21 04/29/21 Angelita Zamora, SAHIL Specialty Drafter Tool Design Cardiology 04/22/21 04/29/21 Raisa Contreras MD [address] [place] [address] Otolaryngology 04/24/21 Frieda Byrd MD [address] [place] [address] [place] [address] Rheumatology 04/24/21 Victoria Mills, RN Specialty Drafter Tool Design Cardiology 04/30/21 05/22/24 Rj De La Rosa MD Assigned Heart and Vascular Provider 04/28/21 06/26/23 Mann Lock MD [address] [place] [address] 371175 Assigned Surgical Provider 04/21/21 Stefanie De Jesus RN Registered Nurse 06/05/21 05/29/23 Licha Luz DO Hematology & Oncology 07/01/21 05/15/24 Licha Luz DO Referring Physician Hematology & Oncology 07/01/2105/15/24 Reji Mack MD 500 [place], [place] 725145 Otolaryngology 07/01/21 Mann Lock MD [address] [place] [address] 605165 Ophthalmology 07/02/21 [place] [address] [place], [place] 481117 Assigned Cancer Care Provider 06/16/21 01/30/24 Stefanie De Jesus RN Specialty Drafter Tool Design Hematology & Oncology 05/30/23 05/15/24 Mary Jane Lancaster PA-C [address] [address] Assigned Cancer Care Provider 01/31/24 07/01/24 Tay Hernandez MD [address] [place] [address] Hematology 05/16/24 Leonarda Ocasio LPN Specialty Drafter Tool Design Hematology & Oncology 05/18/24 July Saucedo MD [address] [place] [address] Assigned Neuroscience Provider 06/01/24 Tay Hernandez MD [address] [place] [address] Assigned Cancer Care Provider 07/02/24 Tay Hernandez MD [address] [place] [address] Physician Hematology 10/07/24 documented as of this encounter
--- OUTSIDE RECORDS SUMMARY | 2024-10-20 14:05 | XMS_ITS | Encounter Summary ---
Author Organization [facility] Address [address] [place] [address] Care Team Providers Care Impregnator Name Role Phone Siobhan Easley Primary Care Provider Santiago Luz MD Unavailable [phone] Silvio Fish Unavailable [phone] Eduin Miguel MD Unavailable Lorei Tapia OD Unavailable Frieda Byrd MD Unavailable [phone] Raisa Contreras MD Unavailable Frieda Byrd MD Unavailable Victoria Mills RN Unavailable [phone] Rj De La Rosa MD Unavailable Mann Lock MD Unavailable Stefanie De Jesus RN Unavailable [phone] Licha Luz DO Unavailable [phone] Licha Luz DO Unavailable [phone] Reji Mack MD Unavailable Mann Lock MD Unavailable Licha Luz DO Unavailable [phone] GenetayStefanie SAHIL Unavailable [phone] Mary Jane Lancaster PA-C Unavailable [phone] Tay Hernandez MD Unavailable [phone] Ninfa Leonarda SNOWDEN Unavailable Unavailable July Saucedo MD Unavailable [phone] Tay Hernandez MD Unavailable [phone] Tay Hernandez MD Unavailable [phone] Reason for Visit * Reason Onset Date Comments Call Back 07/10/2021 many questions a bout upcoming fat pad biopsy Encounter Details Date Type Department Care Team (Late st Contact Info) Description 07/10/[address] [facility] Inter[facility] Surgery [facility] [address] [address] Unknown Call Back (many questions about upcoming fat pad biopsy) Social History Tobacco Use Types Packs/Day Years [...] AM CDT 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 No / Unsure 07/10/2021 12:46 PM COLLECTION MANAGER documented as of this encounter Miscellaneous Notes * Telephone Encounter - Jane Patel - 07/10/2021 9:43 AM CST [facility] Call Center Phone Message May a detailed message be left on voicemail: yes Reason for Call: Other: Pt has a lot of questions before 12.8.21 fat pad biopsy. 1. Is she getting general anesthesia? Is that why the instructions say to bring a city driver? Does she need a pre-op appt and a COVID shot before the procedure? The instructions say it could be 4 hours for the procedure. Is that correct? The instructions say to arrive at 12:30. Is that correct as she has another appt at 11:30 that same day across campus and she needs to know if 12:30 is correct? Please call the pt, youcan lv a mssg on her cell, and you can send a detailed answer to My CHart if you want. Thanks. Action Taken: Message routed to: [facility] IR Travel Screening: Not Applicable ECTION MANAGER documented in this encounter Plan of Treatment Upcoming Encounters Date Type Department Care Team (Late st Contact Info) Description 11/22/2024 10:00 AM CDT Lab [address] [place] 200 [facility] [place] [address] Tay Hernandez MD [address] [place] [address] 01/11/2025 10:30 AM CDT Office Visit [facility] - [address] [place] [address] [place] [address] Mann Lock MD [address] [place] [address] 05/23/2025 10:00 AM CDT Lab [place] [address] 200 [facility] [place] [address] Tay Hernandez MD [address] [place] [address] 06/01/2025 2:00 PM CDT Oncology Visit [facility] 909 [place] [address] Tay Hernandez MD [address] [place] [address] 629215 documented as of this encounter Visit Diagnoses Not on filedocumented in this encounter Additional Health Concerns Assessment Noted Time PHQ-9 Depression Total Score: 10 021 7:28 AM COLLECTION MANAGER documented as of this encounter Care Teams Impregnator Relationship Specialty Start Date End Date Siobhan Easley [address], [place] [address] PCP - General Family Practice 06/08/17 Santiago Luz MD [address] [place] [address] Ophthalmology 03/11/18 Silvio Fish [facility] 2019 [facility] [place] [address] Referring Physician Ophthalmology 03/11/18 Eduin Miguel MD [address] [place] [address] 158895 Ophthalmology 08/18/18 Lorie Tapia OD [address] [place] [address] Optometry 12/20/18 Frieda Byrd MD [address] [place] [address] Assigned Rheumatology Provider 03/10/21 11/21/22 Raisa Contreras MD [address] [place] [address] 352895 Otolaryngology 04/24/21 Frieda Byrd MD [address] [place] [address] 283985 Rheumatology 04/24/21 Victoria Mills, SAHIL Specialty Bass String Winder Cardiology 04/30/21 05/22/24 Rj De La Rosa MD Assigned Heart and Vascular Provider 04/28/21 06/26/23 Mann Lock MD [address] [place] [address] Assigned Surgical Provider 04/21/21 Stefanie De Jesus RN Registered Nurse 06/05/21 05/29/23 Licha Luz DO Hematology & Oncology 07/01/21 05/15/24 Licha Luz DO Referring Physician Hematology & Oncology 07/01/2105/15/24 Reji Mack MD [address] [place] [address] Otolaryngology 07/01/21 Mann Lock MD [address] [place] [address] 012605 Ophthalmology 07/02/21 [place] [address] [place] [address] Assigned Cancer Care Provider 06/16/21 01/30/24 Stefanie De Jesus, RN Specialty Bass String Winder Hematology & Oncology 05/30/23 05/15/24 Mary Jane Lancaster PA-C [address] [address] Assigned Cancer Care Provider 01/31/24 07/01/24 Tay Hernandez MD [address] [place] [address] Hematology 05/16/24 Leonarda Ocasio LPN Specialty Bass String Winder Hematology & Oncology 05/18/24 July Saucedo MD [address] [place] [address] Assigned Neuroscience Provider 06/01/24 Tay Hernandez MD [address] [place] [address] Assigned Cancer Care Provider 07/02/24 Tay Hernandez MD [address] [place] [address] Physician Hematology 10/07/24 documented as of this encounter
--- OUTSIDE RECORDS SUMMARY | 2024-10-20 14:05 | XMS_ITS | Encounter Summary ---
Author Organization [place] Address [address] [place] [address] Care Team Providers Care Pulp Bleacher Name Role Phone Siobhan Easley Primary Care Provider [phone] Santiago Luz MD Unavailable [phone] Silvio Fish Unavailable [phone] Eduin Miguel MD Unavailable Lorie Tapia OD Unavailable Frieda Byrd MD Unavailable Ava Up RN Unavailable [phone] Isabella Bneavidez RN Unavailable Angelita Zamora RN Unavailable Raisa Contreras MD Unavailable Frieda Byrd MD Unavailable Victoria Mills RN Unavailable [phone] Rj De La Rosa MD Unavailable Mann Lock MD Unavailable +[phone] Stefanie De Jesus RN Unavailable [phone] Licha Luz DO Unavailable [phone] Licha uLz DO Unavailable [phone] Reji Mack MD Unavailable [phone] Mann Lock MD Unavailable +[phone] Sukh Licha Lavinia DO Unavailable [phone] Liza Stefanieraquel BAXTER Unavailable [phone] Mary Jane Lancaster PA-C Unavailable +[phone] Tay Hernandez MD Unavailable +[phone] Leonarda Ocasio LPN Unavailable Unavailable July Saucedo MD Unavailable +[phone] Tay Hernandez MD Unavailable +[phone] Tay Hernandez MD Unavailable +[phone] Encounter Details Date Type Department Care Team (Late st Contact Info) Description 04/29/2021 [facility] Medical Advice [facility] Heart [address] [address] Rj De La Rosa MD [address] [place] [address] Social History Tobacco Use Types Packs/Day [...] AM CDT 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 Gender Identity Female 04/11/2021 7:42 AM CDT [...] Info) Description 11/22/2024 10:00 AM CDT Lab [place] [id number] [place] [address] 200 [facility] [place] [address] Tay Hernandez MD [address] [address] 01/11/2025 10:30 AM CDT Office Visit [facility] - [facility] [address] [facility] 9 Fl Clin 9A [place] [address] Mann Lock MD [address] [place] [address] 05/23/2025 10:00 AM CDT Lab [address] NAV[place] 200 [facility] [place] [address] Tay Hernandez MD [address] [place] [address] 06/01/2025 2:00 PM CDT Oncology Visit [facility] 9[address] [place] [address] Tay Hernandez MD [address] [place] [address] documented as of this encounter Visit Diagnoses Not on filedocumented in this encounter Additional Health Concerns Assessment Noted Time PHQ-9 Depression Total Score: 13 021 10:19 AM CDT documented as of this encounter Care Teams Pulp Bleacher Relationship Specialty Start Date End Date Siobhan Easley [address] [place] [address] PCP - General Family Practice 06/08/17 Santiago Luz MD [address] [place] [address] Ophthalmology 03/11/18 Silvio Fish [facility] 2019 [facility] [place] [address] Referring Physician Ophthalmology 03/11/18 Eduin Miguel MD 420 [place], [place] 109275 Ophthalmology 08/18/18 Lorie Tapia OD [address] [id number] Optometry 12/20/18 Frieda Byrd MD [address] [place] [address] [id number] Assigned Rheumatology Provider 03/10/21 11/21/22 Ava Up, RN Specialty Division Plant Engineer Cardiology 04/22/21 04/29/21 Isabella Benavidez, RN Specialty Division Plant Engineer Cardiology 04/22/21 04/29/21 Angelita Zamora, RN Specialty Division Plant Engineer Cardiology 04/22/21 04/29/21 Raisa Contreras MD [address] [place] [address] Otolaryngology 04/24/21 Frieda Byrd MD 500 [place] [address] Rheumatology 04/24/21 Victoria Mills, RN Specialty Division Plant Engineer Cardiology 04/30/21 05/22/24 Rj De La Rosa MD Assigned Heart and Vascular Provider 04/28/21 06/26/23 Mann Lock MD [address] [place] [address] 612515 Assigned Surgical Provider 04/21/21 Stefanie De Jesus RN Registered Nurse 06/05/21 05/29/23 Licha Luz DO Hematology & Oncology 07/01/21 05/15/24 Licha Luz DO Referring Physician Hematology & Oncology 07/01/2105/15/24 Reji Mack MD 500 [place], [place] 045845 Otolaryngology 07/01/21 Mann Lock MD [address] [place] [address] 309385 Ophthalmology 07/02/21 [place] [address] [address] 814807 Assigned Cancer Care Provider 06/16/21 01/30/24 Stefanie De Jesus RN Specialty Division Plant Engineer Hematology & Oncology 05/30/23 05/15/24 Mary Jane Lancaster PA-C [address] [place] [address] Assigned Cancer Care Provider 01/31/24 07/01/24 Tay Hernandez MD [address] [place] [address] Hematology 05/16/24 Leonarda Ocasio LPN Specialty Division Plant Engineer Hematology & Oncology 05/18/24 July Saucedo MD [address] [place] [address] Assigned Neuroscience Provider 06/01/24 Tay Hernandez MD [address] [place] [address] Assigned Cancer Care Provider 07/02/24 Tay Hernandez MD [address] [place] [address] Physician Hematology 10/07/24 documented as of this encounter
--- OUTSIDE RECORDS SUMMARY | 2024-10-20 14:05 | XMS_ITS | Encounter Summary ---
Author Organization [place] Address [address] [place] [address] Care Team Providers Care Senior Mainframe Developer Name Role Phone Siobhan Easley Primary Care Provider [phone] Santiago Luz MD Unavailable [phone] Silvio Fish Unavailable [phone] Eduin Miguel MD Unavailable [phone] Lorie Tapia OD Unavailable Eduin Miguel MD Unavailable Frieda Byrd MD Unavailable Ava Up RN Unavailable [phone] Isabella Benavidez RN Unavailable Angelita Zamora RN Unavailable [phone] Raisa Contreras MD Unavailable Frieda Byrd MD Unavailable Victoria Mills RN Unavailable [phone] Rj De La Rosa MD Unavailable [phone] Mann Lock MD Unavailable [phone] Stefanie De Jesus RN Unavailable [phone] Licha Luz DO Unavailable [phone] Licha Luz DO Unavailable [phone] Reji Mack MD Unavailable [phone] Mann Lock MD Unavailable [phone] Licha Luz DO Unavailable [phone] Stefanie De Jesus RN Unavailable [phone] Mary Jane Lancaster PA-C Unavailable [phone] Tay Hernandez MD Unavailable +[phone] Leonarda Ocasio LPN Unavailable Unavailable July Saucedo MD Unavailable [phone] Tay Hernandez MD Unavailable [phone] Tay Hernandez MD Unavailable [phone] Encounter Details Date Type Department Care Team (Late st Contact Info) Description 03/20/2021 [facility] Heart [address] [phone] [facility] Social History Tobacco Use Types Packs/Day Years [...] AM CDT 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 Gender Identity Female 04/11/2021 7:42 AM CDT [...] Info) Description 11/22/2024 10:00 AM CDT Lab [place] [id number] [place] [address] 200 [facility] [place] [place] [address] Tay Hernandez MD [address] [place] [address] 01/11/2025 10:30 AM CDT Office Visit [facility] - [address] 9 T[address] Clin 9A [place] [address] Mann Lock MD [address] [place] [address] 05/23/2025 10:00 AM CDT Lab [address] NAV[place]O 200 [facility] [place] [address] Tay Hernandez MD [address] [place] [address] 06/01/2025 2:00 PM CDT Oncology Visit [facility] 909 [place] [address] Tay Hernandez MD [address] [place] [address] documented as of this encounter Visit Diagnoses Not on filedocumented in this encounter Additional Health Concerns Assessment Noted Time PHQ-9 Depression Total Score: 13 021 10:19 AM CDT documented as of this encounter Care Teams Senior Mainframe Developer Relationship Specialty Start Date End Date Siobhan Easley [address] [address] PCP - General Family Practice 06/08/17 Santiago Luz MD [address] [place] [address] Ophthalmology 03/11/18 Silvio Fish [facility] 2019 [facility] [place] [address] Referring Physician Ophthalmology 03/11/18 Eduin Miguel MD [address] [place] [address] 809705 Ophthalmology 08/18/18 Lorie Tapia OD [address] [place] [address] 771845 Optometry 12/20/18 Eduin Miguel MD [address] [place] [address] 247025 Assigned Surgical Provider 06/01/20 04/20/21 Frieda Byrd MD [address] [place] [address] Assigned Rheumatology Provider 03/10/21 11/21/22 Ava Up RN Specialty Assurance Officer Cardiology 04/22/21 04/29/21 Isabella Benavidez, SAHIL Specialty Assurance Officer Cardiology 04/22/21 04/29/21 Angelita Zamora, SAHIL Specialty Assurance Officer Cardiology 04/22/21 04/29/21 Raisa Contreras MD [address] [place] [address] 417715 Otolaryngology 04/24/21 Frieda Byrd MD [address] [place] [address] 417375 Rheumatology 04/24/21 Victoria Mills, SAHIL Specialty Assurance Officer Cardiology 04/30/21 05/22/24 Rj De La Rosa MD Assigned Heart and Vascular Provider 04/28/21 06/26/23 Mann Lock MD [address] [place] [address] Assigned Surgical Provider 04/21/21 Stefanie De Jesus RN Registered Nurse 06/05/21 05/29/23 Licha Luz DO Hematology & Oncology 07/01/21 05/15/24 Licha Luz DO Referring Physician Hematology & Oncology 07/01/2105/15/24 Reji Mack MD [address] [place] [address] 658585 Otolaryngology 07/01/21 Mann Lock MD [address] [place] [address] 737335 Ophthalmology 07/02/21 [place] [address] [place] [address] Assigned Cancer Care Provider 06/16/21 01/30/24 Stefanie De Jesus, SAHIL Specialty Assurance Officer Hematology & Oncology 05/30/23 05/15/24 Mary Jane Lancaster PA-C [address] [address] Assigned Cancer Care Provider 01/31/24 07/01/24 Tay Hernandez MD [address] [place] [address] Hematology 05/16/24 Leonarda Ocasio LPN Specialty Assurance Officer Hematology & Oncology 05/18/24 July Saucedo MD [address] [place] [address] Assigned Neuroscience Provider 06/01/24 Tay Hernandez MD [address] [address] Assigned Cancer Care Provider 07/02/24 Tay Hernandez MD [address] [address] Physician Hematology 10/07/24 documented as of this encounter
--- OUTSIDE RECORDS SUMMARY | 2024-10-20 14:05 | XMS_ITS | Encounter Summary ---
Author Organization [place] Address [address] [place] [address] Care Team Providers Care Rip And Groove Machine Operator Name Role Phone Siobhan Easley Primary Care Provider Santiago Luz MD Unavailable [phone] Silvio Fish Unavailable [phone] Eduin Miguel MD Unavailable Lorie Tapia OD Unavailable Frieda Byrd MD Unavailable Raisa Contreras MD Unavailable Frieda Byrd MD Unavailable [phone] Victoria Mills RN Unavailable [phone] Rj De La Rosa MD Unavailable Mann Lock MD Unavailable Stefanie De Jesus RN Unavailable [phone] Licha Luz DO Unavailable [phone] Licha Luz DO Unavailable [phone] Reji Mack MD Unavailable Mann Lock MD Unavailable [phone] Licha Luz DO Unavailable [phone] Liza Stefanieraquel BAXTER Unavailable [phone] Mary Jane Lancaster PA-C Unavailable [phone] Tay Hernandez MD Unavailable [phone] Leonarda Ocasio LPN Unavailable Unavailable July Saucedo MD Unavailable +[phone] Tay Hernandez MD Unavailable + [phone] Tay Hernandez MD Unavailable + [phone] Encounter Details Date Type Department Care Team (Late st Contact Info) Description 06/06/2021 [facility] Medical Advice [facility] [address] [place] [address] 200 [facility] [place] [phone] [place] [address] 200 [place], [place] [phone] Social History Tobacco Use Types Packs/Day Years [...] AM CDT 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 Gender Identity Female 04/11/2021 7:42 AM CDT [...] Info) Description 11/22/2024 10:00 AM CDT Lab [facility] [address] [place] [address] 200 [facility] [place] [address] Tay Hernandez MD [address] [address] 01/11/2025 10:30 AM CDT Office Visit [facility] - [facility] [address] [facility] 9 Fl Clin 9A [place] [address] Mann Lock MD [address] [place] [address] 05/23/2025 10:00 AM CDT Lab [facility] [address] [place] 200 [facility] [place] [address] Tay Hernandez MD [address] [place] [address] 06/01/2025 2:00 PM CDT Oncology Visit [facility] 909 [place] [address] Tay Hernandez MD [address] [place] [address] documented as of this encounter Visit Diagnoses Not on filedocumented in this encounter Additional Health Concerns Assessment Noted Time PHQ-9 Depression Total Score: 13 021 10:19 AM CDT documented as of this encounter Care Teams Rip And Groove Machine Operator Relationship Specialty Start Date End Date Siobhan Easley [address] [address] PCP - General Family Practice 06/08/17 Santiago Luz MD [address] [place] [address] Ophthalmology 8/2/18 Silvio Fish [facility] [address] [place] [address] Referring Physician Ophthalmology 03/11/18 Eduin Miguel MD 420 [place], [place] 511625 Ophthalmology 08/18/18 Lorie Tapia OD [address] [address] Optometry 12/20/18 Frieda Byrd MD [address] [place] [address] Assigned Rheumatology Provider 03/10/21 11/21/22 Rasia Contreras MD [address] [place] [address] 610705 Otolaryngology 04/24/21 Frieda Byrd MD [address] [place] [address] Rheumatology 04/24/21 Victoria Mills, RN Specialty Senior Research Scientist Cardiology 04/30/21 05/22/24 Rj De La Rosa MD Assigned Heart and Vascular Provider 04/28/21 06/26/23 Mann Lock MD [address] [place] [address] Assigned Surgical Provider 04/21/21 Stefanie De Jesus RN Registered Nurse 06/05/21 05/29/23 Licha Luz DO Hematology & Oncology 07/01/21 05/15/24 Licha Luz DO Referring Physician Hematology & Oncology 07/01/2105/15/24 Reji Mack MD [address] [place] [address] Otolaryngology 07/01/21 Mann Lock MD [address] [place] [address] Ophthalmology 07/02/21 [place] [address] [address] Assigned Cancer Care Provider 06/16/21 01/30/24 Stefanie De Jesus RN Specialty Senior Research Scientist Hematology & Oncology 05/30/23 05/15/24 Mary Jane Lancaster PA-C [address] [address] Assigned Cancer Care Provider 01/31/24 07/01/24 Tay Hernandez MD [address] [address] Hematology 05/16/24 Leonarda Ocasio LPN Specialty Senior Research Scientist Hematology & Oncology 05/18/24 July Saucedo MD [address] [place] [address] Assigned Neuroscience Provider 06/01/24 Tay Hernandez MD [address] 454515 Assigned Cancer Care Provider 07/02/24 Tay Hernandez MD [address] [place] [address] 882025 Physician Hematology 10/07/24 documented as of this encounter
--- OUTSIDE RECORDS SUMMARY | 2024-10-20 14:05 | XMS_ITS | Encounter Summary ---
Author Organization [place] Address [address] [place] [address] Care Team Providers Care Cadd Operator Name Role Phone Siobhan Easley Primary Care Provider [phone] Santiago Luz MD Unavailable [phone] Silvio Fish Unavailable [phone] Eduin Miguel MD Unavailable Lorie Tapia OD Unavailable Frieda Byrd MD Unavailable Raisa Contreras MD Unavailable Frieda Byrd MD Unavailable Victoria Mills RN Unavailable [phone] Rj De La Rosa MD Unavailable Mann Lock MD Unavailable Stefanie De Jesus RN Unavailable [phone] Licha Luz DO Unavailable [phone] Licha Luz DO Unavailable [phone] Reji Mack MD Unavailable [phone] Mann Lock MD Unavailable [phone] Licha Luz DO Unavailable [phone] Stefanie De Jesus RN Unavailable [phone] Mary Jane Lancaster PA-C Unavailable [phone] Tay Hernandez MD Unavailable + [phone] Ninfa Leonarda SNOWDEN Unavailable Unavailable July Saucedo MD Unavailable +[phone] Tay Hernandez MD Unavailable + [phone] Tay Hernandez MD Unavailable + [phone] Encounter Details Date Type Department Care Team (Late st Contact Info) Description 06/07/2021 My[facility] Medical Advice [address] [place] [address] Stefanie De Jesus, RN Social History Tobacco Use Types Packs/Day [...] AM CDT 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 No / Unsure 06/05/2021 1:19 PM CDT documented as of this encounter Miscellaneous Notes * Telephone Encounter - Licha Luz DO - 06/07/2021 2:49 PM CDT Te Lozoya, I sent the script to your pharmacy. Your insurance would not allow for me to send for prednisone without a prior authorization. The only script I could pick was a prednisone 10 mg (21 dose pack). Ultimately, you'll take 5 tablets by mouth at 13 hours, 7 hours, and 1 hour before contrast media injection. Plus, benadryl 50 mg by mouth 1 hour before contrast. This will mean you should have 6 tablets of prednisone remaining. Please let our office know if you are having issues picking this up. Thank you, Dr. Luz documented in this encounter Plan of Treatment Upcoming Encounters Date Type Department Care Team (Late st Contact Info) Description 11/22/2024 10:00 AM CDT Lab [address] [facility] [place] [address] Tay Hernandez MD [address] [place] [address] 01/11/2025 10:30 AM CDT Office Visit [facility] - [address] [address] Mann Lock MD [address] [place] [address] 05/23/2025 10:00 AM CDT Lab [address] 200 [facility] [place] [address] Tay Hernandez MD [address] [place] [address] 06/01/2025 2:00 PM CDT Oncology Visit [facility] 909 [place] [address] Tay Hernandez MD [address] [place] [address] documented as of this encounter Visit Diagnoses Not on filedocumented in this encounter Additional Health Concerns Assessment Noted Time PHQ-9 Depression Total Score: 13 021 10:19 AM CDT documented as of this encounter Care Teams Cadd Operator Relationship Specialty Start Date End Date Siobhan Easley [address] [place] [address] PCP - General Family Practice 06/08/17 Santiago Luz MD [address] [place] [address] Ophthalmology 03/11/18 Silvio Fish [facility] 2018 [facility] [place] [address] Referring Physician Ophthalmology 03/11/18 Eduin Miguel MD 420 [place] [address] Ophthalmology 08/18/18 Lorie Tapia OD [address] [place] [address] 381155 Optometry 12/20/18 Frieda Byrd MD [address] [place] [address] 725475 Assigned Rheumatology Provider 03/10/21 11/21/22 Raisa Contreras MD [address] [place] [address] 00067455 Otolaryngology 04/24/21 Frieda Byrd MD [address] [place] [address] 680125 Rheumatology 04/24/21 Victoria Mills, RN Specialty Cognos Administrator Cardiology 04/30/21 05/22/24 Rj De La Rosa MD Assigned Heart and Vascular Provider 04/28/21 06/26/23 Mann Lock MD [address] [place] [address] 449845 Assigned Surgical Provider 04/21/21 Stefanie De Jesus RN Registered Nurse 06/05/21 05/29/23 Licha Luz DO Hematology & Oncology 07/01/21 05/15/24 Licha Luz DO Referring Physician Hematology & Oncology 07/01/2105/15/24 Reji Mack MD [address] [place] [address] 065145 Otolaryngology 07/01/21 Mann Lock MD [address] [place] [address] 034395 Ophthalmology 07/02/21 [place] [address] [place], [place] [address] Assigned Cancer Care Provider 06/16/21 01/30/24 Stefanie De Jesus RN Specialty Cognos Administrator Hematology & Oncology 05/30/23 05/15/24 Mary Jane Lancaster PA-C [address] [address] Assigned Cancer Care Provider 01/31/24 07/01/24 Tay Hernandez MD [address] [address] Hematology 05/16/24 Leonarda Ocasio LPN Specialty Cognos Administrator Hematology & Oncology 05/18/24 July Saucedo MD 515 [place] [address] Assigned Neuroscience Provider 06/01/24 Tay Hernandez MD [address] [address] Assigned Cancer Care Provider 07/02/24 Tay Hernandez MD [address] [address] Physician Hematology 10/07/24 documented as of this encounter
--- OUTSIDE RECORDS SUMMARY | 2024-10-20 14:05 | XMS_ITS | Encounter Summary ---
Author Organization [facility] Address [address] [place] [address] Care Team Providers Care Wing Scorer Name Role Phone Siobhan Easley Primary Care Provider Santiago Luz MD Unavailable [phone] Silvio Fish Unavailable [phone] Eduin Miguel MD Unavailable Lorie Tapia OD Unavailable Frieda Byrd MD Unavailable Raisa Contreras MD Unavailable Frieda Byrd MD Unavailable Victoria Mills RN Unavailable [phone] Rj De La Rosa MD Unavailable Mann Lock MD Unavailable Stefanie De Jesus RN Unavailable [phone] Licha Luz DO Unavailable [phone] Licha Luz DO Unavailable [phone] Reji Mack MD Unavailable Mann Lock MD Unavailable [phone] Licha Luz DO Unavailable [phone] Liza Stefanieraquel BAXTER Unavailable [phone] Mary Jane Lancaster PA-C Unavailable [phone] Tay Hernandez MD Unavailable [phone] Leonarda Ocasio LPN Unavailable Unavailable July Saucedo MD Unavailable [phone] Tay Hernandez MD Unavailable + [phone] Tay Hernandez MD Unavailable + [phone] Encounter Details Date Type Department Care Team (Late st Contact Info) Description 06/24/2021 MyC Medical Advice [facility] [address] NAA[address] 200 [facility] [place] [address] [place] [address] NAV[address] 200 [place], [place] [phone] Social History Tobacco Use Types Packs/Day Years [...] AM CDT Legal Sex Female 3:[address] Gender Identity Female 04/11/2021 7:42 AM CDT Sexual Orientation Straight 04/11/2021 7: 42 AM CDT COVID-19 Exposure Response Date Recorded In the last month, have you been in contact with someone who was confirmed or suspected to have Coronavirus / COVID-19? No / Unsure 06/21/2021 10:[address] CLEANER documented as of this encounter Plan of Treatment Upcoming Encounters Date Type Department Care Team (Late st Contact Info) Description 11/22/2024 10:00 AM CDT Lab [facility] [address] NAVARRO 200 [facility] [place] [address] Tay Hernandez MD [address] [address] 01/11/2025 10:30 AM CDT Office Visit [facility] 516 [facility] 9 Fl Clin 9A [place] [address] Mann Lock MD [address] [place] [address] 05/23/2025 10:00 AM CDT Lab [facility] [address] NAVARRO 200 [facility] [place] [address] Tay Hernandez MD [address] [place] [address] 06/01/2025 2:00 PM CDT Oncology Visit [facility] 909 [place] [address] Tay Hernandez MD [address] [place] [address] documented as of this encounter Visit Diagnoses Not on filedocumented in this encounter Additional Health Concerns Assessment Noted Time PHQ-9 Depression Total Score: 13 021 10:19 AM CDT documented as of this encounter Care Teams Wing Scorer Relationship Specialty Start Date End Date Siobhan Easley [address] [place] [address] PCP - General Family Practice 06/08/17 Santiago Luz MD [address] [address] Ophthalmology 03/11/18 Silvio Fish [facility] [address] [place] [address] Referring Physician Ophthalmology 03/11/18 Eduin Miguel MD 420 [place], [place] 301035 Ophthalmology 08/18/18 Lorie Tapia OD [address] [place] [address] 933245 Optometry 12/20/18 Frieda Byrd MD [address] [place] [address] Assigned Rheumatology Provider 03/10/21 11/21/22 Raisa Contreras MD [address] [place] [address] 109965 Otolaryngology 04/24/21 Frieda Byrd MD [address] [place] [address] Rheumatology 04/24/21 Victoria Mills, RN Specialty Plant Safety Leader Cardiology 04/30/21 05/22/24 Rj De La Rosa MD Assigned Heart and Vascular Provider 04/28/21 06/26/23 Mann Lock MD [address] [place] [address] Assigned Surgical Provider 04/21/21 Stefanie De Jesus RN Registered Nurse 06/05/21 05/29/23 Licha Luz DO Hematology & Oncology 07/01/21 05/15/24 Licha Luz DO Referring Physician Hematology & Oncology 07/01/2105/15/24 Reji Mack MD 500 [place] [address] Otolaryngology 07/01/21 Mann Lock MD [address] [place] [address] Ophthalmology 07/02/21 [place] [address] [address] Assigned Cancer Care Provider 06/16/21 01/30/24 Stefanie De Jesus RN Specialty Plant Safety Leader Hematology & Oncology 05/30/23 05/15/24 Mary Jane Lancaster PA-C 420 [facility] 480 [place] [address] Assigned Cancer Care Provider 01/31/24 07/01/24 Tay Hernandez MD [address] [address] Hematology 05/16/24 Leonarda Ocasio LPN Specialty Plant Safety Leader Hematology & Oncology 05/18/24 July Saucedo MD [address] [place] [address] Assigned Neuroscience Provider 06/01/24 Tay Hernandez MD [address] [place] [address] 563925 Assigned Cancer Care Provider 07/02/24 Tay Hernandez MD [address] [place] [address] 061715 Physician Hematology 10/07/24 documented as of this encounter
--- OUTSIDE RECORDS SUMMARY | 2024-10-20 14:05 | XMS_ITS | Encounter Summary ---
Author Organization [facility] Address [address] [place] [address] Care Team Providers Care Administrative Program Specialist Name Role Phone Siobhan Easley Primary Care Provider Santiago Luz MD Unavailable [phone] Silvio Fish Unavailable [phone] Eduin Miguel MD Unavailable Lorie Tapia OD Unavailable Frieda Byrd MD Unavailable [phone] Raisa Contreras MD Unavailable Frieda Byrd MD Unavailable Victoria Mills RN Unavailable [phone] Rj De La Rosa MD Unavailable Mann Lock MD Unavailable Stefanie De Jesus RN Unavailable [phone] Lihca Luz DO Unavailable [phone] Licha Luz DO Unavailable [phone] Reji Mack MD Unavailable [phone] Mann Lock MD Unavailable [phone] Licha Luz DO Unavailable [phone] GenetayStefanie SAHIL Unavailable [phone] Mary Jane Lancaster PA-C Unavailable [phone] Tay Hernandez MD Unavailable [phone] Leonarda Ocasio LPN Unavailable Unavailable July Saucedo MD Unavailable [phone] Tay Hernandez MD Unavailable [phone] Tay Hernandez MD Unavailable [phone] Reason for Visit * Reason Onset Date Comments Appointment 07/01/2021 New Tumor Pt Raj t Encounter Details Date Type Department Care Team (Late st Contact Info) Description 07/01/2021 [facility] [address] [address] Reji Mack MD [address] [place] [address] Appointment (New Tumor Pt Appt) Social History Tobacco Use Types Packs/Day Years [...] AM CDT 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 No / Unsure 07/01/2021 9:19 AM TRACTOR CRANE OPERATOR documented as of this encounter Miscellaneous Notes * Telephone Encounter - Betsey Arenas - 07/01/2021 10:57 AM TRACTOR CRANE OPERATOR [facility] Phone Message May a detailed message be left on voicemail: yes Reason for Call: Other: Scheduled New Tumor Appt with Dr Mack on 07/08/21 - okayed by call to Birgit in clinic - but she said send TE for review to be sure that Appt/provider was a good match - Pt referral verbally called into me today by [facility] at - Recs in Epic - they will be putting in a Referral for that Appt soon today - please review Recs and Appt scheduling - if okay no need to do anything or call Pt - if not okay and Appt needs to be changed then call Pt - Pt accepted the date/time due to another Appt in building same day so was great with the - call Pt onlyif Appt needs to be changed after reviewing chart - Thank you Action Taken: Message routed to: [facility] ENT Travel Screening: Not Applicable TOR CRANE OPERATOR documented in this encounter Plan of Treatment Upcoming Encounters Date Type Department Care Team (Late st Contact Info) Description 11/22/2024 10:00 AM CDT Lab [address] NAVARRO 200 [facility] [place] [address] Tay Hernandez MD 420 [facility] 480 [place], [place] 386437 01/11/2025 10:30 AM CDT Office Visit [facility] - [place] 957836 [facility] 9th Ks Clin 9A [place] [address] Mann Lock MD [address] [place] [address] 431905 05/23/2025 10:00 AM CDT Lab [address] NAVARRO 200 [facility] [place] [address] Tay Hernandez MD 420 [facility] 480 [place] [address] 06/01/2025 2:00 PM CDT Oncology Visit [facility] 909 [place] [address] Tay Hernandez MD [address] 032345 documented as of this encounter Visit Diagnoses Not on filedocumented in this encounter Additional Health Concerns Assessment Noted Time PHQ-9 Depression Total Score: 13 021 10:19 AM CDT documented as of this encounter Care Teams Administrative Program Specialist Relationship Specialty Start Date End Date Siobhan Easley 1400 [place] [address] PCP - General Family Practice 06/08/17 Santiago Luz MD 1400 [place] [address] Ophthalmology 03/11/18 Silvio Fish [facility] 2018 [place] [address] Referring Physician Ophthalmology 03/11/18 Eduin Miguel MD [address] [place] [address] 737435 Ophthalmology 08/18/18 Lorie Tapia OD [address] [place] [address] 317135 Optometry 12/20/18 Frieda Byrd MD [address] [place] [address] 437335 Assigned Rheumatology Provider 03/10/21 11/21/22 Raisa Contreras MD [address] [place] [address] Otolaryngology 04/24/21 Frieda Byrd MD [address] [place] [address] MD Rheumatology 04/24/21 Victoria Mills, SAHIL Specialty Primer Waterproofing Machine Adjuster Cardiology 04/30/21 05/22/24 Rj De La Rosa MD Assigned Heart and Vascular Provider 04/28/21 06/26/23 Mann Lock MD [address] [place] [address] Assigned Surgical Provider 04/21/21 Stefanie De Jesus RN Registered Nurse 06/05/21 05/29/23 Licha Luz DO Hematology & Oncology 07/01/21 05/15/24 Licha Luz DO Referring Physician Hematology & Oncology 07/01/2105/15/24 Reji Mack MD [address] [place] [address] Otolaryngology 07/01/21 Mann Lock MD [address] [place] [address] Ophthalmology 07/02/21 [place] [address] [place] [address] Assigned Cancer Care Provider 06/16/21 01/30/24 Stefanie De Jesus, SAHIL Specialty Primer Waterproofing Machine Adjuster Hematology & Oncology 05/30/23 05/15/24 Mary Jane Lancaster PA-C 420 [facility] 480 [place] [address] Assigned Cancer Care Provider 01/31/24 07/01/24 Tay Hernandez MD [address] [address] Hematology 05/16/24 Leonarda Ocasio LPN Specialty Primer Waterproofing Machine Adjuster Hematology & Oncology 05/18/24 July Saucedo MD 515 [place] [address] Assigned Neuroscience Provider 06/01/24 Tay Hernandez MD [address] [address] Assigned Cancer Care Provider 07/02/24 Tay Hernandez MD [address] [phone] Physician Hematology 10/07/24 documented as of this encounter
--- OUTSIDE RECORDS SUMMARY | 2024-10-20 14:06 | XMS_ITS | Encounter Summary ---
Author Organization [facility] Address [address] [place] [address] Care Team Providers Care [place] Name Role Phone Siobhan Easley Primary Care Provider [phone] Santiago Luz MD Unavailable [phone] Silvio Fish Unavailable [phone] Eduin Miguel MD Unavailable Lorie Tapia OD Unavailable Frieda Byrd MD Unavailable Raisa Contreras MD Unavailable Frieda Byrd MD Unavailable Victoria Mills RN Unavailable [phone] Rj De La Rosa MD Unavailable Mann Lock MD Unavailable Stefanie De Jesus RN Unavailable [phone] Licha Luz DO Unavailable [phone] Licha Luz DO Unavailable [phone] Reji Mack MD Unavailable [phone] Mann Lock MD Unavailable [phone] Licha Luz DO Unavailable [phone] GenetayStefanie SAHIL Unavailable [phone] Mary Jane Lancaster PA-C Unavailable [phone] Tay Hernandez MD Unavailable [phone] Leonarda Ocasio LPN Unavailable Unavailable July Saucedo MD Unavailable [phone] Tay Hernandez MD Unavailable [phone] Tay Hernandez MD Unavailable [phone] Reason for Visit * Reason Onset Date Comments Symptoms 08/28/2022 Encounter Details Date Type Department Care Team (Late st Contact Info) Description 08/28/2022 MyC Medical Advice [facility] [address] 9 Ms Clin 9A [place] [phone] Mann Lock MD [address] [place] [address] Symptoms Social History Tobacco Use Types Packs/Day Years [...] PHQ-2 Answer Date Recorded PHQ-2 Score 0 09/01/2022 Comments No Sex and Gender Information Value Date Recorded Sex Assigned at Female 04/11/2021 7:42 AM CDT 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 No / Unsure 08/06/2022 9:57 AM RADIOGRAPHIC TECHNOLOGIST documented as of this encounter Plan of Treatment Upcoming Encounters Date Type Department Care Team (Late st Contact Info) Description 11/22/2024 10:00 AM CDT Lab [address] NAVARRO 200 [facility] [place] [address] Tay Hernandez MD [address] [place] [address] 852525 01/11/2025 10:30 AM CDT Office Visit [facility] - [place] 104936 [facility] 9 Ms Clin 9A [place] [address] Mann Lock MD [address] [place] [address] 05/23/2025 10:00 AM CDT Lab [place] [address] 200 [facility] [place] [place] [address] Tay Hernandez MD [address] [place] [address] 182665 06/01/2025 2:00 PM CDT Oncology Visit [facility] 909 [place] [address] Tay Hernandez MD [address] [place] [address] 687085 documented as of this encounter Visit Diagnoses Not on filedocumented in this encounter Additional Health Concerns Assessment Noted Time PHQ-9 Depression Total Score: 10 021 7:28 AM RADIOGRAPHIC TECHNOLOGIST documented as of this encounter Care Teams [place] Relationship Specialty Start Date End Date Siobhan Easley [address] [address] PCP - General Family Practice 06/08/17 Santiago Luz MD [address] [place] [address] Ophthalmology 03/11/18 Silvio Fish [facility] [address] [place] [address] Referring Physician Ophthalmology 03/11/18 Eduin Miguel MD 420 [place], [place] 3477[address] Ophthalmology 08/18/18 Lorie Tapia OD [address] 606955 Optometry 12/20/18 Frieda Bryd MD 500 [place], [place] [address]275 Assigned Rheumatology Provider 03/10/21 11/21/22 Raisa Contreras MD [address] [place] [address] 385105 Otolaryngology 04/24/21 Frieda Byrd MD 500 [place] [address] Rheumatology 04/24/21 Victoria Mills, RN Specialty Auto Bumper Mechanic Cardiology 04/30/21 05/22/24 Rj De La Rosa MD Assigned Heart and Vascular Provider 04/28/21 06/26/23 Mann Lock MD [address] [place] [address] 445675 Assigned Surgical Provider 04/21/21 Stefanie De Jesus RN Registered Nurse 06/05/21 05/29/23 Licha Luz DO Hematology & Oncology 07/01/21 05/15/24 Licha Luz DO Referring Physician Hematology & Oncology 07/01/2105/15/24 Reji Mack MD 500 [place], [place] 771445 Otolaryngology 07/01/21 Mann Lock MD [address] [place] [address] 591275 Ophthalmology 07/02/21 [place] [address] [place], [place] 0[address] Assigned Cancer Care Provider 06/16/21 01/30/24 Stefanie De Jesus RN Specialty Auto Bumper Mechanic Hematology & Oncology 05/30/23 05/15/24 Mary Jane Lancaster PA-C [address] [address] Assigned Cancer Care Provider 01/31/24 07/01/24 Tay Hernandez MD [address] [place] [address] Hematology 05/16/24 Leonarda Ocasio LPN Specialty Auto Bumper Mechanic Hematology & Oncology 05/18/24 July Saucedo MD [address] [place] [address] Assigned Neuroscience Provider 06/01/24 Tay Hernandez MD [address] [place] [address] Assigned Cancer Care Provider 07/02/24 Tay Hernandez MD [address] [place] [address] Physician Hematology 10/07/24 documented as of this encounter
--- OUTSIDE RECORDS SUMMARY | 2024-10-20 14:06 | XMS_ITS | Encounter Summary ---
Author Organization [facility] Address [address] [place] [address] Care Team Providers Care Silverware Supervisor Name Role Phone Siobhan Easley Primary Care Provider [phone] Santiago Luz MD Unavailable [phone] Silvio Fish Unavailable [phone] Eduin Miguel MD Unavailable Lorie Tapia OD Unavailable Frieda Byrd MD Unavailable Raisa Contreras MD Unavailable Frieda Byrd MD Unavailable Victoria Mills RN Unavailable [phone] Rj De La Rosa MD Unavailable Mann Lock MD Unavailable Stefanie De Jesus RN Unavailable [phone] Licha Luz DO Unavailable [phone] Licha Luz DO Unavailable [phone] Reji Mack MD Unavailable [phone] Mann Lock MD Unavailable [phone] Licha Luz DO Unavailable [phone] Liza Stefanieraquel BAXTER Unavailable [phone] Mary Jane Lancaster PA-C Unavailable [phone] Tay Hernandez MD Unavailable +[phone] Leonarda Ocasio LPN Unavailable Unavailable July Saucedo MD Unavailable [phone] Tay Hernandez MD Unavailable +[phone] Tay Hernandez MD Unavailable [phone] Encounter Details Date Type Department Care Team (Late st Contact Info) Description 08/19/[address] [facility] [address] Or Clin 9A [place] [address] Mann Lock MD [address] [place] [address] Social History Tobacco Use Types Packs/Day [...] PHQ-2 Answer Date Recorded PHQ-2 Score 0 04/29/2022 Comments No Sex and Gender Information Value Date Recorded Sex Assigned at Female 04/11/2021 7:42 AM CDT Legal Sex Female 3:21 AM RESIDENTIAL TREATMENT SPECIALIST Gender Identity Female 04/11/2021 7:42 AM CDT Sexual Orientation Straight 04/11/2021 7: 42 AM CDT COVID-19 Exposure Response Date Recorded In the last 10 days, have yo u been in contact with someone who was confirmed or suspected to have Coronavirus/COVID-19? No / Unsure 08/06/2022 9:57 AM RESIDENTIAL TREATMENT SPECIALIST documented as of this encounter Plan of Treatment Upcoming Encounters Date Type Department Care Team (Late st Contact Info) Description 11/22/2024 10:00 AM CDT Lab [facility] [address] [place] [address] DR [address] 200 [facility] [place] [address] Tay Hernandez MD [address] [place] [address] 01/11/2025 10:30 AM CDT Office Visit [facility] - [address] [address] Mann Lock MD [address] [place] [address] 05/23/2025 10:00 AM CDT Lab [facility] [address] [place] [address] DR [address] 200 [facility] [place] [address] Tay Hernandez MD [address] [place] [address] 06/01/2025 2:00 PM CDT Oncology Visit [facility] 909 [place] [address] Tay Hernandez MD [address] [place] [address] documented as of this encounter Visit Diagnoses Not on filedocumented in this encounter Additional Health Concerns Assessment Noted Time PHQ-9 Depression Total Score: 10 021 7:28 AM RESIDENTIAL TREATMENT SPECIALIST documented as of this encounter Care Teams Silverware Supervisor Relationship Specialty Start Date End Date Siobhan Easley [address] [place] [address] PCP - General Family Practice 06/08/17 Santiago Luz MD [address] [place] [address] Ophthalmology 03/11/18 Silvio Fish [facility] 2018 [facility] [place] [address] Referring Physician Ophthalmology 03/11/18 Eduin Miguel MD [address] [place] [address] Ophthalmology 08/18/18 Lorie Tapia OD [address] [place] [address] [phone] Optometry 12/20/18 Frieda Byrd MD [address] [place] [address] 821725 Assigned Rheumatology Provider 03/10/21 11/21/22 Raisa Contreras MD [address] [place] [address] Otolaryngology 04/24/21 Frieda Byrd MD [address] [place] [address] 85955455 Rheumatology 04/24/21 Victoria Mills, RN Specialty Automobile Leasing Supervisor Cardiology 04/30/21 05/22/24 Rj De La Rosa MD Assigned Heart and Vascular Provider 04/28/21 06/26/23 Mann Lock MD [address] [place] [address] [phone] Assigned Surgical Provider 04/21/21 Stefanie De Jesus RN Registered Nurse 06/05/21 05/29/23 Licha Luz DO Hematology & Oncology 07/01/21 05/15/24 Licha Luz DO Referring Physician Hematology & Oncology 07/01/2105/15/24 Reji Mack MD [address] [place] [address] 942375 Otolaryngology 07/01/21 Mann Lock MD [address] [place] [address] [phone] Ophthalmology 07/02/21 [place] [address] [place] [address] Assigned Cancer Care Provider 06/16/21 01/30/24 Stefanie De Jesus RN Specialty Automobile Leasing Supervisor Hematology & Oncology 05/30/23 05/15/24 Mary Jane Lancaster PA-C [address] [address] Assigned Cancer Care Provider 01/31/24 07/01/24 Tay Hernandez MD [address] [address] Hematology 05/16/24 Leonarda Ocasio LPN Specialty Automobile Leasing Supervisor Hematology & Oncology 05/18/24 July Saucedo MD [address] [place] [address] Assigned Neuroscience Provider 06/01/24 Tay Hernandez MD [address] [place] [address] Assigned Cancer Care Provider 07/02/24 Tay Hernandez MD [address] [place] [address] Physician Hematology 10/07/24 documented as of this encounter
--- OUTSIDE RECORDS SUMMARY | 2024-10-20 14:06 | XMS_ITS | Encounter Summary ---
Author Organization [place] Address [address] [place] [address] Care Team Providers Care Data Coordinator Name Role Phone Siobhan Easley Primary Care Provider Santiago Luz MD Unavailable [phone] Silvio Fish Unavailable Eduin Miguel MD Unavailable Lorie Tapia OD Unavailable Raisa Contreras MD Unavailable Frieda Byrd MD Unavailable Victoria Mills RN Unavailable [phone] Rj De La Rosa MD Unavailable Mann Lock MD Unavailable Stefanie De Jesus RN Unavailable [phone] Licha Luz DO Unavailable [phone] Licha Luz DO Unavailable [phone] Reji Mack MD Unavailable Mann Lock MD Unavailable Licha Luz DO Unavailable [phone] Stefanie De Jesus RN Unavailable [phone] Mary Jane Lancaster PA-C Unavailable [phone] Tay Hernandez MD Unavailable + [phone] Leonarda Ocasio LPN Unavailable Unavailable July Saucedo MD Unavailable +[phone] Tay Hernandez MD Unavailable + [phone] Tay Hernandez MD Unavailable + [phone] Encounter Details Date Type Department Care Team (Late st Contact Info) Description 02/12/2023 MyC Medical Advice [facility] [address] [facility] [place] [address] [place] [address] [place] [address] Social History Tobacco Use Types Packs/Day Years [...] 05/28/2022 PHQ-2 Answer Date Recorded PHQ-2 Score 1 11/04/2022 Comments No Sex and Gender Information Value Date Recorded Sex Assigned at Female 04/11/2021 7:42 AM CDT Legal Sex Female 3:21 AM SOFTWARE VALIDATION TECHNICIAN Gender Identity Female 04/11/2021 7:42 AM CDT Sexual Orientation Straight 04/11/2021 7: 42 AM CDT COVID-19 Exposure Response Date Recorded In the last 10 days, have yo u been in contact with someone who was confirmed or suspected to have Coronavirus/COVID-19? No / Unsure 02/11/2023 2:10 PM CDT documented as of this encounter Plan of Treatment Upcoming Encounters Date Type Department Care Team (Late st Contact Info) Description 11/22/2024 10:00 AM CDT Lab [address] [place] [facility] [place] [address] Tay Hernandez MD [address] [place] [address] 01/11/2025 10:30 AM CDT Office Visit [facility] - [address] [address] Mann Lock MD [address] [place] [address] 05/23/2025 10:00 AM CDT Lab [address] [place] 200 [facility] [place] [address] Tay Hernandez MD [address] [place] [address] 06/01/2025 2:00 PM CDT Oncology Visit [facility] 909 [place] [address] Tay Hernandez MD [address] [place] [address] documented as of this encounter Visit Diagnoses Not on filedocumented in this encounter Additional Health Concerns Assessment Noted Time PHQ-9 Depression Total Score: 10 021 7:28 AM SOFTWARE VALIDATION TECHNICIAN documented as of this encounter Care Teams Data Coordinator Relationship Specialty Start Date End Date Siobhan Easley [address] [address] PCP - General Family Practice 06/08/17 Santiago Luz MD [address] [place] [address] Ophthalmology 03/11/18 Silvio Fish [facility] [address] [place] [address] Referring Physician Ophthalmology 03/11/18 Eduin Miguel MD 420 [place] [address] Ophthalmology 08/18/18 Lorie Tapia OD [address] [address] Optometry 12/20/18 Raisa Contreras MD [address] [place] [address] 61375455 Otolaryngology 04/24/21 Frieda Byrd MD [address] [place] [address] Rheumatology 04/24/21 Victoria Mills, RN Specialty Patient Transport Orderly Cardiology 04/30/21 05/22/24 Rj De La Rosa MD Assigned Heart and Vascular Provider 04/28/21 06/26/23 Mann Lock MD [address] [place] [address] 381565 Assigned Surgical Provider 04/21/21 Stefanie De Jesus, SAHIL Registered Nurse 06/05/21 05/29/23 Licha Luz DO Hematology & Oncology 07/01/21 05/15/24 Licha Luz DO Referring Physician Hematology & Oncology 07/01/2105/15/24 Reji Mack MD [address] [place] [address] 171735 Otolaryngology 07/01/21 Mann Lock MD [address] [place] [address] 723145 Ophthalmology 07/02/21 [place] [address] [place], [place] 4449[address] Assigned Cancer Care Provider 06/16/21 01/30/24 Stefanie De Jesus, RN Specialty Patient Transport Orderly Hematology & Oncology 05/30/23 05/15/24 Mary Jane Lancaster PA-C [address] [place] [address] 526215 Assigned Cancer Care Provider 01/31/24 07/01/24 Tay Hernandez MD [address] [place] [address] Hematology 05/16/24 Leonarda Ocasio LPN Specialty Patient Transport Orderly Hematology & Oncology 05/18/24 July Saucedo MD [address] [place] [address] Assigned Neuroscience Provider 06/01/24 Tay Hernandez MD [address] [place] [address] Assigned Cancer Care Provider 07/02/24 Tay Hernandez MD [address] [place] [address] Physician Hematology 10/07/24 documented as of this encounter
--- OUTSIDE RECORDS SUMMARY | 2024-10-20 14:06 | XMS_ITS | Encounter Summary ---
Author Organization [place] Address [address] [place] [address] Care Team Providers Care Licensed Optician Name Role Phone Siobhan Easley Primary Care Provider Santiago Luz MD Unavailable [phone] Silvio Fish Unavailable [phone] Eduin Miguel MD Unavailable Lorie Tapia OD Unavailable [phone] Frieda Byrd MD Unavailable Raisa Contreras MD Unavailable Frieda Byrd MD Unavailable Victoria Mills RN Unavailable [phone] jR De La Rosa MD Unavailable Mann Lock MD Unavailable Stefanie De Jesus RN Unavailable [phone] Licha Luz DO Unavailable [phone] Licha Luz DO Unavailable [phone] Reji Mack MD Unavailable [phone] Mann Lock MD Unavailable Licha Luz DO Unavailable [phone] Stefanie De Jesus RN Unavailable [phone] Mary Jane Lancaster PA-C Unavailable [phone] Tay Hernandez MD Unavailable + [phone] Leonarda Ocasio LPN Unavailable Unavailable July Saucedo MD Unavailable +[phone] Tay Hernandez MD Unavailable + [phone] Tay Hernandez MD Unavailable + [phone] Encounter Details Date Type Department Care Team (Late st Contact Info) Description 05/28/2022 [facility] [address] [place] [address] [facility] [place] [address] Stefanie De Jesus RN Social History Tobacco Use Types Packs/Day [...] AM CDT Legal Sex Female 3:21 AM MAKE UP ARRANGER Gender Identity Female 04/11/2021 7:42 AM CDT Sexual Orientation Straight 04/11/2021 7: 42 AM CDT COVID-19 Exposure Response Date Recorded In the last 10 days, have yo u been in contact with someone who was confirmed or suspected to have Coronavirus/COVID-19? No / Unsure 05/28/2022 10:41 AM CDT documented as of this encounter Plan of Treatment Upcoming Encounters Date Type Department Care Team (Late st Contact Info) Description 11/22/2024 10:00 AM CDT Lab [address] [place] 200 [facility] [place] [address] Tya Hernandez MD [address] [place] [address] 140575 01/11/2025 10:30 AM CDT Office Visit [facility] - [address] [address] Mann Lock MD [address] [place] [address] 05/23/2025 10:00 AM CDT Lab [address] 200 [place] [address] Tay Hernandez MD [address] [place] [address] 06/01/2025 2:00 PM CDT Oncology Visit [facility] 909 [place] [phone] Tay Hernandez MD [address] [place] [address] documented as of this encounter Visit Diagnoses Not on filedocumented in this encounter Additional Health Concerns Assessment Noted Time PHQ-9 Depression Total Score: 10 021 7:28 AM MAKE UP ARRANGER documented as of this encounter Care Teams Licensed Optician Relationship Specialty Start Date End Date Siobhan Easley [address] [place] [address] PCP - General Family Practice 06/08/17 Santiago Luz MD [address] [address] Ophthalmology 03/11/18 Silvio Fish [facility] [address] [place] [address] Referring Physician Ophthalmology 03/11/18 Eduin Miguel MD 420 [place] [address] Ophthalmology 08/18/18 Lorie Tapia OD [address] [phone] Optometry 12/20/18 Frieda Byrd MD 500 [place], [place] 915825 Assigned Rheumatology Provider 03/10/21 11/21/22 Raisa Contreras MD [address] [place] [address] 346155 Otolaryngology 04/24/21 Frieda Byrd MD 500 [place], [place] 839835 Rheumatology 04/24/21 Victoria Mills RN Specialty Foundry Melt Supervisor Cardiology 04/30/21 05/22/24 Rj De La Rosa MD Assigned Heart and Vascular Provider 04/28/21 06/26/23 Mann Lock MD [address] [place] [address] 901005 Assigned Surgical Provider 04/21/21 Stefanie De Jesus RN Registered Nurse 06/05/21 05/29/23 Licha Luz DO Hematology & Oncology 07/01/21 05/15/24 Licha Luz DO Referring Physician Hematology & Oncology 07/01/2105/15/24 Reji Mack MD [address] [place] [address] Otolaryngology 07/01/21 Mann Lock MD [address] [place] [address] 677125 Ophthalmology 07/02/21 [place] [address] [place] [address] Assigned Cancer Care Provider 06/16/21 01/30/24 Stefanie De Jesus, RN Specialty Foundry Melt Supervisor Hematology & Oncology 05/30/23 05/15/24 Mary Jane Lancaster PA-C [address] [place] [address] [place] [address] Assigned Cancer Care Provider 01/31/24 07/01/24 Tay Hernandez MD [address] [address] Hematology 05/16/24 Leonarda Ocasio LPN Specialty Foundry Melt Supervisor Hematology & Oncology 05/18/24 July Saucedo MD [address] [place] [address] Assigned Neuroscience Provider 06/01/24 Tay Hernandez MD [address] [address] Assigned Cancer Care Provider 07/02/24 Tay Hernandez MD [address] [address] Physician Hematology 10/07/24 documented as of this encounter
--- OUTSIDE RECORDS SUMMARY | 2024-10-20 14:06 | XMS_ITS | Encounter Summary ---
Author Organization [place] Address [address] [place] [address] Care Team Providers Care Business Asst Name Role Phone Siobhan Easley Primary Care Provider Santiago Luz MD Unavailable [phone] Silvio Fish Unavailable [phone] Eduin Miguel MD Unavailable Lorie Tapia OD Unavailable [phone] Frieda Byrd MD Unavailable Raisa Contreras MD Unavailable Frieda Byrd MD Unavailable [phone] Victoria Mills RN Unavailable [phone] Rj De La Rosa MD Unavailable Mann Lock MD Unavailable Stefanie De Jesus RN Unavailable [phone] Licha Luz DO Unavailable [phone] Licha Luz DO Unavailable [phone] Reji Mack MD Unavailable [phone] Mann Lock MD Unavailable Licha Luz DO Unavailable [phone] Liza Stefanieraquel BAXTER Unavailable [phone] Mary Jane Lancaster PA-C Unavailable [phone] Tay Hernandez MD Unavailable [phone] Leonarda Ocasio LPN Unavailable Unavailable uJly Saucedo MD Unavailable [phone] Tay Hernandez MD Unavailable +[phone] Tay Hernandez MD Unavailable [phone] Encounter Details Date Type Department Care Team (Late Contact Info) Description 11/05/2021 MyC Medical Advice [facility] [address] [place] [address] Marcelina Ortiz NP [address] [place] [address] Social History Tobacco Use Types Packs/Day Years Used Date Smoking Tobacco: Former Cigarettes 2 10 1 09/10/1966 - 07/10/1977 Smokeless Tobacco: Never Alcohol Use Standard Drinks/Week Comments Yes 0 (1 standard drink = 0.6 oz pur e alcohol) 2 drinks every evening PHQ-2 Answer Date Recorded PHQ-2 Score 0 10/09/2021 Comments No Sex and Gender Information Value Date Recorded Sex Assigned at Female 04/11/2021 7:42 AM CDT Legal Sex Female 3:21 AM NEURODIAGNOSTIC TECHNICIAN Gender Identity Female 04/11/2021 7:42 AM CDT Sexual Orientation Straight 04/11/2021 7: 42 AM CDT COVID-19 Exposure Response Date Recorded In the last month, have you been in contact with someone who was confirmed or suspected to have Coronavirus / COVID-19? No / Unsure 10/09/2021 9:44 AM NEURODIAGNOSTIC TECHNICIAN documented as of this encounter Plan of Treatment Upcoming Encounters Date Type Department Care Team ([facility] Contact Info) Description 11/22/2024 10:00 AM CDT Lab [facility] [address] 200 [facility] Medical Ctr [place] [phone] Tay Hernandez MD [address] [address] 01/11/2025 10:30 AM CDT Office Visit [facility] [address] [facility] 9 Fl Clin 9[address] [place] [address] Mann Lock MD [address] [place] [address] 05/23/2025 10:00 AM CDT Lab [facility] [place] [address] [place] [address] 200 [facility] [place] [address] Tay Hernandez MD [address] [place] [address] 06/01/2025 2:00 PM CDT Oncology Visit [facility] 909 [place] [address] Tay Hernandez MD [address] [place] [address] documented as of this encounter Visit Diagnoses Not on filedocumented in this encounter Additional Health Concerns Assessment Noted Time PHQ-9 Depression Total Score: 10 021 7:28 AM NEURODIAGNOSTIC TECHNICIAN documented as of this encounter Care Teams Business Asst Relationship Specialty Start Date End Date Siobhan Easley [address] [place] [address] PCP - General Family Practice 06/08/17 Santiago Luz MD [address] [id number] Ophthalmology 03/11/18 Silvio Fish [facility] [address] [address] Referring Physician Ophthalmology 03/11/18 Eduin Miguel MD 420 [place], [place] 330725 Ophthalmology 08/18/18 Lorie Tapia OD [address] 2499[address] Optometry 12/20/18 Frieda Byrd MD [address] [place] [address] 96788455 Assigned Rheumatology Provider 03/10/21 11/21/22 Raisa Contreras MD [address] [place] [address] 704455 Otolaryngology 04/24/21 Frieda Byrd MD [address] [place] [address] 177275 Rheumatology 04/24/21 Victoria Mills, RN Specialty Wet Char Conveyor Tender Cardiology 04/30/21 05/22/24 Rj De La Rosa MD Assigned Heart and Vascular Provider 04/28/21 06/26/23 Mann Lock MD [address] [place] [address] 090905 Assigned Surgical Provider 04/21/21 Stefanie De Jesus RN Registered Nurse 06/05/21 05/29/23 Licha Luz DO Hematology & Oncology 07/01/21 05/15/24 Licha Luz DO Referring Physician Hematology & Oncology 07/01/2105/15/24 Reji Mack MD 500 [place] [address] Otolaryngology 07/01/21 Mann Lock MD [address] [place] [address] Ophthalmology 07/02/21 [place] [address] [address] Assigned Cancer Care Provider 06/16/21 01/30/24 Stefanie De Jesus RN Specialty Wet Char Conveyor Tender Hematology & Oncology 05/30/23 05/15/24 Mary Jane Lancaster PA-C [address] 195515 Assigned Cancer Care Provider 01/31/24 07/01/24 Tay Hernandez MD [address] [address] Hematology 05/16/24 Leonarda Ocasio LPN Specialty Wet Char Conveyor Tender Hematology & Oncology 05/18/24 July Saucedo MD [address] [place] [address] Assigned Neuroscience Provider 06/01/24 Tay Hernandez MD [address] [place] [address] Assigned Cancer Care Provider 07/02/24 Tay Hernandez MD [address] [place] [address] 894225 Physician Hematology 10/07/24 documented as of this encounter
--- OUTSIDE RECORDS SUMMARY | 2024-10-20 14:06 | XMS_ITS | Encounter Summary ---
Author Organization [place] Address [address] [place] [address] Care Team Providers Care [employer] Certified Internetwork Expert Name Role Phone Siobhan Easley Primary Care Provider Santiago Luz MD Unavailable [phone] Silvio Fish Unavailable Eduin Miguel MD Unavailable Lorie Tapia OD Unavailable [phone] Frieda Byrd MD Unavailable [phone] Raisa Contreras MD Unavailable Frieda Byrd MD Unavailable Victoria Mills RN Unavailable [phone] Rj De La Rosa MD Unavailable Mann Lock MD Unavailable [phone] Stefanie De Jesus RN Unavailable [phone] Licha Luz DO Unavailable [phone] Licha Luz DO Unavailable [phone] Reji Mack MD Unavailable [phone] Mann Lock MD Unavailable Licha Luz DO Unavailable [phone] Stefanie De Jesus RN Unavailable [phone] Mary Jane Lancaster PA-C Unavailable [phone] Tay Hernandez MD Unavailable + [phone] Leonarda Ocasio LPN Unavailable Unavailable July Saucedo MD Unavailable +[phone] Tay Hernandez MD Unavailable + [phone] Tay Hernandez MD Unavailable + [phone] Encounter Details Date Type Department Care Team (Late st Contact Info) Description 12/20/2021 MyC Medical Advice [facility] [address] [address] Nellie Spears, SAHIL Social History Tobacco Use Types Packs/Day Years [...] AM CDT Legal Sex Female 3:21 AM SOUND TECHNICIAN Gender Identity Female 04/11/2021 7:42 AM CDT Sexual Orientation Straight 04/11/2021 7: 42 AM CDT COVID-19 Exposure Response Date Recorded In the last 10 days, have yo u been in contact with someone who was confirmed or suspected to have Coronavirus/COVID-19? No / Unsure 12/20/2021 8:54 AM CDT documented as of this encounter Plan of Treatment Upcoming Encounters Date Type Department Care Team (Late st Contact Info) Description 11/22/2024 10:00 AM CDT Lab [facility] [address] [facility] [place] [address] Tay Hernandez MD [address] [address] 01/11/2025 10:30 AM CDT Office Visit [facility] [address] [facility] 9th Fl Clin 9A [place] [address] Mann Lock MD 6 [place] [address] 05/23/2025 10:00 AM CDT Lab [facility] [place] [address] [place] [address] 200 [facility] [place] [phone] Tay Hernandez MD 420 [facility] 480 [place] [address] 06/01/2025 2:00 PM CDT Oncology Visit [facility] 909 [place] [address] Tay Hernandez MD 420 [facility] 480 [place], [place] 236435 documented as of this encounter Visit Diagnoses Not on filedocumented in this encounter Additional Health Concerns Assessment Noted Time PHQ-9 Depression Total Score: 10 021 7:28 AM SOUND TECHNICIAN documented as of this encounter Care Teams Cisco Certified Internetwork Expert Relationship Specialty Start Date End Date Siobhan Easley [address] [place] [address] PCP - General Family Practice 06/08/17 Santiago Luz MD [address] [place] [address] Ophthalmology 03/11/18 Silvio Fish [facility] [address] [place] [address] Referring Physician Ophthalmology 03/11/18 Eduin Miguel MD [address] [place] [address] Ophthalmology 08/18/18 Lorie Tapia OD [address] [place] [address] Optometry 12/20/18 Frieda Byrd MD [address] [place] [address]15 Assigned Rheumatology Provider 03/10/21 11/21/22 Raisa Contreras MD [address] [place] [address] Otolaryngology 04/24/21 Frieda Byrd MD [address] [place] [address] 348695 Rheumatology 04/24/21 Victoria Mills RN Specialty Print And Pattern Designer Cardiology 04/30/21 05/22/24 Rj De La Rosa MD Assigned Heart and Vascular Provider 04/28/21 06/26/23 Mann Lock MD [address] [place] [address] 128675 Assigned Surgical Provider 04/21/21 Stefanie De Jesus RN Registered Nurse 06/05/21 05/29/23 Licha Luz DO Hematology & Oncology 07/01/21 05/15/24 Licha Luz DO Referring Physician Hematology & Oncology 07/01/2105/15/24 Reji Mack MD [address] [place] [address] 049715 Otolaryngology 07/01/21 Mann Lock MD [address] [place] [address] Ophthalmology 07/02/21 [place] [address] [phone] Assigned Cancer Care Provider 06/16/21 01/30/24 Stefanie De Jesus, SAHIL Specialty Print And Pattern Designer Hematology & Oncology 05/30/23 05/15/24 Mary Jane Lancaster PA-C 420 [facility] 480 [place] [address] Assigned Cancer Care Provider 01/31/24 07/01/24 Tay Hernandez MD 420 [facility] 480 [place] [address] Hematology 05/16/24 Leonarda Ocasio LPN Specialty Print And Pattern Designer Hematology & Oncology 05/18/24 July Saucedo MD 515 [place] [address] Assigned Neuroscience Provider 06/01/24 Tay Hernandez MD [address] 518625 Assigned Cancer Care Provider 07/02/24 Tay Hernandez MD [address] 222315 Physician Hematology 10/07/24 documented as of this encounter
--- OUTSIDE RECORDS SUMMARY | 2024-10-20 14:06 | XMS_ITS | Encounter Summary ---
Author Organization [place] Address [address] [place] [address] Care Team Providers Care Cupola Melter Name Role Phone Siobhan Easley Primary Care Provider Santiago Luz MD Unavailable [phone] Silvio Fish Unavailable [phone] Eduin Miguel MD Unavailable Lorie Tapia OD Unavailable [phone] Raisa Contreras MD Unavailable Frieda Byrd MD Unavailable Victoria Mills RN Unavailable [phone] Rj De La Rosa MD Unavailable Mann Lock MD Unavailable Stefanie De Jesus RN Unavailable [phone] Licha Luz DO Unavailable [phone] Licha Luz DO Unavailable Reji Mack MD Unavailable Mann Lock MD Unavailable Licha Luz DO Unavailable [phone] Stefanie De Jesus RN Unavailable [phone] Mary Jane Lancaster PA-C Unavailable [phone] Tay Hernandez MD Unavailable [phone] Leonarda Ocasio LPN Unavailable Unavailable July Saucedo MD Unavailable [phone] Tay Hernandez MD Unavailable [phone] Tay Hernandez MD Unavailable [phone] Reason for Visit * Reason Onset Date Comments Hypersensitivity Reaction 04/23/2023 Encounter Details Date Type Department Care Team (Latest Contact Info) Description 04/23/2023 [facility] Medical Advice 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 No / Unsure 04/22/2023 9:43 AM CDT documented as of this encounter Plan of Treatment Upcoming Encounters Date Type Department Care Team (Late st Contact Info) Description 11/22/2024 10:00 AM CDT Lab [address] [facility] [place] [address] Tay Hernandez MD [address] [place] [address] 01/11/2025 10:30 AM CDT Office Visit [facility] Eye Clinic [address] 9[facility] Clin [address] [place] [address] Mann Lock MD [address] [place] [address] [phone] 05/23/2025 10:00 AM CDT Lab [address] [place] 200 [facility] [place] [phone] Tay Hernandez MD [address] [place] [address] 06/01/2025 2:00 PM CDT Oncology Visit [facility] [address] [place] [phone] Tay Hernandez MD [address] [place] [address] 594345 documented as of this encounter Visit Diagnoses Not on filedocumented in this encounter Additional Health Concerns Assessment Noted Time PHQ-9 Depression Total Score: 10 021 7:28 AM CUSTOMER LIAISON documented as of this encounter Care Teams Cupola Melter Relationship Specialty Start Date End Date Siobhan Easley [address] [place], [place] [address] PCP - General Family Practice 06/08/17 Santiago Luz MD [address] [place], [place] [address] Ophthalmology 03/11/18 Silvio Fish [facility] 2018 [facility] [place] [address] Referring Physician Ophthalmology 03/11/18 Eduin Miguel MD [address] [place], [place] [phone] Ophthalmology 08/18/18 Lorie Tapia OD [address] [place] [address] 777415 Optometry 12/20/18 Raisa Contreras MD [address] [place] [address] 372265 Otolaryngology 04/24/21 Frieda Byrd MD [address] [place] [address] Rheumatology 04/24/21 Victoria Mills, RN Specialty Acetylene Torch Operator Cardiology 04/30/21 05/22/24 Rj De La Rosa MD Assigned Heart and Vascular Provider 04/28/21 06/26/23 Mann Lock MD [address] [place] [address] Assigned Surgical Provider 04/21/21 Stefanie De Jesus RN Registered Nurse 06/05/21 05/29/23 Licha Luz DO Hematology & Oncology 07/01/21 05/15/24 Licha Luz DO Referring Physician Hematology & Oncology 07/01/2105/15/24 Reji Mack MD [address] [place] [address] [phone] Otolaryngology 07/01/21 Mann Lock MD [address] [place] [address] Ophthalmology 07/02/21 [place] [address] [place], [place] [phone] Assigned Cancer Care Provider 06/16/21 01/30/24 Stefanie De Jesus, RN Specialty Acetylene Torch Operator Hematology & Oncology 05/30/23 05/15/24 Mary Jane Lancaster PA-C [address] [place] [address] [phone] Assigned Cancer Care Provider 01/31/24 07/01/24 Tay Hernandez MD [address] [address] Hematology 05/16/24 Leonarda Ocasio LPN Specialty Acetylene Torch Operator Hematology & Oncology 05/18/24 July Saucedo MD [address] [place] [address] Assigned Neuroscience Provider 06/01/24 Tay Hernandez MD [address] [address] Assigned Cancer Care Provider 07/02/24 Tay Hernandez MD [address] [address] Physician Hematology 10/07/24 documented as of this encounter
--- OUTSIDE RECORDS SUMMARY | 2024-10-20 14:06 | XMS_ITS | Encounter Summary ---
Author Organization [place] Address [address] [place] [address] Care Team Providers Care [employer] Game [employer] Manager Name Role Phone Siobhan Easley Primary Care Provider Santiago Luz MD Unavailable [phone] Silvio Fish Unavailable [phone] Eduin Miguel MD Unavailable Lorie Tapia OD Unavailable Frieda Byrd MD Unavailable Raisa Contreras MD Unavailable Frieda Byrd MD Unavailable [phone] Victoria Mills RN Unavailable [phone] Rj De La Rosa MD Unavailable Mann Lock MD Unavailable Stefanie De Jesus RN Unavailable Licha Luz DO Unavailable [phone] Licha Luz DO Unavailable [phone] Reji Mack MD Unavailable Mann Lock MD Unavailable Licha Luz DO Unavailable Liza Stefanieraquel BAXTER Unavailable [phone] Mary Jane Lancaster PA-C Unavailable [phone] Tay Hernandez MD Unavailable [phone] Leonarda Ocasio LPN Unavailable Unavailable July Saucedo MD Unavailable [phone] Tay Hernandez MD Unavailable [phone] Tay Hernandez MD Unavailable [phone] Encounter Details Date Type Department Care Team (Late st Contact Info) Description 07/22/2021 [facility] Medical Advice [facility] [address] [place] [address] [facility] [place] [address] [place] [address] [place], [place] [phone] Social History Tobacco Use Types Packs/Day Years [...] AM CDT 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 No / Unsure 07/17/2021 10:52 AM BATCH HEAT TREAT OPERATOR documented as of this encounter Plan of Treatment Upcoming Encounters Date Type Department Care Team (Late st Contact Info) Description 11/22/2024 10:00 AM CDT Lab [facility] [address] [place] [address] [facility] [place] [address] Tay Hernandez MD [address] [place] [address] 01/11/2025 10:30 AM CDT Office Visit [facility] [address] [facility] [address] Clin [address] [place] [address] Mann Lock MD [address] [place] [address] 05/23/2025 10:00 AM CDT Lab [facility] [address] 200 [facility] [place] [address] Tay Hernandez MD [address] [place] [address] 06/01/2025 2:00 PM CDT Oncology Visit [facility] [address] [place] [phone] Tay Hernandez MD [address] [place] [address] documented as of this encounter Visit Diagnoses Not on filedocumented in this encounter Additional Health Concerns Assessment Noted Time PHQ-9 Depression Total Score: 10 021 7:28 AM BATCH HEAT TREAT OPERATOR documented as of this encounter Care Teams Fish And Game Club Manager Relationship Specialty Start Date End Date Siobhan Easley [address] [place] [address] PCP - General Family Practice 06/08/17 Santiago Luz MD [address] [place] [address] Ophthalmology 03/11/18 Silvio Fish [facility] [address] [place] [address] Referring Physician Ophthalmology 03/11/18 Eduin Miguel MD [address] [place] [address] [phone] Ophthalmology 08/18/18 Lorie Tapia OD [address] [place] [address] Optometry 12/20/18 Frieda Byrd MD [address] [place] [address] Assigned Rheumatology Provider 03/10/21 11/21/22 Raisa Contreras MD [address] [place] [address] [phone] Otolaryngology 04/24/21 Frieda Byrd MD [address] [place] [address] Rheumatology 04/24/21 Victoria Mills, RN Specialty Remote Medical Coder Cardiology 04/30/21 05/22/24 Rj De La Rosa MD Assigned Heart and Vascular Provider 04/28/21 06/26/23 Mann Lock MD [address] [place] [address] Assigned Surgical Provider 04/21/21 Stefanie De Jesus RN Registered Nurse 06/05/21 05/29/23 Licha Luz DO Hematology & Oncology 07/01/21 05/15/24 Licha Luz DO Referring Physician Hematology & Oncology 07/01/2105/15/24 Reji Mack MD [address] [place] [address] Otolaryngology 07/01/21 Mann Lock MD [address] [place] [address] Ophthalmology 07/02/21 [place] [address] [place] [address] [address] [address] Assigned Cancer Care Provider 06/16/21 01/30/24 Stefanie De Jesus RN Specialty Remote Medical Coder Hematology & Oncology 05/30/23 05/15/24 Mary Jane Lancaster PA-C 420 [facility] [address] [place] [address] Assigned Cancer Care Provider 01/31/24 07/01/24 Tay Hernandez MD [address] [address] Hematology 05/16/24 Leonarda Ocasio LPN Specialty Remote Medical Coder Hematology & Oncology 05/18/24 July Saucedo MD [address] [place] [address] Assigned Neuroscience Provider 06/01/24 Tay Hernandez MD [address] [place] [address] Assigned Cancer Care Provider 07/02/24 Tay Hernandez MD [address] [place] [address] 887455 Physician Hematology 10/07/24 documented as of this encounter
--- OUTSIDE RECORDS SUMMARY | 2024-10-20 14:06 | XMS_ITS | Clinical Summary ---
Author Organization [facility] Address [address] [place] [address] Care Team Providers Care Cheese Tester Name Role Phone Siobhan Easley Primary Care Provider Santiago Luz MD Unavailable [phone] Silvio Fish Unavailable [phone] Eduin Miguel MD Unavailable Lorie Tapia OD Unavailable Raisa Contreras MD Unavailable Frieda Byrd MD Unavailable [phone] Mann Lock MD Unavailable [phone] Reji Mack MD Unavailable [phone] Mann Lock MD Unavailable [phone] Tay Hernandez MD Unavailable [phone] Leonarda Ocasio LPN Unavailable Unavailable July Saucedo MD Unavailable [phone] Tay Hernandez MD Unavailable [phone] Tay Hernandez MD Unavailable [phone] Allergies Active Allergy Reactions Criticality Noted Date Comments Adhesive Tape Dermatitis 06/23/2023 Contrast Dye Unknown 09/08/2023 Diatrizoate Anaphylaxis High 04/08/2007 Dust Mite Extract Other (See Comments) 08/27/19 Dust Mites Shortness Of Breath High Fluorescein Other (See Comments) Medium 04/23/2023 Urinary urgency/felt like bladder burning for about one hour after administering 04-22-2023 Gadolinium Other (See Comments) 09/08/2023 Iodine Anaphylaxis High 05/02/2008 Other reaction(s): Syncope Iodine in ivp dye in 1967, Other reaction(s): Syncope Iodine in ivp dye in 1967, Latex Blisters,Rash,Dermat i tis Low 05/02/2008 Other reaction(s): Contact Dermatitis Able to handle and blow up a balloon, and tolerate elastic in clothing Molds & Smuts 08/27/2021 Other reaction(s): Runny Nose Pollen Extract 06/24/2008 Trees and grasses and molds and dander allergies-nasal congestion and infreq resp wheezing Trees 07/17/2021 Medications rosuvastatin (CRESTOR) 5 MG tablet Take 5 mg by mouth At Bedtime Active cholecalciferol 25 MCG (1000 UT) TABS Take 1,000 Units by mouth daily Active famciclovir (FAMVIR) 500 MG tablet Take 500 mg by mouth 3 times daily as needed Hold until patient calls 1 Active hydrochlorothiazi de (HYDRODIURIL) 25 MG tabletIndications :Heart failure with preserved ejection fraction, NYHA class II (H) Take 1 tablet (25 mg) by mouth daily 90 tablet 3 2 Active Additional Information Patient not taking.Reported on 05/26/2024 FARXIGA 10 MG TABS tablet Take 10 mg by mouth daily 2 Active ELIQUIS ANTICOAGULANT 5 MG tablet TAKE 1 TABLET (5 MG) BY MOUTH TWO TIMES DAILY. 3 Active Semaglutide-Weigh t Management (WEGOVY) 0.5 MG/0.5ML pen 0.5 mg 4 Active cyanocobalamin (VITAMIN B-12) 1000 MCG tablet Take 1,000 mcg by mouth daily. Active losartan (COZAAR) 25 MG tablet Take 12.5 mg by mouth. 5 026 Active dorzolamide (TRUSOPT) 2 % ophthalmic solutionIndicatio ns:Ocular hypertension, bilateral Place 1 drop into both eyes 3 times daily. 20 mL 3 5 Active Active Problems Problem Noted Date Diagnosed Date Uveitis 02/15/2022 Prediabetes 11/12/2021 MGUS (monoclonal gammopathy of unknown significa nce) 08/22/2021 Chronic diastolic (congestive) heart failure 05/2022 Overview (09/01/2022): Added automatically from request for surgery [id number] Added automatically from request for surgery [id number] Mild intermittent asthma 06/11/2021 Ocular hypertension, bilateral 02/20/2021 Overview (01/15/2022): 02/20/21: IOP 22, 38 after 1 month of Durezol left eye and 1 week of pred 30. Start Dorzol TID and Brim each eye, stop Bromday and Durezol. Some low BP. 03/06/21: IOP Normal, reduce drops BID. 04/10/21: Still symptomatic, IOP fine. Stop Brimonidine. Keep Dorz BID->IOP 16, 19. IOP 16, 17 after oral pred 2 days on Dorzol TID. Reduced to BID. IOP 15, 20 on 07/10/21 RNFL WNL. Keep BID. 10/09/21: IOP 12, 18. RNFL WNL. Keep Roland BID. 01/2022: Grouped areas reduced superior right eye and one new spot superior and inf nasal. Target mid teens use Dorz TID Macular scar of left eye 01/23/2021 Overview (07/10/2021): Longstanding, unclear cause. 01/28: Some increased metamorphopsia with tissue atrophy but no CNV. Observe. 07/10/21: Early flattening inferior spot, no CNV. 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 Optos FA with minimal angiographic leakage right eye peripherally but none in the macula. Left eye with scattered areas of angiographic leakage in the periphery as well as in the macula. Start Durezol and Bromday twice daily OS only. Labs: CBC, CMP, Lyme, TOLU, Syphilis, Quantiferon all negative. 02/20/21: Improved right eye, no changes on exam/OCT left eye. IOP 38, some palpitations from prednisone. Stop Bromday.Taper Durezol daily x 2 days then stop, taper Prednisone 20 x 2 d, 10 x 2 days 02/27: No change in symptoms, but opacities/cells same. Observe (some low BP on Cosopt). Getting Rheum work up, no systemic med recs. Stable 04/10 off treatment (low BP on Brimonidine), OCT stable. +Cryoglobulins->MRI Brain without signs of lymphoma 05/30: Stable, no tx. 07/10/21. Stable opacities, no CME. Getting evaluated for Amyloid, heme onc watching MGUS. No durezol/pred 10/2021: No CME, scars left eye stable. 01/2022: PVD, no haze, no CME. Observe 04/2022: NO cME< Scars stable, no active haze, observe 07/2022: No CME, scars stable left eye no new haze. Slight increase in small vessel leakage in both eyes compared to January 2021. Continue to monitor History of prediabetes 08/29/2020 Pseudophakia of both eyes 07/17/2019 Cystoid macular edema of both eyes 07/17/2019 Overview (07/23/2022): Right eye: Identified 07/15/19 5 weeks after uncomplicated Phaco right eye. Likely Pseudophakic CME. Started Pred/Acular QID Each eye gradually resolved, none since. 01/22/21: None by FA Left eye: None by OCT on 01/28, some metamorphopsia, possibly related to macular lesion atrophy, also angiographic CME. Start Durezol BID and Bromday BID. None by FA 07/2022 Generalized muscle weakness 01/26/2018 Depression 07/06/2017 Edema 07/06/2017 Elevated PTHrP level 07/06/2017 Asthma 04/28/2017 Hypercalcemia 03/09/2017 Right thyroid nodule 03/09/2017 Moderate persistent asthma without complication 12/09/2016 IFG (impaired fasting glucose) 10/30/2015 Generalized edema 08/24/2015 ALKA (obstructive sleep apnea) 07/24/2015 Routine adult health maintenance 09/29/2014 Overview (07/06/2017): Overview: Colonoscopy 09/2014 normal repeat in 10 years Adjustment disorder with mixed anxiety and depre ssed mood 02/05/2011 Arthritis of hip 05/17/2010 Hyperlipemia 10/18/2009 Seasonal affective disorder 08/14/2009 Herpes simplex type 2 infection 07/11/2009 Phlebitis and thrombophlebit is of other deep vessels of lower extremities 05/29/2009 Microscopic hematuria 05/22/2009 Vitamin D deficiency 01/15/2009 Esophageal reflux 01/09/2009 Elevated blood pressure read ing without diagnosis of hypertension 04/23/2007 Resolved Problems Problem Noted Date Diagnosed Date Resolved Date Nuclear sclerotic cataract of both eyes 05/09/2019 07/17/2019 Overview (05/09/2019): Added automatically from request for surgery [id number] Pain of hand 04/05/2015 02/20/2021 Diastolic dysfunction 03/13/20152020 Encounters Date Type Department Care Team Description 09/20/2024 10: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 Office Visit [facility] [address] [place] [address] Mann Lock MD Intermediate uveitis of both eyes (Primary Dx); Ocular hypertension, bilateral 09/20/2024 Travel from Last 3 Months Immunizations Name Administration Dates Next Due DTAP (<7y) 09/27/2010 Flu 65+ (Fluad) 04/21/2017 Hepatitis A (VAQTA)(ADULT 19+) 06/25/2015 Influenza (High Dose) Trival ent,PF (Fluzone) 05/16/2016,05/10/2015 Influenza (IIV3) PF 04/26/2013, 2,06/03/2011,2009,04/26/2009,06/01/2008,06/08/2007 Influenza Vaccine >6 months,quad, PF 05/22/2014 Pneumo Conj 13-V (2010&after) 02/08/2015 Pneumococcal 23 valent 06/05/2016,05/17/2010 TDAP Vaccine (Adacel) 09/27/2010 Typhoid IM 06/25/2015 Yellow Fever 07/06/2015 Zoster vaccine, live 04/16/2012 Family History Medical History Relation Comments Depression Brother Mental Illness Brother Depression Cousin Heart Disease Father Diabetes Maternal Grandmother Cancer Mother Skin cancer Depression Mother Heart Disease Mother Hypertension Mother Osteoporosis Mother Thyroid Disease Mother Goiter, removed Bleeding Disorder Other Von willebrand Heart Disease Other Heart Disease Paternal Grandfather Asthma Sister Cancer Sister Melanoma Depression Sister Glaucoma Sister Macular Degeneration No family hx of Relation Status Comments Brother Cousin Father Maternal Grandmother Mother Other Paternal Grandfather Sister Social History Tobacco Use Types Packs/Day Years Used Date Smoking Tobacco: Former Cigarettes 2 10 1 09/10/1966 - 07/10/1977 Smokeless Tobacco: Never Tobacco Cessation:Counseling Given: Not Answered Alcohol Use Standard Drinks/Week Comments Yes 0 [...] AM CDT Legal Sex Female 3:21 AM 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 Gender Identity Female 04/11/2021 7:42 AM CDT Sexual Orientation Straight 04/11/2021 7: 42 AM CDT Last Filed Vital Signs Vital Sign Reading Time Taken Comments Blood Pressure 125/77 05/26/2024 2:22 PM CDT Pulse 74 05/26/2024 2:22 PM CDT Temperature 36.8 C (98.2 F) 05/26/2024 2:22 PM CDT Respiratory Rate 12 05/26/2024 2:22 PM CDT Oxygen Saturation 98% 05/26/2024 2:22 PM CDT Inhaled Oxygen Concentration - - Weight 77.5 kg (170 lb 12.8 oz) 05/26/2024 2:22 PM CDT Height 174 cm (5' 8.5) 05/26/2024 2:22 PM CDT Body Mass Index 25.59 05/26/2024 2:22 PM CDT Plan of Treatment Upcoming Encounters Date Type Department Care Team (Late st Contact Info) Description 11/22/2024 10:00 AM CDT Lab [facility] [address] [facility] [place] [address] Tay Hernandez MD [address] [place] [address] 01/11/2025 10:30 AM CDT Office Visit [facility] - [address] [phone] Mann Lock MD [address] [place] [address] 05/23/2025 10:00 AM CDT Lab [facility] [address] [facility] [place] [address] Tay Hernandez MD [address] [place] [address] 06/01/2025 2:00 PM CDT Oncology Visit [facility] [address] [place] [address] Tay Hernandez MD [address] [facility] [address] [place], [place] [address] Health Maintenance Due Date Last Done Comments ADVANCE CARE PLANNING 1950 ANNUAL REVIEW OF HM ORDERS 1949 ASTHMA ACTION PLAN 1949 ASTHMA CONTROL TEST [address] CT COLONOGRAPHY 1949 FLEX SIG 1949 HF ACTION PLAN 1949 LIPID 1949 sDNA (Cologuard) 1950 FIT 03/20/2015 03/20/2014 RSV VACCINE (1 - 1-dose 75+ series) 2024 BMP 11/15/2024 05/17/2024, 11/08, 05/13/2023, Additional history exists FALL RISK ASSESSMENT 12/02/2024 12/03/2023, 11/04/2022, 05/28/2022, Additional history exists MEDICARE ANNUAL WELLNESS VISIT 04/21/2025 04/21/2024, 02/14/2022, 07/17/2020 ALT 05/17/2025 05/17/2024, 11/08, 05/13/2023, Additional history exists CBC 05/17/2025 05/17/2024, 11/08, 05/13/2023, Additional history exists GLUCOSE 05/17/2027 05/17/2024, 1 , 05/13/2023, Additional history exists COLONOSCOPY 07/22/2032 07/22/2022, 0 08/2009, 08/09/2009 COLORECTAL CANCER SCREENING 07/22/2032 DTAP/TDAP/TD IMMUNIZATION (6 - Td or Tdap) 09/25/2033 09/25/2023, 02/27/2021, 09/27/2010, Additional history exists DEXA 02/03/2037 02/03/2022, 07/0 09/2014, 05/17/2010 Pneumococcal Vaccine: 50+ Years Completed 06/05/2016, 02/08/2015, 05/17/2010, Additional history exists ZOSTER IMMUNIZATION Completed 01/21/2018, 11/13/2017, 04/16/2012, Additional history exists TSH W/FREE T4 REFLEX Completed 01/26/2018 HEPATITIS C SCREENING Completed 07/17/2020 MAMMO SCREENING Discontinued 02/23/2024, 02/07, 02/17/2023, Additional history exists INFLUENZA VACCINE Completed 06/02/2024, , 05/10/2023, Additional history exists COVID-19 Vaccine Completed 09/15/2024, 09/2023, 02/03/2024, Additional history exists PHQ-2 (once per calendar year) Completed 09/20/2024, 04/19/2024, 11/04/2022, Additional history exists HPV IMMUNIZATION Aged Out No longer e ligible based on patient's age to complete this topic MENINGITIS IMMUNIZATION Aged Out No l onger eligible based on patient's age to complete this topic Medical Devices Implanted Type Area Math Interventionist Device Identifier Shelf Expiration Date Model / Serial / Lot Eye Imp Iol Emanuel Pcl Tecnis Zcb00 14.0 Implanted:Qty: 1 on 06/13/2019 by Eduin Miguel MD at 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 Patient cooperation: Reliable [...] Mann Lock MD OPHTHALMOLOGY Final R esult * Comprehensive metabolic panel (05/17/2024 9:56 AM CDT) Sodium 140 135 - 145 mmol/L 05/17/2024 10:46 AM CDT [facility] Potassium 4.5 3.4 - 5.3 mmol/L 05/17/2024 10:46 AM CDT [facility] Carbon Dioxide (CO2) 25 22 - 29 mmol/L 05/17/2024 10:46 AM CDT [facility] Anion Gap 11 7 - 15 mmol/L 05/17/2024 10:46 AM CDT [facility] Urea Nitrogen 17.6 8.0 - 23.0 mg/dL 05/17/2024 10:46 AM CDT [facility] Creatinine 0.67 0.51 - 0.95 mg/dL 05/17/2024 10:46 AM CDT [facility] GFR Estimate >90 >60 mL/min/1.7 3m2 05/17/2024 10:46 AM CDT [facility] Comment:eGFR calculated us2020 CKD-EPI equation. Calcium 9.4 8.8 - 10.4 mg/dL 05/17/2024 10:46 AM CDT [facility] Comment:Reference intervals for this test were updated on 02/23/2024 to reflect our healthy population more accurately. There may be differences in the flagging of prior results with similar values performed with this method. Those prior results can be interpreted in the context of the updated reference intervals. Chloride 104 98 - 107 mmol/L 05/17/2024 10:46 AM CDT LABORATORY Glucose 98 70 - 99 mg/dL 05/17/2024 10:46 AM CDT [facility] Alkaline Phosphatase 87 40 - 150 U/L 05/17/2024 10:46 AM CDT [facility] AST 17 0 - 45 U/L 05/17/2024 10:46 AM CDT [facility] ALT 19 0 - 50 U/L 05/17/2024 10:46 AM CDT [facility] Protein Total 7.3 6.4 - 8.3 g/dL 05/17/2024 10:46 AM CDT [facility] Albumin 4.4 3.5 - 5.2 g/dL 05/17/2024 10:46 AM CDT [facility] Bilirubin Total 0.4 <=1.2 mg/dL 05/17/2024 10:46 AM CDT LABORATORY Blood STRUCTURE OF LEFT UPPER LIMB / Unknown Venipuncture / Unknown 05/17/2024 9:56 AM CDT 05/17/2024 10:20 AM CDT us Mary Jane Lancaster PA-C LAB - BLOOD ORDERABLES Final Result LABORATORY [facility] [address] Lab (1st floor, no room number) [place] [address] [[email or web address]] * TSH (01/26/2018 1:52 PM CDT) TSH 1.66 0.40 - 4.00 mU/L 01/26/2018 2:27 PM CDT [facility] Blood specimen (specimen) 01/26/2018 1:52 PM CDT 01/26/2018 1:55 PM CDT Jos Scott MD LAB - BLOOD ORDERABLES Final Result [facility] [address] [place] [address] * DEXA - HIM SCAN (02/08/2015 12:00 AM CDT) Anatomical Region Laterality Modality Other 02/08/2015 us Provider Outside IMG DEXA ORDERABLES Final Resul t from Last 3 Months or Most Recently Relevant to Health Maintenance Insurance BCBS OUT OF STATE MEDICARE REPLACEMENT BCBS OUT OF STATE MEDICARE REPLACEMENT BC OUT OF STATE MEDICARE REPLACEMENT Care Teams Cheese Tester Relationship Specialty Start Date End Date Siobhan Easley [address] [place] [address] PCP - General Family Practice 06/08/17 Santiago Luz MD [address] [place] [address] Ophthalmology 03/11/18 Silvio Fish [facility] [address] [facility] [place] [address] Referring Physician Ophthalmology 03/11/18 Eduin Miguel MD [address] [place], [place] [address] Ophthalmology 08/18/18 oLrie Tapia OD [address] [id number] Optometry 12/20/18 Raisa Contreras MD [address] [place], [place] [address] Otolaryngology 04/24/21 Frieda Byrd MD [address] [place] [address] Rheumatology 04/24/21 Mann Lock MD [address] [place] [address] 355425 Assigned Surgical Provider 04/21/21 Reji Mack MD [address] [place], [place] [id number] Otolaryngology 07/01/21 Mann Lock MD [address] [place] [address] Ophthalmology 07/02/21 Tay Hernandez MD [address] [place] [address] Hematology 05/16/24 Leonarda Ocasio LPN Specialty Tool And Equipment Rental Clerk Hematology & Oncology 05/18/24 July Saucedo MD [address] [place] [address] [id number] Assigned Neuroscience Provider 06/01/24 Tay Hernandez MD [address] [address] Assigned Cancer Care Provider 07/02/24 Tya Hernandez MD [address] 144565 Physician Hematology 10/07/24
--- OUTSIDE RECORDS SUMMARY | 2024-10-20 14:06 | XMS_ITS | Clinical Summary ---
Author Organization [facility] Address [address] [place] [id number] Care Team Providers Care Shock Absorption Floor Layer Name Role Phone Siobhan Easley MD Primary Care Provide r Julia Taylor RD Unavailable Nurses, Advanced Heart Failure Unavailable + Santiago Butcher MD Unavailable Jenny Alfaro Gmitro ROUTE SALES ASSOCIATE Unavailable [phone] Allergies Active Allergy Reactions Criticality Noted Date Comments Adhesive Tape-Silicones Contact Dermatitis 06/23/2023 Animal Dander Other - Describe In Comment Field 08/27/2021 Dust Mites Shortness Of Breath High Fluorescein Other - Describe In Comment Field Medium 04/23/2023 Urinary urgency/felt like bladder burning for about one hour after administering 04-22-2023 Iodine Syncope High 05/02/2008 Iodine in ivp dye in 1968, Diatrizoate Allergen Anaphylaxis 04/08/2007 Latex Contact Dermatitis 05/02/2008 Able to handle and blow up a balloon, and tolerate elastic in clothing Mold Extracts Runny Nose 08/27/2021 Pollen Extracts 06/24/2008 Trees and grasses and molds and dander allergies-nasal congestion and infreq resp wheezing Medications miscellaneous medical supply miscIndications:D iastolic dysfunction As directed. Automated arm blood pressure cuff, Diagnosis I10. 1 Each 020 Active dorzolamide (TRUSOPT) 2 % ophthalmic solution Place 1 Drop into both eyes two times daily. 022 Active cholecalciferol (VITAMIN D3) 1,000 unit tablet Take 1,000 units by mouth once daily. Active famciclovir (FAMVIR) 500 mg tabletIndications :Herpes simplex type 2 infection Take 2 Tablets (1,000 mg) by mouth two times daily. For one day. Take with each herpes outbreak. 4 Tablet 1 Active albuterol HFA (PRO-AIR; VENTOLIN; PROVENTIL) 90 mcg/actuation inhalerIndication s:Cough, unspecified type Inhale 1-2 Puffs by mouth every 4 hours if needed (cough). 1 Each 023 Active hydrocortisone (Anusol-HC) 2.5 % rectal creamIndications: Hemorrhoids, external Apply topically to affected area(s) three times daily. 28 g 2 023 Active cyclobenzaprine (FLEXERIL) 10 mg tabletIndications :Acute left-sided low back pain without sciatica Take 0.5-1 Tablets (5-10 mg) by mouth 3 times daily if needed for Muscle Spasm. 30 Tablet 2 024 Active furosemide (LASIX) 20 mg tabletIndications :Bilateral lower extremity edema Take 1 Tablet (20 mg) by mouth every morning. As needed for leg swelling 20 Tablet 024 Active dapagliflozin propanediol (Farxiga) 10 mg tabletIndications :Chronic diastolic (congestive) heart failure (HC) Take 0.5 Tablets (5 mg) by mouth once daily. 024 Active rosuvastatin (CRESTOR) 5 mg tabletIndications :Hyperlipidemia, unspecified hyperlipidemia type Take 1 Tablet (5 mg) by mouth at bedtime. 90 Tablet 3 024 Active apixaban (Eliquis) 5 mg tabletIndications :Paroxysmal atrial fibrillation (HC) Take 1 Tablet (5 mg) by mouth two times daily. 180 Tablet 3 024 Active cyanocobalamin (VITAMIN B12) 1,000 mcg tablet Take 1,000 mcg by mouth once daily. Active losartan (COZAAR) 25 mg tablet Take 12.5 mg by mouth once daily. 025 2025 Active amoxicillin 500 mg capsuleIndication s:S/P reverse total shoulder arthroplasty, right Take 4 Capsules (2,000 mg) by mouth once daily. 1 HOUR BEFORE DENTAL APPOINTMENT 4 Capsule 3 025 Active nystatin powder (MYCOSTATIN) powderIndications :Intertrigo Apply 1 Strip topically to affected area(s) three times daily. 60 g 2 025 Active fluticasone (50 mcg per actuation) nasal solution (FLONASE)Indicati ons:Middle ear effusion, bilateral Inhale 2 Sprays in both nostrils once daily. 16 g 3 025 Active semaglutide, weight loss, (Wegovy) 2.4 mg/0.75 mL subcutaneous penIndications:Ov erweight INJECT 2.4 MG INTO THE SKIN ONCE WEEKLY 9 mL 3 025 Active semaglutide, weight loss, (Wegovy) 2.4 mg/0.75 mL subcutaneous penIndications:Ov erweight Inject 2.4 mg subcutaneous once weekly. 6 mL 5 024 2024 Discontinued Active Problems Problem Noted Date Diagnosed Date MGUS (monoclonal gammopathy of unknown significa nce) 02/15/2022 Uveitis 02/15/2022 Prediabetes 11/12/2021 Obesity (BMI 30.0-34.9) 10/10/2021 Weight gain 10/10/2021 Monoclonal gammopathy 08/22/2021 Chronic diastolic (congestive) heart failure 05/2022 Overview (11/22/2021): Added automatically from request for surgery [id number] Mild intermittent asthma 06/11/2021 Ocular hypertension, bilateral 02/20/2021 Overview (11/22/2021): 02/20/21: IOP 22, 38 after 1 month [...] IOP 12, 18. RNFL WNL. Keep Roland BID Macular scar of left eye 01/23/2021 Overview (11/22/2021): Longstanding, unclear cause. 01/28: Some increased metamorphopsia with tissue atrophy but no CNV. Observe. 07/10/21: Early flattening inferior spot, no CNV. 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 Overweight 10/24/2020 Pseudophakia of both eyes 07/17/2019 Cystoid macular edema of both eyes 07/17/2019 Overview (11/22/2021): Right eye: Identified 07/15/19 5 weeks after uncomplicated Phaco right eye. Likely Pseudophakic CME. Started Pred/Acular QID Each eye gradually resolved, none since. 01/22/21: None by FA Left eye: None by OCT on 01/28, some metamorphopsia, possibly related to macular lesion atrophy, also angiographic CME. Start Durezol BID and Bromday BID. Generalized muscle weakness 01/26/2018 Elevated parathyroid hormone related peptide lev el 07/06/2017 Depression 07/06/2017 Right thyroid nodule 03/09/2017 Edema 08/24/2015 ALKA 07/17/2015 AHI-5.7 07/24/2015 Routine adult health maintenance 09/29/2014 Overview (11/22/2021): Colonoscopy 09/2014 normal repeat in 10 years Overview: Colonoscopy 09/2014 normal repeat in 10 years Arthritis of hip 05/17/2010 Hyperlipidemia 10/18/2009 Herpes simplex type 2 infection 07/11/2009 Microscopic hematuria 05/22/2009 Vitamin D deficiency 01/15/2009 Elevated blood pressure read ing without diagnosis of hypertension 04/23/2007 Resolved Problems Problem Noted Date Diagnosed Date Resolved Date Heart failure with preserved ejection fraction 08/22/2021 11/22/2021 Overweight (BMI 25.0-29.9) 12/06/2020 1 08/11/2020 History of obesity 10/24/2020 Prediabetes 09/27/2020 06/11/2021 Weight gain 08/29/2020 06/11/2021 History of prediabetes 08/29/202006/11 Obesity (BMI 30.0-34.9) 08/31/2019 11/0 09/2020 Asthma 04/28/2017 06/11/2021 Hypercalcemia 03/09/2017 06/11/2021 Moderate persistent asthma w ithout complication 12/09/2016 06/11/2021 IFG (impaired fasting glucose) 10/30/2015 06/11/2021 Pain of hand 04/05/2015 06/11/2021 Diastolic dysfunction 03/13/20152021 Adjustment disorder with mix ed anxiety and depressed mood 02/05/2011 06/11/2021 Microscopic hematuria 05/02/20102010 Seasonal affective disorder 08/14/2009 09/25/2023 Phlebitis and thrombophlebit is of other deep vessels of lower extremities 05/29/2009 06/11/2021 Esophageal reflux 01/09/2009 06/11/2021 Attention deficit disorder w [facility] mention of hyperactivity 04/23/2007 06/19/2017 Anxiety state, unspecified 04/23/2007 1 09/10/2010 Encounters Date Type Department Care Team Description 10/20/2024 7:30 AM CDT Office Visit [facility] [address] [facility] [address] [place] [address] Candis Cantrell PsyD, LP Individual Therapy 10/20/2024 Travel 09/29/2024 Refill [facility] [address] [place] [address] Siobhan Easley MD Refill Request (Wegovy) 09/22/2024 7:30 AM DOOR TO DOOR FUNDRAISING COLLECTOR Phone Office Visit [facility] [address] [facility] [address] [place] [address] Candis Cantrell PsyD, LP Individual Therapy; Phone Visit 09/15/2024 7:50 AM DOOR TO DOOR FUNDRAISING COLLECTOR Office Visit [facility] [address] [place] [address] Siobhan Easley MD Follow Up (Seen in on 08/26. Heart palpitations, whooshing in the ear./); Derm Problem (Rash under left breast); Weight (Wegovy, max dose. Hit a plateau. Has been exercising, muscle mass?); Immunization/Injecti on 09/15/2024 Travel 09/07/2024 7:30 AM DOOR TO DOOR FUNDRAISING COLLECTOR Office Visit [facility] [address] [facility] [address] [place] [address] Candis Cantrell PsyD, LP Trmt Plan; Individual Therapy 09/07/2024 Travel 09/05/2024 Orders Only [facility] [address] [place] [address] Earnestine Thomas, PABLO 1 scan: (1-Ord) 08/26/2024 09/01/2024 Travel 08/26/2024 12:55 PM DOOR TO DOOR FUNDRAISING COLLECTOR Office Visit [facility] [address] [place] [address] Earnestine Thomas NP Ear Problem (Loud whooshing sound in right ear lasting about 1.5 days. ); Fast Heartbeat (08/25/24- noted on apple watch heart rate 151 for a short time. No A-fib detected. ) 08/26/2024 Refill [facility] [address] [place] [address] Siobhan Easley MD Refill Request (Fluticasone (50 Mcg Per Actuation) Nasal) 08/26/2024 Travel 08/26/2024 Nurse Triage [facility] [address] [place] [address] Siobhan Easley MD Fast Heartbeat 08/24/2024 10:30 AM DOOR TO DOOR FUNDRAISING COLLECTOR Office Visit [facility] [address] [facility] [address] [facility] [address] [place] [address] Candis Cantrell, Lillian, Mental Health Intake 08/24/2024 Travel from Last 3 Months Immunizations Immunization Administration Dates Next Due AMB INFLUENZA IIV3 (AGE 65+ YRS) PF (Flu Clinic Only) 05/17/2018 AMB Influenza, IIV3 (Age >=3 years)(Flu Clinic Only) 06/01/2008 AMB Influenza, IIV4 PF (=>6 mos Flulaval,Fluzone Fluarix)(Flu Clinic Only) 05/17/2019,05/22/2014 Amb Influenza, Inact (High-d ose) (Flu Clinic Only) 05/16/2016 Amb Influenza, Inactivated A IIV4 (Age 65+ Years) Preserv Free 05/10/2020 COVID-19 VACCINE SPIKEVAX (M ODERNA 50MCG/0.5ML) 12YO+ PFS 09/15/2024,05/11/2024,02/03/2024,05/10 COVID-19 vaccine (Moderna 100mcg/0.5mL) PF, MDV 04/10/2023,11/09/2021,05/31/2021,10/21,09/23/2020 COVID-19 vaccine (Moderna 50 mcg/0.5mL) 12YO+ BIVALENT PF, MDV 12/28/2022,04/16/2022 COVID-19 vaccine ([place] Shuttle-Bio NTech 30mcg/0.3mL) PF, MDV 04/10/2023 DT (Age < 7 years) 03/22/1987 DTaP 09/27/2010 Dtap-5 Pertussis Antigens 09/20/2010 Hepatitis A (Adult) 09/21/2023,06/25/2015 Influenza Virus, Unspecified 05/10/2023, 04/26/2013,04/16/2012,06/03,05/17/2010,04/26/2009,06/01/2008 ,06/08/2007,07/08/2006,06/02/2005,05/10 Influenza, High-dose Inactivated 05/10/2015 Influenza, High-dose Quadriv alent Inactivated 06/10/2023,05/14/2022,05/22/2021 Influenza, IIV3 (Age 6-35 mos) 06/03/2011 Influenza, IIV3 (Age >=3 years) 04/26/20 13,04/16/2012,06/03/2011,05/17,04/26/2009,06/08/2007,07/08/2006 ,06/02/2005,05/22/2003 Influenza, Inactivated IIV3 (Age 65+ Years) Preserv Free 06/02/2024,04/21/2017 Pneumococcal Poly,23-Valent (Pneumovax) 06/05/2016,05/17/2010 Pneumococcal conj 13-Valent (Prevnar 13) 02/08/2015 Pneumococcal, Unspecified 05/17/2010,08/10/2000 RSV, Recombinant ADJ Reconst ituted (Arexvy 120MCG/0.5mL) 04/30/2024 Td, Preservative Free (age >= 7 Years) Tdap 09/25/2023,09/27/2010 Typhoid (injectable) 06/25/2015 Yellow Fever 07/06/2015 Zoster (Shingrix-RZV, recombinant) 01/21/2018, Zoster (Zostavax-ZVL, live) 04/16/2012, 1 Family History Medical History Relation Name Comments Anxiety disorder Brother Coronary artery disease Brother Depression Brother Psychiatric illness Brother Heart attack Father Her father bessy leslie at age 51 years while dancing. He reportedly complained of leg pain two to three weeks prior to this sudden . Hyperlipidemia Father Hypertension Father Obesity Father Diabetes Maternal Grandmother Obesity Maternal Grandmother Heart Disease Mother atrial fibrill ation Hypertension Mother Other Mother broken femur Coronary artery disease Paternal Grandfather Heart attack Paternal Grandfather Hyperlipidemia Paternal Grandfather Hypertension Paternal Grandfather Obesity Paternal Grandfather Heart attack Paternal Uncle 1 Coronary artery disease Paternal Uncle 2 bypass and cardic transplant Anxiety disorder Sister Depression Sister Melanoma Sister Cancer-breast No Family History Cancer-ovarian No Family History Relation Name Status Comments Brother Father (Age 51) sudden car diac Maternal Grandmother Mother Paternal Grandfather MS Paternal Uncle 1 (Age 64) MS Paternal Uncle 2 Sister Social History Tobacco Use Types Packs/Day Years Used Date Smoking Tobacco: Former Cigarettes 2 10 0 08/10/1967 - 08/10/1977 Smokeless Tobacco: Never Tobacco Cessation:Counseling Given: Yes Alcohol Use Standard Drinks/Week Comments Not Currently 0 (1 standard drink = 0.6 oz pur e alcohol) cocktail every night PHQ-2 Answer Date Recorded PHQ-2 TOTAL SCORE 4 09/07/2024 Social Connections Answer Date Recorded Do you often feel lonely or isolated from those around you? 0 06/02/2024 Alcohol Use Answer Date Recorded How often do you have a drink containing alcohol ? 4 07/28/2022 How many drinks containing a lcohol do you have on a typical day when you are drinking? 0 07/28/2022 How often do you have five or more drinks on one occasion? 0 07/28/2022 Financial Resource Strain Answer Date R ecorded Difficulty of Paying Living Expenses 3 06/02/2024 Difficulty of Paying Living Expenses Not on file 06/02/2024 Food Insecurity Answer Date Recorded Do you worry your food will run out before you are able to buy more? 1 06/02/2024 Transportation Needs Answer Date Record ed Does lack of transportation keep you from medica l appointments? 1 06/02/2024 Does lack of transportation keep you from work, meetings or getting things that you need? 1 06/02/2024 Housing Stability Answer Date Recorded What is your housing situation today? 1 06/02/2024 Utilities Answer Date Recorded Do you have trouble paying f or utilities (for example, heat, electricity, water, phone)? 1 06/02/2024 Comments No Sex and Gender Information Value Date Recorded Sex Assigned at Not on file Legal Sex Female 5:24 AM DOOR TO DOOR FUNDRAISING COLLECTOR Gender Identity Not on file Sexual Orientation Not on file Obstetrics History Para Term AB IAB SAB Ectopic Multiple Livin g Live Births 0 0 0 Last Filed Vital Signs Vital Sign Reading Time Taken Comments Blood Pressure 114/69 09/15/2024 8:20 AM DOOR TO DOOR FUNDRAISING COLLECTOR Pulse 70 09/15/2024 8:20 AM DOOR TO DOOR FUNDRAISING COLLECTOR Temperature 36.7 C (98.1 F) 09/15/2024 8:20 AM DOOR TO DOOR FUNDRAISING COLLECTOR Respiratory Rate 18 08/26/2024 12:22 PM DOOR TO DOOR FUNDRAISING COLLECTOR Oxygen Saturation 98% 09/15/2024 8:20 AM DOOR TO DOOR FUNDRAISING COLLECTOR Inhaled Oxygen Concentration - - Weight 78.6 kg (173 lb 3.2 oz) 09/15/2024 8:20 A M DOOR TO DOOR FUNDRAISING COLLECTOR Height 174.6 cm (5' 8.75) 04/21/2024 10:17 AM C DT Body Mass Index 25.76 04/21/2024 10:17 AM CDT Plan of Treatment Upcoming Encounters Date Type Department Care Team (Late st Contact Info) Description 11/17/2024 7:30 AM CDT Office Visit [facility] [address] [facility] [address] [facility] [address] [place], [place] [id number] Candis Cantrell PsyD, LP [address] [facility] [address] [facility] [address] [place], [place] [id number] 12/13/2024 8:50 AM CDT Office Visit [facility] [place] [address] Siobhan Easley MD [address] [place] [address] 12/14/2024 1:00 PM CDT Office Visit [facility] [address] [place] [address] Óscar, Candis A, PsyD, LP [address] [place] [address] 01/04/2025 11:30 AM CDT Office Visit [facility] [address] [place] [address] Óscar, Candis A, PsyD, LP [address] [place] [address] 01/18/2025 11:30 AM CDT Office Visit [facility] [address] [place] [address] Óscar, Candis A, PsyD, LP [address] [place] [address] 02/16/2025 1:00 PM CDT Office Visit [facility] [address] [place] [address] Óscar, Candis A, PsyD, LP [address] [place] [address] 03/08/2025 11:30 AM CDT Office Visit [facility] [address] [place] [address] Óscar, Candis A, PsyD, LP [address] [place] [address] 04/06/2025 10:30 AM CDT Office Visit [facility] [address] [place] [address] Candis Cantrell, Lillian, LP [address] [facility] [address] [place], [place] [id number] Health Maintenance Due Date Last Done Comments BMI (ht and wt on same day) for age 18+ 04/21/2025 04/21/2024, 06/09/2023, 05/07/2023, Additional history exists Medicare Wellness for age 65+ 04/22/2025 04/21/2024, 02/14/2022, 07/17/2020, Additional history exists Depression screening for age 12+ 09/07/2025 09/07/2024, 08/26/2024, 08/26/2024, Additional history exists Fecal testing non-DNA (FIT,FOBT,iFOBT) for age 45-75 07/22/2027 07/22/2022, 03/20/2014 Postponed from 07/22/2023 (Other) Lipids for age 45-75 04/21/2029 04/21/2024, 05/06/2023, 02/21/2022, Additional history exists Tetanus booster 09/25/2033 09/25/2023, 02/08, 09/27/2010, Additional history exists Pneumococcal series for age 50+ Completed 06/05/2016, 02/08/2015, 05/17/2010, Additional history exists Zoster (shingles) series for age 50+ Completed 01/21/2018, 11/13/2017, 04/16/2012, Additional history exists Hepatitis C screening for age 18-79 Completed 07/17/2020 DEXA/DXA scan for age 65+ Completed 2021, 02/08/2015, 02/08/2015, Additional history exists Tdap Completed 09/25/2023, 09/27/2010 RSV vaccine for adults or Completed 04/30/2024 Influenza Vaccine Completed 06/02/2024, , 05/10/2020, Additional history exists COVID-19 vaccine series Completed 09/15/19, 05/11/2024, 02/03/2024, Additional history exists Medical Devices Implanted Type Area Logging Specialist Device Identifier Shelf Expiration Date Model / Serial / Lot Post Shoulder Glenoid 6.5x30mm Perform+ Rev - [id number] Implanted:Qty: 1 on 06/24/2023 by Santiago Glasgow MD at [facility] Right: Shoulder [employer] [id number] / / Screw Shoulder 30mm Perform+ Periph - [id number] Implanted:Qty: 2 on 06/24/2023 by Santiago Glasgow MD at [facility] Right: Shoulder [employer] [id number] / / Screw Shoulder 14mm Perform+ Periph - [id number] Implanted:Qty: 1 on 06/24/2023 by Santaigo Glasgow MD at [facility] Right: Shoulder [employer] [id number] / / Screw Shoulder 30mm Perform+ Periph - [id number] Implanted:Qty: 1 on 06/24/2023 by Santiago Glasgow MD at [facility] Right: Shoulder [employer] [id number] / / Baseplate Glenoid 25mm Perform+ Rev Lat +3mm - [id number] Implanted:Qty: 1 on 06/24/2023 by Santiago Glasgow MD at [facility] Right: Shoulder [employer] 05/03/2028 [id number] / [id number] / Glenoid 36mm Aequalis Perform+ Rev - [id number] Implanted:Qty: 1 on 06/24/2023 by Santiago Glasgow MD at [facility] Right: Shoulder [employer] 04/03/2028 [id number] / [id number] / Stem Hum Sz 3b Ascend Flex Std - [id number] Implanted:Qty: 1 on 06/24/2023 by Santiago Glasgow MD at [facility] Right: Shoulder [employer] 08/23/2025 [id number] / [id number] / Baseplate Hum Sz 0 Ascend Rev Flex Hi Off - [id number] Implanted:Qty: 1 on 06/24/2023 by Santiago Glasgow MD at [facility] Right: Shoulder [employer] 03/19/2028 [id number] / [id number] / Liner Hum Sz 36mm +6 Ascend Flex - [id number] Implanted:Qty: 1 on 06/24/2023 by Santiago Glasgow MD at [facility] Right: Shoulder [employer] 03/02/2028 [id number] / [id number] / Procedures Procedure Name Priority Date/Time Associated Diagnosis Comments EKG 12 LEAD Routine 08/26/2024 12:00 AM DOOR TO DOOR FUNDRAISING COLLECTOR Tinnitus of right ear LIPID PANEL W REFLEX MEASURED LDL Routine 04/21/2024 11:50 AM CDT Lipid screening XR DXA BONE DENSITY 1 SITE AXIAL AND 1 SITE PERIPHERAL Routine 02/03/2022 1:48 PM CDT Osteopenia of lumbar spine ANTI HCV Routine 07/17/2020 11:12 AM DOOR TO DOOR FUNDRAISING COLLECTOR Encounter for hepatitis C screening test for low risk patient OCCULT BLOOD IFOBT STOOL Routine 03/20/2014 8:15 AM CDT Diarrhea from Last 3 Months or Most Recently Relevant to Health Maintenance Results * EKG 12 LEAD (08/26/2024 12:00 AM DOOR TO DOOR FUNDRAISING COLLECTOR) us Earnestine Thomas SURGICAL DENTAL ASSISTANT EKG ORD Final Result * LIPID PANEL W REFLEX MEASURED LDL (04/21/2024 11:50 AM CDT) CHOLESTEROL,TOTAL 158 100 - 199 mg/dL 04/22/2024 3:55 AM CDT [facility] Comment: Cholesterol, Total Reference Ranges Desirable <200 mg/dL Borderline 200-239 mg/dL High >=240 mg/dL TRIGLYCERIDES 68 <150 mg/dL 04/22/2024 3:55 AM CDT [facility] HDL CHOLESTEROL 86 >40 mg/dL 3:55 AM CDT [facility] NON-HDL CHOLESTEROL 72 <145 mg/dl 04/22/2024 3:55 AM CDT [facility] CHOL/HDL RATIO 1.84 <4.50 04/22/2024 3:55 AM CDT [facility] LDL CHOLESTEROL 58 <=130 mg/dL 04/22/2024 3:55 AM CDT [facility] VLDL CHOLESTEROL 14 <=30 mg/dL 04/22/2024 3:55 AM CDT [facility] PROVIDER ORDERED STATUS RANDOM 04/22/2024 3:55 AM CDT [facility] Blood BLOOD SPECIMEN / Unknown Venipuncture / Unknown 04/21/2024 11:50 AM CDT 04/21/2024 11:50 AM CDT us Siobhan Easley MD CHEMISTRY Final Result [facility] [address] [place] [address], [place] * XR DXA BONE DENSITY 1 SITE AXIAL AND 1 SITE PERIPHERAL (02/03/2022 1:48 PM CDT) Anatomical Region Laterality Modality LUMBAR SPINE Other Impressions 02/05/2022 7:25 AM CDT Normal bone density. RECOMMENDATIONS: The National Osteoporosis Foundation recommends pharmacologic treatment for patients with T-scores of -2.5 or less, patients with prior history of fragility fractures, or patients with 10-year probability of greater than 3% at hips or greater than 20% of suffering major osteoporotic fractures. Recommend continued optimization of calcium and vitamin D intake through dietary means and/or supplementation and regular exercise. Repeat scan recommended in 5-7 years. Kathya Dalton PA-C Narrative 02/05/2022 7:25 AM CDT For Patients: Results are automatically released to your [employer] account once available, in compliance with federal regulations. This means that you may see your results before your provider has had a chance to review them. Please allow 2-3 business days for your provider to comment on the results. XR DXA Bone Mineral Density (BMD) EXAM LOCATION: [address] [address] PATIENT NAME: Claudia Bowles DATE OF : 1950 EXAM DATE: 02/03/2022 REQUESTING PROVIDER: Chato Miguel DO GENDER AT : female HEIGHT: 5' 9.02 (01/29/2022) WEIGHT: 208 lb 3.2 oz (01/29/2022) MENOPAUSAL STATUS: Postmenopausal RACE/ETHNICITY: White RISK FACTORS: Family History of Osteoporosis, Smoking (prior) and White Race CURRENT MEDICATION FOR BONE LOSS: NONE INDICATION: OSTEOPENIA OF LUMBAR SPINE COMPARISON DATE(S): 2014 DXA scans are compared to prior studies for a patient only when the two (or more) studies were performed on the same scanner. It is not possible to compare data generated on one scanner to data from another because there are not standards in DXA equipment. This applies even if the two scanners are made by the same criminal investigator. PROCEDURE: Dual-energy x-ray absorptiometry performed with routine technique. Reporting is completed in the form of a T-score. The T-score represents the standard deviation from peak bone mass based on young healthy adult. A Z-score is used for diagnosis in premenopausal women, and for men under the age of 50. FINDINGS: RESULT LUMBAR SPINE L1 - L4 (EXCLUDE L2) BMD: 1.225 g/cm2 T-Score: + 0.5 Z-Score: + 1.2 Change from prior in 2014: Increase 7.2%. RESULT FOREARM Left Forearm distal radius BMD: 0.825 g/cm2 T-Score: - 0.6 Z-Score: + 1.4 Change from prior in 2014: Increase 10.1%. WHO criteria: Normal: T-score at or above -1 SD Osteopenia: T-score between -1.1 and -2.4 SD Osteoporosis: T-score at or below -2.5 SD Chato Miguel DO DEXA Final Result * ANTI HCV (07/17/2020 11:12 AM DOOR TO DOOR FUNDRAISING COLLECTOR) HEPATITIS C ANTIBODY Non-React tonia Non-React tonia 07/17/2020 6:55 PM DOOR TO DOOR FUNDRAISING COLLECTOR [facility] TR[facility]ORY Comment:Antibodies to HCV no t detected; does not exclude the possibility of exposure to HCV. Blood BLOOD SPECIMEN / Unknown Venipuncture / Unknown 07/17/2020 11:12 AM DOOR TO DOOR FUNDRAISING COLLECTOR 07/17/2020 11:16 AM DOOR TO DOOR FUNDRAISING COLLECTOR Siobhan Easley MD SEND OUTS Final Result [facility] [address] [place] [address], * OCCULT BLOOD IFOBT STOOL (03/20/2014 8:15 AM CDT) STOOL BLOOD ,IFOBT Negative Negative, Invalid 03/20/2014 11:36 AM CDT [facility] Stool specimen (specimen) STOOL SPECIMEN / Unknown Non-Blood / Unknown 03/20/2014 8:15 AM CDT 03/20/2014 11:19 AM CDT Siobhan Easley MD LABORATORY Final Result [facility] [address] [place] [address], from Last 3 Months or Most Recently Relevant to Health Maintenance Insurance MEDICARE PART A HB ONLY [facility] NON-[place] MEDICARE ADVANTAGE [id number] [place] [id number] Advance Directives * Full Code (Latest Code Status on File) Date Activated Date Inactivated Comments 06/24/2023 2:20 PM 06/24/2023 9:50 PM Question Answer Comments Code Status Discussion: Reviewed Preferences * Full Code Date Activated Date Inactivated Comments 06/24/2023 7:34 AM 06/24/2023 2:20 PM Question Answer Comments Code Status Discussion: Reviewed Preferences Care Teams Shock Absorption Floor Layer Relationship Specialty Start Date End Date Siobhan Easley MD [address] [address] PCP - General 05/02/[address] [employer] [address] [place] [address] Registered Dietitian Boarder Steam 08/31/19 Nurses, Advanced Heart Failure [address] [place] [address] Heart Failure Care Coordination Advanced Heart Failure/Transplant Card 07/19/20 Santiago Butcher MD [address] [place] [address] [address] [place] [address] Cardiology - CHF Advanced Heart Failure/Transplant Card 07/19/20 Jenny Alfaro, ROUTE SALES ASSOCIATE [address] [place] [address] Clinical Nurse Specialist 10/31/21
--- OUTSIDE RECORDS SUMMARY | 2024-10-20 14:06 | XMS_ITS | Encounter Summary ---
Author Organization [place] Address [address] [place] [address] Care Team Providers Care Development Disability Specialist Name Role Phone Siobhan Easley Primary Care Provider Santiago Luz MD Unavailable [phone] Silvio Fish Unavailable [phone] Eduin Miguel MD Unavailable Lorie Tapia OD Unavailable Raisa Contreras MD Unavailable Frieda Byrd MD Unavailable Victoria Mills RN Unavailable [phone] Rj De La Rosa MD Unavailable Mann Lock MD Unavailable Stefanie De Jesus RN Unavailable Licha Luz DO Unavailable [phone] Licha Luz DO Unavailable [phone] Reji Mack MD Unavailable Mann Lock MD Unavailable Licha Luz DO Unavailable [phone] Stefanie De Jesus RN Unavailable [phone] Mary Jane Lancaster PA-C Unavailable [phone] Tay Hernandez MD Unavailable [phone] Leonarda Ocasio LPN Unavailable Unavailable July Saucedo MD Unavailable [phone] Tay Hernandez MD Unavailable + [phone] Tay Hernandez MD Unavailable + [phone] Encounter Details Date Type Department Care Team (Late st Contact Info) Description 05/02/2023 MyC Medical Advice [facility] [address] [place] [address] [facility] [place] [address] [place] [address] [place] [address] Social History Tobacco Use Types [...] Answer Date Recorded PHQ-2 Score 1 11/04/2022 Adolescent Education Answer Date Record ed Getting School Help Needed Not on file 05/02 Comments No Sex and Gender Information Value Date Recorded Sex Assigned at Female 04/11/2021 7:42 AM CDT Legal Sex Female 3:21 AM PAPER STEAMER Gender Identity Female 04/11/2021 7:42 AM CDT [...] Info) Description 11/22/2024 10:00 AM CDT Lab [address] [place] 200 [facility] [place] [address] Tay Hernandez MD [address] [place] [address] 704355 01/11/2025 10:30 AM CDT Office Visit [facility] [address] 9[facility] 9A [place] [address] Mann Lock MD [address] [place] [address] 427185 05/23/2025 10:00 AM CDT Lab [address] [place] 200 [facility] [place] [address] Tay Hernandez MD [address] [place] [address] 06/01/2025 2:00 PM CDT Oncology Visit [facility] 909 [place] [phone] Tay Hernandez MD [address] [place] [address] 276855 documented as of this encounter Visit Diagnoses Not on filedocumented in this encounter Additional Health Concerns Assessment Noted Time PHQ-9 Depression Total Score: 10 021 7:28 AM PAPER STEAMER documented as of this encounter Care Teams Development Disability Specialist Relationship Specialty Start Date End Date Siobhan Easley [address] [place] [address] PCP - General Family Practice 06/08/17 Santiago Luz MD 1400 [place] [address] Ophthalmology 03/11/18 Silvio Fish [facility] 2018 [facility] [place] [address] Referring Physician Ophthalmology 03/11/18 Eduin Miguel MD 420 [place], [place] 04[address] Ophthalmology 08/18/18 Lorie Tapia OD [address] [place] [address] 318095 Optometry 12/20/18 Raisa Contreras MD [address] [place] [address] 787375 Otolaryngology 04/24/21 Frieda Byrd MD [address] [place] [address] Rheumatology 04/24/21 Victoria Mills, RN Specialty Decision Support Analyst Cardiology 04/30/21 05/22/24 Rj De La Rosa MD Assigned Heart and Vascular Provider 04/28/21 06/26/23 Mann Lock MD [address] [place] [address] 700375 Assigned Surgical Provider 04/21/21 Stefanie De Jesus RN Registered Nurse 06/05/21 05/29/23 Licha Luz DO Hematology & Oncology 07/01/21 05/15/24 Licha Luz DO Referring Physician Hematology & Oncology 07/01/2105/15/24 Reji Mack MD [address] [place] [address] 990675 Otolaryngology 07/01/21 Mann Lock MD [address] [place] [address] 445265 Ophthalmology 07/02/21 [place] [address] [place], [place] 648[address] Assigned Cancer Care Provider 06/16/21 01/30/24 Stefanie De Jesus RN Specialty Decision Support Analyst Hematology & Oncology 05/30/23 05/15/24 Mary Jane Lancaster PA-C [address] [place] [address] 600645 Assigned Cancer Care Provider 01/31/24 07/01/24 Tay Hernandez MD [address] [address] Hematology 05/16/24 Leonarda Ocasio LPN Specialty Decision Support Analyst Hematology & Oncology 05/18/24 July Saucedo MD [address] [place] [address] 399625 Assigned Neuroscience Provider 06/01/24 Tay Hernandez MD [address] [address] Assigned Cancer Care Provider 07/02/24 Tay Hernandez MD [address] [address] Physician Hematology 10/07/24 documented as of this encounter
--- OUTSIDE RECORDS SUMMARY | 2024-10-20 14:06 | XMS_ITS | Encounter Summary ---
Author Organization [place] Address [address] [place] [address] Care Team Providers Care Superintendent Service Name Role Phone Siobhan Easley Primary Care Provider Santiago Luz MD Unavailable [phone] Silvio Fish Unavailable [phone] Eduin Miguel MD Unavailable Lorie Tapia OD Unavailable Frieda Byrd MD Unavailable Raisa Contreras MD Unavailable Frieda Byrd MD Unavailable Victoria Mills RN Unavailable [phone] Rj De La Rosa MD Unavailable Mann Lock MD Unavailable Stefanie De Jesus RN Unavailable [phone] Licha Luz DO Unavailable [phone] Licha Luz DO Unavailable [phone] Reji Mack MD Unavailable [phone] Mann Lock MD Unavailable Licha Luz DO Unavailable [phone] Liza Stefanieraquel BAXTER Unavailable [phone] Mary Jane Lancaster PA-C Unavailable [phone] Tay Hernandez MD Unavailable [phone] Leonarda Ocasio LPN Unavailable Unavailable July Saucedo MD Unavailable [phone] Tay Hernandez MD Unavailable [phone] Tay Hernandez MD Unavailable [phone] Encounter Details Date Type Department Care Team (Late Contact Info) Description 07/19/2021 MyC Medical Advice [facility] [address] [place] [address] Marcelina Ortiz NP [address] [place] [address] Social History Tobacco Use Types Packs/Day [...] AM CDT Legal Sex Female 3:21 AM DIETARY SERVER Gender Identity Female 04/11/2021 7:42 AM CDT Sexual Orientation Straight 04/11/2021 7: 42 AM CDT COVID-19 Exposure Response Date Recorded In the last month, have you been in contact with someone who was confirmed or suspected to have Coronavirus / COVID-19? No / Unsure 07/17/2021 10:52 AM DIETARY SERVER documented as of this encounter Plan of Treatment Upcoming Encounters Date Type Department Care Team ([facility] Contact Info) Description 11/22/2024 10:00 AM CDT Lab [facility] [address] [place] 200 [facility] Medical Ctr [place] [phone] Tay Hernandez MD [address] [address] 01/11/2025 10:30 AM CDT Office Visit [facility] 516 [facility] 9 Fl Clin 9A [place] [address] Mann Lock MD [address] [place] [address] 05/23/2025 10:00 AM CDT Lab [facility] [place] [address] [place] [address] 200 [facility] [place] [address] Tay Hernandez MD [address] [place] [address] 06/01/2025 2:00 PM CDT Oncology Visit [facility] 909 [place] [phone] Tay Hernandez MD [address] [place] [address] documented as of this encounter Visit Diagnoses Not on filedocumented in this encounter Additional Health Concerns Assessment Noted Time PHQ-9 Depression Total Score: 10 021 7:28 AM DIETARY SERVER documented as of this encounter Care Teams Superintendent Service Relationship Specialty Start Date End Date Siobhan Easley [address] [address] PCP - General Family Practice 06/08/17 Santiago Luz MD [address] [address] Ophthalmology 03/11/18 Silvio Fish [facility] [address] [place] [address] Referring Physician Ophthalmology 03/11/18 Eduin Miguel MD 420 [place], [place] 939675 Ophthalmology 08/18/18 Lorie Tapia OD [address] 488395 Optometry 12/20/18 Frieda Byrd MD [address] [place] [address] [phone] Assigned Rheumatology Provider 03/10/21 11/21/22 Raisa Contreras MD [address] [place] [address] 628345 Otolaryngology 04/24/21 Frieda Byrd MD [address] [place] [address] 763685 Rheumatology 04/24/21 Victoria Mills, RN Specialty Flame Degreaser Cardiology 04/30/21 05/22/24 Rj De La Rosa MD Assigned Heart and Vascular Provider 04/28/21 06/26/23 Mann Lock MD [address] [place] [address] 092295 Assigned Surgical Provider 04/21/21 Stefanie De Jesus RN Registered Nurse 06/05/21 05/29/23 Licha Luz DO Hematology & Oncology 07/01/21 05/15/24 Licha Luz DO Referring Physician Hematology & Oncology 07/01/2105/15/24 Reji Mack MD 500 [place] [address] Otolaryngology 07/01/21 Mann Lock MD [address] [place] [address] Ophthalmology 07/02/21 [place] [address] [address] [address] Assigned Cancer Care Provider 06/16/21 01/30/24 Stefanie De Jesus RN Specialty Flame Degreaser Hematology & Oncology 05/30/23 05/15/24 Mary Jane Lancaster PA-C [address] 717045 Assigned Cancer Care Provider 01/31/24 07/01/24 Tay Hernandez MD [address] [address] Hematology 05/16/24 Leonarda Ocasio LPN Specialty Flame Degreaser Hematology & Oncology 05/18/24 July Saucedo MD [address] [place] [address] Assigned Neuroscience Provider 06/01/24 Tay Hernandez MD [address] [place] [address] Assigned Cancer Care Provider 07/02/24 Tay Hernandez MD [address] [place] [address] 459945 Physician Hematology 10/07/24 documented as of this encounter
--- OUTSIDE RECORDS SUMMARY | 2024-10-20 14:06 | XMS_ITS | Encounter Summary ---
Author Organization [facility] Address [address] [place] [address] Care Team Providers Care Oil Well Engineer Name Role Phone Unavailable Primary Care Provider Unavailabl e Encounter Details Date Type Department Care Team (Latest Contact Info) Description 09/05/2024 Results Follow-Up [facility] in [place], [place] [address] [place] [phone] Reymundo Morales M.D. [address] [place] [address] Cardiology Blood - External Lab Results Social History Tobacco Use Types Packs/Day Years Used Date Smoking Tobacco: Former Cigarettes 2.5 10 1 - 01/08/1977 Smokeless Tobacco: Never Comments:Heavy smoker for 10 years, from the age of 16 to 26. Haven't smoked since. Alcohol Use Standard Drinks/Week Comments Yes 4 (1 standard drink = 0.6 oz pur e alcohol) [facility] Utilities Answer Date Recorded In the past 12 months has e electric, gas, oil, or water company threatened to shut off services in your [...] How often do you attend chur or restoration services? Never 07/05/2022 Do you belong to any clubs o r organizations such as rastafarian groups, unions, fraternal or athletic groups, or [...] and heating? Not hard at all 07/05/2022 [facility] [place] of Occupat ional Health - Occupational Stress [...] your living situation today? [facility] 01/11/2024 Education Answer Date Recorded What is the highest level of school you have completed or the highest degree you have received? Bachelor's degree (e.g., BA, AB, BS) 07/05/2022 Comments No Sex and Gender Information Value Date Recorded Sex Assigned at Female 08/03/2021 8:15 AM GLASS EDGER Legal Sex Female 11:43 AM GLASS EDGER Gender Identity Female 08/03/2021 8:15 AM GLASS EDGER Sexual Orientation Straight 09/26/2021 8: 36 PM GLASS EDGER documented as of this encounter Plan of Treatment Not on file documented as of this encounter Visit Diagnoses Not on filedocumented in this encounter
--- OUTSIDE RECORDS SUMMARY | 2024-10-20 14:07 | XMS_ITS | Encounter Summary ---
Author Organization [place] Address [address] [place] [address] Care Team Providers Care Climate Change Risk Assessor Name Role Phone Siobhan Easley Primary Care Provider [phone] Santiago Luz MD Unavailable [phone] Silvio Fish Unavailable [phone] Eduin Miguel MD Unavailable Lorie Tapia OD Unavailable Raisa Contreras MD Unavailable Frieda Byrd MD Unavailable [phone] Victoria Mills RN Unavailable [phone] Mann Lock MD Unavailable [phone] Licha Luz DO Unavailable [phone] Licha Luz DO Unavailable [phone] Reji Mack MD Unavailable [phone] Mann Lock MD Unavailable [phone] Stefanie De Jesus RN Unavailable [phone] Mary Jane Lancaster PA-C Unavailable Tay Hernandez MD Unavailable Leonarda Ocasio LPN Unavailable Unavailable July Saucedo MD Unavailable [phone] Tay Hernandez MD Unavailable [phone] Tay Hernandez MD Unavailable + [phone] Reason for Visit * Reason Onset Date Comments Clinic Care Coordination - Follow-up 05/14/2024 Lab orders Encounter Details Date Type Department Care Team (Late st Contact Info) Description 05/14/2024 [facility] [address] [place] [address] 200 [facility] [place] [address] Licha Luz, [address] 200 [place] [address] Clinic Care Coordination - Follow-up (Lab ... Social History Tobacco Use Types Packs/Day Years [...] PHQ-2 Answer Date Recorded PHQ-2 Score 1 04/19/2024 Adolescent Education Answer Date Record ed Getting School Help Needed Not on file 05/02 Comments No Sex and Gender Information Value Date Recorded Sex Assigned at Female 04/11/2021 7:42 AM CDT Legal Sex Female 3:21 AM CANINE DEPUTY Gender Identity Female 04/11/2021 7:42 AM CDT Sexual Orientation Straight 04/11/2021 7: 42 AM CDT documented as of this encounter Plan of Treatment Upcoming Encounters Date Type Department Care Team (Late st Contact Info) Description 11/22/2024 10:00 AM CDT Lab [address] [place] 200 [facility] [place] [address] Tay Hernandez MD [address] [place] [address] 01/11/2025 10:30 AM CDT Office Visit [facility] - [address] [address] Mann Lock MD [address] [place] [address] 05/23/2025 10:00 AM CDT Lab [address] [place] [address] Tay Hernandez MD [address] [place] [address] 06/01/2025 2:00 PM CDT Oncology Visit [facility] 909 [place] [phone] Tay Hernandez MD [address] [place] [address] 331275 documented as of this encounter Results * (ABNORMAL) Vitamin B12 (05/17/2024 9:56 AM CDT) Vitamin B12 228(L) 232 - 1,245 pg/mL 05/17/2024 5:23 PM CDT [facility] Blood STRUCTURE OF LEFT UPPER LIMB / Unknown Venipuncture / Unknown 05/17/2024 9:56 AM CDT 05/17/2024 10:20 AM CDT us Tay Hernandez MD LAB - BLOOD ORDERABLES Fin al Result [facility] 500 [facility], Room [address] [place] [phone] documented in this encounter Visit Diagnoses Diagnosis MGUS (monoclonal gammopathy of unknown significance)- Primary Monoclonal paraproteinemia History of prediabetes documented in this encounter Additional Health Concerns Assessment Noted Time PHQ-9 Depression Total Score: 10 021 7:28 AM CANINE DEPUTY documented as of this encounter Care Teams Climate Change Risk Assessor Relationship Specialty Start Date End Date SilvanotalatizzySiobhan [address] [place], [place] [address] PCP - General Family Practice 06/08/17 Santiago Luz MD 1400 [place] [address] Ophthalmology 03/11/18 Silvio Fish [facility] 2019 [facility] [place] [address] Referring Physician Ophthalmology 03/11/18 Eduin Miguel MD 420 [place], [place] 227835 Ophthalmology 08/18/18 Lorie Tapia OD [address] 975705 Optometry 12/20/18 Raisa Contreras MD [address] [place] [address] 329735 Otolaryngology 04/24/21 Frieda Byrd MD 500 [place], [place] 371215 Rheumatology 04/24/21 Victoria Mills, RN Specialty Seo Coordinator Cardiology 04/30/21 05/22/24 Mann Lock MD [address] [place] [address] 708965 Assigned Surgical Provider 04/21/21 Licha Luz DO [address] [place] [address] 084925 Hematology & Oncology 07/01/21 05/15/24 Licha Luz DO [address] [place] [address] 236795 Referring Physician Hematology & Oncology 07/01/2105/15/24 Reji Mack MD 500 [place], [place] 674155 Otolaryngology 07/01/21 Mann Lock MD [address] [place] [address] 624065 Ophthalmology 07/02/21 Stefanie De Jesus, RN Specialty Seo Coordinator Hematology & Oncology 05/30/23 05/15/24 Mary Jane Lancaster PA-C [address] [place] [address] 343305 Assigned Cancer Care Provider 01/31/24 07/01/24 Tay Hernandez MD [address] [place] [address] Hematology 05/16/24 Leonarda Ocasio LPN Specialty Seo Coordinator Hematology & Oncology 05/18/24 July Saucedo MD [address] [place] [address] Assigned Neuroscience Provider 06/01/24 Tay Hernandez MD [address] [place] [address] 612925 Assigned Cancer Care Provider 07/02/24 Tay Hernandez MD [address] [place] [address] 802575 Physician Hematology 10/07/24 documented as of this encounter
--- OUTSIDE RECORDS SUMMARY | 2024-10-20 14:07 | XMS_ITS | Encounter Summary ---
Author Organization [facility] Address [address] [place] [address] Care Team Providers Care Pointer Helper Name Role Phone Siobhan Easley Primary Care Provider Santiago Luz MD Unavailable [phone] Silvio Fish Unavailable [phone] Eduin Miguel MD Unavailable Lorie Tapia OD Unavailable Frieda Byrd MD Unavailable Raisa Contreras MD Unavailable Frieda Byrd MD Unavailable Victoria Mills RN Unavailable [phone] Rj De La Rosa MD Unavailable Mann Lock MD Unavailable Stefanie De Jesus RN Unavailable [phone] Licha Luz DO Unavailable [phone] Licha Luz DO Unavailable [phone] Reji Mack MD Unavailable Mann Lock MD Unavailable [phone] Licha Luz DO Unavailable [phone] Stefanie De Jesus RN Unavailable [phone] Mary Jane Lancaster PA-C Unavailable [phone] Tay Hernandez MD Unavailable [phone] Ninfa Leonarda SNOWDEN Unavailable Unavailable July Saucedo MD Unavailable [phone] Tay Hernandez MD Unavailable [phone] Tay Hernandez MD Unavailable [phone] Reason for Visit * Reason Onset Date Comments Appointment 06/25/2021 referral - CESAR Carmona Encounter Details Date Type Department Care Team (Late st Contact Info) Description 06/25/2021 Telephone [facility] [address] 3rd Floor, [address] [address] Unknown Appointment (referral - URGENT) Social History Tobacco Use Types Packs/Day Years [...] AM CDT 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 No / Unsure 06/21/2021 10:49 AM TRUCK FARMER documented as of this encounter Miscellaneous Notes * Telephone Encounter - Omar Moyer - 06/25/2021 1:04 PM CST Referring providers name, location, phone number and fax: Licha Luz DO in [facility], PH: [phone], Reason for visit: IR Fat pad biopsy Does patient have a referral: Yes - States that it's URGENT Referral to specific provider? No Medical records or notes if possible: Epic Please call the pt to schedule. Thanks K FARMER documented in this encounter Plan of Treatment Upcoming Encounters Date Type Department Care Team (Late st Contact Info) Description 11/22/2024 10:00 AM CDT Lab [address] NAVARRO 200 [facility] [place] [address] Tay Hernandez MD [address] [place] [address] 229615 01/11/2025 10:30 AM CDT Office Visit [facility] - [address] 9[facility] [address]A [place] [address] Mann Lock MD [address] [place] [address] 722725 05/23/2025 10:00 AM CDT Lab [address] NAVARRO 200 [place] [address] Tay Hernandez MD [address] [place] [address] 06/01/2025 2:00 PM CDT Oncology Visit [facility] 909 [place] [address] Tay Hernandez MD [address] [place] [address] 174595 documented as of this encounter Visit Diagnoses Not on filedocumented in this encounter Additional Health Concerns Assessment Noted Time PHQ-9 Depression Total Score: 13 021 10:19 AM CDT documented as of this encounter Care Teams Pointer Helper Relationship Specialty Start Date End Date Siobhan Easley [address] [place] [address] PCP - General Family Practice 06/08/17 Santiago Luz MD [address] [place] [address] Ophthalmology 03/11/18 Silvio Fish [facility] [address] [place] [address] Referring Physician Ophthalmology 03/11/18 Eduin Miguel MD 420 [place] [address] Ophthalmology 08/18/18 Lorie Tapia OD [address] [id number] Optometry 12/20/18 Frieda Byrd MD 500 [place], [place] 951895 Assigned Rheumatology Provider 03/10/21 11/21/22 Raisa Contreras MD [address] [place] [address] Otolaryngology 04/24/21 Frieda Byrd MD 500 [place], [place] 149555 Rheumatology 04/24/21 Victoria Mills, RN Specialty Supply Room Clerk Cardiology 04/30/21 05/22/24 Rj De La Rosa MD Assigned Heart and Vascular Provider 04/28/21 06/26/23 Mann Lock MD [address] [place] [address] 633085 Assigned Surgical Provider 04/21/21 Stefanie De Jesus RN Registered Nurse 06/05/21 05/29/23 Licha Luz DO Hematology & Oncology 07/01/21 05/15/24 Licha Luz DO Referring Physician Hematology & Oncology 07/01/2105/15/24 Reji Mack MD 500 [place] [address] Otolaryngology 07/01/21 Mann Lock MD [address] [place] [address] 034635 Ophthalmology 07/02/21 [place] [address] [place] [address] Assigned Cancer Care Provider 06/16/21 01/30/24 Stefanie De Jesus, RN Specialty Supply Room Clerk Hematology & Oncology 05/30/23 05/15/24 Mary Jane Lancaster PA-C [address] [place] [address] Assigned Cancer Care Provider 01/31/24 07/01/24 Tay Hernandez MD [address] [address] Hematology 05/16/24 Leonarda Ocasio LPN Specialty Supply Room Clerk Hematology & Oncology 05/18/24 July Saucedo MD [address] [address] Assigned Neuroscience Provider 06/01/24 Tay Hernandez MD [address] [address] Assigned Cancer Care Provider 07/02/24 Tay Hernandez MD [address] [address] Physician Hematology 10/07/24 documented as of this encounter
--- OUTSIDE RECORDS SUMMARY | 2024-10-20 14:07 | XMS_ITS | Encounter Summary ---
Author Organization [facility] Address [address] [place] [address] Care Team Providers Care Manager Imaging Name Role Phone Siobhan Easley Primary Care Provider Santiago Luz MD Unavailable [phone] Silvio Fish Unavailable [phone] Eduin Miguel MD Unavailable Lorie Tapia OD Unavailable [phone] Raisa Contreras MD Unavailable Frieda Byrd MD Unavailable Victoria Mills RN Unavailable [phone] Rj De La Rosa MD Unavailable Mann Lock MD Unavailable Stefanie De Jesus RN Unavailable [phone] Licha Luz DO Unavailable [phone] Licha Luz DO Unavailable [phone] Reji Mack MD Unavailable Mann Lock MD Unavailable [phone] Licha Luz DO Unavailable [phone] Stefanie De Jesus RN Unavailable [phone] Mary Jane Lancaster PA-C Unavailable [phone] Tay Hernandez MD Unavailable [phone] Leonarda Ocasio LPN Unavailable Unavailable July Saucedo MD Unavailable [phone] Tay Hernandez MD Unavailable + [phone] Tay Hernandez MD Unavailable [phone] Encounter Details Date Type Department Care Team (Late st Contact Info) Description 03/17/2023 MyC Medical Advice [facility] Eye [address] [facility] 9A [place] [address] Mann Lock MD [address] [place] [address] Social History Tobacco Use Types Packs/Day [...] AM CDT 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 No / Unsure 03/17/2023 12:51 PM CDT documented as of this encounter Plan of Treatment Upcoming Encounters Date Type Department Care Team (Late st Contact Info) Description 11/22/2024 10:00 AM CDT Lab [address] NAVARRO 200 [facility] [place] [address] Tay Hernandez MD [address] [place] [address] 01/11/2025 10:30 AM CDT Office Visit [facility] Clinic - [address] [address] Mann Lock MD [address] [place] [address] 012925 05/23/2025 10:00 AM CDT Lab [address] NAVARRO 200 [facility] [place] [address] Tay Hernandez MD [address] [place] [address] 06/01/2025 2:00 PM CDT Oncology Visit [facility] 909 [place] [address] Tay Hernandez MD [address] [place] [address] documented as of this encounter Visit Diagnoses Not on filedocumented in this encounter Additional Health Concerns Assessment Noted Time PHQ-9 Depression Total Score: 10 021 7:28 AM CHRONOMETER ASSEMBLER AND ADJUSTER documented as of this encounter Care Teams Manager Imaging Relationship Specialty Start Date End Date Siobhan Easley [address] [place] [address] PCP - General Family Practice 06/08/17 Santiago Luz MD [address] [address] Ophthalmology 03/11/18 Silvio Fish [facility] [address] [place] [address] Referring Physician Ophthalmology 03/11/18 Eduin Miguel MD 420 [place] [address] Ophthalmology 08/18/18 Lorie Tapia OD [address] [address] Optometry 12/20/18 Raisa Contreras MD [address] [place] [address] 12810455 Otolaryngology 04/24/21 Fridea Byrd MD [address] [place] [address] Rheumatology 04/24/21 Victoria Mills, RN Specialty Charging Machine Operator Cardiology 04/30/21 05/22/24 Rj De La Rosa MD Assigned Heart and Vascular Provider 04/28/21 06/26/23 Mann Lock MD [address] [place] [address] 765865 Assigned Surgical Provider 04/21/21 Stefanie De Jesus, SAHIL Registered Nurse 06/05/21 05/29/23 Licha Luz DO Hematology & Oncology 07/01/21 05/15/24 Licha Luz DO Referring Physician Hematology & Oncology 07/01/2105/15/24 Reji Mack MD [address] [place] [address] 626165 Otolaryngology 07/01/21 Mann Lock MD [address] [place] [address] 273675 Ophthalmology 07/02/21 [place] [address] NAVARRO [address] [place] [address] 967167 Assigned Cancer Care Provider 06/16/21 01/30/24 Stefanie De Jesus, RN Specialty Charging Machine Operator Hematology & Oncology 05/30/23 05/15/24 Mary Jane Lancaster PA-C [address] [place] [address] Assigned Cancer Care Provider 01/31/24 07/01/24 Tay Hernandez MD [address] [address] Hematology 05/16/24 Leonarda Ocasio LPN Specialty Charging Machine Operator Hematology & Oncology 05/18/24 July Saucedo MD [address] [place] [address] Assigned Neuroscience Provider 06/01/24 Tay Hernandez MD [address] [place] [address] Assigned Cancer Care Provider 07/02/24 Tay Hernandez MD [address] [place] [address] Physician Hematology 10/07/24 documented as of this encounter
--- OUTSIDE RECORDS SUMMARY | 2024-10-20 14:07 | XMS_ITS | Encounter Summary ---
Author Organization [facility] Address [address] [place] [address] Care Team Providers Care Councilor Name Role Phone Siobhan Easley Primary Care Provider [phone] Santiago Luz MD Unavailable [phone] Silvio Fish Unavailable [phone] Eduin Miguel MD Unavailable [phone] Lorie Tapia OD Unavailable Eduin Miguel MD Unavailable Frieda Byrd MD Unavailable [phone] Ava Up RN Unavailable [phone] Isabella Benavidez RN Unavailable Angelita Zamora RN Unavailable Raisa Contreras MD Unavailable Frieda Byrd MD Unavailable [phone] Victoria Mills RN Unavailable [phone] Rj De La Rosa MD Unavailable [phone] Mann Lock MD Unavailable +[phone] Stefanie De Jesus RN Unavailable [phone] Licha Luz DO Unavailable [phone] Licha Luz DO Unavailable [phone] Reji Mack MD Unavailable [phone] Mann Lock MD Unavailable [phone] Licha Luz DO Unavailable [phone] Stefanie De Jesus RN Unavailable [phone] Mary Jane Lancaster PA-C Unavailable [phone] Tay Hernandez MD Unavailable [phone] Leonarda Ocasio LPN Unavailable Unavailable July Saucedo MD Unavailable [phone] Tay Hernandez MD Unavailable [phone] Tay Hernandez MD Unavailable [phone] Encounter Details Date Type Department Care Team (Late st Contact Info) Description 03/18/2021 MyC Medical Advice [facility] [address] [address] Frieda Byrd MD [address] [place] [address] Social History Tobacco Use Types Packs/Day [...] AM CDT 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 Gender Identity Female 04/11/2021 7:42 AM [...] Info) Description 11/22/2024 10:00 AM CDT Lab [address] NAVARRO 200 [facility] [place] [address] Tay Hernandez MD [address] [place] [address] 01/11/2025 10:30 AM CDT Office Visit [facility] [address] [facility] 9[address] [place] [address] Mann Lock MD [address] [place] [address] 733685 05/23/2025 10:00 AM CDT Lab [address] NAVARRO 200 [facility] [place] [place] [address] Tay Hernandez MD [address] [place] [address] 06/01/2025 2:00 PM CDT Oncology Visit [facility] 9[address] [place] [address] Tay Hernandez MD [address] [place] [address] documented as of this encounter Visit Diagnoses Not on filedocumented in this encounter Additional Health Concerns Assessment Noted Time PHQ-9 Depression Total Score: 13 021 10:19 AM CDT documented as of this encounter Care Teams Councilor Relationship Specialty Start Date End Date Siobhan Easley [address] [place] [address] PCP - General Family Practice 06/08/17 Santiago Luz MD [address] [place] [address] Ophthalmology 03/11/18 Silvio Fish [facility] [address] [facility] [place] [address] Referring Physician Ophthalmology 03/11/18 Eduin Miguel MD 420 [place], [place] 3644[address] Ophthalmology 08/18/18 Lorie Tapia OD [address] [phone] Optometry 12/20/18 Eduin Miguel MD 420 [place] [address] Assigned Surgical Provider 06/01/20 04/20/21 Frieda Byrd MD [address] [place] [address] 27788455 Assigned Rheumatology Provider 03/10/21 11/21/22 Ava Up, SAHIL Specialty Watermelon Inspector Cardiology 04/22/21 04/29/21 Isabella Benavidez, SAHIL Specialty Watermelon Inspector Cardiology 04/22/21 04/29/21 Angelita Zamora RN Specialty Watermelon Inspector Cardiology 04/22/21 04/29/21 Raisa Contreras MD [address] [place] [address] 672165 Otolaryngology 04/24/21 Frieda Byrd MD 500 [place], [place] 814945 Rheumatology 04/24/21 Victoria Mills, SAHIL Specialty Watermelon Inspector Cardiology 04/30/21 05/22/24 Rj De La Rosa MD Assigned Heart and Vascular Provider 04/28/21 06/26/23 Mann Lock MD [address] [place] [address] 671785 Assigned Surgical Provider 04/21/21 Stefanie De Jesus RN Registered Nurse 06/05/21 05/29/23 Licha Luz DO Hematology & Oncology 07/01/21 05/15/24 Licha Luz DO Referring Physician Hematology & Oncology 07/01/2105/15/24 Reji Mack MD [address] [place] [address] 118315 Otolaryngology 07/01/21 Mann Lock MD [address] [place] [address] 290545 Ophthalmology 07/02/21 [place] [address] [address] Assigned Cancer Care Provider 06/16/21 01/30/24 Stefanie De Jesus, SAHIL Specialty Watermelon Inspector Hematology & Oncology 05/30/23 05/15/24 Mary Jane Lancaster PA-C [address] [facility] 480 [place] [address] Assigned Cancer Care Provider 01/31/24 07/01/24 Tay Hernandez MD [address] [facility] [address] [place] [address] Hematology 05/16/24 Leonarda Ocasio LPN Specialty Watermelon Inspector Hematology & Oncology 05/18/24 July Saucedo MD [address] [place], [place] 560[address] Assigned Neuroscience Provider 06/01/24 Tay Hernandez MD [address] [facility] [address] [place] [address] Assigned Cancer Care Provider 07/02/24 Tay Hernandez MD [address] [facility] 480 [place], [place] 591085 Physician Hematology 10/07/24 documented as of this encounter
--- OUTSIDE RECORDS SUMMARY | 2024-10-20 14:07 | XMS_ITS | Encounter Summary ---
Author Organization [facility] Address [address] [place] [address] Care Team Providers Care Sign Letterer Name Role Phone Siobhan Easley Primary Care Provider Santiago Luz MD Unavailable [phone] Silvio Fish Unavailable [phone] Eduin Miguel MD Unavailable Lorie Tapia OD Unavailable Raisa Contreras MD Unavailable Frieda Byrd MD Unavailable Victoria Mills RN Unavailable [phone] Rj De La Rosa MD Unavailable Mann Lock MD Unavailable Stefanie De Jesus RN Unavailable [phone] Licha Luz DO Unavailable [phone] Licha Luz DO Unavailable [phone] Reji Mack MD Unavailable Mann Lock MD Unavailable Lihca Luz DO Unavailable [phone] Stefanie De Jesus RN Unavailable [phone] Mary Jane Lancaster PA-C Unavailable [phone] Tay Hernandez MD Unavailable + [phone] Leonarda Ocasio LPN Unavailable Unavailable July Saucedo MD Unavailable +[phone] Tay Hernandez MD Unavailable + [phone] Tay Hernandez MD Unavailable + [phone] Encounter Details Date Type Department Care Team (Late st Contact Info) Description 05/22/2023 MyC Medical Advice [facility] [address] [facility] [address] [place] [address] Mann Lock MD [address] [place] [address] Social History Tobacco Use Types Packs/Day [...] AM CDT 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 No / Unsure 05/13/2023 11:07 AM CDT documented as of this encounter Plan of Treatment Upcoming Encounters Date Type Department Care Team (Late st Contact Info) Description 11/22/2024 10:00 AM CDT Lab [facility] [address] [place] [address] DR NAVARRO 200 [facility] [place] [place] [address] Tay Hernandez MD [address] [place] [address] 01/11/2025 10:30 AM CDT Office Visit [facility] - [address] 9[facility] 9A [place] [address] Mann Lock MD [address] [place] [address] 089755 05/23/2025 10:00 AM CDT Lab [address] NAVARRO 200 [facility] [place] [address] Tay Hernandez MD [address] [place] [address] 06/01/2025 2:00 PM CDT Oncology Visit [facility] 909 [place] [address] Tay Hernandez MD [address] [place] [address] 266285 documented as of this encounter Visit Diagnoses Not on filedocumented in this encounter Additional Health Concerns Assessment Noted Time PHQ-9 Depression Total Score: 10 021 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 [place] [address] Referring Physician Ophthalmology 03/11/18 Eduin Miguel MD [address] [place] [address] 610195 Ophthalmology 08/18/18 Lorie Tapia OD [address] [place] [address] 760585 Optometry 12/20/18 Raisa Contreras MD [address] [place] [address] 776885 Otolaryngology 04/24/21 Frieda Byrd MD [address] [place] [address] [phone] Rheumatology 04/24/21 Victoria Mills, RN Specialty X Ray Technician Cardiology 04/30/21 05/22/24 Rj De La Rosa MD Assigned Heart and Vascular Provider 04/28/21 06/26/23 Mann Lock MD [address] [place] [address] 539375 Assigned Surgical Provider 04/21/21 Stefanie De Jesus, SAHIL Registered Nurse 06/05/21 05/29/23 Licha Luz DO Hematology & Oncology 07/01/21 05/15/24 Licha Luz DO Referring Physician Hematology & Oncology 07/01/2105/15/24 Reji Mack MD [address] [place] [address] 132085 Otolaryngology 07/01/21 Mann Lock MD [address] [place] [address] 555375 Ophthalmology 07/02/21 [place] [address]ARRO [address] [place] [address] 364077 Assigned Cancer Care Provider 06/16/21 01/30/24 Stefanie De Jesus, RN Specialty X Ray Technician Hematology & Oncology 05/30/23 05/15/24 Mary Jnae Lancaster PA-C [address] [place] [address] Assigned Cancer Care Provider 01/31/24 07/01/24 Tay Hernandez MD [address] [address] Hematology 05/16/24 Leonarda Ocasio LPN Specialty X Ray Technician Hematology & Oncology 05/18/24 July Saucedo MD [address] [place] [address] 177565 Assigned Neuroscience Provider 06/01/24 Tay Hernandez MD [address] 859765 Assigned Cancer Care Provider 07/02/24 Tay Hernandez MD [address] [place] [address] Physician Hematology 10/07/24 documented as of this encounter
--- OUTSIDE RECORDS SUMMARY | 2024-10-20 14:07 | XMS_ITS | Encounter Summary ---
Author Organization [facility] Address [address] [place] [address]79 Care Team Providers Care Ranger Aide Name Role Phone Siobhan Easley Primary Care Provider [phone] Santiago Luz MD Unavailable [phone] Silvio Fish Unavailable [phone] Eduin Miguel MD Unavailable +[phone] Lorie Tapia OD Unavailable Eduin Miguel MD Unavailable Frieda Byrd MD Unavailable Ava Up RN Unavailable [phone] Isabella Benavidez RN Unavailable Angelita Zamora RN Unavailable Raisa Contreras MD Unavailable Frieda Byrd MD Unavailable +[phone] Victoria Mills RN Unavailable +[phone] Rj De La Rosa MD Unavailable +[phone] Mann Lock MD Unavailable +[phone] Stefanie De Jesus RN Unavailable +[phone] Licha Luz DO Unavailable [phone] Licha Luz DO Unavailable +[phone] Reji Mack MD Unavailable [phone] Mann Lock MD Unavailable +[phone] Licha Luz DO Unavailable [phone] Stefanie De Jesus RN Unavailable [phone] Mary Jane Lancaster PA-C Unavailable +[phone] Tay Hernandez MD Unavailable +[phone] Leonarda Ocasio LPN Unavailable Unavailable July Saucedo MD Unavailable +[phone] Tay Hernandez MD Unavailable +[phone] Tay Hernandez MD Unavailable [phone] Encounter Details Date Type Department Care Team (Late st Contact Info) Description 01/29/2021 MyC Medical Advice [facility] Eye [address] 9[facility] 9A [place] [phone] Mann Lock MD [address] [place] [address] [phone] Social History Tobacco Use Types Packs/Day Years [...] AM CDT 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 Gender Identity Female 04/11/2021 7:42 AM [...] Description 11/22/2024 10:00 AM CDT Lab [address] NAV[place]O 200 [facility] [place] [address] Tay Hernandez MD [address] [place] [address] 01/11/2025 10:30 AM CDT Office Visit [facility] - [address] [address] Mann Lock MD [address] [place] [address] 6[address] 05/23/2025 10:00 AM CDT Lab [address] NAVARRO 200 [facility] [place] [address] Tay Hernandez MD [address] [place] [address] 30[address] 06/01/2025 2:00 PM CDT Oncology Visit [facility] 909 [place] [address] Tay Hernandez MD [address] [place] [address] 980405 documented as of this encounter Visit Diagnoses Not on filedocumented in this encounter Additional Health Concerns Assessment Noted Time PHQ-9 Depression Total Score: 13 021 10:19 AM CDT documented as of this encounter Care Teams Ranger Aide Relationship Specialty Start Date End Date Siobhan Easley [place] [address] PCP - General Family Practice 06/08/17 Santiago Luz MD [address] [place] [address] Ophthalmology 03/11/18 Silvio Fish [facility] 2019 [facility] [place] [address] Referring Physician Ophthalmology 03/11/18 Eduin Miguel MD [address] [place] [address] [phone] Ophthalmology 08/18/18 Lorie Tapia, KARSTEN [address] [place] [address] 761115 Optometry 12/20/18 Eduin Miguel MD [address] [place] [address] Assigned Surgical Provider 06/01/20 04/20/21 Frieda Byrd MD [address] [place] [address] [phone] Assigned Rheumatology Provider 03/10/21 11/21/22 Ava Up RN Specialty Dredge Runner Cardiology 04/22/21 04/29/21 Isabella Benavidez RN Specialty Dredge Runner Cardiology 04/22/21 04/29/21 Angelita Zamora RN Specialty Dredge Runner Cardiology 04/22/21 04/29/21 Raisa Contreras MD [address] [place] [address] Otolaryngology 04/24/21 Frieda Byrd MD [address] [place] [address] MD Rheumatology 04/24/21 Victoria Mills, SAHIL Specialty Dredge Runner Cardiology 04/30/21 05/22/24 Rj De La Rosa MD Assigned Heart and Vascular Provider 04/28/21 06/26/23 Mann Lock MD [address] [place] [address] Assigned Surgical Provider 04/21/21 Stefanie De Jesus, SAHIL Registered Nurse 06/05/21 05/29/23 Licha Luz DO Hematology & Oncology 07/01/21 05/15/24 Licha Luz DO Referring Physician Hematology & Oncology 07/01/2105/15/24 Reji Mack MD [address] [place] [address] Otolaryngology 07/01/21 Mann Lock MD [address] [place] [address] Ophthalmology 07/02/21 [place] [address] [place] [address] Assigned Cancer Care Provider 06/16/21 01/30/24 Stefanie De Jseus, SAHIL Specialty Dredge Runner Hematology & Oncology 05/30/23 05/15/24 Mary Jane Lancaster PA-C 420 [facility] 480 [place] [address] Assigned Cancer Care Provider 01/31/24 07/01/24 Tay Hernandez MD [address] [address] Hematology 05/16/24 Leonarda Ocasio LPN Specialty Dredge Runner Hematology & Oncology 05/18/24 July Saucedo MD 515 [place] [address] Assigned Neuroscience Provider 06/01/24 Tay Hernandez MD [address] [address] Assigned Cancer Care Provider 07/02/24 Tay Hernandez MD [address] 941445 Physician Hematology 10/07/24 documented as of this encounter
--- OUTSIDE RECORDS SUMMARY | 2024-10-20 14:07 | XMS_ITS | Encounter Summary ---
Author Organization [facility] Address [address] [place] [address] 26898 Care Team Providers Care Dairy Frozen Manager Name Role Phone Siobhan Easley Primary Care Provider [phone] Santiago Luz MD Unavailable [phone] Silvio Fish Unavailable [phone] Eduin Miguel MD Unavailable Lorie Tapia OD Unavailable [phone] Raisa Contreras MD Unavailable Frieda Byrd MD Unavailable [phone] Victoria Mills RN Unavailable [phone] Mann Lock MD Unavailable Licha Luz DO Unavailable +[phone] Licha Luz DO Unavailable [phone] Reji Mack MD Unavailable Mann Lock MD Unavailable +[phone] Stefanie De Jesus RN Unavailable [phone] Mary Jane Lancaster PA-C Unavailable [phone] Tay Hernandez MD Unavailable Leonarda Ocasio LPN Unavailable Unavailable July Saucedo MD Unavailable +[phone] Tay Hernandez MD Unavailable +[phone] Tay Hernandez MD Unavailable [phone] Encounter Details Date Type Department Care Team (Late st Contact Info) Description 02/17/2024 [facility] Medical Advice [address] Ia Clin 9A [place] [address] Mann Lock MD [address] [place] [address] Social History Tobacco Use Types Packs/Day [...] AM CDT 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 Gender Identity Female 04/11/2021 7:42 AM CDT Sexual Orientation Straight 04/11/2021 7: 42 AM CDT documented as of this encounter Plan of Treatment Upcoming Encounters Date Type Department Care Team (Late st Contact Info) Description 11/22/2024 10:00 AM CDT Lab [address] NAV[address]O 200 [place] [address] Tay Hernandez MD [address] [place] [address] 01/11/2025 10:30 AM CDT Office Visit [facility] - [facility] Department [address] [facility] 9 Fl Clin 9A [place] [address] Mann Lock MD [address] [place] [address] 05/23/2025 10:00 AM CDT Lab [address] NAVARRO 200 [facility] [place] [address] Tay Hernandez MD [address] [place] [address] 06/01/2025 2:00 PM CDT Oncology Visit [facility] Clinic 909 [place] [address] Tay Hernandez MD [address] [place] [address] documented as of this encounter Visit Diagnoses Not on filedocumented in this encounter Additional Health Concerns Assessment Noted Time PHQ-9 Depression Total Score: 10 021 7:28 AM REMELT WORKER documented as of this encounter Care Teams Dairy Frozen Manager Relationship Specialty Start Date End Date Siobhan Easley [address] [place] [address] PCP - General Family Practice 06/08/17 Santiago Luz MD [address] [place] [address] Ophthalmology 03/11/18 Silvio Fish [facility] 2019 [facility] [place] [address] Referring Physician Ophthalmology 03/11/18 Eduin Miguel MD 420 [place], [place] 655705 Ophthalmology 08/18/18 Lorie Tapia OD [address] 751885 Optometry 12/20/18 Raisa Contreras MD [address] [place] [address] 597005 Otolaryngology 04/24/21 Frieda Byrd MD [address] [place] [address] 935815 Rheumatology 04/24/21 Victorai Mills, SAHIL Specialty Clinical Project Leader Cardiology 04/30/21 05/22/24 Mann Lock MD [address] [place] [address] 307845 Assigned Surgical Provider 04/21/21 Licha Luz DO [address] [place] [address] 142795 Hematology & Oncology 07/01/21 05/15/24 Licha Luz DO 6 [place], [place] 716425 Referring Physician Hematology & Oncology 07/01/2105/15/24 Reji Mack MD [address] [place] [address] 424675 Otolaryngology 07/01/21 Mann Lock MD [address] [place] [address] 767235 Ophthalmology 07/02/21 Stefanie De Jesus, SAHIL Specialty Clinical Project Leader Hematology & Oncology 05/30/23 05/15/24 Mary Jane Lancaster PA-C [address] 334945 Assigned Cancer Care Provider 01/31/24 07/01/24 Tay Hernandez MD [address] [place] [address] 216545 Hematology 05/16/24 Leonarda Ocasio LPN Specialty Clinical Project Leader Hematology & Oncology 05/18/24 July Saucedo MD [address] [place] [address] 535735 Assigned Neuroscience Provider 06/01/24 Tay Hernandez MD [address] [place] [address] 734335 Assigned Cancer Care Provider 07/02/24 Tay Hernandez MD [address] [place] [address] 328085 Physician Hematology 10/07/24 documented as of this encounter
--- OUTSIDE RECORDS SUMMARY | 2024-10-20 14:07 | XMS_ITS | Encounter Summary ---
Author Organization [facility] Address [address] [place] [address] 8[address] Care Team Providers Care Clam Treader Name Role Phone Siobhan Easley Primary Care Provider [phone] Santiago Luz MD Unavailable [phone] Silvio Fish Unavailable Eduin Miguel MD Unavailable [phone] Lorie Tapia OD Unavailable +[phone] Raisa Contreras MD Unavailable Frieda Byrd MD Unavailable +[phone] Victoria Mills RN Unavailable [phone] aMnn Lock MD Unavailable +[phone] Reji Mack MD Unavailable +[phone] Mann Lock MD Unavailable +[phone] Mary Jane Lancaster PA-C Unavailable +[phone] Tay Hernandez MD Unavailable +[phone] Leonarda Ocasio LPN Unavailable Unavailable July Saucedo MD Unavailable +[phone] Tay Hernandez MD Unavailable +[phone] Tay Hernandez MD Unavailable [phone] Encounter Details Date Type Department Care Team (Late st Contact Info) Description 05/20/2024 MyC Medical Advice [facility] [address] [place] [address] July Saucedo MD [address] [place] [address] Social History Tobacco Use Types Packs/Day [...] AM CDT Legal Sex Female 3:21 AM OSS ARCHITECT Gender Identity Female 04/11/2021 7:42 AM CDT Sexual Orientation Straight 04/11/2021 7: 42 AM CDT documented as of this encounter Plan of Treatment Upcoming Encounters Date Type Department Care Team (Late st Contact Info) Description 11/22/2024 10:00 AM CDT Lab [facility] [address] NAV[address]O 200 [facility] [place] [address] Tay Hernandez MD [address] [place] [address] 01/11/2025 10:30 AM CDT Office Visit [facility] [address] 9th Fl Clin 9A [place] [address] Mann Lock MD [address] [place] [address] 05/23/2025 10:00 AM CDT Lab [facility] [place] [address] [place] 200 [facility] [place] [address] Tay Hernandez MD [address] [place] [address] 06/01/2025 2:00 PM CDT Oncology Visit [facility] Clinic 909 [place] [address] Tay Hernandez MD [address] [place] [address] 99185 documented as of this encounter Visit Diagnoses Not on filedocumented in this encounter Additional Health Concerns Assessment Noted Time PHQ-9 Depression Total Score: 10 021 7:28 AM OSS ARCHITECT documented as of this encounter Care Teams Clam Treader Relationship Specialty Start Date End Date Siobhan Easley [address] [place] [address] PCP - General Family Practice 06/08/17 Santiago Luz MD [address] [address] Ophthalmology 03/11/18 Silvio Fish [facility] [address] [place] [address] Referring Physician Ophthalmology 03/11/18 Eduin Miguel MD 420 [place], [place] 419805 Ophthalmology 08/18/18 Lorie Tapia, OD [address] 068265 Optometry 12/20/18 Raisa Contreras MD [address] [place] [address] 502455 Otolaryngology 04/24/21 Frieda Byrd MD [address] [place] [address] 821145 Rheumatology 04/24/21 Victoria Mills, SAHIL Specialty Photocomposition Keyboard Operator Cardiology 04/30/21 05/22/24 Mann Lock MD [address] [place] [address] 773555 Assigned Surgical Provider 04/21/21 Reji Mack MD [address] [place] [address] 791785 Otolaryngology 07/01/21 Mann Lock MD [address] [place] [address] 315545 Ophthalmology 07/02/21 Mary Jane Lancaster PA-C 420 [facility] 480 [place] [address] Assigned Cancer Care Provider 01/31/24 07/01/24 Tay Hernandez MD 420 [facility] 480 [place] [address] Hematology 05/16/24 Leonarda Ocasio LPN Specialty Photocomposition Keyboard Operator Hematology & Oncology 05/18/24 July Saucedo MD [address] [place] [address] Assigned Neuroscience Provider 06/01/24 Tay Hernandez MD [address] [address] Assigned Cancer Care Provider 07/02/24 Tay Hernandez MD [address] [address] Physician Hematology 10/07/24 documented as of this encounter
--- OUTSIDE RECORDS SUMMARY | 2024-10-20 14:07 | XMS_ITS | Encounter Summary ---
Author Organization [facility] Address [address] [place] [address] Care Team Providers Care Busser Name Role Phone Siobhan Easley Primary Care Provider [phone] Santiago Luz MD Unavailable [phone] Silvio Fish Unavailable +[phone] Eduin Miguel MD Unavailable +[phone] Lorie Tapia OD Unavailable +[phone] Raisa Contreras MD Unavailable Frieda Byrd MD Unavailable +[phone] Victoria Mills RN Unavailable [phone] Mann Lock MD Unavailable +[phone] Reji Mack MD Unavailable +[phone] Mann Lock MD Unavailable +[phone] Mary Jane Lancaster PA-C Unavailable +[phone] Tay Henrandez MD Unavailable +[phone] Leonarda Ocasio LPN Unavailable Unavailable July Saucedo MD Unavailable +[phone] Tay Hrenandez MD Unavailable +[phone] Tay Hernandez MD Unavailable [phone] Encounter Details Date Type Department Care Team (Late st Contact Info) Description 05/17/2024 MyC Medical Advice [facility] Neurology Clinic [address] [place] [address] July Saucedo MD [address] [place] [address] Social History Tobacco Use Types Packs/Day [...] AM CDT 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 Gender Identity Female 04/11/2021 7:42 AM CDT Sexual Orientation Straight 04/11/2021 7: 42 AM CDT documented as of this encounter Plan of Treatment Upcoming Encounters Date Type Department Care Team (Late st Contact Info) Description 11/22/2024 10:00 AM CDT Lab [facility] [address] NAV[address] 200 [facility] [place] [address] Tay Hernandez MD [address] [place] [address] 01/11/2025 10:30 AM CDT Office [facility] [address] 9th Fl Clin 9A [place] [address] Mann Lock MD [address] [place] [address] 05/23/2025 10:00 AM CDT Lab [facility] [place] [address] [place] 200 [facility] [place] [place] [address] Tay Hernandez MD [address] [place] [address] 06/01/2025 2:00 PM CDT Oncology Visit [facility] Cancer Clinic 909 [place] [address] Tay Hernandez MD [address] [place] [address] documented as of this encounter Visit Diagnoses Not on filedocumented in this encounter Additional Health Concerns Assessment Noted Time PHQ-9 Depression Total Score: 10 021 7:28 AM PROGRAM SPECIALIST documented as of this encounter Care Teams Busser Relationship Specialty Start Date End Date Siobhan Easley [address] [place] [address] PCP - General Family Practice 06/08/17 Santiago Luz MD [address] [place] [address] Ophthalmology 03/11/18 Silvio Fish [facility] [address] [place] [address] Referring Physician Ophthalmology 03/11/18 Eduin Miguel MD 420 [place], [place] 300415 Ophthalmology 08/18/18 Lorie Tapia, OD [address] 999935 Optometry 12/20/18 Raisa Contreras MD [address] [place] [address] 883035 Otolaryngology 04/24/21 Frieda Byrd MD [address] [place] [address] 885815 Rheumatology 04/24/21 Victoria Mills, SAHIL Specialty Library Services Dean Cardiology 04/30/21 05/22/24 Mann Lock MD [address] [place] [address] 329225 Assigned Surgical Provider 04/21/21 Reji Mack MD [address] [place] [address] 314935 Otolaryngology 07/01/21 Mann Lock MD [address] [place] [address] 269565 Ophthalmology 07/02/21 Mary Jane Lancaster PA-C 420 [facility] 480 [place] [address] Assigned Cancer Care Provider 01/31/24 07/01/24 Tay Hernandez MD 420 [facility] 480 [place] [address] Hematology 05/16/24 Leonarda Ocasio LPN Specialty Library Services Dean Hematology & Oncology 05/18/24 July Saucedo MD [address] [place] [address] 70[address] Assigned Neuroscience Provider 06/01/24 Tay Hernandez MD [address] [address] Assigned Cancer Care Provider 07/02/24 Tay Hernandez MD [address] [address] Physician Hematology 10/07/24 documented as of this encounter
--- OUTSIDE RECORDS SUMMARY | 2024-10-20 14:07 | XMS_ITS | Encounter Summary ---
Author Organization [place] Address [address] [place] [address] Care Team Providers Care Case Finisher Name Role Phone Siobhan Easley Primary Care Provider [phone] Santiago Lzu MD Unavailable [phone] Silvio Fish Unavailable [phone] Eduin Miguel MD Unavailable +[phone] Lorie Tapia OD Unavailable Eduin Miguel MD Unavailable Frieda Byrd MD Unavailable Ava Up RN Unavailable [phone] Isabella Benavidez RN Unavailable Angelita Zamora RN Unavailable +[phone] Raisa Contreras MD Unavailable Frieda Byrd MD Unavailable Victoria Mills RN Unavailable +[phone] Rj De La Rosa MD Unavailable +[phone] Mann Lock MD Unavailable Stefanie De Jesus RN Unavailable +[phone] Licha Luz DO Unavailable [phone] Licha Luz DO Unavailable [phone] Reji Mack MD Unavailable [phone] Mann Lock MD Unavailable +[phone] Licha Luz DO Unavailable [phone] Stefanie De Jesus RN Unavailable [phone] Mary Jane Lancaster PA-C Unavailable [phone] Tay Hernandez MD Unavailable +[phone] Leonarda Ocasio LPN Unavailable Unavailable July Saucedo MD Unavailable +[phone] Tay Hernandez MD Unavailable +[phone] Tay Hernandez MD Unavailable [phone] Encounter Details Date Type Department Care Team (Late st Contact Info) Description 03/06/2021 [facility] Medical Advice 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 No / Unsure 03/06/2021 12:11 PM CDT documented as of this encounter Plan of Treatment Upcoming Encounters Date Type Department Care Team (Late st Contact Info) Description 11/22/2024 10:00 AM CDT Lab [address] 200 [facility] [place] [place] [address] Tay Hernandez MD [address] [place] [address] 01/11/2025 10:30 AM CDT Office Visit [facility] - [facility] 516 [facility] Hi Clin 9A [place] [address] Mann Lock MD [address] [place] [address] 806185 05/23/2025 10:00 AM CDT Lab [address] [place] 200 [facility] [place] [place] [address] Tay Hernandez MD [address] [place] [address] 06/01/2025 2:00 PM CDT Oncology Visit [facility] 909 [place] [address] Tay Hernandez MD [address] [place] [address] documented as of this encounter Visit Diagnoses Not on filedocumented in this encounter Additional Health Concerns Assessment Noted Time PHQ-9 Depression Total Score: 13 021 10:19 AM CDT documented as of this encounter Care Teams Case Finisher Relationship Specialty Start Date End Date Siobhan Easley [address] [place] [address] PCP - General Family Practice 06/08/17 Santiago Luz MD [address] [place] [address] Ophthalmology 03/11/18 Silvio Fish [facility] 2019 [facility] [place] [address] Referring Physician Ophthalmology 03/11/18 Eduin Miguel MD 420 [place] [address] Ophthalmology 08/18/18 Lorei Tapia OD [address] [phone] Optometry 12/20/18 Eduin Miguel MD 420 [place] [address] Assigned Surgical Provider 06/01/20 04/20/21 Frieda Byrd MD [address] [place] [address] [phone] Assigned Rheumatology Provider 03/10/21 11/21/22 Ava Up, SAHIL Specialty Mortgage Branch Manager Cardiology 04/22/21 04/29/21 Isabella Benavidez, SAHIL Specialty Mortgage Branch Manager Cardiology 04/22/21 04/29/21 Angelita Zamora RN Specialty Mortgage Branch Manager Cardiology 04/22/21 04/29/21 Raisa Contreras MD [address] [place] [address] 415665 Otolaryngology 04/24/21 Frieda Byrd MD 500 [place], [place] 387895 Rheumatology 04/24/21 Victoria Mills, SAHIL Specialty Mortgage Branch Manager Cardiology 04/30/21 05/22/24 Rj De La Rosa MD Assigned Heart and Vascular Provider 04/28/21 06/26/23 Mann Lock MD [address] [place] [address] 795205 Assigned Surgical Provider 04/21/21 Stefanie De Jesus RN Registered Nurse 06/05/21 05/29/23 Licha Luz DO Hematology & Oncology 07/01/21 05/15/24 Licha Luz DO Referring Physician Hematology & Oncology 07/01/2105/15/24 Reji Mack MD [address] [place] [address] 107085 Otolaryngology 07/01/21 Mann Lock MD [address] [place] [address] 231195 Ophthalmology 07/02/21 [place] [address] [place] [address] Assigned Cancer Care Provider 06/16/21 01/30/24 Stefanie De Jesus, SAHIL Specialty Mortgage Branch Manager Hematology & Oncology 05/30/23 05/15/24 Mary Jane Lancaster PA-C [address] [place] [address] [facility] 480 [place] [address] Assigned Cancer Care Provider 01/31/24 07/01/24 Tay Hernandez MD [address] [place] [address] [facility] 480 [place], [place] 600635 Hematology 05/16/24 Leonarda Ocasio LPN Specialty Mortgage Branch Manager Hematology & Oncology 05/18/24 July Saucedo MD [address] [place], [place] 182705 Assigned Neuroscience Provider 06/01/24 Tay Hernandez MD [address] [place] [address] [facility] 480 [place] [address] Assigned Cancer Care Provider 07/02/24 Tay Hernandez MD [address] [place] [address] [facility] 480 [place], [place] 529335 Physician Hematology 10/07/24 documented as of this encounter
--- OUTSIDE RECORDS SUMMARY | 2024-10-20 14:07 | XMS_ITS | Encounter Summary ---
Author Organization [place] Address [address] [place] [address] Care Team Providers Care Ostomy Rn Name Role Phone Siobhan Easley Primary Care Provider Santiago Luz MD Unavailable [phone] Silvio Fish Unavailable [phone] Eduin Miguel MD Unavailable Lorie Tapia OD Unavailable Rasia Contreras MD Unavailable Frieda Byrd MD Unavailable Victoria Mills RN Unavailable [phone] Rj De La Rosa MD Unavailable Mann Lock MD Unavailable Stefanie De Jesus RN Unavailable Licha Luz DO Unavailable [phone] Licha Luz DO Unavailable [phone] Reji Mack MD Unavailable Mann Lock MD Unavailable [phone] Licha Luz DO Unavailable [phone] Stefanie De Jesus RN Unavailable [phone] Mary Jane Lancaster PA-C Unavailable [phone] Tay Hernandez MD Unavailable [phone] Leonarda Ocasio LPN Unavailable Unavailable July Saucedo MD Unavailable [phone] Tay Hernandez MD Unavailable [phone] Tay Hernandez MD Unavailable [phone] Reason for Visit * Reason Onset Date Comments Call Back 03/17/2023 Appointment 03/17/2023 Encounter Details Date Type Department Care Team (Late st Contact Info) Description 03/17/[address] 9[facility] Clin 9A [place] [phone] Mann Lock MD [address] [place] [address] Call Back; Appointment Social History Tobacco Use Types Packs/Day [...] AM CDT 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 No / Unsure 03/17/2023 12:51 PM CDT documented as of this encounter Miscellaneous Notes * Telephone Encounter - Rosanna Yanez - 03/17/2023 10:28 AM CDT [facility] Call Center Phone Message May a detailed message be left on voicemail: yes Reason for Call: Other: pt was taking prednisone. Her last day was 03/13. She is concerned about her eye pressure and would like to get something set up just to have the pressure checked since it has drastically gone up when she has taken the prednisone before. Please review and contact pt to discussoptions. She said that she is available today and that would be easiest for her. Thank you Action Taken: Message routed to[facility] eye Travel Screening: Not Applicable documented in this encounter Plan of Treatment Upcoming Encounters Date Type Department Care Team (Late st Contact Info) Description 11/22/2024 10:00 AM CDT Lab [facility] [address] [place] 200 [facility] [place] [address] Tay Hernandez MD 420 [facility] 480 [place] [address] 01/11/2025 10:30 AM CDT Office Visit [facility] - [facility] 516 [facility] 9 Mi Clin 9A [place] [address] Mann Lock MD [address] [place] [address] 671355 05/23/2025 10:00 AM CDT Lab [facility] [place] [address] [place] [address] [place] 200 [facility] [place] [address] Tay Hernandez MD 420 [facility] 480 [place], [place] [address] 06/01/2025 2:00 PM CDT Oncology Visit [facility] 909 [place] [phone] Tay Hernandez MD 420 [facility] 480 [place], [place] [phone] documented as of this encounter Visit Diagnoses Not on filedocumented in this encounter Additional Health Concerns Assessment Noted Time PHQ-9 Depression Total Score: 10 021 7:28 AM DISTRICT RANGER documented as of this encounter Care Teams Ostomy Rn Relationship Specialty Start Date End Date Siobhan Easley [address] [place] [address] PCP - General Family Practice 06/08/17 Santiago Luz MD [address] [place] [address] Ophthalmology 03/11/18 Silvio Fish [facility] [address] [place] [address] Referring Physician Ophthalmology 03/11/18 Eduin Miguel MD 420 [place], [place] 504565 Ophthalmology 08/18/18 Lorie Tapia OD [address] 453255 Optometry 12/20/18 Raisa Contreras MD [address] [place] [address] 061725 Otolaryngology 04/24/21 Frieda Byrd MD [address] [place] [address] 674125 Rheumatology 04/24/21 Victoria Mills, SAHIL Specialty Agricultural Adviser Cardiology 04/30/21 05/22/24 Rj De La Rosa MD Assigned Heart and Vascular Provider 04/28/21 06/26/23 Mann Lock MD [address] [place] [address] 613325 Assigned Surgical Provider 04/21/21 Stefanie De Jesus, SAHIL Registered Nurse 06/05/21 05/29/23 Licha Luz DO Hematology & Oncology 07/01/21 05/15/24 Licha Luz DO Referring Physician Hematology & Oncology 07/01/2105/15/24 Reji Mack MD [address] [place] [address] 071465 Otolaryngology 07/01/21 Mann Lock MD [address] [place] [address] Ophthalmology 07/02/21 [place] [address] [place] [address] Assigned Cancer Care Provider 06/16/21 01/30/24 Stefanie De Jesus, SAHIL Specialty Agricultural Adviser Hematology & Oncology 05/30/23 05/15/24 Mary Jane Lancaster PA-C [address] [address] Assigned Cancer Care Provider 01/31/24 07/01/24 Tay Hernandez MD [address] [place] [address] MD Hematology 05/16/24 Leonarda Ocasio LPN Specialty Agricultural Adviser Hematology & Oncology 05/18/24 July Saucedo MD [address] [place] [address] Assigned Neuroscience Provider 06/01/24 Tay Hernandez MD [address] [address] Assigned Cancer Care Provider 07/02/24 Tay Hernandez MD [address] 055195 Physician Hematology 10/07/24 documented as of this encounter
--- OUTSIDE RECORDS SUMMARY | 2024-10-20 14:07 | XMS_ITS | Encounter Summary ---
Author Organization [place] Address [address] [place] [address] Care Team Providers Care Air Commodore Name Role Phone Siobhan Easley Primary Care Provider [phone] Santiago Luz MD Unavailable [phone] Silvio Fish Unavailable [phone] Eduin Miguel MD Unavailable Lorie Tapia OD Unavailable Raisa Contreras MD Unavailable Frieda Byrd MD Unavailable [phone] Victoria Mills RN Unavailable [phone] Mann Lock MD Unavailable Licha Luz DO Unavailable [phone] Licha Luz DO Unavailable [phone] Reji Mack MD Unavailable Mann Lock MD Unavailable Stefanie De Jesus RN Unavailable [phone] Mary Jane Lancaster PA-C Unavailable Tay Hernandez MD Unavailable [phone] Lenoarda Ocasio LPN Unavailable Unavailable July Saucedo MD Unavailable [phone] Tay Hernandez MD Unavailable [phone] Tay Hernandez MD Unavailable + Encounter Details Date Type Department Care Team (Late st Contact Info) Description 05/07/2024 [facility] [address] [place] [address] July Saucedo MD [address] [place] [address] Social History Tobacco Use Types Packs/Day [...] AM CDT 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 Gender Identity Female 04/11/2021 7:42 AM CDT Sexual Orientation Straight 04/11/2021 7: 42 AM CDT documented as of this encounter Plan of Treatment Upcoming Encounters Date Type Department Care Team (Late st Contact Info) Description 11/22/2024 10:00 AM CDT Lab [place] [id number] [place] [address] [place] 200 [facility] [place] [address] Tay Hernandez MD [address] [place] [address] 01/11/2025 10:30 AM CDT Office Visit [facility] - [address] 9 Fl Clin 9A [place] [address] Mann Lock MD [address] [place] [address] 05/23/2025 10:00 AM CDT Lab [address] [place] 200 [facility] [place] [address] Tay Hernandez MD [address] [place] [address] 06/01/2025 2:00 PM CDT Oncology Visit [facility] 909 [place] [phone] Tay Hernandez MD [address] [place] [address] documented as of this encounter Visit Diagnoses Not on filedocumented in this encounter Additional Health Concerns Assessment Noted Time PHQ-9 Depression Total Score: 10 021 7:28 AM MOLD CHIPPER documented as of this encounter Care Teams Air Commodore Relationship Specialty Start Date End Date SilvanotalatizzySiobhan [address] [place] [address] PCP - General Family Practice 06/08/17 Santiago Luz MD 1400 [place] [address] Ophthalmology 03/11/18 Silvio Fish [facility] 2019 [facility] [place] [address] Referring Physician Ophthalmology 03/11/18 Eduin Miguel MD [address] [place] [address] 724485 Ophthalmology 08/18/18 Lorie Tapia OD [address] [place] [address] 832895 Optometry 12/20/18 Raisa Contreras MD [address] [place] [address] 533135 Otolaryngology 04/24/21 Frieda Byrd MD [address] [place] [address] 884425 Rheumatology 04/24/21 Victoria Mills, RN Specialty Feed Crusher Cardiology 04/30/21 05/22/24 Mann Lock MD [address] [place] [address] Assigned Surgical Provider 04/21/21 Licha Luz DO [address] [place] [address] 524475 Hematology & Oncology 07/01/21 05/15/24 Licha Luz DO [address] [place] [address] Referring Physician Hematology & Oncology 07/01/2105/15/24 Reji Mack MD [address] [place] [address] Otolaryngology 07/01/21 Mann Lock MD [address] [place] [address] Ophthalmology 07/02/21 Stefanie De Jesus RN Specialty Feed Crusher Hematology & Oncology 05/30/23 05/15/24 Mary Jane Lancaster PA-C [address] 506185 Assigned Cancer Care Provider 01/31/24 07/01/24 Tay Hernandez MD [address] 353165 Hematology 05/16/24 Leonarda Ocasio LPN Specialty Feed Crusher Hematology & Oncology 05/18/24 July Saucedo MD [address] [place] [address] 473785 Assigned Neuroscience Provider 06/01/24 Tay Hernandez MD [address] 981765 Assigned Cancer Care Provider 07/02/24 Tay Hernandez MD [address] 242385 Physician Hematology 10/07/24 documented as of this encounter
--- OUTSIDE RECORDS SUMMARY | 2024-10-20 14:07 | XMS_ITS | Encounter Summary ---
Author Organization [place] Address [address] [place] [address] Care Team Providers Care Rn Palliative Care Name Role Phone Siobhan Easley Primary Care Provider [phone] Santiago Luz MD Unavailable [phone] Silvio Fish Unavailable [phone] Eduin Miguel MD Unavailable Lorie Tapia OD Unavailable Raisa Contreras MD Unavailable Frieda Byrd MD Unavailable [phone] Victoria Mills RN Unavailable [phone] Mann Lock MD Unavailable Licha Luz DO Unavailable [phone] Licha Luz DO Unavailable [phone] Reji Mack MD Unavailable [phone] Mann Lock MD Unavailable Stefanie De Jesus RN Unavailable [phone] Mary Jane Lancaster PA-C Unavailable Tay Hernandez MD Unavailable Leonarda Ocasio LPN Unavailable Unavailable July Saucedo MD Unavailable [phone] Tay Hernandez MD Unavailable [phone] Tay Hernandez MD Unavailable [phone] Reason for Referral * Consultation (Routine: Next available opening) - Pending Review Specialty Diagnoses / Procedures Referred By Contac t Referred To Contact Diagnoses Intermediate uveitis of both eyes Mann Lock MD [address] [place] [address] Phone: tel: fax: Referral ID Status Reason Start Date Expiration Date V isits Requested Visits Authorized [id number] Pending Review 03/04/2024 03/04/2025 1 1 Question Answer Reason for Referral: Epilepsy/Seizures Scheduling Instructions: [facility] will call you to coordinate your care as prescribed by your provider. If you don't hear from a parts sales representative within 2 business days, please call . Comments Please be aware that coverage of these services is subject to the terms and limitations of your health insurance plan. Call member services at your health plan with any benefit or coverage questions. [facility] will call you to coordinate your care as prescribed by your provider. If you don't hear from a parts sales representative within 2 business days, please call . 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 Gender Identity Female 04/11/2021 7:42 AM CDT Sexual Orientation Straight 04/11/2021 7: 42 AM CDT documented as of this encounter Plan of Treatment Upcoming Encounters Date Type Department Care Team (Late st Contact Info) Description 11/22/2024 10:00 AM CDT Lab [facility] [address] [place] 200 [facility] [place] [address] Tay Hernandez MD 420 [facility] 480 [place], [place] 902855 01/11/2025 10:30 AM CDT Office Visit [facility] Eye [facility] - [place] 123376 [facility] 9th Ok Clin 9A [place] [address] Mann Lock MD 516 [place], [place] 639395 05/23/2025 10:00 AM CDT Lab [facility] [place] [address] [place] [address] 200 [facility] [place] [address] Tay Hernandez MD 420 [facility] 480 [place], [place] 923035 06/01/2025 2:00 PM CDT Oncology Visit [facility] 909 [place] [address] Tay Hernandez MD [address] 832915 Scheduled Referrals Name Type Priority Associated Diagnoses Orde r Schedule Adult Neurology Clinical Biostatistician Referral Referral Routine: Next available opening Intermediate uveitis of both eyes Expected: 03/04/2024 (Approximate), Expires: 03/04/2025 documented as of this encounter Visit Diagnoses Diagnosis Intermediate uveitis of both eyes- Primary documented in this encounter Additional Health Concerns Assessment Noted Time PHQ-9 Depression Total Score: 10 021 7:28 AM HAND FRAME SURGICAL ELASTIC KNITTER documented as of this encounter Care Teams Rn Palliative Care Relationship Specialty Start Date End Date Siobhan Easley [address] [place] [address] PCP - General Family Practice 06/08/17 Santiago Luz MD [address] [place] [address] Ophthalmology 03/11/18 Silvio Fish [facility] [address] [address] Referring Physician Ophthalmology 03/11/18 Eduin Miguel MD 420 [place], [place] 019615 Ophthalmology 08/18/18 Lorie Tapia OD 420 [facility] 493 [place], [place] 377675 Optometry 12/20/18 Raisa Contreras MD [address] [place], [place] 237085 Otolaryngology 04/24/21 Frieda Byrd MD 500 [place], [place] 218555 Rheumatology 04/24/21 Victoria Mills, RN Specialty Ground Intelligence Officer Cardiology 04/30/21 05/22/24 Mann Lock MD [address] [place] [address] 453215 Assigned Surgical Provider 04/21/21 Licha Luz DO [address] [place] [address] 946795 Hematology & Oncology 07/01/21 05/15/24 Licha Luz DO [address] [place] [address] 311005 Referring Physician Hematology & Oncology 07/01/2105/15/24 Reji Mack MD 500 [place], [place] 583645 Otolaryngology 07/01/21 Mann Lock MD [address] [place] [address] 393065 Ophthalmology 07/02/21 Stefanie De Jesus, RN Specialty Ground Intelligence Officer Hematology & Oncology 05/30/23 05/15/24 Mary Jane Lancaster PA-C 420 [facility] 480 [place] [address] Assigned Cancer Care Provider 01/31/24 07/01/24 Tay Hernandez MD 420 [facility] 480 [place], [place] 800955 Hematology 05/16/24 Leonarda Ocasio LPN Specialty Ground Intelligence Officer Hematology & Oncology 05/18/24 July Saucedo MD 515 [place], [place] 469375 Assigned Neuroscience Provider 06/01/24 Tay Hernandez MD 420 [facility] 480 [place], [place] 334215 Assigned Cancer Care Provider 07/02/24 Tay Hernandez MD [address] 624125 Physician Hematology 10/07/24 documented as of this encounter
--- OUTSIDE RECORDS SUMMARY | 2024-10-20 14:07 | XMS_ITS | Encounter Summary ---
Author Organization [facility] Address [address] [place] [address] Care Team Providers Care Retail Operations Manager Name Role Phone Siobhan Easley Primary Care Provider [phone] Santiago Luz MD Unavailable [phone] Silvio Fish Unavailable [phone] Eduin Miguel MD Unavailable [phone] Lorie Tapia OD Unavailable Eduin Miguel MD Unavailable Frieda Byrd MD Unavailable [phone] Ava Up RN Unavailable [phone] Isabella Benavidez RN Unavailable Angelita Zamora RN Unavailable Raisa Contreras MD Unavailable Frieda Byrd MD Unavailable Victoria Mills RN Unavailable [phone] Rj De La Rosa MD Unavailable [phone] Mann Lock MD Unavailable [phone] Stefanie De Jesus RN Unavailable [phone] Sukh, Licha M DO Unavailable [phone] Licha Luz DO Unavailable [phone] Reji Mack MD Unavailable Mann Lock MD Unavailable [phone] Licha Luz DO Unavailable [phone] Stefanie De Jesus RN Unavailable [phone] Mary Jane Lancaster PA-C Unavailable [phone] Tay Hernandez MD Unavailable [phone] Leonarda Ocasio LPN Unavailable Unavailable July Saucedo MD Unavailable [phone] Tay Hernandez MD Unavailable [phone] Tay Hernandez MD Unavailable [phone] Encounter Details Date Type Department Care Team (Late st Contact Info) Description 02/20/2021 MyC Medical Advice [facility] Eye [address] 9[facility] 9A [place] [address] Mann Lock MD [address] [place] [address] 394705 Ocular hypertension, bilateral (Primary Dx) Social History Tobacco Use Types [...] AM CDT 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 No / Unsure 02/22/2021 1:14 PM CDT documented as of this encounter Plan of Treatment Upcoming Encounters Date Type Department Care Team (Late st Contact Info) Description 11/22/2024 10:00 AM CDT Lab [address] [place] 200 [facility] [place] [address] Tay Hernandez MD [address] [place] [address] 01/11/2025 10:30 AM CDT Office Visit [facility] Clinic - [address] 9[facility] 9A [place] [address] Mann Lock MD [address] [place] [address] 282535 05/23/2025 10:00 AM CDT Lab [address] [place] 200 [facility] [place] [address] Tay Hernandez MD [address] [place] [address] 06/01/2025 2:00 PM CDT Oncology Visit [facility] 909 [place] [address] Tay Hernandez MD [address] [place] [address] 464715 documented as of this encounter Visit Diagnoses Diagnosis Ocular hypertension, bilateral- Primary Borderline glaucoma with ocular hypertension documented in this encounter Additional Health Concerns Assessment Noted Time PHQ-9 Depression Total Score: 13 01/22/2 021 10:19 AM CDT documented as of this encounter Care Teams Retail Operations Manager Relationship Specialty Start Date End Date Siobhan Easley: [phone] [address] [place] [address] PCP - General Family Practice 06/08/17 Santiago Luz MD [address] [place] [address] Ophthalmology 03/11/18 Silvio Fish [facility] 2019 [facility] [place] [address] Referring Physician Ophthalmology 03/11/18 Eduin Miguel MD [address] [place] [address] 257985 Ophthalmology 08/18/18 Lorie Tapia OD [address] [place] [address] 297115 Optometry 12/20/18 Eduin Miguel MD [address] [place] [address] 426515 Assigned Surgical Provider 06/01/20 04/20/21 Frieda Byrd MD [address] [place] [address] 215775 Assigned Rheumatology Provider 03/10/21 11/21/22 Ava Up RN Specialty Templer Head Cardiology 04/22/21 04/29/21 Isabella Benavidez RN Specialty Templer Head Cardiology 04/22/21 04/29/21 Angelita Zamora, RN Specialty Templer Head Cardiology 04/22/21 04/29/21 Raisa Contreras MD [address] [place] [address] Otolaryngology 04/24/21 Frieda Byrd MD [address] [place] [address] Rheumatology 04/24/21 Victoria Mills, SAHIL Specialty Templer Head Cardiology 04/30/21 05/22/24 Rj De La Rosa MD Assigned Heart and Vascular Provider 04/28/21 06/26/23 Mann Lock MD [address] [place] [address] Assigned Surgical Provider 04/21/21 Stefanie De Jesus RN Registered Nurse 06/05/21 05/29/23 Licha Luz DO Hematology & Oncology 07/01/21 05/15/24 Licha Luz DO Referring Physician Hematology & Oncology 07/01/2105/15/24 Reji Mack MD [address] [place] [address] Otolaryngology 07/01/21 Mann Lock MD 516 [place] [address] Ophthalmology 07/02/21 [place] [address] [place] [address] Assigned Cancer Care Provider 06/16/21 01/30/24 Stefanie De eJsus, SAHIL Specialty Templer Head Hematology & Oncology 05/30/23 05/15/24 Mary Jane Lancaster PA-C [address] [address] Assigned Cancer Care Provider 01/31/24 07/01/24 Tay Hernandez MD [address] [place] [address] Hematology 05/16/24 Leonarda Ocasio LPN Specialty Templer Head Hematology & Oncology 05/18/24 July Saucedo MD [address] [place] [address] Assigned Neuroscience Provider 06/01/24 Tay Hernandez MD [address] [place] [address] Assigned Cancer Care Provider 07/02/24 Tay Hernandez MD [address] [place] [address] Physician Hematology 10/07/24 documented as of this encounter
--- OUTSIDE RECORDS SUMMARY | 2024-10-20 14:07 | XMS_ITS | Encounter Summary ---
Author Organization [place] Address [address] [place] [address] Care Team Providers Care Manager Wastewater Name Role Phone Siobhan Easley Primary Care Provider [phone] Santiago Luz MD Unavailable [phone] Silvio Fish Unavailable [phone] Eduin Miguel MD Unavailable [phone] Lorie Tapia OD Unavailable Eduin Miguel MD Unavailable Frieda Byrd MD Unavailable Ava Up RN Unavailable [phone] Isabella Benavidez RN Unavailable Angelita Zamora RN Unavailable Raisa Contreras MD Unavailable Frieda Byrd MD Unavailable +[phone] Victoria Mills RN Unavailable [phone] Rj De La Rosa MD Unavailable +[phone] Mann Lock MD Unavailable Stefanie De Jesus RN Unavailable +[phone] Licha Luz DO Unavailable [phone] Licha Luz DO Unavailable [phone] Reji Mack MD Unavailable [phone] Mann Lock MD Unavailable +[phone] Licha Luz DO Unavailable [phone] Stefanie De Jesus RN Unavailable [phone] Mary Jane Lancaster PA-C Unavailable [phone] Tay Hernandez MD Unavailable [phone] Leonarda Ocasio LPN Unavailable Unavailable July Saucedo MD Unavailable +[phone] Tay Hernandez MD Unavailable [phone] Tay Hernandez MD Unavailable [phone] Encounter Details Date Type Department Care Team (Late st Contact Info) Description 03/14/2021 [facility] Medical Advice [facility] [address] [address] Frieda Byrd MD [address] [place] [address] Social History Tobacco Use Types Packs/Day [...] AM CDT 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 No / Unsure 03/15/2021 9:20 AM CDT documented as of this encounter Plan of Treatment Upcoming Encounters Date Type Department Care Team (Late st Contact Info) Description 11/22/2024 10:00 AM CDT Lab [address] NAVARRO 200 [facility] [place] [address] Tay Hernandez MD [address] [place] [address] 01/11/2025 10:30 AM CDT Office Visit [facility] [address] [facility] 9[address] [place] [address] Mann Lock MD [address] [place] [address] 497455 05/23/2025 10:00 AM CDT Lab [address] NAVARRO 200 [facility] [place] [address] Tay Hernandez MD [address] [place] [address] 06/01/2025 2:00 PM CDT Oncology Visit [facility] 909 [place] [address] Tay Hernandez MD [address] [place] [address] documented as of this encounter Visit Diagnoses Not on filedocumented in this encounter Additional Health Concerns Assessment Noted Time PHQ-9 Depression Total Score: 13 021 10:19 AM CDT documented as of this encounter Care Teams Manager Wastewater Relationship Specialty Start Date End Date Siobhan Easley [address] [place] [address] PCP - General Family Practice 06/08/17 Santiago Luz MD [address] [place] [address] Ophthalmology 03/11/18 Silvio Fish [facility] [address] [facility] [place] [address] Referring Physician Ophthalmology 03/11/18 Eduin Miguel MD 420 [place] [address] Ophthalmology 08/18/18 Lorie Tapia OD [address] [id number] Optometry 12/20/18 Eduin Miguel MD 420 [place] [address] Assigned Surgical Provider 06/01/20 04/20/21 Frieda Byrd MD [address] [place] [address] [id number] Assigned Rheumatology Provider 03/10/21 11/21/22 Ava Up, SAHIL Specialty Soap Drier Operator Cardiology 04/22/21 04/29/21 Isabella Benavidez, SAHIL Specialty Soap Drier Operator Cardiology 04/22/21 04/29/21 Angelita Zamora RN Specialty Soap Drier Operator Cardiology 04/22/21 04/29/21 Raisa Contreras MD [address] [place] [address] 748975 Otolaryngology 04/24/21 Frieda Byrd MD 500 [place], [place] 957785 Rheumatology 04/24/21 Victoria Mills, SAHIL Specialty Soap Drier Operator Cardiology 04/30/21 05/22/24 Rj De La Rosa MD Assigned Heart and Vascular Provider 04/28/21 06/26/23 Mann Lock MD [address] [place] [address] [id number] Assigned Surgical Provider 04/21/21 Stefanie De Jesus RN Registered Nurse 06/05/21 05/29/23 Licha Luz DO Hematology & Oncology 07/01/21 05/15/24 Licha Luz DO Referring Physician Hematology & Oncology 07/01/2105/15/24 Reji Mack MD [address] [place] [address] 554525 Otolaryngology 07/01/21 Mann Lock MD [address] [place] [address] 857375 Ophthalmology 07/02/21 [place] [address] [place] [address] Assigned Cancer Care Provider 06/16/21 01/30/24 Stefanie De Jesus, SAHIL Specialty Soap Drier Operator Hematology & Oncology 05/30/23 05/15/24 Mary Jane Lancaster PA-C [address] [facility] 480 [place] [address] Assigned Cancer Care Provider 01/31/24 07/01/24 Tay Hernandez MD [address] [facility] 480 [place], [place] 255615 Hematology 05/16/24 Leonarda Ocasio LPN Specialty Soap Drier Operator Hematology & Oncology 05/18/24 July Saucedo MD [address] [place], [place] 344255 Assigned Neuroscience Provider 06/01/24 Tay Hernandez MD [address] [facility] 480 [place] [address] Assigned Cancer Care Provider 07/02/24 Tay Hernandez MD [address] [facility] 480 [place], [place] 337415 Physician Hematology 10/07/24 documented as of this encounter
--- OUTSIDE RECORDS SUMMARY | 2024-10-20 14:07 | XMS_ITS | Encounter Summary ---
Author Organization [place] Address [address] [place] [address] Care Team Providers Care Museum Security Chief Name Role Phone Siobhan Easley Primary Care Provider [phone] Santiago Luz MD Unavailable [phone] Silvio Fish Unavailable [phone] Eduin Miguel MD Unavailable Lorie Tapia OD Unavailable Raisa Contreras MD Unavailable Frieda Byrd MD Unavailable Victoria Mills RN Unavailable [phone] Mann Lock MD Unavailable [phone] Licha Luz DO Unavailable [phone] Licha Luz DO Unavailable [phone] Reji Mack MD Unavailable [phone] Mann Lock MD Unavailable Stefanie De Jesus RN Unavailable [phone] Mary Jane Lancaster PA-C Unavailable Tay Hernandez MD Unavailable Leonarda Ocasio LPN Unavailable Unavailable July Saucedo MD Unavailable [phone] Tay Hernandez MD Unavailable [phone] Tay Hernandez MD Unavailable [phone] Encounter Details Date Type Department Care Team (Late st Contact Info) Description 04/20/2024 MyC Medical Advice 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 Gender Identity Female 04/11/2021 7:42 AM CDT Sexual Orientation Straight 04/11/2021 7: 42 AM CDT documented as of this encounter Plan of Treatment Upcoming Encounters Date Type Department Care Team (Late st Contact Info) Description 11/22/2024 10:00 AM CDT [address] [place] 200 [facility] [place] [place] [address] Tay Hernandez MD [address] [address] 01/11/2025 10:30 AM CDT Office Visit [facility] 516 [facility] 9 Fl Clin 9A [place] [address] Mann Lock MD [address] [place] [address] 05/23/2025 10:00 AM CDT Lab [facility] [address] NAVARRO 200 [facility] [place] [address] Tay Hernandez MD [address] [place] [address] 06/01/2025 2:00 PM CDT Oncology Visit [facility] 909 [place] [address] Tay Hernandez MD [address] [place] [address] documented as of this encounter Visit Diagnoses Not on filedocumented in this encounter Additional Health Concerns Assessment Noted Time PHQ-9 Depression Total Score: 10 021 7:28 AM VETERINARY DENTIST documented as of this encounter Care Teams Museum Security Chief Relationship Specialty Start Date End Date Siobhan Easley [address] [place] [address] PCP - General Family Practice 06/08/17 Santiago Luz MD [address] [place] [address] Ophthalmology 03/11/18 Silvio Fish [facility] [address] [place] [address] Referring Physician Ophthalmology 03/11/18 Eduin Miguel MD 420 [place], [place] 678535 Ophthalmology 08/18/18 Lorie Tapia, OD [address] 934685 Optometry 12/20/18 Raisa Contreras MD [address] [place] [address] Otolaryngology 04/24/21 Frieda Bydr MD [address] [place] [address] 992675 Rheumatology 04/24/21 Victoria Mills, RN Specialty Hydroelectric Operator Cardiology 04/30/21 05/22/24 Mann Lock MD [address] [place] [address] 051705 Assigned Surgical Provider 04/21/21 Licha Luz DO [address] [place] [address] [phone] Hematology & Oncology 07/01/21 05/15/24 Licha Luz DO [address] [place] [address] 570985 Referring Physician Hematology & Oncology 07/01/2105/15/24 Reji Mack MD [address] [place] [address] 713455 Otolaryngology 07/01/21 Mann Lokc MD [address] [place] [address] MD Ophthalmology 07/02/21 Stefanie De Jesus, RN Specialty Hydroelectric Operator Hematology & Oncology 05/30/23 05/15/24 Mary Jane Lancaster PA-C [address] [address] Assigned Cancer Care Provider 01/31/24 07/01/24 Tay Hernandez MD [address] [place] [address] 711835 Hematology 05/16/24 Leonarda Ocasio LPN Specialty Hydroelectric Operator Hematology & Oncology 05/18/24 July Saucedo MD [address] [place] [address] [phone] Assigned Neuroscience Provider 06/01/24 Tay Hernandez MD [address] [address] Assigned Cancer Care Provider 07/02/24 Tay Hernandez MD [address] 758305 Physician Hematology 10/07/24 documented as of this encounter
--- OUTSIDE RECORDS SUMMARY | 2024-10-20 14:07 | XMS_ITS | Encounter Summary ---
Author Organization [place] Address [address] [place] [address] Care Team Providers Care Citrus Peeler Name Role Phone Siobhan Easley Primary Care Provider [phone] Santiago Luz MD Unavailable [phone] Silvio Fish Unavailable [phone] Eduin Miguel MD Unavailable [phone] Lorie Tapia OD Unavailable [phone] Raisa Conrteras MD Unavailable Frieda Byrd MD Unavailable [phone] Victoria Mills RN Unavailable [phone] Mann Lock MD Unavailable [phone] Reji Mack MD Unavailable [phone] Mann Lock MD Unavailable +[phone] Mary Jane Lancaster PA-C Unavailable [phone] Tay Hernandez MD Unavailable [phone] Leonarda Ocasio LPN Unavailable Unavailable July Saucedo MD Unavailable [phone] Tay Hernandez MD Unavailable [phone] Tay Hernandez MD Unavailable [phone] Encounter Details Date Type Department Care Team (Late st Contact Info) Description 05/19/2024 MyC Medical Advice [facility] [address] [place] [address] Tay Hernandez MD 420 [facility] 480 [place], [place] 947395 Social History Tobacco Use Types Packs/Day Years [...] AM CDT 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 [place] [address] Tay Hernandez MD [address] [place] [address] 01/11/2025 10:30 AM CDT Office [facility] [address] 9th Fl Clin 9A [place] [address] Mann Lock MD [address] [place] [address] 05/23/2025 10:00 AM CDT Lab [facility] [place] [address] [place] [address] 200 [facility] [place] [address] Tay Hernandez MD [address] [place] [address] 06/01/2025 2:00 PM CDT Oncology Visit [facility] 909 [place] [address] Tay Hernandez MD [address] [place] [address] documented as of this encounter Visit Diagnoses Not on filedocumented in this encounter Additional Health Concerns Assessment Noted Time PHQ-9 Depression Total Score: 10 021 7:28 AM ADDICTION NURSE documented as of this encounter Care Teams Citrus Peeler Relationship Specialty Start Date End Date Siobhan Easley [address] [place] [address] PCP - General Family Practice 06/08/17 Santiago Luz MD [address] [facility] [place] [address] Ophthalmology 03/11/[address] [facility] [address] [place] [address] Referring Physician Ophthalmology 03/11/18 Eduin Miguel MD 420 [place], [place] 350905 Ophthalmology 08/18/18 Lorie Tapia, OD [address] 168625 Optometry 12/20/18 Raisa Contreras MD [address] [place] [address] 922305 Otolaryngology 04/24/21 Frieda Byrd MD [address] [place] [address] 966245 Rheumatology 04/24/21 Victoria Mills, SAHIL Specialty Adult School Counselor Cardiology 04/30/21 05/22/24 Mann Lock MD [address] [place] [address] 247065 Assigned Surgical Provider 04/21/21 Reji Mack MD [address] [place] [address] 785325 Otolaryngology 07/01/21 Mann Lock MD [address] [place] [address] 818915 Ophthalmology 07/02/21 Mary Jane Lancaster PA-C 420 [facility] 480 [place] [address] Assigned Cancer Care Provider 01/31/24 07/01/24 Tay Hernandez MD [address] [address] Hematology 05/16/24 Leonarda Ocasio LPN Specialty Adult School Counselor Hematology & Oncology 05/18/24 July Saucedo MD [address] [place] [address] Assigned Neuroscience Provider 06/01/24 Tay Hernandez MD [address] [address] Assigned Cancer Care Provider 07/02/24 Tay Hernandez MD [address] [address] Physician Hematology 10/07/24 documented as of this encounter
--- OUTSIDE RECORDS SUMMARY | 2024-10-20 14:08 | XMS_ITS | Encounter Summary ---
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 Name Role Phone Siobhan Easley Primary Care Provider [phone] Santiago Luz MD Unavailable [phone] Silvio Fish Unavailable [phone] Eduin Miguel MD Unavailable [phone] Lorie Tapia OD Unavailable Eduin Miguel MD Unavailable Frieda Byrd MD Unavailable Ava Up RN Unavailable [phone] Isabella Benavidez RN Unavailable Angelita Zamora RN Unavailable Raisa Contreras MD Unavailable Frieda Byrd MD Unavailable Victoria Mills RN Unavailable [phone] Rj De La Rosa MD Unavailable +[phone] Mann Lock MD Unavailable Stefanie De Jesus RN Unavailable [phone] Licha Luz DO Unavailable [phone] Licha Luz DO Unavailable [phone] Reji Mack MD Unavailable [phone] Mann Lock MD Unavailable [phone] Licha Luz DO Unavailable [phone] Stefanie De Jesus RN Unavailable [phone] Mary Jane Lancaster PA-C Unavailable [phone] Tay Hernandez MD Unavailable [phone] Leonarda Ocasio LPN Unavailable Unavailable July Saucedo MD Unavailable [phone] Tay Hernandez MD Unavailable [phone] Tay Hernandez MD Unavailable [phone] Encounter Details Date Type Department Care Team (Late st Contact Info) Description 06/16/2017 MyC Medical Advice [facility] Ear Nose and Throat [address] [facility] SE 4th [place] [address] Lore Padgett MD 420 [facility] 195 [place] [address] Social History Tobacco Use Types Packs/Day Years Used Date Smoking Tobacco: Former Cigarettes 2 10 1 09/10/1966 - 07/10/1977 Smokeless Tobacco: Never Alcohol Use Standard Drinks/Week Comments Yes 0 (1 standard drink = 0.6 oz pur e alcohol) Comments Unknown Sex and Gender Information Value Date Recorded Sex Assigned at Female 04/11/2021 7:42 AM CDT 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 Gender Identity Female 04/11/2021 7:42 AM CDT Sexual Orientation Straight 04/11/2021 7: 42 AM CDT documented as of this encounter Plan of Treatment Upcoming Encounters Date Type Department Care Team (Late Contact Info) Description 11/22/2024 10:00 AM CDT Lab [address] NAV[place]O 200 [facility] [place] [address] Tay Hernandez MD 420 [facility] 480 [place] [address] 01/11/2025 10:30 AM CDT Office Visit [facility] [address] [facility] [address] 9 Fl Clin 9A [place] [address] Mann Lock MD [address] [place] [address] 05/23/2025 10:00 AM CDT Lab [facility] [place] [address] [place] [address] [place] 200 [facility] [place] [address] Tay Hernandez MD [address] [place] [address] 06/01/2025 2:00 PM CDT Oncology Visit [facility] 909 [place] [address] Tay Hernandez MD [address] [place] [address] documented as of this encounter Visit Diagnoses Not on filedocumented in this encounter Care Teams Fish Frog Or Oyster Farmer Relationship Specialty Start Date End Date Siobhan Easley [address] [place] [address] PCP - General Family Practice 06/08/17 Santiago Luz MD [address] [place] [address] Ophthalmology 03/11/18 Silvio Fish [facility] [address] [place] [address] Referring Physician Ophthalmology 03/11/18 Eduin Miguel MD [address] [place] [address] [phone] MD Ophthalmology 08/18/18 Lorie Tapia OD [address] [place] [address] 691965 Optometry 12/20/18 Eduin Miguel MD [address] [place] [address] [phone] Assigned Surgical Provider 06/01/20 04/20/21 Frieda Byrd MD [address] [place] [address] 755825 Assigned Rheumatology Provider 03/10/21 11/21/22 Ava Up RN Specialty Universal Winding Machine Operator Cardiology 04/22/21 04/29/21 Isabella Benavidez RN Specialty Universal Winding Machine Operator Cardiology 04/22/21 04/29/21 Angelita Zamora, SAHIL Specialty Universal Winding Machine Operator Cardiology 04/22/21 04/29/21 Raisa Contreras MD [address] [place] [address] 333395 Otolaryngology 04/24/21 Frieda Byrd MD [address] [place] [address] 197715 Rheumatology 04/24/21 Victoria Mills, RN Specialty Universal Winding Machine Operator Cardiology 04/30/21 05/22/24 Rj De La Rosa MD Assigned Heart and Vascular Provider 04/28/21 06/26/23 Mann Lock MD [address] [place] [address] 816075 Assigned Surgical Provider 04/21/21 Stefanie De Jesus RN Registered Nurse 06/05/21 05/29/23 Licha uLz DO Hematology & Oncology 07/01/21 05/15/24 Licha Luz DO Referring Physician Hematology & Oncology 07/01/2105/15/24 Reji Mack MD [address] [place] [address] 295445 Otolaryngology 07/01/21 Mann Lock MD [address] [place] [address] 221025 Ophthalmology 07/02/21 [place] [address] [place], [place] 341207 Assigned Cancer Care Provider 06/16/21 01/30/24 Stefanie De Jesus RN Specialty Universal Winding Machine Operator Hematology & Oncology 05/30/23 05/15/24 Mary Jane Lancaster PA-C [address] [address] Assigned Cancer Care Provider 01/31/24 07/01/24 Tay Hernandez MD [address] [address] Hematology 05/16/24 Leonarda Ocasio LPN Specialty Universal Winding Machine Operator Hematology & Oncology 05/18/24 July Saucedo MD 515 [place] [address] Assigned Neuroscience Provider 06/01/24 Tay Hernandez MD [address] [address] Assigned Cancer Care Provider 07/02/24 Tay Hernandez MD [address] [address] Physician Hematology 10/07/24 documented as of this encounter
== END 2024-10-20 14:41 | disposition home or self-care (01) ==
LOC: ED 14:01
PROVIDERS: Emergency Provider Emergency Medicine Emergency Medical Services; PCP Family Medicine
DX: R55 Syncope and collapse (principal)
CPT/HCPCS: 93246; 99283; 99284

== ENCOUNTER 2025-05-09 12:27 | Outpatient (CLI) | payer BC, SELFPAY | END 2025-05-09 12:28 | disposition home or self-care (01) | LOC: INJ CL 12:27 | PROVIDERS: PCP Family Medicine; Visit Provider Family Medicine | DX: M54.16 Radiculopathy, lumbar region (principal); M51.369 Other intervertebral disc degeneration, lumbar region without mention of lumbar back pain or lower extremity pain | CPT/HCPCS: 64483; J1100 ==